=== PATIENT | female | born 1940 | race Caucasian/White ===

== ENCOUNTER → 2019-08-06 08:33 | Outpatient (BNVA) | payer MEDICARE, OTHER, SELFPAY | PROVIDERS: Family Provider Nurse Practitioner Family; PCP Nurse Practitioner Family; Visit Provider Family Medicine | DX: N39.0 Urinary tract infection, site not specified (principal) | CPT/HCPCS: 81003 ==

== ENCOUNTER 2019-08-07 17:17 | Emergency (ER) | payer MEDICARE, OTHER, SELFPAY ==
[2019-08-07 17:37] VITALS: BP 175/106; PULSE 96; RESP 16; TEMP 36.7; O2SAT 98; BMI 25.3
[2019-08-07 18:09] LABS: Basophils % 0.6 %; Eosinophils # 0.1 10^3/uL (0.0-0.8); Hematocrit 37.5 % (37.0-47.0); Hemoglobin 11.9 g/dL (11.5-15.3); Lymphocytes # 2.5 10^3/uL (0.8-4.8); Lymphocytes % 35.3 %; Mean Corpuscular HGB Conc 31.7 g/dL (30.0-36.0); Mean Corpuscular Hemoglobin 29.5 pg (28.0-34.0); Mean Corpuscular Volume 92.8 fL (81-99); Mean Platelet Volume 9.5 fL (7.4-10.4); Monocytes # 0.7 10^3/uL (0.2-0.9); Monocytes % 9.5 %; Neutrophils # 3.7 10^3/uL (1.8-7.7); Neutrophils % 52.5 %; Nucleated Red Blood Cells % 0 %; Platelet Count 374 10^3/cmm (130-400); Red Blood Count 4.04 10^6/uL (4.1-5.3); Red Cell Distribution Width 13.1 % (12.1-15.1)
[2019-08-07 18:28] LABS: Anion Gap 18.2 (5-19); Blood Urea Nitrogen 13 mg/dL (8-23); Carbon Dioxide 22 mmol/L (22-29); Chloride 97 mmol/L (98-107); Potassium 4.2 mmol/L (3.5-5.1); Sodium 133 mmol/L (136-145)
[2019-08-07 18:29] LABS: Alanine Aminotransferase 11 U/L (0-33); Albumin Level 4.8 g/dL (3.5-5.2); Alkaline Phosphatase 79 IU/L (35-105); Aspartate Amino Transferase 19 U/L (0-32); Calcium 10.3 mg/Dl (8.8-10.2); Globulin 3.1 g/dL (1.3-4.6); Glucose 115 mg/dL (74-106); Total Bilirubin 0.2 mg/dL (0.15-1.2); Total Protein 7.9 g/dL (6.6-8.7)
--- NOTE | 2019-08-07 20:47 | ED_ITS ---
Entered by Loren Wilson, acting as scribe for Tamir Jones MD, [facility] Aug 07, 2019 17:17 HPI - Abdominal Pain General: Chief Complaint: Abdominal Pain Stated Complaint: adb pains, can't sleep Time Seen by Provider: 08/07/19 20:47 Source: patient Mode of arrival: ambulatory Limitations: no limitations History of Present Illness: HPI narrative: 78 yo Female presents to ED with complaint of abdominal pain. Pt states she feels like she is bloated and swollen. Pt's family states that the patient has been here 3-4 times recently for similar symptoms. Pt's family states that the patient had a hysterectomy, mesh, and a sling and has had multiple infections since the surgery. Pt's family states that the patient had high blood pressure the last time she was here and her blood pressure was high again today. MD elicited complaint: abdominal pain Onset (ago): day(s) Pain Consistency: intermittent Location: RLQ Pain scale (0-10): 8 Quality: sharp and other (bloating) Exacerbating factors: nothing Relieving factors: nothing Context: recent surgery/procedure Associated Symptoms: Reports bloating; Denies chills, diarrhea, fever(s), nausea and vomiting Review of Systems General: Reports: 10 or more systems reviewed and unremarkable except in HPI and below Const: Denies: fever or chills GI: Reports: abdominal pain and bloating; Denies: nausea, vomiting or diarrhea PFSH ED PFSH: Statuses (acute, chronic, etc) shown below reflect problem list status as previously entered and may not be historically accurate Medical History (Updated 08/07/19 @ 23:31 by Tamir Jones MD, [facility]) Atrophy, vulva (Acute) Bladder disease (Acute) CKD (chronic kidney disease) (Acute) DDD (degenerative disc disease), lumbar (Acute) Diabetes mellitus with stage 3 chronic kidney disease (Acute) Diverticula of intestine (Acute) Hyperkalemia (Acute) Hyperlipidemia (Acute) Malignant neoplasm of posterior wall of bladder (Acute) Microscopic hematuria (Acute) Numbness and tingling of both lower extremities (Acute) Osteoarthritis of left knee (Acute) Osteoarthritis of lumbar spine with myelopathy (Acute) Pain in both lower extremities (Acute) Pelvic organ prolapse quantification stage 3 cystocele (Acute) Thyroid nodule (Acute) Urinary hesitancy (Acute) UTI (urinary tract infection) (Acute) Vitamin D deficiency (Acute) Surgical History (Updated 08/07/19 @ 21:30 by Loren Wilson) History of hysterectomy (Acute) Family History (Updated 08/06/19 @ 09:50 by Palak Hernandez LPN) Mother Cancer MOTHER OF CERVICAL CANCER Father Aspiration pneumonia Social History (Updated 08/06/19 @ 09:50 by Palak Hernandez LPN) Smoking and tobacco status: former smoker Quit status (tobacco): has quit using tobacco Alcohol intake: never Marital status: Physical Exam Const: COMMON NORMALS: no apparent distress, average body habitus, oriented x3, no limitations, healthy appearing, alert and well nourished HENMT: COMMON NORMALS: normocephalic, head/scalp atraumatic, hearing grossly normal bilaterally, external ears normal, EAC's normal, TM's normal bilaterally, external nose normal, nasal mucous membranes and turbinates normal, moist oral mucous membranes, oropharynx normal, dentition normal and gingiva normal HEAD & SCALP: normocephalic and atraumatic NOSE: external nose normal and nasal mucous membranes and turbinates normal EXTERNAL EAR: Yes external ears normal EXTERNAL AUDITORY CANAL: EAC's normal TYMPANIC MEMBRANE: TM's normal bilaterally Eye: COMMON NORMALS: PERRL, EOMs intact bilaterally, conjunctivae normal, no scleral icterus, no papilledema, normal visual heaton by confrontation and fundi normal bilaterally CONJUNCTIVA: Yes conjunctivae normal PUPIL: Yes PERRL DIRECT OPHTHALMOSCOPY: Yes no papilledema and Yes fundi normal bilaterally Neck/C-Spine: COMMON NORMALS: full ROM, supple, no meningeal signs, no JVD and no carotid bruits Chest: COMMONS NORMALS: inspection of chest normal and palpation of chest normal Resp: COMMON NORMALS: normal respiratory effort, no retractions, no use of accessory muscles, clear to auscultation bilaterally and percussion normal AUSCULTATION: clear to auscultation bilaterally PERCUSSION: percussion normal Cardio: COMMON NORMALS: no JVD, regular rate, regular rhythm, S1 normal heart sound, S2 normal heart sound, no gallops, no clicks, no murmurs, no rub and peripheral pulses 2+ throughout RATE: regular rate RHYTHM: regular rhythm HEART SOUNDS: S1 normal and S2 normal PERIPHERAL PULSES: pulses 2+ throughout GI: COMMON NORMALS: normal to inspection, nondistended, normoactive bowel sounds, soft to palpation, non-tender, no hepatosplenomegaly, no masses and no bruits PALPATION: Yes soft and Yes no hepatosplenomegaly : COMMON NORMALS: Yes no CVA tenderness BLADDER/KIDNEY EXAM: Yes no CVA tenderness Back/Pelvis: COMMON NORMALS: no CVA tenderness Extremity: COMMON NORMALS: normal to inspection, full ROM, normal capillary refill, no joint enlargement, no clubbing, cyanosis or edema, no calf tenderness and no pedal edema Neuro: COMMON NORMALS: oriented x3 SENSORIUM/ORIENTATION: Yes alert MENINGEAL SIGNS: Yes no meningeal signs Skin: COMMON NORMALS: no rashes or lesions noted, no wounds, skin turgor normal, no jaundice, no petechiae and no mottling GENERAL SKIN EXAM: no rashes or lesions noted and turgor normal Course Reevaluation(s): Reevaluation #1: Discussed her lab and imaging findings with her. Labs consistent with a UTI. CT of her abdomen and pelvis unremarkable. We will discharge her home on antibiotics. I advised that since she has had several episodes of UTIs she will need to see a urologist and the patient informed me that she has an appointment with the urologist in about 2 weeks. She is advised to keep the appointment and complete antibiotic and I am sending her home with today. She voiced understanding and is in agreement with the plan. Time: 23:29 Vital Signs: Vital signs: Vital Signs Temperature 98.0 F 08/07/19 17:37 Pulse Rate 96 08/07/19 17:37 Respiratory Rate 16 08/07/19 17:37 Blood Pressure 175/106 08/07/19 17:37 Pulse Oximetry 98 08/07/19 17:37 MDM - Abdominal Pain MDM Narrative: Medical decision making narrative: Patient with recurrent UTIs. She is given a prescription for Augmentin. She already has an appointment with the urologist for evaluation of her recurrent UTIs. Other labs and imaging unremarkable. Lab Data: Labs: Lab Results 08/07/19 08/07/19 08/07/19 Range/Units 17:59 18:00 18:00 WBC 7.0 (4.0-10.0) 10^3/ uL RBC 4.04 L (4.1-5.3) 10^6/u L Hgb 11.9 (11.5-15.3) g/dL Hct 37.5 (37.0-47.0) % MCV 92.8 (81-99) fL MCH 29.5 (28.0-34.0) pg MCHC 31.7 (30.0-36.0) g/dL RDW 13.1 (12.1-15.1) % Plt Count 374 (130-400) 10^3/c mm MPV 9.5 (7.4-10.4) fL Neut % (Auto) 52.5 % Lymph % (Auto) 35.3 % Evans % (Auto) 9.5 % Eos % (Auto) 2.0 % Baso % (Auto) 0.6 % Neut # (Auto) 3.7 (1.8-7.7) 10^3/u L Lymph # (Auto) 2.5 (0.8-4.8) 10^3/u L Evans # (Auto) 0.7 (0.2-0.9) 10^3/u L Eos # (Auto) 0.1 (0.0-0.8) 10^3/u L Baso # (Auto) 0.0 (0.0-0.1) 10^3/u L Nucleated RBC % (a uto) 0 % Nucleated RBCs # 0.0 /100WBC Sodium 133 L (136-145) mmol/L Potassium 4.2 (3.5-5.1) mmol/L Chloride 97 L (98-107) mmol/L Carbon Dioxide 22 (22-29) mmol/L Anion Gap 18.2 (5-19) BUN 13 (8-23) mg/dL Creatinine 1.1 H (0.5-0.9) mg/dL Glucose 115 H (74-106) mg/dL Calcium 10.3 H (8.8-10.2) mg/Dl Total Bilirubin 0.2 (0.15-1.2) mg/dL AST 19 (0-32) U/L ALT 11 (0-33) U/L Alkaline Phosphata se 79 (35-105) IU/L C-Reactive Protein (0.0-4.9) mg/L Total Protein 7.9 (6.6-8.7) g/dL Albumin 4.8 (3.5-5.2) g/dL Globulin 3.1 (1.3-4.6) g/dL Lipase (13-60) U/L Urine Color Yellow (Yellow) Urine Appearance Clear (CLEAR) Urine pH 5 (5-7) Ur Specific Gravit y 1.015 (1.005-1.030) Urine Protein Neg (Negative) Urine Glucose (UA) Norm (Normal) Urine Ketones Negative (Negative) Urine Occult Blood Neg (Negative) Urine Nitrate Negative (Negative) Urine Bilirubin Neg (NEGATIVE) Urine Urobilinogen Norm (Negative) mg/dL Ur Leukocyte Esme ase 1+ H (Negative) Urine RBC None (0-2) /hpf Urine WBC 15-25 H (0-5) /hpf Ur Squamous Epith Cells 0-4 H (0-5) Urine Bacteria Trace (NONE) 08/07/19 Range/Units 18:00 WBC (4.0-10.0) 10^3/ uL RBC (4.1-5.3) 10^6/u L Hgb (11.5-15.3) g/dL Hct (37.0-47.0) % MCV (81-99) fL MCH (28.0-34.0) pg MCHC (30.0-36.0) g/dL RDW (12.1-15.1) % Plt Count (130-400) 10^3/c mm MPV (7.4-10.4) fL Neut % (Auto) % Lymph % (Auto) % Evans % (Auto) % Eos % (Auto) % Baso % (Auto) % Neut # (Auto) (1.8-7.7) 10^3/u L Lymph # (Auto) (0.8-4.8) 10^3/u L Evans # (Auto) (0.2-0.9) 10^3/u L Eos # (Auto) (0.0-0.8) 10^3/u L Baso # (Auto) (0.0-0.1) 10^3/u L Nucleated RBC % (a uto) % Nucleated RBCs # /100WBC Sodium (136-145) mmol/L Potassium (3.5-5.1) mmol/L Chloride (98-107) mmol/L Carbon Dioxide (22-29) mmol/L Anion Gap (5-19) BUN (8-23) mg/dL Creatinine (0.5-0.9) mg/dL Glucose (74-106) mg/dL Calcium (8.8-10.2) mg/Dl Total Bilirubin (0.15-1.2) mg/dL AST (0-32) U/L ALT (0-33) U/L Alkaline Phosphata se (35-105) IU/L C-Reactive Protein 0.7 (0.0-4.9) mg/L Total Protein (6.6-8.7) g/dL Albumin (3.5-5.2) g/dL Globulin (1.3-4.6) g/dL Lipase 81 H (13-60) U/L Urine Color (Yellow) Urine Appearance (CLEAR) Urine pH (5-7) Ur Specific Gravit y (1.005-1.030) Urine Protein (Negative) Urine Glucose (UA) (Normal) Urine Ketones (Negative) Urine Occult Blood (Negative) Urine Nitrate (Negative) Urine Bilirubin (NEGATIVE) Urine Urobilinogen (Negative) mg/dL Ur Leukocyte Esme ase (Negative) Urine RBC (0-2) /hpf Urine WBC (0-5) /hpf Ur Squamous Epith Cells (0-5) Urine Bacteria (NONE) Imaging Data ^: CT Abd/Pel: Radiologist's impression: [place] [address] CT Scan Report Signed Patient: Mckenna Alanis R#: [id number] : 2Acct:[id number] Age/Sex: 78 / FADM Date: 08/07/19 Loc: ER Attending Dr: Ordering Physician: Tamir Jones MD, [facility] Date of Service: 08/07/19 Procedure(s): CT kidney stone 49363 Accession Number(s): [id number] cc: Tamir Jones MD, [facility]~ PROCEDURE INFORMATION: Exam: CT Abdomen And Pelvis Without Contrast Exam date and time: 08/07/2019 9:10 PM Age: 78 years old Clinical indication: Abdominal pain; Flank; Right lower quadrant (rlq); Prior surgery; Surgery date: 1-6 months; Surgery type: Hysterectomy; Patient HX: HX bladder CA with ablation; Additional info: Rlq pain radiating to flank TECHNIQUE: Imaging protocol: Computed tomography of the abdomen and pelvis without contrast. Total DLP: 601.27 mGy-cm Radiation optimization: All CT scans at this facility use at least one of these dose optimization techniques: automated exposure control; mA and/or kV adjustment per patient size (includes targeted exams where dose is matched to clinical indication); or iterative reconstruction. COMPARISON: CT abdomen pelvis w con* [id number] 06/24/2019 11:59 AM FINDINGS: Lungs: There is some bronchiectasis. Atelectasis versus scarring is noted in the right middle lobe. Otherwise, the lung bases are clear. Liver: Unremarkable.No mass. Gallbladder and bile ducts: Normal. No calcified stones. No ductal dilation. Pancreas: Normal. No ductal dilation. Spleen: Normal. No splenomegaly. Adrenals: Normal. No mass. Kidneys and ureters: Normal. No hydronephrosis. No nephrolithiasis. No obstructing calculi. Stomach and bowel: Mild diverticulosis is present in the distal colon. There is abundant colonic stool. No ileus or obstruction and no bowel thickening or inflammatory changes. Appendix: A normal appendix is identified. Intraperitoneal space: Unremarkable. No free air. No significant fluid collection. Vasculature: The aorta demonstrates moderate atherosclerotic calcification. Lymph nodes: Unremarkable.No enlarged lymph nodes. Bladder: There is nonspecific bladder wall thickening. This may be related to incomplete distention. Reproductive: Unremarkable as visualized. Bones/joints: Severe degenerative changes are noted in the hip joints. Moderate degenerative changes in the spine. Multiple vacuum discs are noted throughout the visualized spine. Soft tissues: There is a fat-containing umbilical hernia. CT/CT kidney stone 66607 IMPRESSION: No acute abnormality or inflammatory changes. No obstructing calculi. Unremarkable appendix. Radiation Dose CTDIVOL = (mGy): DLP = 601.27 (mGy-cm) Dictated By: Hazel Prado 08/07/192158 Signed By: Hazel Prado 08/07/192199 Discharge Plan Discharge Patient Disposition: Home, Self-Care Clinical Impression: Acute UTI Condition: Stable Prescriptions: New amoxicillin-pot clavulanate 875-125 mg tablet 1 tab PO BID Qty: 14 RF: 0 Continued atorvastatin [Lipitor] 10 mg tablet 10 mg PO DAILY RF: 0 Janumet XR 50-1,000 mg tablet, ER multiphase 24 hr 2 tab PO DAILY RF: 0 ibuprofen 800 mg tablet 800 mg PO Q8H PRNRF: 0 hydrocodone-acetaminophen 5-325 mg tablet See Rx Instructions PO Q6H PRNRF: 0 prenat.vits,haroldo,xsf-btvl-kzubs Tablet 1 tab PO DAILY RF: 0 Ultimate Radha Probiotic 30 billion cell capsule,delayed release(DR/EC) 1 cap PO DAILY RF: 0 Pending RF: 0 Discharge Orders: Discharge Order (Routine); Ordered 08/07/19 Ordered By: Tamir Jones Referrals: Jessika Rao APN [Primary Care Provider] - 4-7 days Discharge Diet: Usual diet Discharge Activity: Resume usual activity Activity Restrictions/Additional Instructions: Return for any new or worsening symptoms. Follow-up with Dr. Cardenas as scheduled. Take the medications as prescribed. Coding Level of Care Code ED Ribbon Winder for Chg Fwd Exam Problem Focused The documentation recorded by the Katie miles Carmen, accurately reflects the service I personally performed and the decisions made by Robert bobby Adegoke I, MD, [facility] Aug 07, 2019 17:17
--- NOTE | 2019-08-07 21:05 | CTR_ITS ---
PROCEDURE INFORMATION: Exam: CT Abdomen And Pelvis Without Contrast Exam date and time: 08/07/2019 9:10 PM Age: 78 years old Clinical indication: Abdominal pain; Flank; Right lower quadrant (rlq); Prior surgery; Surgery date: 1-6 months; Surgery type: Hysterectomy; Patient HX: HX bladder CA with ablation; Additional info: Rlq pain radiating to flank TECHNIQUE: Imaging protocol: Computed tomography of the abdomen and pelvis without contrast. Total DLP: 601.27 mGy-cm Radiation optimization: All CT scans at this facility use at least one of these dose optimization techniques: automated exposure control; mA and/or kV adjustment per patient size (includes targeted exams where dose is matched to clinical indication); or iterative reconstruction. COMPARISON: CT abdomen pelvis w con* [id number] 06/24/2019 11:59 AM FINDINGS: Lungs: There is some bronchiectasis. Atelectasis versus scarring is noted in the right middle lobe. Otherwise, the lung bases are clear. Liver: Unremarkable.No mass. Gallbladder and bile ducts: Normal. No calcified stones. No ductal dilation. Pancreas: Normal. No ductal dilation. Spleen: Normal. No splenomegaly. Adrenals: Normal. No mass. Kidneys and ureters: Normal. No hydronephrosis. No nephrolithiasis. No obstructing calculi. Stomach and bowel: Mild diverticulosis is present in the distal colon. There is abundant colonic stool. No ileus or obstruction and no bowel thickening or inflammatory changes. Appendix: A normal appendix is identified. Intraperitoneal space: Unremarkable. No free air. No significant fluid collection. Vasculature: The aorta demonstrates moderate atherosclerotic calcification. Lymph nodes: Unremarkable.No enlarged lymph nodes. Bladder: There is nonspecific bladder wall thickening. This may be related to incomplete distention. Reproductive: Unremarkable as visualized. Bones/joints: Severe degenerative changes are noted in the hip joints. Moderate degenerative changes in the spine. Multiple vacuum discs are noted throughout the visualized spine. Soft tissues: There is a fat-containing umbilical hernia. CT/CT kidney stone [id number] IMPRESSION: No acute abnormality or inflammatory changes. No obstructing calculi. Unremarkable appendix. Radiation Dose CTDIVOL = (mGy): DLP = 601.27 (mGy-cm)
[2019-08-07 21:24] LABS: C Reactive Protein 0.7 mg/L (0.0-4.9); Lipase 81 U/L (13-60)
[2019-08-07 22:59] LABS: Add Urine Microscopic? YES; Bilirubin Urine Neg (NEGATIVE); Blood Urine Neg (Negative); Glucose Urine UA Norm (Normal); Ketones Urine Negative (Negative); Leukocyte Esterase Urine 1+ (Negative); Nitrate Urine Negative (Negative); Protein Urine Neg (Negative); Specific Gravity, Urine 1.015 (1.005-1.030); Urine Appearance Clear (CLEAR); Urine Color Yellow (Yellow); Urobilinogen Urine Norm (Negative); pH Urine 5 (5-7)
[2019-08-07 23:00] LABS: Squamous Epithelial Cell Urine 0-4 (0-5); WBC Urine 15-25 /hpf (0-5)
[2019-08-07 23:01] LABS: Add Urine Culture? Yes; Bacteria Urine TRACE
[2019-08-08] MEDS: amoxicillin-clav 875-125 mg Tablet 1 TAB PO
[2019-08-08 00:35] VITALS: BP 169/81; PULSE 76; RESP 14; TEMP 36.3; O2SAT 96
--- NOTE | 2019-08-10 16:00 | DCPLANNER ---
dining room manager had message to schedule a follow up appointment for patient with Dr. Cardenas. dining room manager spoke with Teresa, gave clinic patients information. dining room manager was told that patients information would be printed and given to Chata for review. Clinic will call patient with appointment information, case consultant will call clinic for appointment information.
--- NOTE | 2019-08-11 13:40 | DCPLANNER ---
Patient has a follow up appointment scheduled for Saturday, August 17, 2019 at 1:[address] Cardenas. Patient is aware of appointment.
--- NOTE | 2019-08-26 15:26 | DCPLANNER ---
Appointment with Dr. Cardenas is scheduled for 09.08.19 at 2:45.
--- NOTE | 2019-09-25 15:27 | DCPLANNER ---
Patient did attend appointment scheduled for 09.08.[address] Cardenas.
== END 2019-08-08 00:05 | disposition home or self-care (01) ==
PROVIDERS: Emergency Provider Family Medicine; Family Provider Nurse Practitioner Family; PCP Nurse Practitioner Family
DX: N39.0 Urinary tract infection, site not specified (principal); E11.22 Type 2 diabetes mellitus with diabetic chronic kidney disease; N18.3 Chronic kidney disease, stage 3 (moderate); E78.5 Hyperlipidemia, unspecified; Z85.51 Personal history of malignant neoplasm of bladder; Z87.440 Personal history of urinary (tract) infections; Z87.891 Personal history of nicotine dependence
CPT/HCPCS: 74176; 80053; 81003; 83690; 85025; 86140; 87086; 99282

== ENCOUNTER 2019-08-12 12:00 | Emergency (ER) | payer MEDICARE, OTHER, SELFPAY ==
[2019-08-12 12:20] VITALS: BP 163/86; PULSE 90; RESP 16; TEMP 36.6; O2SAT 98; BMI 24.1
--- NOTE | 2019-08-12 12:34 | W.ED.FEMALGU ---
HPI - Female Genitourinary General: Chief complaint: Abdominal Pain Stated complaint: Not feeling good Time Seen by Provider: 08/12/19 12:33 Source: patient and family Mode of arrival: ambulatory Limitations: no limitations History of Present Illness: HPI Narrative: Patient is a 78-year-old female who presents to ED today along with family for complaints of lower abdominal pressure and urinary frequency; patient states she has been diagnosed with several UTIs following a hysterectomy/bladder mesh and sling by Dr. Isaac; patient was recently seen at our facility and placed on Augmentin for a probable UTI; she was referred to Dr. Cardenas for frequent UTI infections-she believes her appointment with him is next week MD elicited complaint: other (Urinary frequency, lower abdominal pressure) Quality of pain: other (Pressure) Consistency: intermittent Urinary symptoms: Frequency Exacerbating factors: none Relieving factors: none Associated symptoms: Reports abdominal pain; Deny syncope Sexual activity: No Patient : No Review of Systems Const: Denies: fever or chills Eyes: Denies: change in vision or blurry vision Card: Denies: chest pain, palpitations, irregular heart rhythm, lightheadedness, syncope or shortness of breath on exertion Resp: Denies: shortness of breath, productive cough or pain on inspiration GI: Reports: abdominal pain : Reports: urinary frequency and nighttime urination; Denies: flank pain, difficulty urinating, painful urination, urinary urgency, urinary hesitancy, decreased urine ouput, urinary incontinence or blood in urine Musc: Denies: neck pain, back pain or joint pain Skin/Breast: Denies: rash PFSH ED PFSH: Statuses (acute, chronic, etc) shown below reflect problem list status as previously entered and may not be historically accurate Medical History (Updated 08/12/19 @ 13:56 by LIZBETH Duncan) Atrophy, vulva (Acute) Bladder disease (Acute) CKD (chronic kidney disease) (Acute) DDD (degenerative disc disease), lumbar (Acute) Diabetes mellitus with stage 3 chronic kidney disease (Acute) Diverticula of intestine (Acute) Hyperkalemia (Acute) Hyperlipidemia (Acute) Malignant neoplasm of posterior wall of bladder (Acute) Microscopic hematuria (Acute) Numbness and tingling of both lower extremities (Acute) Osteoarthritis of left knee (Acute) Osteoarthritis of lumbar spine with myelopathy (Acute) Pain in both lower extremities (Acute) Pelvic organ prolapse quantification stage 3 cystocele (Acute) Thyroid nodule (Acute) Urinary hesitancy (Acute) UTI (urinary tract infection) (Acute) Vitamin D deficiency (Acute) Surgical History (Updated 08/07/19 @ 21:30 by Loren Wilson) History of hysterectomy (Acute) Family History (Updated 08/06/19 @ 09:50 by Palak Hernandez LPN) Mother Cancer MOTHER OF CERVICAL CANCER Father Aspiration pneumonia Social History (Updated 08/06/19 @ 09:50 by Palak Hernandez LPN) Smoking and tobacco status: never smoked Quit status (tobacco): has quit using tobacco Alcohol intake: never Marital status: Physical Exam Const: COMMON NORMALS: no apparent distress, oriented x3, alert and well nourished HENMT: COMMON NORMALS: normocephalic and head/scalp atraumatic HEAD & SCALP: normocephalic and atraumatic Neck/C-Spine: COMMON NORMALS: full ROM, no lymphadenopathy, supple and no meningeal signs Chest: COMMONS NORMALS: inspection of chest normal Resp: COMMON NORMALS: normal respiratory effort and clear to auscultation bilaterally AUSCULTATION: clear to auscultation bilaterally Cardio: COMMON NORMALS: regular rate and regular rhythm RATE: regular rate RHYTHM: regular rhythm GI: COMMON NORMALS: soft to palpation, no hepatosplenomegaly and no masses AUSCULTATION: Yes normoactive bowel sounds PALPATION: Yes soft, Yes tender (mild; across lower ) and Yes no hepatosplenomegaly : COMMON NORMALS: Yes no CVA tenderness BLADDER/KIDNEY EXAM: Yes no CVA tenderness Back/Pelvis: COMMON NORMALS: no CVA tenderness and thoracic and lumbar spine normal to inspection Extremity: COMMON NORMALS: normal to inspection Neuro: COMMON NORMALS: oriented x3 SENSORIUM/ORIENTATION: Yes alert MENINGEAL SIGNS: Yes no meningeal signs Skin: COMMON NORMALS: no rashes or lesions noted GENERAL SKIN EXAM: no rashes or lesions noted Course Vital Signs: Vital signs: Vital Signs Temperature 97.9 F 08/12/19 12:20 Pulse Rate 90 08/12/19 12:20 Respiratory Rate 16 08/12/19 12:20 Blood Pressure 163/86 08/12/19 12:20 Pulse Oximetry 98 08/12/19 12:20 MDM - Female MDM Narrative: Medical decision making narrative: Urine cultures from patient's 5 last urines from February to July all showing no growth or probable contaminants/mixed superficial janes; her urine today looks normal; I do not feel patient is experiencing recurrent UTIs and would discourage more antibiotics; intermittent lower abdominal pressure and urinary frequency may be related to her recent bladder mesh/sling; recommend she follow-up with Dr. Isaac for these symptoms Lab Data: Labs: Lab Results 08/12/19 08/12/19 08/12/19 Range/Units 12:43 12:43 13:00 WBC 9.7 (4.0-10.0) 10^3/ uL RBC 4.13 (4.1-5.3) 10^6/u L Hgb 12.5 (11.5-15.3) g/dL Hct 38.1 (37.0-47.0) % MCV 92.3 (81-99) fL MCH 30.3 (28.0-34.0) pg MCHC 32.8 (30.0-36.0) g/dL RDW 13.2 (12.1-15.1) % Plt Count 432 H (130-400) 10^3/c mm MPV 9.6 (7.4-10.4) fL Neut % (Auto) 73.4 % Lymph % (Auto) 18.6 % [place] % (Auto) 6.4 % Eos % (Auto) 0.6 % Baso % (Auto) 0.5 % Neut # (Auto) 7.1 (1.8-7.7) 10^3/u L Lymph # (Auto) 1.8 (0.8-4.8) 10^3/u L [place] # (Auto) 0.6 (0.2-0.9) 10^3/u L Eos # (Auto) 0.1 (0.0-0.8) 10^3/u L Baso # (Auto) 0.1 (0.0-0.1) 10^3/u L Nucleated RBC % (a uto) 0 % Nucleated RBCs # 0.0 /100WBC Sodium 134 L (136-145) mmol/L Potassium 4.2 (3.5-5.1) mmol/L Chloride 95 L (98-107) mmol/L Carbon Dioxide 23 (22-29) mmol/L Anion Gap 20.2 H (5-19) BUN 8 (8-23) mg/dL Creatinine 1.0 H (0.5-0.9) mg/dL Glucose 126 H (74-106) mg/dL Calcium 10.7 H (8.8-10.2) mg/Dl Total Bilirubin 0.2 (0.15-1.2) mg/dL AST 16 (0-32) U/L ALT 13 (0-33) U/L Alkaline Phosphata se 94 (35-105) IU/L Total Protein 8.5 (6.6-8.7) g/dL Albumin 5.0 (3.5-5.2) g/dL Globulin 3.5 (1.3-4.6) g/dL Lipase 130 H (13-60) U/L Urine Color Yellow (Yellow) Urine Appearance Clear (CLEAR) Urine pH 5.0 (5-7) Ur Specific Gravit y 1.010 (1.005-1.030) Urine Protein Neg (Negative) Urine Glucose (UA) Norm (Normal) Urine Ketones Negative (Negative) Urine Occult Blood Neg (Negative) Urine Nitrate Negative (Negative) Urine Bilirubin Neg (NEGATIVE) Urine Urobilinogen Norm (Negative) mg/dL Ur Leukocyte Esme ase Negative (Negative) Discharge Plan Discharge Patient Disposition: Home, Self-Care Clinical Impression: Urinary frequency Condition: Stable Prescriptions: No Action atorvastatin [Lipitor] 10 mg tablet 10 mg PO DAILY RF: 0 Janumet XR 50-1,000 mg tablet, ER multiphase 24 hr 2 tab PO DAILY RF: 0 ibuprofen 800 mg tablet 800 mg PO Q8H PRN (Reason: Pain) RF: 0 hydrocodone-acetaminophen 5-325 mg tablet See Rx Instructions PO Q6H PRN (Reason: Pain, Severe) RF: 0 prenat.vits,haroldo,lpq-gudr-rbvhc Tablet 1 tab PO DAILY RF: 0 Ultimate Janes Probiotic 30 billion cell capsule,delayed release(DR/EC) 1 cap PO DAILY RF: 0 Pending RF: 0 amoxicillin-pot clavulanate 875-125 mg tablet 1 tab PO BID Qty: 14 RF: 0 Discharge Orders: Discharge Order (Routine); Ordered 08/12/19 Ordered By: Blessing Solomon Referrals: Redd Isaac MD [Physician] - Jessika Rao APN [Primary Care Provider] - Discharge Diet: Usual diet Discharge Activity: Increase activity as tolerated Activity Restrictions/Additional Instructions: As discussed please follow-up with Dr. Isaac for further management. Coding Level of Care Code ED Hospice Massage Therapist for Lou Sánchez
[2019-08-12 12:49] LABS: Basophils # 0.1 10^3/uL (0.0-0.1); Basophils % 0.5 %; Eosinophils # 0.1 10^3/uL (0.0-0.8); Eosinophils % 0.6 %; Hematocrit 38.1 % (37.0-47.0); Hemoglobin 12.5 g/dL (11.5-15.3); Lymphocytes # 1.8 10^3/uL (0.8-4.8); Lymphocytes % 18.6 %; Mean Corpuscular HGB Conc 32.8 g/dL (30.0-36.0); Mean Corpuscular Hemoglobin 30.3 pg (28.0-34.0); Mean Corpuscular Volume 92.3 fL (81-99); Mean Platelet Volume 9.6 fL (7.4-10.4); Monocytes # 0.6 10^3/uL (0.2-0.9); Monocytes % 6.4 %; Neutrophils # 7.1 10^3/uL (1.8-7.7); Neutrophils % 73.4 %; Nucleated Red Blood Cells % 0 %; Platelet Count 432 10^3/cmm (130-400); Red Blood Count 4.13 10^6/uL (4.1-5.3); Red Cell Distribution Width 13.2 % (12.1-15.1); White Blood Count 9.7 10^3/uL (4.0-10.0)
[2019-08-12 13:11] LABS: Alanine Aminotransferase 13 U/L (0-33); Alkaline Phosphatase 94 IU/L (35-105); Anion Gap 20.2 (5-19); Aspartate Amino Transferase 16 U/L (0-32); Blood Urea Nitrogen 8 mg/dL (8-23); Calcium 10.7 mg/Dl (8.8-10.2); Carbon Dioxide 23 mmol/L (22-29); Chloride 95 mmol/L (98-107); Globulin 3.5 g/dL (1.3-4.6); Glucose 126 mg/dL (74-106); Lipase 130 U/L (13-60); Potassium 4.2 mmol/L (3.5-5.1); Sodium 134 mmol/L (136-145); Total Bilirubin 0.2 mg/dL (0.15-1.2); Total Protein 8.5 g/dL (6.6-8.7)
[2019-08-12 13:20] LABS: Add Urine Microscopic? NO
[2019-08-12 13:34] LABS: Bilirubin Urine Neg (NEGATIVE); Blood Urine Neg (Negative); Glucose Urine UA Norm (Normal); Ketones Urine Negative (Negative); Leukocyte Esterase Urine Negative (Negative); Nitrate Urine Negative (Negative); Protein Urine Neg (Negative); Urine Appearance Clear (CLEAR); Urine Color Yellow (Yellow); Urobilinogen Urine Norm (Negative)
[2019-08-12 14:04] VITALS: BP 133/89; PULSE 95; RESP 17; O2SAT 96
== END 2019-08-12 14:03 | disposition home or self-care (01) ==
LOC: ER 09-03 11:06
PROVIDERS: Physician Assistant; Emergency Provider Family Medicine; Family Provider Nurse Practitioner Family; PCP Nurse Practitioner Family
DX: R35.0 Frequency of micturition (principal); E11.22 Type 2 diabetes mellitus with diabetic chronic kidney disease; N18.3 Chronic kidney disease, stage 3 (moderate); E78.5 Hyperlipidemia, unspecified; Z85.51 Personal history of malignant neoplasm of bladder
CPT/HCPCS: 36415; 80053; 81003; 83690; 85025; 99282; A9270

== ENCOUNTER → 2019-08-17 14:33 | Outpatient (BNVA) | payer MEDICARE, OTHER, SELFPAY | PROVIDERS: Family Provider Nurse Practitioner Family; PCP Nurse Practitioner Family; Visit Provider Obstetrics & Gynecology | DX: R10.2 Pelvic and perineal pain (principal); N32.81 Overactive bladder | CPT/HCPCS: 81003 ==

== ENCOUNTER → 2019-08-18 09:42 | Outpatient (BNVA) | payer MEDICARE, OTHER, SELFPAY | PROVIDERS: Family Provider Nurse Practitioner Family; PCP Nurse Practitioner Family; Visit Provider Nurse Practitioner Family | DX: E11.9 Type 2 diabetes mellitus without complications (principal) | CPT/HCPCS: 80053; 80061; 83036; 85025 ==

== ENCOUNTER → 2019-09-08 14:41 | Outpatient (BNVA) | payer MEDICARE, OTHER, SELFPAY | PROVIDERS: PCP Urology; Visit Provider Urology | DX: C67.9 Malignant neoplasm of bladder, unspecified (principal); C67.4 Malignant neoplasm of posterior wall of bladder; N32.81 Overactive bladder; E78.5 Hyperlipidemia, unspecified | CPT/HCPCS: 81001 ==

== ENCOUNTER → 2019-09-14 13:42 | Outpatient (BNVA) | payer MEDICARE, OTHER, SELFPAY | PROVIDERS: PCP Urology; Visit Provider Nurse Practitioner Family | DX: C67.4 Malignant neoplasm of posterior wall of bladder (principal); N32.81 Overactive bladder | CPT/HCPCS: 81001 ==

== ENCOUNTER → 2019-10-16 16:14 | Outpatient (BNVA) | payer MEDICARE, OTHER, SELFPAY | PROVIDERS: PCP Urology; Visit Provider Nurse Practitioner Family | DX: N32.81 Overactive bladder (principal) | CPT/HCPCS: 81000 ==

== ENCOUNTER → 2019-11-09 10:16 | Outpatient (BNVA) | payer MEDICARE, OTHER, SELFPAY | PROVIDERS: PCP Urology; Visit Provider Obstetrics & Gynecology | DX: R10.31 Right lower quadrant pain (principal) | CPT/HCPCS: 76830 ==

== ENCOUNTER → 2019-11-20 15:42 | Outpatient (BNVA) | payer MEDICARE, OTHER, SELFPAY | PROVIDERS: PCP Urology; Visit Provider Nurse Practitioner Family | DX: R53.83 Other fatigue (principal); I10 Essential (primary) hypertension | CPT/HCPCS: 80053; 81000; 82306; 82607; 84443; 85025; 86308 ==

== ENCOUNTER 2019-11-28 19:47 | Inpatient (IN) | payer MEDICARE, OTHER, SELFPAY ==
[2019-11-28 19:52] VITALS: BP 198/110; PULSE 99; RESP 16; TEMP 36.4; O2SAT 98; BMI 23.8
--- NOTE | 2019-11-28 19:58 | ECG_ITS ---
Measurements Intervals [place] Rate: 71 P: 39 [place]: 179 QRS: -3 QRSD: 95 T: 38 QT: 352 QTc: 382 SINUS RHYTHM WITH SINUS ARRHYTHMIA INCOMPLETE RIGHT BUNDLE BRANCH BLOCK [90+ ms QRS DURATION, TERMINAL R IN V1/V2, 40+ ms S IN I/aVL/V4/V5/V6] Compared to ECG 05/18/2019 10:11:56 No significant changes Electronically Signed On 11-29-2019 20:21:31 CDT by Pineda Prather M.D. [id number]
--- NOTE | 2019-11-28 20:08 | ED_ITS ---
Documented by User: CARMEN Resendiz 11/28/19 23:07 HPI - Nausea/Vomiting/Diarrhea General: Chief complaint: Nausea/Vomiting/Diarrhea Stated complaint: N/V Time Seen by Provider: 11/28/19 19:58 Source: patient Mode of arrival: ambulatory Limitations: no limitations History of Present Illness: HPI Narrative: Patient comes in today with episodes of nausea vomiting, 5 episodes of emesis today. Patient was started on hydrochlorothiazide yesterday and has only taken 2 doses but since starting the medication patient started having some nausea. Patient did report one episode of diarrhea just before coming to the emergency room. Patient appears mildly unwell. Patient appears in no pain. Patient states that she has no chest pain or shortness of breath. Patient does have a history of hypertension, bladder neoplasm, overactive bladder, and hyperlipidemia. Patient routinely takes lisinopril, atorvastatin, oxybutynin, and Janumet. Patient was started on hydrochlorothiazide for her blood pressure control. Associated nausea: Yes Associated symtoms: Reports nausea Review of Systems General: Reports: 10 or more systems reviewed and unremarkable except in HPI and below GI: Reports: nausea and vomiting PFS ED PFSH: Social History Smoking and tobacco status: former smoker Quit status (tobacco): has quit using tobacco Year quit tobacco: 1997, smoked 1 PPD Alcohol intake: never Adopted: No Caregiver/support person: No Lives independently: No Household members: spouse Marital status: Current occupational status: retired History of recent travel: No Additional social history: Physical Exam Const: COMMON NORMALS: no apparent distress and oriented x3 GENERAL APPEARANCE: cooperative HENMT: COMMON NORMALS: normocephalic, TM's normal bilaterally and external nose normal HEAD & SCALP: normal to inspection and normocephalic NOSE: external nose normal TYMPANIC MEMBRANE: TM's normal bilaterally MOUTH: oral and palatal mucosa normal THROAT: posterior oropharynx normal Eye: GENERAL EYE: normal appearance of both eyes Neck/C-Spine: COMMON NORMALS: full ROM Lymph: LYMPHATIC: no lymphadenopathy noted Chest: COMMONS NORMALS: inspection of chest normal Resp: COMMON NORMALS: normal respiratory effort EFFORT & INSPECTION: Yes able to speak in complete sentences Cardio: COMMON NORMALS: regular rate and regular rhythm RATE: regular rate RHYTHM: regular rhythm GI: PALPATION: Yes tender (Mild epigastric) : COMMON NORMALS: Yes no CVA tenderness BLADDER/KIDNEY EXAM: Yes no CVA tenderness Back/Pelvis: COMMON NORMALS: no CVA tenderness and thoracic and lumbar spine normal to inspection Extremity: COMMON NORMALS: normal to inspection Neuro: COMMON NORMALS: oriented x3 and moves all extremities Psych: COMMON NORMALS: mental status grossly normal and cooperative Skin: COMMON NORMALS: no rashes or lesions noted GENERAL SKIN EXAM: no rashes or lesions noted Course ED course: 2049, reviewed with Dr. Little, patient's sodium was 120. Discussed the need for probable observation admission to monitor sodium and fluid replacement with holding of hydrochlorothiazide, and possible sodium replacement. He agreed with plan and agreed to accept patient for further treatment and evaluation. Vital Signs: Vital signs: Vital Signs Temperature 98.0 F 11/29/19 01:41 Pulse Rate 79 11/29/19 01:41 Respiratory Rate 18 11/29/19 01:41 Blood Pressure 174/98 11/29/19 01:41 Pulse Oximetry 95 11/29/19 01:41 MDM - Nausea/Vomiting/Diarrhea Lab Data: Labs: Lab Results 11/28/19 11/28/19 11/28/19 Range/Units 20:22 20:22 20:22 WBC 8.8 (4.0-10.0) 10^3/ uL RBC 4.16 (4.1-5.3) 10^6/u L Hgb 12.8 (11.5-15.3) g/dL Hct 37.9 (37.0-47.0) % MCV 91.1 (81-99) fL MCH 30.8 (28.0-34.0) pg MCHC 33.8 (30.0-36.0) g/dL RDW 13.2 (12.1-15.1) % Plt Count 407 H (130-400) 10^3/c mm MPV 9.2 (7.4-10.4) fL Neut % (Auto) 71.7 % Lymph % (Auto) 20.9 % [place] % (Auto) 6.1 % Eos % (Auto) 0.3 % Baso % (Auto) 0.2 % Neut # (Auto) 6.3 (1.8-7.7) 10^3/u L Lymph # (Auto) 1.8 (0.8-4.8) 10^3/u L [place] # (Auto) 0.5 (0.2-0.9) 10^3/u L Eos # (Auto) 0.0 (0.0-0.8) 10^3/u L Baso # (Auto) 0.0 (0.0-0.1) 10^3/u L Nucleated RBC % (a uto) 0 % Nucleated RBCs # 0.0 /100WBC Sodium 120 L (136-145) mmol/L Potassium 4.3 (3.5-5.1) mmol/L Chloride 79 L (98-107) mmol/L Carbon Dioxide 22 (22-29) mmol/L Anion Gap 23.3 H (5-19) BUN 12 (8-23) mg/dL Creatinine 0.9 (0.5-0.9) mg/dL Glucose 212 H (65-115) mg/dL Calculated Osmolal ity 252 L (285-295) mOsm/k g Calcium 10.0 (8.5-10.5) mg/dL Total Bilirubin 0.4 (0.15-1.2) mg/dL AST 20 (0-32) U/L ALT 14 (0-33) U/L Alkaline Phosphata se 97 (35-105) IU/L Troponin T Baselin e 15 H (0-10) ng/mL Troponin T 120 Min [place] (0-10) ng/mL Delta Troponin T (0-10) ABS# Total Protein 8.1 (6.6-8.7) g/dL Albumin 4.7 (3.5-5.2) g/dL Globulin 3.4 (1.3-4.6) g/dL Lipase 24 (13-60) U/L Urine Color (Yellow) Urine Appearance (CLEAR) Urine pH (5-7) Ur Specific Gravit y (1.005-1.030) Urine Protein (Negative) Urine Glucose (UA) (Normal) Urine Ketones (Negative) Urine Blood (Negative) Urine Nitrate (Negative) Urine Bilirubin (NEGATIVE) Urine Urobilinogen (Negative) mg/dL Ur Leukocyte Esme ase (Negative) Urine RBC (0-2) /hpf Urine WBC (0-5) /hpf Ur Squamous Epith Cells (0-5) Ur Transition Epit h Cell /hpf Urine Bacteria (NONE) Hyaline Casts Urine Mucus 11/28/19 11/28/19 Range/Units 20:52 22:27 WBC (4.0-10.0) 10^3/ uL RBC (4.1-5.3) 10^6/u L Hgb (11.5-15.3) g/dL Hct (37.0-47.0) % MCV (81-99) fL MCH (28.0-34.0) pg MCHC (30.0-36.0) g/dL RDW (12.1-15.1) % Plt Count (130-400) 10^3/c mm MPV (7.4-10.4) fL Neut % (Auto) % Lymph % (Auto) % [place] % (Auto) % Eos % (Auto) % Baso % (Auto) % Neut # (Auto) (1.8-7.7) 10^3/u L Lymph # (Auto) (0.8-4.8) 10^3/u L [place] # (Auto) (0.2-0.9) 10^3/u L Eos # (Auto) (0.0-0.8) 10^3/u L Baso # (Auto) (0.0-0.1) 10^3/u L Nucleated RBC % (a uto) % Nucleated RBCs # /100WBC Sodium (136-145) mmol/L Potassium (3.5-5.1) mmol/L Chloride (98-107) mmol/L Carbon Dioxide (22-29) mmol/L Anion Gap (5-19) BUN (8-23) mg/dL Creatinine (0.5-0.9) mg/dL Glucose (65-115) mg/dL Calculated Osmolal ity (285-295) mOsm/k g Calcium (8.5-10.5) mg/dL Total Bilirubin (0.15-1.2) mg/dL AST (0-32) U/L ALT (0-33) U/L Alkaline Phosphata se (35-105) IU/L Troponin T Baselin e (0-10) ng/mL Troponin T 120 Min [place] 43.13 H (0-10) ng/mL Delta Troponin T 28.13 H* (0-10) ABS# Total Protein (6.6-8.7) g/dL Albumin (3.5-5.2) g/dL Globulin (1.3-4.6) g/dL Lipase (13-60) U/L Urine Color Yellow (Yellow) Urine Appearance Clear (CLEAR) Urine pH 6 (5-7) Ur Specific Gravit y 1.010 (1.005-1.030) Urine Protein 1+ H (Negative) Urine Glucose (UA) 2+ (Normal) Urine Ketones 2+ H (Negative) Urine Blood Trace H (Negative) Urine Nitrate Negative (Negative) Urine Bilirubin Neg (NEGATIVE) Urine Urobilinogen Norm (Negative) mg/dL Ur Leukocyte Esme ase Trace H (Negative) Urine RBC 0-4 H (0-2) /hpf Urine WBC 5-10 H (0-5) /hpf Ur Squamous Epith Cells 0-4 H (0-5) Ur Transition Epit h Cell 0-4 /hpf Urine Bacteria Trace (NONE) Hyaline Casts 0-4 H Urine Mucus Trace Discharge Plan Discharge Patient Disposition: Placed in Observation Admit Provider: Melissa Raphael Clinical Impression: Acute hyponatremia Intractable vomiting Qualifiers: Vomiting type: unspecified Nausea presence: with nausea Qualified Code(s): R11.2 - Nausea with vomiting, unspecified Condition: Stable Discharge Date/Time: 11/29/19 01:36 Coding Level of Care Code ED Senior Vice President for Chg Fwd Exam Comprehensive Documented by User: Danie Little DO 11/29/19 03:37 HPI - Nausea/Vomiting/Diarrhea General: Chief complaint: Nausea/Vomiting/Diarrhea Stated complaint: N/V Time Seen by Provider: 11/28/19 19:58 PFSH ED PFSH: Social History Smoking and tobacco status: former smoker Quit status (tobacco): has quit using tobacco Year quit tobacco: 1997, smoked 1 PPD Alcohol intake: never Adopted: No Caregiver/support person: No Lives independently: No Household members: spouse Marital status: Current occupational status: retired History of recent travel: No Additional social history: Course ED course: 79-year-old lady originally seen by CARMEN Hendrix. I agree with his history, assessment, and treatment. This lady has been vomiting, several times. She recently started hydrochlorothiazide. Her sodium level is 120. She is received a small IV bolus for dehydration. She is getting maintenance IV fluids now. Discussed with hospitalist. Agrees to take in observation for monitoring of sodium and control of nausea and vomiting. Vital Signs: Vital signs: Vital Signs Temperature 98.0 F 11/29/19 01:41 Pulse Rate 79 11/29/19 01:41 Respiratory Rate 18 11/29/19 01:41 Blood Pressure 174/98 11/29/19 01:41 Pulse Oximetry 95 11/29/19 01:41 MDM - Nausea/Vomiting/Diarrhea Lab Data: Labs: Lab Results 11/28/19 11/28/19 11/28/19 Range/Units 20:22 20:22 20:22 WBC 8.8 (4.0-10.0) 10^3/ uL RBC 4.16 (4.1-5.3) 10^6/u L Hgb 12.8 (11.5-15.3) g/dL Hct 37.9 (37.0-47.0) % MCV 91.1 (81-99) fL MCH 30.8 (28.0-34.0) pg MCHC 33.8 (30.0-36.0) g/dL RDW 13.2 (12.1-15.1) % Plt Count 407 H (130-400) 10^3/c mm MPV 9.2 (7.4-10.4) fL Neut % (Auto) 71.7 % Lymph % (Auto) 20.9 % [place] % (Auto) 6.1 % Eos % (Auto) 0.3 % Baso % (Auto) 0.2 % Neut # (Auto) 6.3 (1.8-7.7) 10^3/u L Lymph # (Auto) 1.8 (0.8-4.8) 10^3/u L [place] # (Auto) 0.5 (0.2-0.9) 10^3/u L Eos # (Auto) 0.0 (0.0-0.8) 10^3/u L Baso # (Auto) 0.0 (0.0-0.1) 10^3/u L Nucleated RBC % (a uto) 0 % Nucleated RBCs # 0.0 /100WBC Sodium 120 L (136-145) mmol/L Potassium 4.3 (3.5-5.1) mmol/L Chloride 79 L (98-107) mmol/L Carbon Dioxide 22 (22-29) mmol/L Anion Gap 23.3 H (5-19) BUN 12 (8-23) mg/dL Creatinine 0.9 (0.5-0.9) mg/dL Glucose 212 H (65-115) mg/dL Calculated Osmolal ity 252 L (285-295) mOsm/k g Calcium 10.0 (8.5-10.5) mg/dL Total Bilirubin 0.4 (0.15-1.2) mg/dL AST 20 (0-32) U/L ALT 14 (0-33) U/L Alkaline Phosphata se 97 (35-105) IU/L Troponin T Baselin e 15 H (0-10) ng/mL Troponin T 120 Min [place] (0-10) ng/mL Delta Troponin T (0-10) ABS# Total Protein 8.1 (6.6-8.7) g/dL Albumin 4.7 (3.5-5.2) g/dL Globulin 3.4 (1.3-4.6) g/dL Lipase 24 (13-60) U/L Urine Color (Yellow) Urine Appearance (CLEAR) Urine pH (5-7) Ur Specific Gravit y (1.005-1.030) Urine Protein (Negative) Urine Glucose (UA) (Normal) Urine Ketones (Negative) Urine Blood (Negative) Urine Nitrate (Negative) Urine Bilirubin (NEGATIVE) Urine Urobilinogen (Negative) mg/dL Ur Leukocyte Esme ase (Negative) Urine RBC (0-2) /hpf Urine WBC (0-5) /hpf Ur Squamous Epith Cells (0-5) Ur Transition Epit h Cell /hpf Urine Bacteria (NONE) Hyaline Casts Urine Mucus 11/28/19 11/28/19 Range/Units 20:52 22:27 WBC (4.0-10.0) 10^3/ uL RBC (4.1-5.3) 10^6/u L Hgb (11.5-15.3) g/dL Hct (37.0-47.0) % MCV (81-99) fL MCH (28.0-34.0) pg MCHC (30.0-36.0) g/dL RDW (12.1-15.1) % Plt Count (130-400) 10^3/c mm MPV (7.4-10.4) fL Neut % (Auto) % Lymph % (Auto) % [place] % (Auto) % Eos % (Auto) % Baso % (Auto) % Neut # (Auto) (1.8-7.7) 10^3/u L Lymph # (Auto) (0.8-4.8) 10^3/u L [place] # (Auto) (0.2-0.9) 10^3/u L Eos # (Auto) (0.0-0.8) 10^3/u L Baso # (Auto) (0.0-0.1) 10^3/u L Nucleated RBC % (a uto) % Nucleated RBCs # /100WBC Sodium (136-145) mmol/L Potassium (3.5-5.1) mmol/L Chloride (98-107) mmol/L Carbon Dioxide (22-29) mmol/L Anion Gap (5-19) BUN (8-23) mg/dL Creatinine (0.5-0.9) mg/dL Glucose (65-115) mg/dL Calculated Osmolal ity (285-295) mOsm/k g Calcium (8.5-10.5) mg/dL Total Bilirubin (0.15-1.2) mg/dL AST (0-32) U/L ALT (0-33) U/L Alkaline Phosphata se (35-105) IU/L Troponin T Baselin e (0-10) ng/mL Troponin T 120 Min [place] 43.13 H (0-10) ng/mL Delta Troponin T 28.13 H* (0-10) ABS# Total Protein (6.6-8.7) g/dL Albumin (3.5-5.2) g/dL Globulin (1.3-4.6) g/dL Lipase (13-60) U/L Urine Color Yellow (Yellow) Urine Appearance Clear (CLEAR) Urine pH 6 (5-7) Ur Specific Gravit y 1.010 (1.005-1.030) Urine Protein 1+ H (Negative) Urine Glucose (UA) 2+ (Normal) Urine Ketones 2+ H (Negative) Urine Blood Trace H (Negative) Urine Nitrate Negative (Negative) Urine Bilirubin Neg (NEGATIVE) Urine Urobilinogen Norm (Negative) mg/dL Ur Leukocyte Esme ase Trace H (Negative) Urine RBC 0-4 H (0-2) /hpf Urine WBC 5-10 H (0-5) /hpf Ur Squamous Epith Cells 0-4 H (0-5) Ur Transition Epit h Cell 0-4 /hpf Urine Bacteria Trace (NONE) Hyaline Casts 0-4 H Urine Mucus Trace Discharge Plan Discharge Patient Disposition: Placed in Observation Admit Provider: Melissa Raphael Clinical Impression: Acute hyponatremia Intractable vomiting Qualifiers: Vomiting type: unspecified Nausea presence: with nausea Qualified Code(s): R11.2 - Nausea with vomiting, unspecified Condition: Stable Discharge Date/Time: 11/29/19 01:36 Coding Level of Care Code ED Senior Vice President for [place]iz[place] Fwd Exam Comprehensive
[2019-11-28 20:25] LABS: Basophils % 0.2 %; Eosinophils % 0.3 %; Hematocrit 37.9 % (37.0-47.0); Hemoglobin 12.8 g/dL (11.5-15.3); Lymphocytes # 1.8 10^3/uL (0.8-4.8); Lymphocytes % 20.9 %; Mean Corpuscular HGB Conc 33.8 g/dL (30.0-36.0); Mean Corpuscular Hemoglobin 30.8 pg (28.0-34.0); Mean Corpuscular Volume 91.1 fL (81-99); Mean Platelet Volume 9.2 fL (7.4-10.4); Monocytes # 0.5 10^3/uL (0.2-0.9); Monocytes % 6.1 %; Neutrophils # 6.3 10^3/uL (1.8-7.7); Neutrophils % 71.7 %; Nucleated Red Blood Cells % 0 %; Platelet Count 407 10^3/cmm (130-400); Red Blood Count 4.16 10^6/uL (4.1-5.3); Red Cell Distribution Width 13.2 % (12.1-15.1); White Blood Count 8.8 10^3/uL (4.0-10.0)
[2019-11-28 20:26] VITALS: BP 186/84; PULSE 96; RESP 14; O2SAT 98
--- NOTE | 2019-11-28 20:27 | PC.NURSE ---
Patient states her symptoms started this morning. Patient states she has been having nausea and vomiting and is feeling dizzy.
[2019-11-28] MEDS: ondansetron 2 mg/ML SDV 2 mL 4 MG IVP (20:34)
[2019-11-28 20:40] LABS: Alanine Aminotransferase 14 U/L (0-33); Albumin Level 4.7 g/dL (3.5-5.2); Alkaline Phosphatase 97 IU/L (35-105); Anion Gap 23.3 (5-19); Aspartate Amino Transferase 20 U/L (0-32); Blood Urea Nitrogen 12 mg/dL (8-23); Carbon Dioxide 22 mmol/L (22-29); Chloride 79 mmol/L (98-107); Creatinine Clr Calc Pharmacy 43.6294; Globulin 3.4 g/dL (1.3-4.6); Glucose 212 mg/dL (65-115); Lipase 24 U/L (13-60); Osmolality Calculated 252 mOsm/kg (285-295); Potassium 4.3 mmol/L (3.5-5.1); Sodium 120 mmol/L (136-145); Total Bilirubin 0.4 mg/dL (0.15-1.2); Total Protein 8.1 g/dL (6.6-8.7)
[2019-11-28 20:41] LABS: Troponin(5th) Baseline 15 ng/mL (0-10)
[2019-11-28 20:53] VITALS: BP 171/84; PULSE 71; RESP 14; O2SAT 100
--- NOTE | 2019-11-28 21:07 | CTR_ITS ---
PROCEDURE INFORMATION: Exam: CT Abdomen And Pelvis With Contrast Exam date and time: 11/28/2019 9:27 PM Age: 79 years old Clinical indication: Nausea and vomiting; Prior surgery; Surgery date: 6+ months; Surgery type: Hyst; Patient HX: C/O n/v TECHNIQUE: Imaging protocol: Computed tomography of the abdomen and pelvis with intravenous contrast. Total DLP: 494.21 mGy-cm Radiation optimization: All CT scans at this facility use at least one of these dose optimization techniques: automated exposure control; mA and/or kV adjustment per patient size (includes targeted exams where dose is matched to clinical indication); or iterative reconstruction. Contrast material: OMNI 300; Contrast volume: 95 ml; Contrast route: 20G; COMPARISON: CT abdomen pelvis w con* [id number] 2019-06-24 11:59 FINDINGS: Lungs: Dependent subsegmental pulmonary atelectasis. Mediastinum: Small gastroesophageal sliding type hiatal hernia. Liver: Normal. No mass. Gallbladder and bile ducts: Normal. No calcified stones. No ductal dilation. Pancreas: Normal. No ductal dilation. Spleen: Normal. No splenomegaly. Adrenals: Mild left adrenal gland thickening. 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 Small, less than 5 mm, renal hypodensity. Highly likely to be benign and does not require follow-up imaging or biopsy per ACR. Stomach and bowel: Mild gastric wall thickening, correlate for gastritis. Appendix: No evidence of appendicitis. Intraperitoneal space: Unremarkable. No free air. No significant fluid collection. Vasculature: Mild to moderate aortic and iliac artery atherosclerotic calcification. Lymph nodes: Unremarkable. No enlarged lymph nodes. Bladder: Unremarkable as visualized. Reproductive: Hysterectomy. Bones/joints: Moderate lumbar spondylosis. Moderate bilateral hip degenerative joint disease. Moderate to severe L4-L5 spinal stenosis. Soft tissues: Small left inguinal fat protruding hernia. CT/CT abdomen pelvis w con* [id number] IMPRESSION: Mild gastric wall thickening, correlate for gastritis. Question gastric antral ulcer. Radiation Dose CTDIVOL = (mGy): DLP = 494.21 (mGy-cm)
[2019-11-28 21:14] LABS: Add Urine Microscopic? YES; Bilirubin Urine Neg (NEGATIVE); Blood Urine Trace (Negative); Glucose Urine UA 2+ (Normal); Ketones Urine 2+ (Negative); Leukocyte Esterase Urine Trace (Negative); Nitrate Urine Negative (Negative); Protein Urine 1+ (Negative); Urine Appearance Clear (CLEAR); Urine Color Yellow (Yellow); Urobilinogen Urine Norm (Negative); pH Urine 6 (5-7)
[2019-11-28 21:15] LABS: Bacteria Urine TRACE; RBC Urine 0-4 /hpf (0-2); Squamous Epithelial Cell Urine 0-4 (0-5); Transitional Epi Cells Urine 0-4 /hpf
[2019-11-28 21:16] LABS: Add Urine Culture? No; Hyaline Casts Urine 0-4; Mucus Urine TRACE
[2019-11-28] MEDS: iohexol 300 mg/mL 100 mL Btl IV (21:37)
[2019-11-28] MEDS: sodium chloride 0.9% 500 ML IV (21:49)
--- NOTE | 2019-11-28 21:58 | ECG_ITS ---
Measurements Intervals [place] Rate: 71 P: 56 [place]: 185 QRS: -3 QRSD: 111 T: 22 QT: 366 QTc: 399 SINUS RHYTHM INCOMPLETE RIGHT BUNDLE BRANCH BLOCK [90+ ms QRS DURATION, TERMINAL R IN V1/V2, 40+ ms S IN I/aVL/V4/V5/V6] Compared to ECG 05/18/2019 10:11:56 No significant changes Electronically Signed On 11-29-2019 20:25:54 CDT by Pineda Prather M.D. [id number]
[2019-11-28 22:10] VITALS: BP 159/82; BP 164/106; BP 169/104; PULSE 75; PULSE 77; PULSE 95; PULSE 98; O2SAT 97
[2019-11-28] MEDS: pantoprazole 40 mg SDV IVP (22:35)
[2019-11-28 22:36] VITALS: BP 152/89; PULSE 77; RESP 14; O2SAT 98
[2019-11-28 22:56] LABS: Troponin 5 2HR 43.13 ng/mL (0-10)
[2019-11-28 22:58] LABS: Troponin 5 2HR Delta 28.13 ABS# (0-10)
[2019-11-29] VITALS (12 sets, daily range): BP systolic 126–174; BP diastolic 61–98; PULSE 73–92; RESP 14–18; TEMP 36.7–37.1; O2SAT 94–98
[2019-11-29] MEDS: sodium chloride 0.9% 1,000 ML 100 ML IV (00:30)
[2019-11-29] MEDS: sodium chloride 0.9% 1,000 ML 75 ML IV (01:45)
--- NOTE | 2019-11-29 01:58 | ECG_ITS ---
Measurements Intervals [place] Rate: 74 P: 25 OR: 158 QRS: 19 QRSD: 100 T: 42 QT: 361 QTc: 402 SINUS RHYTHM INCOMPLETE RIGHT BUNDLE BRANCH BLOCK [90+ ms QRS DURATION, TERMINAL R IN V1/V2, 40+ ms S IN I/aVL/V4/V5/V6] Compared to ECG 05/18/2019 10:11:56 No significant changes Electronically Signed On 11-29-2019 20:25:58 CDT by Pineda Prather M.D. [email or web address]
[2019-11-29 03:08] LABS: Troponin 5 6HR 73.14 ng/mL (0-10)
[2019-11-29 03:16] LABS: Troponin 5 6HR Delta 58.14 ng/L (0-12)
--- NOTE | 2019-11-29 03:25 | PM.HP ---
Providers/Chief Complaint Admitting Physician: Melissa Raphael MD Primary Care Provider: Nancy Bain (pcp) Michael Cardenas (urology) Redd Isaac (calender worker helper) Chief Complaint: N/V History of Present Illness Mckenna Alanis is a 79 year old female who presented to the emergency room with chief complaint of nausea and vomiting. She states that she woke up feeling yucky today. Around noon she started feeling nauseated and subsequently had multiple episodes of vomiting. Vomitus was food and liquid she had consumed and then became bilious in nature. No blood was noted. She had 5 or so episodes and ended up coming into the emergency room. She has not had symptoms like this before. She denies abdominal pain. Bowels have been regular prior to this. She had one loose stool after several episodes of vomiting. She attributes her symptoms to having started HCTZ 2 days ago. It was prescribed by her primary care provider a week or so ago and just arrived. She had taken her second dose on Saturday. During the episodes of vomiting she was diaphoretic but denied any other associated symptoms. She denied chest pain or shortness of breath. She did not have any coughing. Denies fever. On arrival to the ED her blood pressure was 170s over 90s. Work-up ended up revealing a sodium of 120. She also had a baseline troponin that was at 15 though without any EKG changes. Second troponin was 43 for a delta of 28. Patient denied any other episodes of feeling yucky . Denies any episodes of chest pain, dyspnea on exertion, orthopnea, lower extremity edema, PND, palpitations or dizziness. Although she does have a history of hypertension and hyperlipidemia, she denies any history of coronary artery disease. No family history of such. She has not smoked in many years. She received some IV fluids in the emergency room. She also received antiemetics and is feeling better from that standpoint. She is being admitted for further evaluation and treatment. Review of Systems Const: Denies: fever, chills or change in weight Eyes: Denies: change in vision ENMT: Denies: throat pain, tinnitus, disequilibrium or nasal congestion Card: Denies: chest pain, palpitations, edema, lightheadedness, shortness of breath on exertion or shortness of breath when lying down Resp: Denies: shortness of breath, productive cough, non-productive cough or pain on inspiration GI: Denies: abdominal pain, nausea, vomiting, difficulty swallowing, diarrhea, constipation or blood in stool : Reports: urinary frequency, urinary incontinence and other (vaginal or suprapubic discomfort not worse than when last saw Dr Isaac); Denies: painful urination or blood in urine Musc: Reports: joint pain; Denies: redness or joint warmth Skin/Breast: Denies: rash or sores Neuro: Denies: headache, numbness in extremities or difficulty walking Psych: Denies: anxiety or depression Alfonso/Lymph: Denies: easy bruising or easy bleeding Medications/Allergies Home Medications Medication Instructions Recorded Confirmed Last Taken Type Lactobacillus-Bifidobacterium 30 1 cap PO DAILY cap 08/06/19 11/29/19 11/28/19 08:00 History billion cell capsule,delayed release prenat.vits,haroldo,nfa-slvl-oqpfx 1 tab PO BEDTIME tab 08/06/19 11/29/19 11/27/19 20:00 History mineral oil 5 ml PO DAILY PRN ml 10/30/19 11/29/19 11/25/19 08:00 History lisinopril 10 mg tablet 10 mg PO QDAY 90 Days #90 tab 11/17/19 11/29/19 11/27/19 08:00 Rx hydrochlorothiazide 12.5 mg tablet 12.5 mg PO DAILY #90 tab 11/20/19 11/29/19 11/28/19 08:00 Rx oxybutynin chloride 5 mg 5 mg PO DAILY #30 tab 11/24/19 11/29/19 11/28/19 08:00 Rx tablet,extended release 24 hr Lipitor 10 mg PO BEDTIME 11/29/19 11/29/19 11/27/19 20:00 History sitagliptin-metformin [Janumet XR] 1 tab PO BIDWM 11/29/19 11/29/19 11/28/19 08:00 History Allergies Allergy/AdvReac Type Severity Reaction Status Date / Time aspirin Allergy Mild ADR-Heartbu Verified 11/24/19 10:23 rn PFSH Acute PFSH: Medical History (Updated 11/29/19 @ 05:11 by Melissa Raphael MD) DDD (degenerative disc disease), lumbar Diabetes mellitus type 2, noninsulin dependent Janumet Diverticula of intestine Hyperlipidemia atorvastatin 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 Last cystoscopy on 09/08/2019 without recurrance. 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 Family History Mother Breast cancer Father Aspiration pneumonia Diabetes Other Cancer Social History Smoking and tobacco status: former smoker Quit status (tobacco): has quit using tobacco Year quit tobacco: 1997, smoked 1 PPD Alcohol intake: never Adopted: No Caregiver/support person: No Lives independently: No Household members: spouse Marital status: Current occupational status: retired History of recent travel: No Additional social history: Vitals/I&O/Wt Last Vital Signs Temp 98.0 F 11/29/19 01:41 Pulse 79 11/29/19 01:41 Resp 18 11/29/19 01:41 BP 174/98 11/29/19 01:41 Pulse Ox 95 11/29/19 01:41 11/28/19 11/28/19 11/29/19 14:59 22:59 06:59 Intake Total 500 / 500 Balance 500 / 500 Weight last 48 hrs Weight 58.967 kg Physical Exam Const: COMMON NORMALS: oriented x3 and alert HENMT: COMMON NORMALS: normocephalic and head/scalp atraumatic Eye: COMMON NORMALS: PERRL and EOMs intact bilaterally Neck/C-Spine: COMMON NORMALS: supple THYROID: not diffusely enlarged Resp: COMMON NORMALS: normal respiratory effort, no use of accessory muscles and clear to auscultation bilaterally Cardio: COMMON NORMALS: regular rate, regular rhythm, no gallops, no murmurs and no rub GI: COMMON NORMALS: normal to inspection, nondistended, normoactive bowel sounds, soft to palpation and non-tender Extremity: COMMON NORMALS: normal capillary refill, no clubbing, cyanosis or edema and no calf tenderness Neuro: COMMON NORMALS: moves all extremities and no sensory deficits noted Psych: COMMON NORMALS: thought process normal and cooperative Skin: NARRATIVE SKIN EXAM: a few minor sores/scratches, no bleeding or bruising noted beside iatragenic Data : 11/28/19 20:22 11/28/19 20:22 Other Labs: 11/28/19 22:27 Troponin T 120 Minute 43.13 H 11/28/19 20:22 Troponin T Baseline 15 H Laboratory Tests 11/28/19 20:22 Total Bilirubin 0.4 AST 20 ALT 14 Alkaline Phosphatase 97 Lipase 24 A&P Assessment and plan (1) Intractable vomiting: Patient attributes the vomiting to initiation of hydrochlorothiazide as she had taken only her second dose of the medication on the day of presentation. I think that is not unreasonable thought despite not being her usual or common side effect of the medication. Food sensitivity, viral infection, bacterial infection or intra-abdominal source are all within the differential diagnosis. My current biggest concern however is the mild elevation in troponin noted, which brings up the possibility of a cardiac source of her GI symptoms. Status: Acute Qualifiers: Nausea presence: with nausea Vomiting type: unspecified Qualified Code(s): R11.2 - Nausea with vomiting, unspecified (2) Acute hyponatremia: [place] to be from GI losses and start of HCTZ at this point in time. Sodium was 135 a week ago. Status: Acute (3) Elevated troponin: EKG with incomplete right bundle branch block, sinus rhythm, no acute changes noted. Patient has risk factors for coronary artery disease including hypertension hyperlipidemia. She has not smoked in years. Denies family history of coronary artery disease. She does not really herself describe any symptoms of late although review of records indicates PCP documented fatigue earlier this month. She denies chest pain, orthopnea, PND, lower extremity edema, palpitations, dizziness, heartburn or difficulty swallowing symptoms. She did mention to me that she always has diaphoresis every time she vomits. She denied that vomiting is chronic or intermittent recurrent problem for her. Status: Acute (4) Abnormal urinalysis: Suggestive of a contaminated specimen Status: Acute (5) Hypertension: Chronically on lisinopril and had had HCTZ recently added having been started 2 days prior to admission. Status: Chronic Qualifiers: Hypertension type: essential hypertension Qualified Code(s): I10 - Essential (primary) hypertension (6) Hyperlipidemia: Chronically on Lipitor Status: Chronic Qualifiers: Hyperlipidemia type: mixed hyperlipidemia Qualified Code(s): E78.2 - Mixed hyperlipidemia (7) Diabetes mellitus type 2, noninsulin dependent: Chronically on Janumet Status: Chronic (8) Malignant neoplasm of posterior wall of bladder: Denies recent hematuria but had some microscopic indications of such on urinalysis today. Did have recent cystoscopy in September that showed no evidence of recurrence. Status: Chronic Additional A&P Information Observation admission for now Follow serial cardiac enzymes Telemetry monitoring Continue IV fluids Antiemetics as needed Repeat laboratory studies in the morning to evaluate sodium level Repeat urinalysis, straight cath I have not consider antibiotics at this point in time due to normal white count, normal differential, lack of fever Continue home SARAI inhibitor and statin therapy Plavix secondary to listed aspirin allergy Hold further HCTZ for the time being Hold Janumet Insulin as needed Monitor closely for any acute changes Supportive care otherwise Plans will depend on recurrence of symptoms and trend in cardiac enzymes Currently low risk for VTE secondary to observation status Upon follow-up with PCP, patient will need to have consideration for repeat thyroid nodule evaluation if it has not been done elsewhere since last check in 2017. Also noted in [facility] a [facility] of the abdomen and pelvis done towards the end of June last year that showed a new area of decreased attenuation in the left kidney upper pole measuring 2.5 x 1.2 cm described as concerning for developing renal cell neoplasm. A CT of the abdomen following renal mass protocol was recommended for 6 months time which we are coming up on in the next month or so. Briefly reviewed. Full code Attestations Medical Necessity Statement*: Currently anticipated stay less than 2 midnights in a patient presenting with multiple episodes of vomiting today and found to have a sodium of 120. This has been felt secondary to initiation of HCTZ a couple of days ago. She does however have mild elevation in troponin level which will need to be followed. Plans are as indicated Coding Level of Care Code Acute Associate Project Manager for g Fwd Diagnoses Intractable vomiting R11.2 Nausea presence: with nausea Vomiting type: unspecified Acute hyponatremia E87.1 Elevated troponin R79.89 Abnormal urinalysis R82.90 Hypertension I10 Hypertension type: essential hypertension Hyperlipidemia E78.2 Hyperlipidemia type: mixed hyperlipidemia Diabetes mellitus type 2, noninsulin dependent E11.9 Malignant neoplasm of posterior wall of bladder C67.4
--- NOTE | 2019-11-29 03:34 | USCV_ITS ---
Mckenna Alanis Age: 79 Gender: F : 1940 Exam Date: 11/29/2019 06:42 Ordering Phys: Melissa Raphael MD Technologist: Elvia Metz [place] [facility] [place]: Elevated troponin BP: 168 / 89 HR: 72 Rhythm: Sinus Technical Quality: Fair MEASUREMENTS (Male / Female) Normal Values 2D ECHO LV Diastolic Diameter PLAX 3.3 cm 4.2 - 5.9 / 3.9 - 5.3 cm LV Systolic Diameter PLAX 2.0 cm LV Chamber Size 2.7 cm IVS Diastolic Thickness 1.3 cm 0.6 - 1.0 / 0.6 - 0.9 cm IVS Systolic Thickness 1.4 cm LVPW Diastolic Thickness 1.1 cm 0.6 - 1.0 / 0.6 - 0.9 cm LVPW Systolic Thickness 1.5 cm RV Chamber Size 1.6 cm LVOT Diameter 1.8 cm LV Ejection Fraction 2D Teich 68.7 % LV Ejection Fraction MOD 2C 72.0 % LV Ejection Fraction 2C AL 76.1 % LA Diameter 3.5 cm LA Width 2.5 cm LA Height 4.3 cm RA Width 2.1 cm RA Height 4.0 cm Aorta at Sinotubular Diameter 2.1 cm M-MODE LV Diastolic Diameter MM 4.8 cm 4.2 - 5.9 / 3.9 - 5.3 cm LV Systolic Diameter MM 2.7 cm LV Ejection Fraction MM Teich 74.7 % IVS Diastolic Thickness MM 1.1 cm 0.6 - 1.0 / 0.6 - 0.9 cm IVS Systolic Thickness MM 1.8 cm LVPW Diastolic Thickness MM 1.3 cm 0.6 - 1.0 / 0.6 - 0.9 cm LVPW Systolic Thickness MM 1.6 cm RV Diastolic Diameter MM 0.5 cm Aortic Annulus Diameter 2.6 cm LA Ao Ratio MM 1.3 MV E Point Septal Separation 0.5 cm DOPPLER AV Peak Velocity 146.0 cm/s LVOT Peak Velocity 111.0 cm/s AV Area Cont Eq vti 2.2 cm squared AV Area Cont Eq pk 2.0 cm squared MV Area PHT 3.9 cm squared Mitral E to A Ratio 0.6 MV E' Velocity 8.0 cm/s Mitral E to MV E' Ratio 10.0 Mitral E to LV E' Lateral Ratio 9.9 Mitral E to LV E' Septal Ratio 10.1 TR Peak Velocity 223.0 cm/s TR Peak Gradient 19.9 mmHg TV Peak E Velocity 41.0 cm/s Right Atrial Pressure 3.0 mmHg Pulmonary Artery Systolic Pressu 22.9 mmHg PV Peak Velocity 81.0 cm/s RV Acceleration Time 0.1 s RV Ejection Time 0.3 s RV AcT/ET 0.2 FINDINGS Left Ventricle Normal left ventricular size and systolic function, EF 68 %. No regional wall motion abnormalities. Grade I/IV diastolic dysfunction (abnormal relaxation filling pattern), normal to mildly elevated filling pressures. Right Ventricle The right ventricle is normal in size and function. Right Atrium The right atrium is normal in size. Left Atrium The left atrium is normal in size. Mitral Valve Mild to moderate eccentric mitral valve regurgitation. Aortic Valve Trace to mild aortic valve regurgitation. Tricuspid Valve Trace tricuspid valve regurgitation. Pulmonic Valve Structurally normal pulmonic valve without significant stenosis. There is no pulmonic regurgitation. Pericardium Normal pericardium without effusion. Aorta Plaque seen in the ascending aorta. CONCLUSIONS Normal left ventricular size and systolic function, EF 68 %. No regional wall motion abnormalities. Grade I/IV diastolic dysfunction (abnormal relaxation filling pattern), normal to mildly elevated filling pressures. Minimally thickened aortic and mitral valves. Mild to moderate eccentric mitral valve regurgitation. Trace to mild aortic valve regurgitation. Trace tricuspid valve regurgitation. There is no pericardial effusion. There are no intracardiac masses. There are no prior echocardiogram studies to compare. Dr Pineda Prather MD FAC (Electronically Signed) Final Date: 29 November 2019 09:30 S
[2019-11-29 05:37] LABS: Magnesium 1.5 mg/dL (1.7-2.3); Phosphorus 3.6 mg/dL (2.5-4.5)
[2019-11-29 05:57] LABS: Troponin T (5th) Once 68 ng/mL (0-10)
[2019-11-29 06:25] LABS: NT Pro B Type Natriuretic Pept 1004 pg/mL (0-450)
[2019-11-29 06:26] LABS: Glucose Point of Care 128 mg/dL (70-110)
[2019-11-29 07:12] LABS: Anion Gap 23.5 (5-19); Blood Urea Nitrogen 10 mg/dL (8-23); Calcium 10.3 mg/dL (8.5-10.5); Carbon Dioxide 21 mmol/L (22-29); Chloride 88 mmol/L (98-107); Creatinine Clr Calc Pharmacy 43.6294; Glucose 145 mg/dL (65-115); Osmolality Calculated 265 mOsm/kg (285-295); Potassium 4.5 mmol/L (3.5-5.1); Sodium 128 mmol/L (136-145)
[2019-11-29 08:07] LABS: Bilirubin Urine Neg (NEGATIVE); Blood Urine 2+ (Negative); Glucose Urine UA Norm (Normal); Ketones Urine Negative (Negative); Leukocyte Esterase Urine Negative (Negative); Nitrate Urine Negative (Negative); Protein Urine Neg (Negative); Specific Gravity, Urine 1.005 (1.005-1.030); Urine Appearance Clear (CLEAR); Urine Color Yellow (Yellow); Urobilinogen Urine Norm (Negative); pH Urine 7 (5-7)
[2019-11-29 08:09] LABS: Add Urine Culture? No; Bacteria Urine TRACE; RBC Urine 0-4 /hpf (0-2); WBC Urine 0-4 /hpf (0-5)
[2019-11-29] MEDS: magnesium sulfate premix 2 GM/50 ML PIGGYBACK IV (08:43)
[2019-11-29] MEDS: acetaminophen 325 mg Tablet 650 MG PO (08:43)
[2019-11-29] MEDS: oxybutynin chloride XL 5 MG TABLET PO (08:44)
[2019-11-29] MEDS: clopidogrel 75 mg Tablet PO (08:44)
[2019-11-29] MEDS: lisinopril 10 mg Tablet PO (08:44)
--- NOTE | 2019-11-29 13:23 | PM.PN ---
Subjective Subjective: Interval history: Overnight labs and H&P reviewed. Patient has no further episodes of vomiting. States she feels much better. Sodium is improving to 128 this morning. Patient has no acute complaints at this present time. Medications: Reviewed: Yes Vitals/I&O/Wt Last Vital Signs Temp 98.8 F 11/29/19 11:52 Pulse 83 11/29/19 11:52 Resp 16 11/29/19 11:52 BP 154/74 11/29/19 11:52 Pulse Ox 96 11/29/19 11:52 11/28/19 11/29/19 11/29/19 22:59 06:59 14:59 Intake Total 500 / 500 240 / 240 Output Total 975 / 975 600 / 600 Balance -475 / -475 -360 / -360 Weight last 48 hrs Weight 58.967 kg Physical Exam Narrative: EXAM NARRATIVE: GEN: Awake, alert and oriented, no acute distress CVS: S1S2 N RS: CTA B/L Abd: Soft, nt/nd , bs+ MECHANIC SOUND TECHNICIAN: no focal neuro deficits Data : 11/28/19 20:22 11/29/19 05:12 A&P Assessment and plan (1) Intractable vomiting: Patient attributes the vomiting to initiation of hydrochlorothiazide as she had taken only her second dose of the medication on the day of presentation. Food sensitivity, viral infection, bacterial infection or intra-abdominal source are all within the differential diagnosis. My current biggest concern however is the mild elevation in troponin noted, which brings up the possibility of a cardiac source of her GI symptoms. However given that her symptoms have now subsided and she is asymptomatic, without any acute ST-T wave changes and troponins have been trended down, it is less likely that she has experienced ACS. Status: Acute Qualifiers: Nausea presence: with nausea Vomiting type: unspecified Qualified Code(s): R11.2 - Nausea with vomiting, unspecified (2) Acute hyponatremia: [place] to be from GI losses and start of HCTZ at this point in time. Sodium was 135 a week ago. This is currently improving. Up to 128 today. We will continue IV hydration. Status: Acute (3) Elevated troponin: EKG with incomplete right bundle branch block, sinus rhythm, no acute changes noted. Patient is currently asymptomatic. Her echocardiogram has returned with normal ejection fraction, no regional wall motion abnormalities and no evidence of diastolic dysfunction. Doubt ACS. Status: Acute (4) Abnormal urinalysis: Suggestive of a contaminated specimen Status: Acute (5) Hypertension: Chronically on lisinopril and had had HCTZ recently added having been started 2 days prior to admission. Status: Chronic Qualifiers: Hypertension type: essential hypertension Qualified Code(s): I10 - Essential (primary) hypertension (6) Hyperlipidemia: Chronically on Lipitor Status: Chronic Qualifiers: Hyperlipidemia type: mixed hyperlipidemia Qualified Code(s): E78.2 - Mixed hyperlipidemia (7) Diabetes mellitus type 2, noninsulin dependent: Chronically on Janumet Status: Chronic (8) Malignant neoplasm of posterior wall of bladder: Denies recent hematuria but had some microscopic indications of such on urinalysis today. Did have recent cystoscopy in September that showed no evidence of recurrence. Status: Chronic Additional A&P Information Observation admission for now Continue IV fluids, sodium improving, symptoms improved Antiemetics as needed Repeat laboratory studies in the morning to evaluate sodium level Continue home SARAI inhibitor and statin therapy Plavix secondary to listed aspirin allergy Hold further HCTZ for the time being Hold Janumet Insulin as needed CT abdomen with possible antral ulcer vs gastritis- recommend outpatient endoscopy at discharge Full code Attestations Medical Necessity Statement*: planned discharge once sodium closer to baseline Coding Level of Care Code Acute Stunner And Shackler for Chg Fwd Diagnoses Intractable vomiting R11.2 Nausea presence: with nausea Vomiting type: unspecified Acute hyponatremia E87.1 Elevated troponin R79.89 Abnormal urinalysis R82.90 Hypertension I10 Hypertension type: essential hypertension Hyperlipidemia E78.2 Hyperlipidemia type: mixed hyperlipidemia Diabetes mellitus type 2, noninsulin dependent E11.9 Malignant neoplasm of posterior wall of bladder C67.4
[2019-11-29 17:01] LABS: Glucose Point of Care 144 mg/dL (70-110)
[2019-11-29 20:58] LABS: Glucose Point of Care 107 mg/dL (70-110)
[2019-11-29] MEDS: atorvastatin 40 mg Tablet 20 MG PO (21:48)
[2019-11-30] VITALS: BP 145/75; PULSE 73; RESP 17; TEMP 37; O2SAT 95
[2019-11-30] MEDS: diphenhydrAMINE 25 mg Capsule PO (00:06)
[2019-11-30 04:00] VITALS: BP 132/66; PULSE 86; RESP 17; TEMP 36.8; O2SAT 94
[2019-11-30 06:30] LABS: Anion Gap 16.9 (5-19); Blood Urea Nitrogen 8 mg/dL (8-23); Calcium 9.9 mg/dL (8.5-10.5); Carbon Dioxide 25 mmol/L (22-29); Chloride 96 mmol/L (98-107); Creatinine Clr Calc Pharmacy 49.0831; Glucose 126 mg/dL (65-115); Osmolality Calculated 275 mOsm/kg (285-295); Potassium 3.9 mmol/L (3.5-5.1); Sodium 134 mmol/L (136-145)
[2019-11-30 06:41] LABS: Glucose Point of Care 120 mg/dL (70-110)
[2019-11-30 07:41] VITALS: BP 158/80; PULSE 77; RESP 18; TEMP 36.7; O2SAT 96
[2019-11-30] MEDS: pantoprazole DR 40 mg Tablet PO (08:31)
[2019-11-30] MEDS: lisinopril 10 mg Tablet PO (08:31)
[2019-11-30] MEDS: clopidogrel 75 mg Tablet PO (08:31)
[2019-11-30] MEDS: oxybutynin chloride XL 5 MG TABLET PO (08:35)
[2019-11-30 11:23] LABS: Glucose Point of Care 135 mg/dL (70-110)
[2019-11-30 12:00] VITALS: BP 138/81; PULSE 73; RESP 20; TEMP 36.7; O2SAT 97
--- NOTE | 2019-11-30 13:35 | P.DS_ITS ---
Discharge Providers Date of Admission: 11/29/19 06:51 Date of Discharge: November 30, 2019 Attending Provider at Admission: Melissa Raphael MD Attending Provider at Discharge: Alana Felton MD Primary Care Provider: Michael Cardenas MD Diagnoses at Discharge Discharge Diagnosis (1) Intractable vomiting: Status: Acute Qualifiers: Nausea presence: with nausea Vomiting type: unspecified Qualified Code(s): R11.2 - Nausea with vomiting, unspecified (2) Acute hyponatremia: Status: Acute (3) Elevated troponin: Status: Acute (4) Abnormal urinalysis: Status: Acute (5) Hypertension: Status: Chronic Problem details: lisinopril Qualifiers: Hypertension type: essential hypertension Qualified Code(s): I10 - Essential (primary) hypertension (6) Hyperlipidemia: Status: Chronic Problem details: atorvastatin Qualifiers: Hyperlipidemia type: mixed hyperlipidemia Qualified Code(s): E78.2 - Mixed hyperlipidemia (7) Diabetes mellitus type 2, noninsulin dependent: Status: Chronic Problem details: Janumet (8) 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 Last cystoscopy on 09/08/2019 without recurrance. Reason for Visit Reason for Visit: Reason For Visit: N/V Hospital Course Discharge Summary: Patient is a 79-year-old lady who presented to the ER on November 28 with chief complaint of nausea and vomiting. She attributed the symptoms initially to recently starting hydrochlorothiazide 2 days prior. She was noted to have also some episodes of diarrhea. Labs were notable for acute hyponatremia with sodium to 128, though without any gross mental status changes. However she described as generalized sensation of feeling unwell. Her troponin was baseline noted to be at 15 status serially trended up to 43 with a delta of 28 and then a delta of 58. This subsequently trended down. There were no acute ST-T changes on her EKG. She also underwent an echocardiogram which showed an LVEF of 68% without any regional wall motion abnormalities. She also underwent a CT of the abdomen which showed possibility of a gastric antral ulcer. She improved significantly with conservative management with PPI and fluids. It was low suspicion for ACS given the lack of characteristic symptoms and no EKG changes together with a normal echocardiogram. However would recommend that she follow-up with cardiology as an outpatient. For now she will be discharged on plavix (ASA allergy) and a statin for primary prevention. She can subsequently follow-up with cardiology. Hydrochlorothiazide has been held. Will order as needed amlodipine if her blood pressure increases. She has also been advised to follow-up with general surgery for possibility of endoscopy given presence of antral ulceration and GI symptoms. Physical Exam Narrative: EXAM NARRATIVE: GEN: Awake, alert and oriented, no acute distress CVS: S1S2 N RS: CTA B/L Abd: Soft, nt/nd , bs+ OFFICE TECHNOLOGY INSTRUCTOR: no focal neuro deficits Discharge Data Data Completed and Pending: Completed Studies During Hospitalization Category Date Time Status CT abdomen pelvis w con* [id number] Urge nt Cat Scan 11/28/19 21:07 Completed CV echo complete* [id number] Routine Ultrasound 11/29/19 03:34 Completed Labs from last 24 hours 11/30/19 11/30/19 11/30/19 11:20 06:36 05:55 Sodium 134 L Potassium 3.9 Chloride 96 L Carbon Dioxide 25 Anion Gap 16.9 BUN 8 Creatinine 0.8 Glucose 126 H POC Glucose 135 120 Calculated Osmolal ity 275 L Calcium 9.9 11/29/19 11/29/19 20:54 16:55 Sodium Potassium Chloride Carbon Dioxide Anion Gap BUN Creatinine Glucose POC Glucose 107 144 Calculated Osmolal ity Calcium Vitals: Last Vital Signs Temp 98.0 F 11/30/19 12:00 Pulse 73 11/30/19 12:00 Resp 20 H 11/30/19 12:00 BP 138/81 11/30/19 12:00 Pulse Ox 97 11/30/19 12:00 Discharge Plan Discharge Patient Disposition: Home, Self-Care Condition: Stable Prescriptions: New calcium carbonate 200 mg calcium (500 mg) Tablet,Chewable 1,000 mg PO Q4H PRN (Reason: DYSPEPSI) Qty: 0 RF: 0 clopidogrel 75 mg Tablet 75 mg PO DAILY 30 Days Qty: 30 RF: 0 pantoprazole 40 mg Tablet,Delayed Release (Dr/Ec) 40 mg PO BID 30 Days Qty: 60 RF: 0 amlodipine 5 mg tablet 5 mg PO DAILY Qty: 30 RF: 0 Continued mineral oil Oil 5 ml PO DAILY PRN (Reason: Constipation) RF: 0 oxybutynin chloride 5 mg tablet extended release 24hr 5 mg PO DAILY Qty: 30 RF: 3 prenat.vits,haroldo,yuy-qdxy-zgzwd Tablet 1 tab PO BEDTIME RF: 0 Ultimate Radha Probiotic 30 billion cell capsule,delayed release(DR/EC) 1 cap PO DAILY RF: 0 lisinopril 10 mg tablet 10 mg PO QDAY 90 Days Qty: 90 RF: 1 Lipitor 10 mg tablet 10 mg PO BEDTIME RF: 0 Janumet XR 50-1,000 mg tablet, ER multiphase 24 hr 1 tab PO BIDWM RF: 0 Discontinued hydrochlorothiazide 12.5 mg tablet 12.5 mg PO DAILY Qty: 90 RF: 0 Discharge Orders: Discharge Order (Routine); Ordered 11/30/19 Ordered By: Alana Felton Referrals: Jacob Hernandez MD [Physician] - 2 weeks (UGI endoscopy, antral ulcer on CT ) Niesha Vale MD [Physician] - Discharge Diet: Usual diet Discharge Activity: Resume usual activity Discharge Attestations Time Spent in Discharge Care*: less than 30 min Quality Metrics Clinical Quality Measures During this hospital stay, did patient experience: None Coding Level of Care Code Acute Manager Infrastructure for Chg Fwd Diagnoses Intractable vomiting R11.2 Nausea presence: with nausea Vomiting type: unspecified Acute hyponatremia E87.1 Elevated troponin R79.89 Abnormal urinalysis R82.90 Hypertension I10 Hypertension type: essential hypertension Hyperlipidemia E78.2 Hyperlipidemia type: mixed hyperlipidemia Diabetes mellitus type 2, noninsulin dependent E11.9 Malignant neoplasm of posterior wall of bladder C67.4
[2019-11-30 15:09] VITALS: BP 138/81; PULSE 73; RESP 20; TEMP 36.7; O2SAT 97
== END 2019-11-30 16:03 | disposition home or self-care (01) | DRG 641 ==
LOC: ER 20:57 → MEDSURG 11-29 01:07
PROVIDERS: Nurse Practitioner Family; Admitting Provider Hospitalist; Emergency Provider Emergency Medicine; PCP Urology; Visit Provider Student in an Organized Health Care Education/Training Program
DX: E87.1 Hypo-osmolality and hyponatremia (principal); T50.2X5A Adverse effect of carbonic-anhydrase inhibitors, benzothiadiazides and other diuretics, initial encounter; E11.9 Type 2 diabetes mellitus without complications; I10 Essential (primary) hypertension; C67.4 Malignant neoplasm of posterior wall of bladder; Z87.891 Personal history of nicotine dependence; M51.36 Other intervertebral disc degeneration, lumbar region; M19.90 Unspecified osteoarthritis, unspecified site; E78.2 Mixed hyperlipidemia; Y92.009 Unspecified place in unspecified non-institutional (private) residence as the place of occurrence of the external cause
CPT/HCPCS: 12345; 36415; 36416; 74177; 80048; 80053; 81001; 82962; 83690; 83735; 83880; 84100; 84484; 85025; 93005; 93306; 96372; 96375; 99284; C9113; G0378; J1815; J2405; J3475; J7030; J7040; Q9967

== ENCOUNTER → 2019-12-09 10:18 | Outpatient (BNVA) | payer MEDICARE, OTHER, SELFPAY | PROVIDERS: PCP Nurse Practitioner Family; Visit Provider Internal Medicine Cardiovascular Disease | DX: I10 Essential (primary) hypertension (principal); E87.1 Hypo-osmolality and hyponatremia | CPT/HCPCS: 80048; 83735; 83880 ==

== ENCOUNTER → 2019-12-15 12:18 | Outpatient (BNVA) | payer MEDICARE, OTHER, SELFPAY | PROVIDERS: PCP Nurse Practitioner Family; Visit Provider Nurse Practitioner Family | DX: M54.5 Low back pain (principal) | CPT/HCPCS: 81003 ==

== ENCOUNTER → 2019-12-18 10:57 | Outpatient (BNVA) | payer MEDICARE, OTHER, SELFPAY | PROVIDERS: PCP Nurse Practitioner Family; Visit Provider Nurse Practitioner Family | DX: N30.01 Acute cystitis with hematuria (principal); M54.31 Sciatica, right side; M54.32 Sciatica, left side | CPT/HCPCS: 80053; 81003; 87077; 87086; 87186 ==

== ENCOUNTER → 2019-12-30 15:39 | Outpatient (BNVA) | payer MEDICARE, OTHER, SELFPAY | PROVIDERS: PCP Nurse Practitioner Family; Visit Provider Nurse Practitioner Family | DX: R11.0 Nausea (principal); N30.01 Acute cystitis with hematuria; N32.81 Overactive bladder | CPT/HCPCS: 80053; 81000; 85025 ==

== ENCOUNTER → 2020-01-05 09:55 | Outpatient (BNVA) | payer MEDICARE, OTHER, SELFPAY | PROVIDERS: PCP Nurse Practitioner Family; Visit Provider Nurse Practitioner Family | DX: E87.1 Hypo-osmolality and hyponatremia (principal) | CPT/HCPCS: 80048 ==

== ENCOUNTER → 2020-01-13 15:59 | Outpatient (BNVA) | payer MEDICARE, OTHER, SELFPAY | PROVIDERS: PCP Nurse Practitioner Family; Visit Provider Family Medicine | DX: R60.9 Edema, unspecified (principal); R30.0 Dysuria | CPT/HCPCS: 81000 ==

== ENCOUNTER 2020-01-15 10:33 | Emergency (ER) | payer MEDICARE, OTHER, SELFPAY ==
[2020-01-15 10:44] VITALS: BP 142/50; PULSE 83; RESP 18; TEMP 36.4; O2SAT 95; BMI 23.8
--- NOTE | 2020-01-15 11:26 | CT_ITS ---
WS: [id number] CT LUMBAR SPINE, noncontrast. HISTORY: lumbar radiculopathy TECHNIQUE: Contiguous 2.5 mm axial imaging are performed. Sagittal and coronal reformats are submitte d and reviewed. All CT scans at [facility] use at least one of these dose optimization te chniques: automated exposure control; mA and/or kV adjustment per patient size (includes targeted exa ms where dose is matched to clinical indication); or iterative reconstruction. IV contrast: None DLP: 1311.01 mGy.cm COMPARISON: 10/18/2017 Increased lumbar lordosis. Mild concavity superior endplate of L4 is stable. L3 retrolisthesis by 4 m m is similar to the prior study. Degenerative disc disease and vacuum disc phenomenon at L2-3. Advanc ed degenerative changes from L2-3 to L4-5. L1-2: Normal. L2-3: Mild annular disc bulging. No significant stenosis. L3-4: Diffuse osteophytic ridging with retropulsion of L3. Diffuse annular disc bulging. Mild central and subarticular recess stenosis and LEFT foraminal stenosis. L4-5: Diffuse annular disc bulging and osteophytic ridging. Marked ligamentum flavum hypertrophy. Mod erate to severe central and bilateral subarticular recess stenosis with mild bilateral foraminal sten osis. L5-S1: Mild disc bulging with no stenosis. Extensive atherosclerosis within the aorta. No aneurysm. No acute fractures. CT/CT lumbar spine wo con* [id number] IMPRESSION: 1. No acute lumbar spine fracture. 2. Moderate to severe central and subarticular recess stenosis L4-5, similar t o the prior study. 3. Mild central, subarticular recess and LEFT foraminal stenosis at L3-4, michaela lar to the prior study. 4. L3 retrolisthesis by 4 mm is unchanged.
--- NOTE | 2020-01-15 11:26 | CT_ITS ---
WS: [id number] CT ABDOMEN AND PELVIS NONCONTRAST HISTORY: right flank pain TECHNIQUE: Imaging performed through the abdomen and pelvis. Coronal and sagittal reformats are submi tted. All CT scans at [facility] use at least one of these dose optimization techniques: automated exposure control; mA and/or kV adjustment per patient size (includes targeted exams where d ose is matched to clinical indication); or iterative reconstruction. DLP: 513.04 mGy.cm COMPARISON: 11/28/2019 and 08/07/2019 Lower thorax: Emphysema. RIGHT middle lobe bronchiectasis. Heart size is normal. Liver: Normal, no mass or intrahepatic dilatation. Gallbladder: Unremarkable. Pancreas: Normal. Spleen: Normal. Adrenal glands: Mild thickening of the LEFT adrenal gland. Normal RIGHT adrenal gland. Right kidney: No renal stones or obstruction. No perinephric stranding. RIGHT ureter is normal calibe r. Left kidney: Normal size with no stones, mass or atrophy. Atherosclerosis with no aneurysm. No free fluid, intraperitoneal air or significant lymphadenopathy. GI tract: Normal appendix. Mild diffuse constipation. Abdominal wall: Small fat-containing umbilical hernia. Pelvis: No free fluid in the pelvis. Urinary bladder is well distended. There are several calcificati ons in the pelvis. These appear external to the ureters. Osseous structures: Osteopenia with increased lumbar lordosis. CT/CT kidney stone [id number] IMPRESSION: 1. Normal appendix. 2. No renal obstruction. 3. There are several calcifications in the pelvis which I believe are external to the ureter and similar in appearance to 08/07/2019. 4. Diffuse constipation.
--- NOTE | 2020-01-15 11:31 | W.ED.ABDPA2 ---
HPI - Abdominal Pain General: Chief Complaint: Abdominal Pain Stated Complaint: LOWER ABD PAIN Time Seen by Provider: 01/15/20 11:02 Source: patient and family Mode of arrival: ambulatory Limitations: no limitations History of Present Illness: HPI narrative: 79-year-old female patient who presented with right lower quadrant pain. This pain has been intermittent and been going on for several months, started after she had a vaginal hysterectomy. She has been worked up several times for this including ultrasounds and CT scans but with no definite diagnosis made. She is here again because of pain. MD elicited complaint: abdominal pain Onset (ago): month(s) Pain Consistency: intermittent Location: RLQ Severity: moderate Quality: sharp Radiation: R flank Exacerbating factors: nothing Relieving factors: nothing Associated Symptoms: Denies chills, dysuria, fever(s), nausea and vomiting Review of Systems General: Reports: 10 or more systems reviewed and unremarkable except in HPI and below Const: Denies: fever(s), chills or body aches Card: Denies: palpitations, irregular heart rhythm, edema or swelling of feet/ankles Resp: Denies: dyspnea, productive cough or non-productive cough GI: Denies: abdominal pain, nausea or vomiting : Denies: flank pain, difficulty voiding, dysuria, urinary frequency, urinary urgency or urinary hesitancy Musc: Denies: neck pain, back pain or extremity swelling Skin/Breast: Denies: rash, pruritus or erythema Neuro: Denies: headache(s), numbness in extremities or weakness in extremities Endo: Denies: polyuria, polydipsia or tired all the time PFSH ED PFSH: Medical History DDD (degenerative disc disease), lumbar Diabetes mellitus type 2, noninsulin dependent Janumet Diverticula of intestine Hyperlipidemia atorvastatin 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 Last cystoscopy on 09/08/2019 without recurrance. Osteoarthritis Pelvic organ prolapse quantification stage 3 cystocele Thyroid nodule [place] [facility] [place], bilateral adenomatous nodules or colloid cysts Vitamin D deficiency Surgical History H/O arthroscopy of knee (~2014) Left, Dr Connors History of hysterectomy (~05/2019) with BSO, Ant/Post colporrhaphy and urethral sling, Dr Isaac History of transurethral destruction of bladder lesion TCCA of bladder without invasion Family History Mother Breast cancer Father Aspiration pneumonia Diabetes Other Cancer Social History Smoking and tobacco status: never smoked Quit status (tobacco): has quit using tobacco Year quit tobacco: 1997, smoked 1 PPD Alcohol intake: never Adopted: No Caregiver/support person: No Lives independently: No Household members: spouse Marital status: Current occupational status: retired History of recent travel: No Physical Exam Const: COMMON NORMALS: no acute distress, average body habitus, patient oriented x3, no limitations, healthy appearing, alert and well nourished HENMT: COMMON NORMALS: normocephalic, atraumatic and moist oral mucous membranes HEAD & SCALP: normocephalic and atraumatic Neck/C-Spine: COMMON NORMALS: no meningeal signs and no JVD Resp: COMMON NORMALS: normal respiratory effort, No retractions, No use of accessory muscles, clear to auscultation bilaterally and percussion normal AUSCULTATION: clear to auscultation bilaterally PERCUSSION: percussion normal Cardio: COMMON NORMALS: no JVD, regular rate, regular rhythm, S1 normal heart sound present, S2 normal heart sound present, No gallops present (Cardio), No clicks present (Cardio), No murmurs present (Cardio), No rub (Cardio) and Peripheral pulses 2+ throughout RATE: regular rate RHYTHM: regular rhythm HEART SOUNDS: S1 normal heart sound present and S2 normal heart sound present PERIPHERAL PULSES: Peripheral pulses 2+ throughout GI: COMMON NORMALS: Normal to inspection, nondistended, normoactive bowel sounds present, Soft to palpation, non-tender, No hepatosplenomegaly present, no masses and no bruits PALPATION: Yes Soft to palpation and Yes No hepatosplenomegaly present : COMMON NORMALS: Yes no CVA tenderness BLADDER/KIDNEY EXAM: Yes no CVA tenderness Back/Pelvis: COMMON NORMALS: no CVA tenderness Extremity: COMMON NORMALS: normal to inspection, full ROM, capillary refill normal, no calf tenderness and no pedal edema Neuro: COMMON NORMALS: patient oriented x3 SENSORIUM/ORIENTATION: Yes alert MENINGEAL SIGNS: Yes no meningeal signs Skin: COMMON NORMALS: no rashes or lesions noted, no wounds, turgor normal, no jaundice, no petechiae and no mottling GENERAL SKIN EXAM: no rashes or lesions noted and turgor normal Course Reevaluation(s): Reevaluation #1: Discussed her lab and imaging findings with her. Nothing new or acute was discovered on her imaging. Discussed possible causes of the pain including the calcifications are noticed on the CAT scan. If she is concerned she is advised to obtain an MRI for further evaluation of her symptoms. She will see her primary care provider for that. Discussed her mild hyponatremia and possible etiologies. She thinks she may be drinking too much water and will reduce her water intake slightly. Time: 13:35 Vital Signs: Vital signs: Vital Signs Temperature 97.7 F 01/15/20 13:01 Pulse Rate 78 01/15/20 13:01 Respiratory Rate 16 01/15/20 13:01 Blood Pressure 164/66 01/15/20 13:01 Pulse Oximetry 97 01/15/20 13:01 MDM - Abdominal Pain Lab Data: Labs: Lab Results 01/15/20 01/15/20 01/15/20 Range/Units 11:37 11:37 12:52 WBC 7.3 (4.0-10.0) 10^3/ uL RBC 3.68 L (4.1-5.3) 10^6/u L Hgb 11.3 L (11.5-15.3) g/dL Hct 34.7 L (37.0-47.0) % MCV 94.3 (81-99) fL MCH 30.7 (28.0-34.0) pg MCHC 32.6 (30.0-36.0) g/dL RDW 13.4 (12.1-15.1) % Plt Count 307 (130-400) 10^3/c mm MPV 9.4 (7.4-10.4) fL Neut % (Auto) 55.5 % Lymph % (Auto) 30.5 % Thurston % (Auto) 7.4 % Eos % (Auto) 5.7 % Baso % (Auto) 0.8 % Neut # (Auto) 4.1 (1.8-7.7) 10^3/u L Lymph # (Auto) 2.2 (0.8-4.8) 10^3/u L Thurston # (Auto) 0.5 (0.2-0.9) 10^3/u L Eos # (Auto) 0.4 (0.0-0.8) 10^3/u L Baso # (Auto) 0.1 (0.0-0.1) 10^3/u L Nucleated RBC % (a uto) 0 % Nucleated RBCs # 0.0 /100WBC Sodium 132 L (136-145) mmol/L Potassium 4.9 (3.5-5.1) mmol/L Chloride 93 L (98-107) mmol/L Carbon Dioxide 22 (22-29) mmol/L Anion Gap 21.9 H (5-19) BUN 13 (8-23) mg/dL Creatinine 1.1 H (0.5-0.9) mg/dL Glucose 96 (65-115) mg/dL Calculated Osmolal ity 270 L (285-295) mOsm/k g Calcium 9.7 (8.5-10.5) mg/dL Total Bilirubin 0.3 (0.15-1.2) mg/dL AST 14 (0-32) U/L ALT 11 (0-33) U/L Alkaline Phosphata se 61 (35-105) IU/L C-Reactive Protein 0.9 (0.0-4.9) mg/L Total Protein 7.3 (6.6-8.7) g/dL Albumin 4.3 (3.5-5.2) g/dL Globulin 3.0 (1.3-4.6) g/dL Lipase 42 (13-60) U/L Urine Color Yellow (Yellow) Urine Appearance Clear (CLEAR) Urine pH 6.5 (5-7) Ur Specific Gravit y 1.005 (1.005-1.030) Urine Protein Neg (Negative) Urine Glucose (UA) Norm (Normal) Urine Ketones Negative (Negative) Urine Blood Neg (Negative) Urine Nitrate Negative (Negative) Urine Bilirubin Neg (NEGATIVE) Urine Urobilinogen Neg (Negative) mg/dL Ur Leukocyte Esme ase Negative (Negative) Discharge Plan Discharge Patient Disposition: Home, Self-Care Clinical Impression: Abdominal pain, chronic, right lower quadrant, Chronic hyponatremia Condition: Stable Prescriptions: Continued meloxicam 7.5 mg tablet 7.5 mg PO DAILY Qty: 30 RF: 0 oxybutynin chloride 10 mg tablet extended release 24hr 10 mg PO DAILY Qty: 30 RF: 3 ondansetron HCl [Zofran] 4 mg tablet 4 mg PO Q8H PRN (Reason: nausea and vomiting) Qty: 14 RF: 0 prenat.vits,haroldo,hkx-nhvs-fsdun Tablet 1 tab PO BEDTIME RF: 0 Ultimate Radha Probiotic 30 billion cell capsule,delayed release(DR/EC) 1 cap PO DAILY RF: 0 amlodipine 5 mg tablet 5 mg PO DAILY Qty: 90 RF: 3 clopidogrel 75 mg tablet 75 mg PO DAILY Qty: 90 RF: 3 pantoprazole 40 mg tablet,delayed release (DR/EC) 40 mg PO BID Qty: 60 RF: 2 atorvastatin [Lipitor] 10 mg tablet 10 mg PO BEDTIME RF: 0 Janumet XR 50-1,000 mg tablet, ER multiphase 24 hr 1 tab PO BIDWM RF: 0 trazodone 50 mg Tablet 50 mg PO BEDTIME RF: 0 Tylenol Extra Strength 500 mg Tablet 500 mg PO PRN RF: 0 gabapentin 100 mg Capsule 100 mg PO BEDTIME RF: 0 hydrochlorothiazide 12.5 mg tablet 12.5 mg PO DAILY RF: 0 lisinopril 10 mg tablet 10 mg PO DAILY RF: 0 Discharge Orders: Discharge Order (Routine); Ordered 01/15/20 Ordered By: Tamir Jones Referrals: Yokasta Bain FNP [Primary Care Provider] - 4-7 days Patient Instructions: Abdominal Pain (ED), Hyponatremia (ED) Activity Restrictions/Additional Instructions: Return for any new or worsening symptoms. Follow-up with your primary care provider. If your symptoms continue to get worse you may need an MRI to take a further look at your abdomen. 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
[2020-01-15 11:41] LABS: Basophils # 0.1 10^3/uL (0.0-0.1); Basophils % 0.8 %; Eosinophils # 0.4 10^3/uL (0.0-0.8); Eosinophils % 5.7 %; Hematocrit 34.7 % (37.0-47.0); Hemoglobin 11.3 g/dL (11.5-15.3); Lymphocytes # 2.2 10^3/uL (0.8-4.8); Lymphocytes % 30.5 %; Mean Corpuscular HGB Conc 32.6 g/dL (30.0-36.0); Mean Corpuscular Hemoglobin 30.7 pg (28.0-34.0); Mean Corpuscular Volume 94.3 fL (81-99); Mean Platelet Volume 9.4 fL (7.4-10.4); Monocytes # 0.5 10^3/uL (0.2-0.9); Monocytes % 7.4 %; Neutrophils # 4.1 10^3/uL (1.8-7.7); Neutrophils % 55.5 %; Nucleated Red Blood Cells % 0 %; Platelet Count 307 10^3/cmm (130-400); Red Blood Count 3.68 10^6/uL (4.1-5.3); Red Cell Distribution Width 13.4 % (12.1-15.1); White Blood Count 7.3 10^3/uL (4.0-10.0)
[2020-01-15 12:10] LABS: Alanine Aminotransferase 11 U/L (0-33); Albumin Level 4.3 g/dL (3.5-5.2); Alkaline Phosphatase 61 IU/L (35-105); Anion Gap 21.9 (5-19); Aspartate Amino Transferase 14 U/L (0-32); Blood Urea Nitrogen 13 mg/dL (8-23); C Reactive Protein 0.9 mg/L (0.0-4.9); Calcium 9.7 mg/dL (8.5-10.5); Carbon Dioxide 22 mmol/L (22-29); Chloride 93 mmol/L (98-107); Glucose 96 mg/dL (65-115); Lipase 42 U/L (13-60); Osmolality Calculated 270 mOsm/kg (285-295); Potassium 4.9 mmol/L (3.5-5.1); Sodium 132 mmol/L (136-145); Total Bilirubin 0.3 mg/dL (0.15-1.2); Total Protein 7.3 g/dL (6.6-8.7)
[2020-01-15 13:01] VITALS: BP 164/66; PULSE 78; RESP 16; TEMP 36.5; O2SAT 97
[2020-01-15 13:02] LABS: Add Urine Microscopic? NO
[2020-01-15 13:10] LABS: Bilirubin Urine Neg (NEGATIVE); Blood Urine Neg (Negative); Glucose Urine UA Norm (Normal); Ketones Urine Negative (Negative); Nitrate Urine Negative (Negative); Protein Urine Neg (Negative); Specific Gravity, Urine 1.005 (1.005-1.030); Urine Appearance Clear (CLEAR); Urine Color Yellow (Yellow); pH Urine 6.5 (5-7)
[2020-01-15 13:11] LABS: Leukocyte Esterase Urine Negative (Negative); Urobilinogen Urine Neg (Negative)
[2020-01-15 13:48] VITALS: BP 164/77; PULSE 80; RESP 18; O2SAT 98
== END 2020-01-15 13:52 | disposition home or self-care (01) ==
PROVIDERS: Emergency Provider Family Medicine; PCP Nurse Practitioner Family
DX: G89.29 Other chronic pain (principal); R10.31 Right lower quadrant pain; E87.1 Hypo-osmolality and hyponatremia; Z79.02 Long term (current) use of antithrombotics/antiplatelets; E11.9 Type 2 diabetes mellitus without complications; E78.5 Hyperlipidemia, unspecified; Z85.51 Personal history of malignant neoplasm of bladder; Z87.891 Personal history of nicotine dependence
CPT/HCPCS: 12345; 36415; 72131; 74176; 80053; 81003; 83690; 85025; 86140; 99282; 99283

== ENCOUNTER 2020-01-16 10:01 | Emergency (ER) | payer MEDICARE, OTHER, SELFPAY ==
[2020-01-16 10:03] VITALS: BP 173/91; PULSE 89; RESP 18; TEMP 36.7; O2SAT 96; BMI 23.6
--- NOTE | 2020-01-16 10:36 | W.ED.ABDPA2 ---
HPI - Abdominal Pain General: Chief Complaint: Abdominal Pain Stated Complaint: abd/back pain Time Seen by Provider: 01/16/20 10:03 History of Present Illness: HPI narrative: 79 yo female presents to the emergency room with complaint of abdominal pain and pain in the right hip this is been a chronic issue she was seen yesterday had CT and lab work done most part was unremarkable. She had multiple work-ups for this she is complaining of some nausea today she is only been taking Tylenol for the pain. Denies any history of trauma. She was recommended yesterday to follow-up with her primary care doctor evaluate for an MRI she has CT of her lumbar spine a CT of her abdomen there is some degenerative changes in the CT of the lumbar spine but no significant pathologic findings in the abdominal film her labs were otherwise unremarkable. Nothing significant is changed since yesterday she is just alert and comfortable. MD elicited complaint: abdominal pain (chronic) Associated Symptoms: Denies bloating, chills, coffee ground emesis, constipation, diarrhea, dysuria, fever(s), hematochezia, hematemesis, melena, nausea and vomiting Review of Systems Const: Denies: fever(s), chills, body aches, change in appetite, fatigue or malaise ENMT: Denies: throat pain, ear or mastoid pain, nasal discharge or nasal congestion Card: Denies: chest pain, edema, dyspnea on exertion or orthopnea Resp: Denies: dyspnea, productive cough or non-productive cough GI: Denies: abdominal pain, nausea, vomiting, hematemesis, coffee ground emesis, diarrhea, constipation, bloating, hematochezia or melena : Denies: flank pain, difficulty voiding, dysuria, urinary frequency or urinary urgency Skin/Breast: Denies: rash or pruritus PFSH ED PFSH: Medical History DDD (degenerative disc disease), lumbar Diabetes mellitus type 2, noninsulin dependent Janumet Diverticula of intestine Hyperlipidemia atorvastatin 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 Last cystoscopy on 09/08/2019 without recurrance. 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 invasion Family History Mother Breast cancer Father Aspiration pneumonia Diabetes Other Cancer Social History Smoking and tobacco status: former smoker Quit status (tobacco): has quit using tobacco Year quit tobacco: 1997, smoked 1 PPD Alcohol intake: never Adopted: No Caregiver/support person: No Lives independently: No Household members: spouse Marital status: Current occupational status: retired History of recent travel: No Physical Exam Const: COMMON NORMALS: no acute distress GENERAL APPEARANCE: cooperative and comfortable ORIENTATION/CONSCIOUSNESS: Yes awake, Yes oriented to person, Yes oriented to place and Yes oriented to time HENMT: COMMON NORMALS: normocephalic, atraumatic, hearing grossly normal bilaterally, external ears normal, EAC's normal, TM's normal bilaterally, Normal nasal mucous membranes and turbinates present, moist oral mucous membranes and oropharynx normal HEAD & SCALP: normocephalic and atraumatic NOSE: Normal nasal mucous membranes and turbinates present EXTERNAL EAR: Yes external ears normal EXTERNAL AUDITORY CANAL: EAC's normal TYMPANIC MEMBRANE: TM's normal bilaterally Eye: COMMON NORMALS: Equal, round and reactive pupils present, EOMs intact bilaterally, conjunctivae normal and no scleral icterus CONJUNCTIVA: Yes conjunctivae normal PUPIL: Yes Equal, round and reactive pupils present Neck/C-Spine: COMMON NORMALS: full ROM, no lymphadenopathy, supple and no JVD Lymph: LYMPHATIC: no lymphadenopathy noted and no lymphedema noted Resp: COMMON NORMALS: normal respiratory effort, No retractions, No use of accessory muscles and clear to auscultation bilaterally AUSCULTATION: clear to auscultation bilaterally Cardio: COMMON NORMALS: no JVD, regular rate, regular rhythm and No murmurs present (Cardio) RATE: regular rate RHYTHM: regular rhythm GI: COMMON NORMALS: Soft to palpation and No hepatosplenomegaly present AUSCULTATION: Yes normoactive bowel sounds PALPATION: Yes Soft to palpation, No Tenderness to palpation present (GI), No Guarding due to palpation present (GI) and Yes No hepatosplenomegaly present Extremity: COMMON NORMALS: normal to inspection, capillary refill normal, no clubbing, cyanosis or edema, no calf tenderness and no pedal edema Neuro: SENSORIUM/ORIENTATION: Yes oriented to person, Yes oriented to place and Yes oriented to time Skin: COMMON NORMALS: no rashes or lesions noted GENERAL SKIN EXAM: no rashes or lesions noted Course Vital Signs: Vital signs: Vital Signs Temperature 98.0 F 01/16/20 10:03 Pulse Rate 89 01/16/20 10:03 Respiratory Rate 15 01/16/20 10:39 Blood Pressure 173/91 01/16/20 10:03 Pulse Oximetry 96 01/16/20 10:03 MDM - Abdominal Pain MDM Narrative: Medical decision making narrative: At this point I think she will need more advanced imaging and evaluation and we can do the emergency room will refer her back to her primary care doctor for consideration MRI or surgical referral gave her pain medications for the week and use PRN Lab Data: Labs: Lab Results 01/16/20 01/16/20 01/16/20 Range/Units 10:34 10:40 10:58 WBC 8.1 (4.0-10.0) 10^3/ uL RBC 3.66 L (4.1-5.3) 10^6/u L Hgb 11.3 L (11.5-15.3) g/dL Hct 35.1 L (37.0-47.0) % MCV 95.9 (81-99) fL MCH 30.9 (28.0-34.0) pg MCHC 32.2 (30.0-36.0) g/dL RDW 13.3 (12.1-15.1) % Plt Count 320 (130-400) 10^3/c mm MPV 9.4 (7.4-10.4) fL Neut % (Auto) 62.4 % Lymph % (Auto) 17.8 % [place] % (Auto) 6.3 % Eos % (Auto) 12.5 % Baso % (Auto) 0.9 % Neut # (Auto) 5.0 (1.8-7.7) 10^3/u L Lymph # (Auto) 1.4 (0.8-4.8) 10^3/u L [place] # (Auto) 0.5 (0.2-0.9) 10^3/u L Eos # (Auto) 1.0 H (0.0-0.8) 10^3/u L Baso # (Auto) 0.1 (0.0-0.1) 10^3/u L Nucleated RBC % (a uto) 0 % Nucleated RBCs # 0.0 /100WBC Sodium 134 L (136-145) mmol/L Potassium 4.8 (3.5-5.1) mmol/L Chloride 97 L (98-107) mmol/L Carbon Dioxide 22 (22-29) mmol/L Anion Gap 19.8 H (5-19) BUN 18 (8-23) mg/dL Creatinine 1.2 H (0.5-0.9) mg/dL Glucose 116 H (65-115) mg/dL Calculated Osmolal ity 275 L (285-295) mOsm/k g Calcium 10.3 (8.5-10.5) mg/dL Total Bilirubin 0.3 (0.15-1.2) mg/dL AST 14 (0-32) U/L ALT 11 (0-33) U/L Alkaline Phosphata se 60 (35-105) IU/L Total Protein 6.7 (6.6-8.7) g/dL Albumin 4.5 (3.5-5.2) g/dL Globulin 2.2 (1.3-4.6) g/dL Urine Color Straw (Yellow) Urine Appearance Clear (CLEAR) Urine pH 5 (5-7) Ur Specific Gravit y 1.015 (1.005-1.030) Urine Protein Neg (Negative) Urine Glucose (UA) Norm (Normal) Urine Ketones Negative (Negative) Urine Blood Neg (Negative) Urine Nitrate Negative (Negative) Urine Bilirubin Neg (NEGATIVE) Urine Urobilinogen Norm (Negative) mg/dL Ur Leukocyte Esme ase Negative (Negative) Discharge Plan Discharge Patient Disposition: Home, Self-Care Clinical Impression: Abdominal pain, chronic, right lower quadrant, Diabetes mellitus type 2, noninsulin dependent, Malignant neoplasm of posterior wall of bladder Condition: Stable Prescriptions: New hydrocodone-acetaminophen 5-325 mg tablet 1 tab PO Q6H PRN (Reason: pain) Qty: 20 RF: 0 No Action meloxicam 7.5 mg tablet 7.5 mg PO DAILY Qty: 30 RF: 0 oxybutynin chloride 10 mg tablet extended release 24hr 10 mg PO DAILY Qty: 30 RF: 3 ondansetron HCl [Zofran] 4 mg tablet 4 mg PO Q8H PRN (Reason: nausea and vomiting) Qty: 14 RF: 0 prenat.vits,haroldo,[id number]-sslb-vrjii Tablet 1 tab PO BEDTIME RF: 0 Ultimate Radha Probiotic 30 billion cell capsule,delayed release(DR/EC) 1 cap PO DAILY RF: 0 amlodipine 5 mg tablet 5 mg PO DAILY Qty: 90 RF: 3 clopidogrel 75 mg tablet 75 mg PO DAILY Qty: 90 RF: 3 pantoprazole 40 mg tablet,delayed release (DR/EC) 40 mg PO BID Qty: 60 RF: 2 atorvastatin [Lipitor] 10 mg tablet 10 mg PO BEDTIME RF: 0 Janumet XR 50-1,000 mg tablet, ER multiphase 24 hr 1 tab PO BIDWM RF: 0 trazodone 50 mg Tablet 50 mg PO BEDTIME RF: 0 Tylenol Extra Strength 500 mg Tablet 500 mg PO PRN RF: 0 gabapentin 100 mg Capsule 100 mg PO BEDTIME RF: 0 hydrochlorothiazide 12.5 mg tablet 12.5 mg PO DAILY RF: 0 lisinopril 10 mg tablet 10 mg PO DAILY RF: 0 Discharge Orders: Discharge Order (Routine); Ordered 01/16/20 Ordered By: Jeremie Gonzalez Referrals: Yokasta Bain FNP [Primary Care Provider] - Discharge Diet: Usual diet Discharge Activity: Resume usual activity Patient Instructions: Abdominal Pain (ED) Activity Restrictions/Additional Instructions: Follow-up with your primary care doctor you may need further evaluation including referral to surgery and/or MRI of the lumbar spine Coding Level of Care Code ED Manager Plant for Chg Fwd Exam Comprehensive
[2020-01-16 10:39] VITALS: RESP 15
[2020-01-16] MEDS: morphine 4 mg/mL SDV 1 mL 2 MG IVP (10:39)
[2020-01-16] MEDS: ondansetron 2 mg/ML SDV 2 mL 4 MG IVP (10:39)
[2020-01-16 10:51] LABS: Add Urine Microscopic? NO
[2020-01-16 10:56] LABS: Alanine Aminotransferase 11 U/L (0-33); Albumin Level 4.5 g/dL (3.5-5.2); Alkaline Phosphatase 60 IU/L (35-105); Anion Gap 19.8 (5-19); Aspartate Amino Transferase 14 U/L (0-32); Blood Urea Nitrogen 18 mg/dL (8-23); Calcium 10.3 mg/dL (8.5-10.5); Carbon Dioxide 22 mmol/L (22-29); Chloride 97 mmol/L (98-107); Globulin 2.2 g/dL (1.3-4.6); Glucose 116 mg/dL (65-115); Osmolality Calculated 275 mOsm/kg (285-295); Potassium 4.8 mmol/L (3.5-5.1); Sodium 134 mmol/L (136-145); Total Bilirubin 0.3 mg/dL (0.15-1.2); Total Protein 6.7 g/dL (6.6-8.7)
[2020-01-16 10:58] LABS: Bilirubin Urine Neg (NEGATIVE); Blood Urine Neg (Negative); Glucose Urine UA Norm (Normal); Ketones Urine Negative (Negative); Leukocyte Esterase Urine Negative (Negative); Nitrate Urine Negative (Negative); Protein Urine Neg (Negative); Specific Gravity, Urine 1.015 (1.005-1.030); Urine Appearance Clear (CLEAR); Urine Color Straw (Yellow); Urobilinogen Urine Norm (Negative); pH Urine 5 (5-7)
[2020-01-16 11:04] LABS: Basophils # 0.1 10^3/uL (0.0-0.1); Basophils % 0.9 %; Eosinophils % 12.5 %; Hematocrit 35.1 % (37.0-47.0); Hemoglobin 11.3 g/dL (11.5-15.3); Lymphocytes # 1.4 10^3/uL (0.8-4.8); Lymphocytes % 17.8 %; Mean Corpuscular HGB Conc 32.2 g/dL (30.0-36.0); Mean Corpuscular Hemoglobin 30.9 pg (28.0-34.0); Mean Corpuscular Volume 95.9 fL (81-99); Mean Platelet Volume 9.4 fL (7.4-10.4); Monocytes # 0.5 10^3/uL (0.2-0.9); Monocytes % 6.3 %; Neutrophils % 62.4 %; Nucleated Red Blood Cells % 0 %; Platelet Count 320 10^3/cmm (130-400); Red Blood Count 3.66 10^6/uL (4.1-5.3); Red Cell Distribution Width 13.3 % (12.1-15.1); White Blood Count 8.1 10^3/uL (4.0-10.0)
[2020-01-16 11:07] VITALS: BP 149/95; PULSE 88; RESP 16; O2SAT 98
== END 2020-01-16 11:07 | disposition home or self-care (01) ==
PROVIDERS: Emergency Provider Family Medicine; PCP Nurse Practitioner Family
DX: G89.29 Other chronic pain (principal); R10.31 Right lower quadrant pain; E11.9 Type 2 diabetes mellitus without complications; C67.4 Malignant neoplasm of posterior wall of bladder; Z79.02 Long term (current) use of antithrombotics/antiplatelets; E78.5 Hyperlipidemia, unspecified; Z87.891 Personal history of nicotine dependence
CPT/HCPCS: 12345; 36415; 80053; 81003; 85025; 96374; 96375; 99283; J2270; J2405

== ENCOUNTER → 2020-01-28 13:44 | Outpatient (BNVA) | payer MEDICARE, OTHER, SELFPAY | PROVIDERS: PCP Nurse Practitioner Family; Visit Provider Nurse Practitioner Family | DX: R30.0 Dysuria (principal); G89.29 Other chronic pain; R10.9 Unspecified abdominal pain; N94.89 Other specified conditions associated with female genital organs and menstrual cycle; R63.4 Abnormal weight loss; I10 Essential (primary) hypertension | CPT/HCPCS: 80053; 81000; 85025; 87086 ==

== ENCOUNTER → 2020-02-11 10:12 | Outpatient (BNVA) | payer MEDICARE, OTHER, SELFPAY | PROVIDERS: PCP Nurse Practitioner Family; Visit Provider Nurse Practitioner Family | DX: E87.5 Hyperkalemia (principal) | CPT/HCPCS: 80048 ==

== ENCOUNTER 2020-02-16 11:03 | Emergency (ER) | payer MEDICARE, OTHER, SELFPAY ==
[2020-02-16 11:32] VITALS: BP 102/72; PULSE 92; RESP 18; TEMP 36.5; O2SAT 96; BMI 23.6
[2020-02-16 11:38] VITALS: RESP 18
--- NOTE | 2020-02-16 12:13 | XRR_ITS ---
PROCEDURE INFORMATION: Exam: XR Right Femur Exam date and time: 02/16/2020 12:41 PM Age: 79 years old Clinical indication: Pain; Lower leg; Right; Patient HX: HX of bladder CA; Additional info: Pain, weight loss, numbness TECHNIQUE: Imaging protocol: XR Right femur. Views: 2 views. COMPARISON: CR Tibia and Fibula RIGHT [id number] 05/30/2017 11:07 AM FINDINGS: Bones/joints: No fracture. No dislocation. There is superior joint space narrowing, subchondral eburnation and cyst formation, and osteophyte formation at the right hip joint compatible with osteoarthritis. No tenisha bone destruction or periosteal reaction. Soft tissues: No acute soft tissue abnormality. XR/XR femur RT min 2V* [id number] IMPRESSION: Right hip osteoarthritis.
[2020-02-16] MEDS: HYDROcodone-acetaminophen 5-325 mg Tablet 1 TAB PO (12:45)
--- NOTE | 2020-02-16 12:48 | ED_ITS ---
HPI - Recheck/Abnormal Lab/Rx General: Chief Complaint: Recheck/Abnormal Lab/Rx Stated Complaint: pain med refill request Time Seen by Provider: 02/16/20 11:59 History of Present Illness: HPI narrative: This patient is a 79-year-old female presenting today with right hip pain. She has had these symptoms since about May. She had a hysterectomy done at that time related to prolapse. No history of cancer. She does have a history of some bladder cancer that was treated with cystoscopic laser. She has been seeing her primary care doctor and has been to the ED for this pain. On her last visit she was worked up for abdominal pain initially with an abdominal CT that was unremarkable. She also had a CT of her lumbar spine showing a lot of chronic disease but nothing obvious as a cause for her pain. Today her pain seems to be more in the right groin, hip, lower back and she complains of some numbness in her anterior thigh. The pain is constant, worse sometimes at night and worse sometimes when she is ambulating. She walks with a little bit of a limp in the ED. She has had no fever, no vomiting, no constipation or diarrhea. No difficulty with urination. No weakness of the leg. She has noted about a 10 pound weight loss over the past few months. She says sometimes her appetite is poor when her pain is bad. Tylenol does not seem to help and she has been prescribed hydrocodone on a few occasions. She would like to have another prescription for that if possible. She was recommended to have an outpatient MRI. She also has follow-up with Dr. Cardenas in March which is her typical 6-month follow-up from her bladder cancer. She has seen Dr. Isaac in follow-up of her hysterectomy and related to this pain with no findings. complaint: medication refill request Review of Systems General: Reports: 10 or more systems reviewed and unremarkable except in HPI and below Const: Denies: fever(s), chills, fatigue or malaise Eyes: Denies: change in vision ENMT: Denies: odynophagia Card: Denies: chest pain or swelling of feet/ankles Resp: Denies: dyspnea, productive cough or non-productive cough GI: Denies: abdominal pain, nausea or vomiting : Denies: flank pain or difficulty voiding Musc: Reports: joint pain; Denies: neck pain or back pain Skin/Breast: Denies: rash Neuro: Denies: headache(s), numbness in extremities or weakness in extremities Alfonso/Lymph: Denies: easy bruising or easy bleeding PFSH ED PFSH: Medical History DDD (degenerative disc disease), lumbar Diabetes mellitus type 2, noninsulin dependent Janumet Diverticula of intestine Hyperlipidemia atorvastatin 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 Last cystoscopy on 09/08/2019 without recurrance. Osteoarthritis Pelvic organ prolapse quantification stage 3 cystocele Thyroid nodule Last thyroid imaging at [facility] [place] 2017, bilateral adenomatous nodules or colloid cysts Vitamin D deficiency Surgical History H/O arthroscopy of knee (~2014) Left, Dr Connors History of hysterectomy (~05/2019) with BSO, Ant/Post colporrhaphy and urethral sling, Dr Isaac History of transurethral destruction of bladder lesion TCCA of bladder without invasion Family History Mother Breast cancer Father Aspiration pneumonia Diabetes Other Cancer Denies family history of Anesthesia complication Bleeding disorder Social History Smoking and tobacco status: former smoker Quit status (tobacco): has quit using tobacco Year quit tobacco: 1997, smoked 1 PPD Alcohol intake: never Adopted: No Caregiver/support person: No Lives independently: No Household members: spouse Marital status: Current occupational status: retired History of recent travel: No Physical Exam Const: COMMON NORMALS: no acute distress, patient oriented x3, no limitations and alert GENERAL APPEARANCE: cooperative and comfortable HENMT: HEAD & SCALP: normal to inspection FACE & SINUS: normal facial exam Eye: GENERAL EYE: appearance normal, both eyes and all related structures Neck/C-Spine: COMMON NORMALS: supple, no meningeal signs and no JVD Chest: COMMONS NORMALS: normal inspection of the chest Resp: COMMON NORMALS: normal respiratory effort, No use of accessory muscles and clear to auscultation bilaterally AUSCULTATION: clear to auscultation bilaterally Cardio: COMMON NORMALS: no JVD, regular rate, regular rhythm and No murmurs present (Cardio) RATE: regular rate RHYTHM: regular rhythm GI: COMMON NORMALS: Normal to inspection, nondistended, normoactive bowel sounds present, Soft to palpation and non-tender INSPECTION: Yes normal to inspection AUSCULTATION: Yes normoactive bowel sounds PALPATION: Yes Soft to palpation Back/Pelvis: COMMON NORMALS: thoracic and lumbar spine normal to inspection Extremity: COMMON NORMALS: normal to inspection RIGHT LOWER EXTREMITY: Yes hip joint (Rotation of the hip externally causes knee pain. Otherwise normal exam of the hip and knee.) Neuro: COMMON NORMALS: patient oriented x3, moves all extremities, no focal motor deficits and no sensory deficits noted SENSORIUM/ORIENTATION: Yes alert MENINGEAL SIGNS: Yes no meningeal signs Psych: COMMON NORMALS: mental status grossly normal, cooperative and normal affect Skin: COMMON NORMALS: no rashes or lesions noted and turgor normal GENERAL SKIN EXAM: no rashes or lesions noted and turgor normal Course ED course: Patient is presented several times for this pain. She is had a work-up with an abdominal CT, lumbar CT. On plain x-rays today she is noted to have osteoarthritis in the hip and her description of the pain to me suggest that this may be the cause of it. She may also have some lumbar issues as the pain does radiate around to her back. She has follow-up with primary care for possible MRI of her L-spine. I am also getting give her follow-up with Dr. Brumfield for evaluation of hip osteoarthritis. I will refill her hydrocodone. We discussed that that is now long-term solution and it is not something that she should take on a very regular basis. She understands that. Vital Signs: Vital signs: Vital Signs Temperature 97.7 F 02/16/20 11:32 Pulse Rate 92 02/16/20 11:32 Respiratory Rate 18 02/16/20 11:38 Blood Pressure 102/72 02/16/20 11:32 Pulse Oximetry 96 02/16/20 11:32 Discharge Plan Discharge Patient Disposition: Home, Self-Care Clinical Impression: Osteoarthritis of right hip Qualifiers: Osteoarthritis type: unspecified Qualified Code(s): M16.11 - Unilateral primary osteoarthritis, right hip Condition: Stable Prescriptions: New hydrocodone-acetaminophen 5-325 mg tablet 1 tab PO Q6H PRN (Reason: pain) Qty: 30 RF: 0 No Action oxybutynin chloride 10 mg tablet extended release 24hr 10 mg PO DAILY Qty: 30 RF: 3 lisinopril 20 mg tablet 20 mg PO DAILY Qty: 30 RF: 1 prenat.vits,haroldo,qps-clvj-gnzif Tablet 1 tab PO BEDTIME RF: 0 Ultimate Radha Probiotic 30 billion cell capsule,delayed release(DR/EC) 1 cap PO DAILY RF: 0 hydrocodone-acetaminophen 5-325 mg tablet 1 tab PO Q6H PRN (Reason: pain) 5 Days Qty: 20 RF: 0 pantoprazole 40 mg tablet,delayed release (DR/EC) 40 mg PO BID Qty: 60 RF: 2 atorvastatin [Lipitor] 10 mg tablet 10 mg PO BEDTIME RF: 0 Janumet XR 50-1,000 mg tablet, ER multiphase 24 hr 1 tab PO BIDWM RF: 0 Tylenol Extra Strength 500 mg Tablet 500 mg PO PRN RF: 0 Discharge Orders: Discharge Order (Routine); Ordered 02/16/20 Ordered By: Marii Villa Referrals: Yane Brumfield MD [Physician] - 2 weeks Yokasta Bain FNP [Primary Care Provider] - Discharge Diet: Usual diet Discharge Activity: Resume usual activity Patient Instructions: Osteoarthritis (ED) Activity Restrictions/Additional Instructions: Light activity is fine. Avoid prolonged standing or walking. Use the pain medication only as needed. Follow-up with Dr. Brumfield, orthopedics for further evaluation of your hip pain. Continue follow-up with your primary care and other specialists as planned. Discharge Date/Time: 02/16/20 14:00 Coding Level of Care Code ED [employer] Coordinator for Chg Fwd Exam Comprehensive
--- NOTE | 2020-02-17 15:39 | DCPLANNER ---
manager outpatient had message to schedule a follow up appointment for patient with ortho. manager outpatient called the ortho clinic, spoke with Pat, gave clinic patients information. manager outpatient was told that patients information would be printed and reviewed. Clinic will call patient with appointment information.
--- NOTE | 2020-02-18 14:48 | DCPLANNER ---
Patient has a follow up appointment scheduled for Saturday, February at 10:[address] Brumfield. Clinic will call patient with appointment information.
--- NOTE | 2020-03-18 12:55 | DCPLANNER ---
Patient had a follow up appointment scheduled for 03.02.20 - patient did attend appointment.
== END 2020-02-16 14:00 | disposition home or self-care (01) ==
PROVIDERS: Emergency Provider Emergency Medicine; PCP Nurse Practitioner Family
DX: M16.11 Unilateral primary osteoarthritis, right hip (principal); E11.9 Type 2 diabetes mellitus without complications; E78.5 Hyperlipidemia, unspecified; Z85.51 Personal history of malignant neoplasm of bladder; Z87.891 Personal history of nicotine dependence
CPT/HCPCS: 12345; 73552; 99281; 99283

== ENCOUNTER 2020-02-21 10:36 | Emergency (ER) | payer MEDICARE, OTHER, SELFPAY ==
[2020-02-21 10:49] VITALS: BP 168/80; PULSE 98; TEMP 37; O2SAT 97; BMI 23.4
--- NOTE | 2020-02-21 10:57 | XRR_ITS ---
PROCEDURE INFORMATION: Exam: XR Abdomen, 2 Views Exam date and time: 02/21/2020 11:55 AM Age: 79 years old Clinical indication: Abdominal pain; Generalized; Prior surgery; Surgery date: 6+ months; Surgery type: Hysterectomy; Additional info: Abd pain TECHNIQUE: Imaging protocol: XR of the abdomen. Views: 2 Views. COMPARISON: CT kidney stone [id number] 01/15/2020 11:34 AM FINDINGS: Gastrointestinal tract: Normal. No bowel dilation. Intraperitoneal space: Stable right hemidiaphragm elevation. Bones/joints: Unremarkable for age. XR/XR acute abdomen series [id number] IMPRESSION: No acute findings.
--- NOTE | 2020-02-21 10:58 | ED_ITS ---
HPI - Abdominal Pain General: Chief Complaint: Abdominal Pain Stated Complaint: ABD PAIN Time Seen by Provider: 02/21/20 10:40 History of Present Illness: HPI narrative: Patient has a long history of lower abdominal pain. She was recently seen and worked up in the emergency department for this. She is scheduled to see Dr. Lema in 3 days to arrange for colonoscopy. Patient states that her lower abdominal pain continues even with the hydrocodone that she has been prescribed. She has no nausea vomiting. MD elicited complaint: abdominal pain Pertinent past history: none Onset (ago): unknown Pain Consistency: constant Location: RLQ, LLQ and Suprapubic Severity: moderate Quality: cramping and aching Radiation: none Migration to: no migration Exacerbating factors: movement Relieving factors: nothing Associated Symptoms: Reports no associated symptoms Review of Systems General: Reports: 10 or more systems reviewed and unremarkable except in HPI and below PFSH ED PFSH: Medical History DDD (degenerative disc disease), lumbar Diabetes mellitus type 2, noninsulin dependent Janumet Diverticula of intestine Hyperlipidemia atorvastatin 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 Last cystoscopy on 09/08/2019 without recurrance. 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 Family History Mother Breast cancer Father Aspiration pneumonia Diabetes Other Cancer Denies family history of Anesthesia complication Bleeding disorder Social History Smoking and tobacco status: former smoker Quit status (tobacco): has quit using tobacco Year quit tobacco: 1997, smoked 1 PPD Alcohol intake: never Adopted: No Caregiver/support person: No Lives independently: No Household members: spouse Marital status: Current occupational status: retired History of recent travel: No Physical Exam Const: COMMON NORMALS: no acute distress, patient oriented x3, no limitations and alert HENMT: COMMON NORMALS: normocephalic, atraumatic, external ears normal and Normal external nose present HEAD & SCALP: normocephalic and atraumatic FACE & SINUS: normal facial exam NOSE: Normal external nose present EXTERNAL EAR: Yes external ears normal MOUTH: Normal oral and palatal mucosa present Neck/C-Spine: COMMON NORMALS: full ROM, no lymphadenopathy, supple, no meningeal signs and no JVD GENERAL: Yes normal visual inspection Resp: COMMON NORMALS: normal respiratory effort, No retractions, No use of accessory muscles and clear to auscultation bilaterally AUSCULTATION: clear to auscultation bilaterally Cardio: COMMON NORMALS: no JVD, regular rate and regular rhythm RATE: regular rate RHYTHM: regular rhythm GI: COMMON NORMALS: Normal to inspection, nondistended, normoactive bowel sounds present, Soft to palpation, non-tender, No hepatosplenomegaly present and no masses INSPECTION: Yes normal to inspection AUSCULTATION: Yes normoactive bowel sounds PALPATION: Yes Soft to palpation and Yes No hepatosplenomegaly present PERCUSSION: normal to percussion : COMMON NORMALS: Yes no CVA tenderness and Yes normal external appearance BLADDER/KIDNEY EXAM: Yes no CVA tenderness Back/Pelvis: COMMON NORMALS: no CVA tenderness, thoracic and lumbar spine normal to inspection, no thoracic nor lumbar tenderness, thoraco-lumbar ROM normal and straight leg raise negative bilaterally Extremity: COMMON NORMALS: normal to inspection, full ROM, capillary refill normal, no joint enlargement, no clubbing, cyanosis or edema, no calf tenderness and no pedal edema Neuro: COMMON NORMALS: patient oriented x3, moves all extremities, no focal motor deficits and no sensory deficits noted SENSORIUM/ORIENTATION: Yes alert MENINGEAL SIGNS: Yes no meningeal signs Psych: COMMON NORMALS: mental status grossly normal, Normal thought process present, cooperative, normal affect and speech normal SPEECH: Yes normal speech THOUGHT PROCESS: Normal thought process present Skin: COMMON NORMALS: no rashes or lesions noted, no wounds, turgor normal, no jaundice, no petechiae and no mottling GENERAL SKIN EXAM: no rashes or lesions noted and turgor normal Course Vital Signs: Vital signs: Vital Signs Temperature 98.6 F 02/21/20 10:49 Pulse Rate 96 02/21/20 11:01 Blood Pressure 136/76 02/21/20 11:56 Pulse Oximetry 97 02/21/20 11:56 Discharge Plan Discharge Patient Disposition: Home, Self-Care Clinical Impression: Chronic abdominal pain Constipation Qualifiers: Constipation type: unspecified constipation type Qualified Code(s): K59.00 - Constipation, unspecified Condition: Stable Prescriptions: No Action oxybutynin chloride 10 mg tablet extended release 24hr 10 mg PO DAILY Qty: 30 RF: 3 lisinopril 20 mg tablet 20 mg PO DAILY Qty: 30 RF: 1 prenat.vits,haroldo,tdr-gvqp-mwqmi Tablet 1 tab PO BEDTIME RF: 0 Ultimate Radha Probiotic 30 billion cell capsule,delayed release(DR/EC) 1 cap PO DAILY RF: 0 hydrocodone-acetaminophen 5-325 mg tablet 1 tab PO Q6H PRN (Reason: pain) 5 Days Qty: 20 RF: 0 pantoprazole 40 mg tablet,delayed release (DR/EC) 40 mg PO BID Qty: 60 RF: 2 atorvastatin [Lipitor] 10 mg tablet 10 mg PO BEDTIME RF: 0 Janumet XR 50-1,000 mg tablet, ER multiphase 24 hr 1 tab PO BIDWM RF: 0 acetaminophen [Tylenol Extra Strength] 500 mg Tablet 500 mg PO PRN RF: 0 clopidogrel 75 mg tablet See Rx Instructions .ROUTE .COMPLEX RF: 0 amlodipine 5 mg tablet See Rx Instructions .ROUTE .COMPLEX RF: 0 Discharge Orders: Discharge Order (Routine); Ordered 02/21/20 Ordered By: Edgard Hernandez Referrals: Yokasta Bain FNP [Primary Care Provider] - Patient Instructions: Cholecystitis (ED), Abdominal Pain (ED) Activity Restrictions/Additional Instructions: option one: glycerin suppository and fleets enema; may repeat once option two: five packets of Miralax in one quart of Gatorade and drink to result Coding Level of Care Code ED Precision Grinder External for Chg Fwd Exam Comprehensive
[2020-02-21 11:01] VITALS: BP 141/79; PULSE 96; O2SAT 97
[2020-02-21 11:56] VITALS: BP 136/76; O2SAT 97
[2020-02-21 12:32] VITALS: BP 136/76; O2SAT 97
== END 2020-02-21 12:33 | disposition home or self-care (01) ==
PROVIDERS: Emergency Provider Family Medicine; PCP Nurse Practitioner Family
DX: G89.29 Other chronic pain (principal); K59.00 Constipation, unspecified; R10.9 Unspecified abdominal pain; Z79.02 Long term (current) use of antithrombotics/antiplatelets; Z87.891 Personal history of nicotine dependence; E11.9 Type 2 diabetes mellitus without complications; E78.5 Hyperlipidemia, unspecified; Z85.51 Personal history of malignant neoplasm of bladder
CPT/HCPCS: 12345; 74022; 99282

== ENCOUNTER 2020-02-29 08:43 | Day surgery (SDC) | payer MEDICARE, OTHER, SELFPAY ==
[2020-02-25 10:32] VITALS: BMI 23.2
[2020-02-29] MEDS: sodium chloride 0.9% 1,000 ML 30 ML IV (09:40)
[2020-02-29 09:43] LABS: Glucose Point of Care 135 mg/dL (70-110)
--- NOTE | 2020-02-29 09:54 | ANES.PREANE2 ---
Pre-Anesthetic Assessment Pre-Anesthetic Assessment: Height/Weight: Height 1.52 m Weight 53.977 kg Preop Diagnosis: p Proposed Procedure: Operation Date: 02/29/20 09:45 Proposed Procedures p EGD/COLON 55793 [id number] R10.9(Not Applicable) - Tristin Lema MD s Colonoscopy(Not Applicable) - Tristin Lema MD Last intake: Intake Last Liquid Date 02/28/20 Last Liquid Time 18:00 Last Solid Date 02/27/20 Last Solid Time 18:00 Social: Social History: Tobacco (quit 1997) and No alcohol Exam: Pre-Anes Outpt Exam: alert, oriented x 3, clear to auscultation bilaterally and regular rate & rhythm Airway: Submandibular: WNL Cervical ROM: WNL MP: 2 Dentition: Other (mult missing) History/ROS: No significant history except as noted Pulmonary: Pulmonary: None reported CV/HEM: CV/HEM: HTN : : None reported Hepatic: Hepatic: None reported GI: GI: GERD Metabolic: Metabolic: DM and Hyperlipidemia Musc/skel: Musc/skel: OA/DJD Neuropsych: Neuropsych: None reported Anesthetic Plan: ASA status: 3 Anesthesia: Anesthesia Evaluation and MAC Risk of > 500 ml blood loss (7ml/kg in children): No Meds/Allergies Current Medications: Current Medications Generic Name Dose Route Start Last Admin Trade Name Freq PRN Reason Stop Dose Admin Sodium Chloride 1,000 mls @ 30 ml s/hr 02/29/20 09:15 02/29/20 09:40 Sodium Chloride 0.9% IV 03/01/20 09:14 30 mls/hr .Q24H [place] Administration PFSH Anesthesia PFSH: Medical History DDD (degenerative disc disease), lumbar Diabetes mellitus type 2, noninsulin dependent Janumet Diverticula of intestine Hyperlipidemia atorvastatin 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 Last cystoscopy on 09/08/2019 without recurrance. 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 Family History Mother Breast cancer Father Aspiration pneumonia Diabetes Other Cancer Denies family history of Anesthesia complication Bleeding disorder Social History Smoking and tobacco status: former smoker Quit status (tobacco): has quit using tobacco Year quit tobacco: 1997, smoked 1 PPD Alcohol intake: never Adopted: No Caregiver/support person: No Lives independently: No Household members: spouse Marital status: Current occupational status: retired History of recent travel: No Data Anesthesia Other Labs: Laboratory Results - last 48 hr 02/29/20 09:37 POC Glucose 135 Cardiac Studies: No Data to Display
[2020-02-29 10:38] VITALS: BP 179/93; PULSE 76; RESP 16; TEMP 36.7; O2SAT 97
[2020-02-29 11:05] VITALS: BP 151/85; PULSE 81; RESP 18; O2SAT 96
--- NOTE | 2020-03-17 12:32 | P.HP_ITS ---
Same Day Surgery H&P Indication for Procedure/HPI DATE OF PROCEDURE: March 17, 2020 CHIEF COMPLAINT/INDICATIONFOR SURGICAL PROCEDURE: Nominal pain PREOP DIAGNOSIS: p PLANNED PROCEDRUE: Operation Date: 02/29/20 09:45 Proposed Procedures p EGD/COLON 10157 45738 R10.9(Not Applicable) - Tristin Lema MD s Colonoscopy(Not Applicable) - Tristin Lema MD Medications/Allergies* Home Medications Medication Instructions Recorded Confirmed Type Lactobacillus-Bifidobacterium 30 1 cap PO DAILY cap 08/06/19 03/13/20 History billion cell capsule,delayed release prenat.vits,haroldo,rgv-dedc-kwzey 1 tab PO BEDTIME tab 08/06/19 03/13/20 History Janumet XR 1 tab PO BIDWM 11/29/19 03/13/20 History atorvastatin [Lipitor] 10 mg PO BEDTIME 11/29/19 03/13/20 History acetaminophen [Tylenol Extra 1,000 mg PO PRN 01/15/20 03/13/20 History Strength] amlodipine 5 mg PO DAILY 03/13/20 03/13/20 History clopidogrel See Rx Instructions .ROUTE .COMPLEX 03/13/20 03/13/20 History trazodone 50 mg PO BEDTIME PRN 03/13/20 03/13/20 History Allergies/Adverse Reactions Allergy/AdvReac Type Severity Reaction Status Date / Time aspirin Allergy Mild ADR-Heartbu Verified 03/13/20 14:34 rn Pertinent History/Comorbid Conditions* Medical History (Updated 03/13/20 @ 15:02 by LIZBETH Lemons) DDD (degenerative disc disease), lumbar Diabetes mellitus type 2, noninsulin dependent Janumet Diverticula of intestine Hyperlipidemia atorvastatin 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 Family History (Updated 02/09/20 @ 13:29 by SUDEEP Larkin) Father Mother Diabetes Father Breast cancer Mother Aspiration pneumonia Father Cancer Denies family history of Anesthesia complication Bleeding disorder Social History Smoking and tobacco status: former smoker Quit status (tobacco): has quit using tobacco Year quit tobacco: 1997, smoked 1 PPD Alcohol intake: never Adopted: No Caregiver/support person: No Lives independently: No Household members: spouse Marital status: Current occupational status: retired History of recent travel: No Pertinent Exam Findings alert, oriented x 3, clear to auscultation bilaterally, regular rate & rhythm, operative site marked and procedure specific exam findings Recommendations Surgery/Procedure today Coding Level of Care Code Acute Information Technology Technician for Lou Sánchez
== END 2020-02-29 11:40 | disposition home or self-care (01) ==
PROVIDERS: PCP Nurse Practitioner Family; Visit Provider Internal Medicine
PROC: 0DJ08ZZ Inspection of Upper Intestinal Tract, Via Natural or Artificial Opening Endoscopic (ICD-10-PCS; CPT 43235; principal; 2020-02-29 09:45)
PROC: 0DJD8ZZ Inspection of Lower Intestinal Tract, Via Natural or Artificial Opening Endoscopic (ICD-10-PCS; CPT 45378; 2020-02-29 09:45)
DX: R10.13 Epigastric pain (principal); R63.4 Abnormal weight loss; Z68.23 Body mass index [BMI] 23.0-23.9, adult; E11.9 Type 2 diabetes mellitus without complications; E78.5 Hyperlipidemia, unspecified; M19.90 Unspecified osteoarthritis, unspecified site; Z87.891 Personal history of nicotine dependence; G89.29 Other chronic pain; Z79.891 Long term (current) use of opiate analgesic; K57.30 Diverticulosis of large intestine without perforation or abscess without bleeding; K44.9 Diaphragmatic hernia without obstruction or gangrene; I10 Essential (primary) hypertension
CPT/HCPCS: 12345; 36416; 43235; 45378; 82962; J2704; J7030

== ENCOUNTER → 2020-03-02 10:37 | Outpatient (BNVA) | payer MEDICARE, OTHER, SELFPAY | PROVIDERS: PCP Nurse Practitioner Family; Referring Provider Emergency Medicine; Visit Provider Specialist | DX: M25.551 Pain in right hip (principal); M16.0 Bilateral primary osteoarthritis of hip | CPT/HCPCS: 73502 ==

== ENCOUNTER 2020-03-09 06:00 | Outpatient (RCR) | payer MEDICARE, OTHER, SELFPAY | END 2020-04-04 23:59 | disposition home or self-care (01) | LOC: TPT 06:00 | PROVIDERS: PCP Nurse Practitioner Family; Referring Provider Specialist; Visit Provider Specialist | DX: M16.11 Unilateral primary osteoarthritis, right hip (principal) | CPT/HCPCS: 97110; 97161 ==

== ENCOUNTER 2020-03-13 13:12 | Emergency (ER) | payer MEDICARE, OTHER, SELFPAY ==
[2020-03-13 13:21] VITALS: BP 185/92; PULSE 79; RESP 12; TEMP 36.2; O2SAT 98; BMI 23.4
--- NOTE | 2020-03-13 13:48 | ED_ITS ---
HPI - Female Genitourinary General: Chief complaint: Urogenital-Female Stated complaint: possible uti Time Seen by Provider: 03/13/20 13:45 History of Present Illness: MD elicited complaint: dysuria and UTI Pertinent past history: other (Past medical history of bladder cancer. She was seen by Dr. Cardenas on March 09 and cystoscopy was performed and no evidence of cancer seen.) Onset (ago): day(s) (3 days ago) Location of symptoms: urethra and pelvis Severity: mild Severity scale (1-10): 1 (Less than 1) Quality of pain: burning (Burning discomfort when urinating.) Consistency: constant Vaginal discharge: none Vaginal bleeding: none Urinary symptoms: Dysuria, Frequency and Urgency Exacerbating factors: none Relieving factors: none Associated symptoms: Deny abdominal pain, headache(s) or nausea Review of Systems Const: Denies: fever(s), chills or fatigue Eyes: Denies: change in vision or eye discomfort ENMT: Denies: throat pain, odynophagia, nasal discharge or nasal congestion Card: Denies: chest pain, palpitations, edema, swelling of feet/ankles, dyspnea on exertion or orthopnea Resp: Denies: dyspnea, productive cough or non-productive cough GI: Denies: abdominal pain, nausea, vomiting, diarrhea, constipation or hematochezia : Reports: dysuria, urinary frequency, urinary urgency and pelvic pain (Little tenderness over her bladder.); Denies: flank pain or hematuria Musc: Denies: neck pain, back pain or extremity swelling Skin/Breast: Denies: rash or new lesions Neuro: Denies: headache(s), numbness in extremities or weakness in extremities PFSH ED PFSH: Medical History DDD (degenerative disc disease), lumbar Diabetes mellitus type 2, noninsulin dependent Janumet Diverticula of intestine Hyperlipidemia atorvastatin 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 Family History Mother Breast cancer Father Aspiration pneumonia Diabetes Other Cancer Denies family history of Anesthesia complication Bleeding disorder Social History Smoking and tobacco status: former smoker Quit status (tobacco): has quit using tobacco Year quit tobacco: 1997, smoked 1 PPD Alcohol intake: never Adopted: No Caregiver/support person: No Lives independently: No Household members: spouse Marital status: Current occupational status: retired History of recent travel: No Physical Exam Narrative: EXAM NARRATIVE: Patient is a pleasant 79-year-old female that is sitting comfortably on the chair when I enter the room. She is showing no signs of acute distress or pain. Const: COMMON NORMALS: no acute distress, patient oriented x3, healthy appearing and alert GENERAL APPEARANCE: cooperative and comfortable HENMT: COMMON NORMALS: normocephalic HEAD & SCALP: normocephalic MOUTH: Normal oral and palatal mucosa present THROAT: posterior oropharynx normal and uvula midline Neck/C-Spine: COMMON NORMALS: supple GENERAL: Yes normal visual inspection Resp: COMMON NORMALS: normal respiratory effort, No retractions, No use of a ccessory muscles and clear to auscultation bilaterally AUSCULTATION: clear to auscultation bilaterally Cardio: COMMON NORMALS: regular rate, regular rhythm, S1 normal heart sound present, S2 normal heart sound present, No gallops present (Cardio), No clicks present (Cardio), No murmurs present (Cardio) and Peripheral pulses 2+ throughout RATE: regular rate RHYTHM: regular rhythm HEART SOUNDS: S1 normal heart sound present and S2 normal heart sound present PERIPHERAL PULSES: Peripheral pulses 2+ throughout GI: COMMON NORMALS: Normal to inspection, nondistended, normoactive bowel sounds present, Soft to palpation, non-tender and no masses PALPATION: Yes Soft to palpation and Yes Bladder palpation abnormal : COMMON NORMALS: Yes no CVA tenderness BLADDER/KIDNEY EXAM: Yes no CVA tenderness and Yes Bladder palpation abnormal Bladder abnormal details: tender (Mild) Back/Pelvis: COMMON NORMALS: no CVA tenderness Extremity: COMMON NORMALS: normal to inspection Neuro: COMMON NORMALS: patient oriented x3 and moves all extremities SENSORIUM/ORIENTATION: Yes alert Skin: COMMON NORMALS: no rashes or lesions noted GENERAL SKIN EXAM: no rashes or lesions noted and dry skin Course Vital Signs: Vital signs: Vital Signs Temperature 97.2 F L 03/13/20 13:21 Pulse Rate 72 03/13/20 15:12 Respiratory Rate 18 03/13/20 15:12 Blood Pressure 122/68 03/13/20 15:12 Pulse Oximetry 98 03/13/20 15:12 MDM - Female MDM Narrative: Medical decision making narrative: Patient is a 79-year-old female comes to the ED with UTI symptoms. She has a past medical history of bladder cancer and was recently seen by Dr. Cardenas and a cystoscopy he was performed and no active cancer seen. Exam shows a healthy patient showing no signs of distress, discomfort or pain. She has some mild tenderness when palpating the bladder. Other than that patient appears very healthy. Patient is having some mild bladder tenderness and dysuria/burning when urinating and increased urgency to urinate. UA was performed and showed no UTI. With patient's clinical symptoms and past medical history I put her on an antibiotic to treat her UTI symptoms. Follow-up with PCP in 7 to 10 days for reevaluation. return to ED precautions given patient understood and agreed with plan. Lab Data: Attestation: I reviewed the patient's lab results. Labs: Lab Results 03/13/20 Range/Units 14:15 Urine Color Straw (Yellow) Urine Appearance Clear (CLEAR) Urine pH 5 (5-7) Ur Specific Gravit y 1.015 (1.005-1.030) Urine Protein Neg (Negative) Urine Glucose (UA) Norm (Normal) Urine Ketones Negative (Negative) Urine Blood Neg (Negative) Urine Nitrate Negative (Negative) Urine Bilirubin Neg (NEGATIVE) Urine Urobilinogen Norm (Negative) mg/dL Ur Leukocyte Esme ase Negative (Negative) Discharge Plan Discharge Patient Disposition: Home Clinical Impression: UTI symptoms Condition: Stable Prescriptions: New cefdinir 300 mg capsule 300 mg PO BID 10 Days Qty: 20 RF: 0 No Action oxybutynin chloride 10 mg tablet extended release 24hr 10 mg PO DAILY Qty: 30 RF: 3 lisinopril 20 mg tablet 20 mg PO DAILY Qty: 30 RF: 1 prenat.vits,haroldo,pxv-ajic-ocdam Tablet 1 tab PO BEDTIME RF: 0 Ultimate Radha Probiotic 30 billion cell capsule,delayed release(DR/EC) 1 cap PO DAILY RF: 0 hydrocodone-acetaminophen 5-325 mg tablet 1 tab PO Q6H PRN (Reason: pain) 5 Days Qty: 20 RF: 0 meloxicam 7.5 mg tablet 7.5 mg PO DAILY Qty: 30 RF: 0 pantoprazole 40 mg tablet,delayed release (DR/EC) 40 mg PO BID Qty: 60 RF: 2 atorvastatin [Lipitor] 10 mg tablet 10 mg PO BEDTIME RF: 0 Janumet XR 50-1,000 mg tablet, ER multiphase 24 hr 1 tab PO BIDWM RF: 0 acetaminophen [Tylenol Extra Strength] 500 mg Tablet 1,000 mg PO PRN RF: 0 trazodone 50 mg tablet 50 mg PO BEDTIME PRN (Reason: Sleep) RF: 0 clopidogrel 75 mg tablet See Rx Instructions .ROUTE .COMPLEX RF: 0 amlodipine 5 mg tablet 5 mg PO DAILY RF: 0 Discharge Orders: Discharge Order (Routine); Ordered 03/13/20 Ordered By: Toi Powers Referrals: Yokasta Bain FNP [Primary Care Provider] - Discharge Diet: Regular Discharge Activity: Increase activity as tolerated Patient Instructions: Urinary Tract Infection in Women (ED) Activity Restrictions/Additional Instructions: Follow-up with medical provider as directed in 7-10 days. Take medications as prescribed. Return to the ER or your medical provider if condition worsens. Please read and understand discharge instructions. If any questions, please ask. Discharge Date/Time: 03/13/20 15:16 Coding Level of Care Code ED Electric Transfer Operator for Lou Fwd Exam Comprehensive
[2020-03-13 14:39] LABS: Add Urine Microscopic? NO
[2020-03-13 14:53] LABS: Bilirubin Urine Neg (NEGATIVE); Blood Urine Neg (Negative); Glucose Urine UA Norm (Normal); Ketones Urine Negative (Negative); Leukocyte Esterase Urine Negative (Negative); Nitrate Urine Negative (Negative); Protein Urine Neg (Negative); Specific Gravity, Urine 1.015 (1.005-1.030); Urine Appearance Clear (CLEAR); Urine Color Straw (Yellow); Urobilinogen Urine Norm (Negative); pH Urine 5 (5-7)
[2020-03-13 15:12] VITALS: BP 122/68; PULSE 72; RESP 18; O2SAT 98
== END 2020-03-13 15:16 | disposition home or self-care (01) ==
PROVIDERS: Emergency Medicine; Emergency Provider Physician Assistant; PCP Nurse Practitioner Family
DX: R30.9 Painful micturition, unspecified (principal); Z85.51 Personal history of malignant neoplasm of bladder; Z79.02 Long term (current) use of antithrombotics/antiplatelets; E11.9 Type 2 diabetes mellitus without complications; E78.5 Hyperlipidemia, unspecified; Z87.891 Personal history of nicotine dependence
CPT/HCPCS: 12345; 81003; 99282

== ENCOUNTER → 2020-03-21 10:00 | Outpatient (BNVA) | payer MEDICARE, OTHER, SELFPAY | PROVIDERS: PCP Nurse Practitioner Family; Visit Provider Nurse Practitioner Family | DX: E11.9 Type 2 diabetes mellitus without complications (principal); E04.1 Nontoxic single thyroid nodule; E78.2 Mixed hyperlipidemia; C67.4 Malignant neoplasm of posterior wall of bladder | CPT/HCPCS: 80053; 80061; 82306; 83036; 84443; 85025 ==

== ENCOUNTER → 2020-03-24 11:05 | Outpatient (BNVA) | payer MEDICARE, OTHER, SELFPAY | PROVIDERS: PCP Nurse Practitioner Family; Visit Provider Nurse Practitioner Family | DX: E11.9 Type 2 diabetes mellitus without complications (principal); B37.3 Candidiasis of vulva and vagina; I10 Essential (primary) hypertension; R63.4 Abnormal weight loss; E87.5 Hyperkalemia; R53.83 Other fatigue; N32.81 Overactive bladder; E78.2 Mixed hyperlipidemia; E55.9 Vitamin D deficiency, unspecified; Z68.23 Body mass index [BMI] 23.0-23.9, adult; F17.211 Nicotine dependence, cigarettes, in remission; Z71.89 Other specified counseling; N30.01 Acute cystitis with hematuria | CPT/HCPCS: 81000 ==

== ENCOUNTER 2020-03-27 14:29 | Emergency (ER) | payer MEDICARE, OTHER, SELFPAY ==
[2020-03-27 14:42] VITALS: BP 169/83; PULSE 97; RESP 18; TEMP 36.6; O2SAT 100; BMI 23.4
--- NOTE | 2020-03-27 14:54 | W.ED.ABDPA2 ---
HPI - Abdominal Pain General: Chief Complaint: Abdominal Pain Stated Complaint: groin pain Time Seen by Provider: 03/27/20 14:49 History of Present Illness: HPI narrative: 79-year-old female patient presents to the emergency department with complaints of right lower abdominal discomfort, symptoms x3 to 4 days. She reports hysterectomy in May 2019 due to pelvic weakness. She denies fever or chills. She reports 20 pound weight loss over the past several months, states right lower quadrant pain x48 hours. Pain was worse with movement such as walking or straining. She reports history of constipation. She states appetite has been poor past 24 hours. She denies fever chills nausea vomiting. Associated Symptoms: Reports change in bowel habits and constipation; Denies chills, dysuria, fever(s), nausea and vomiting Review of Systems General: Reports: 10 or more systems reviewed and unremarkable except in HPI and below Const: Denies: fever(s), chills or diaphoresis Eyes: Denies: blurry vision or eye redness ENMT: Denies: throat pain, dental pain or disequilibrium Card: Denies: chest pain, palpitations or irregular heart rhythm Resp: Denies: dyspnea, productive cough, non-productive cough or wheezing GI: Reports: abdominal pain (RLQ), early satiety, constipation and change in bowel habits; Denies: nausea or vomiting : Denies: difficulty voiding or dysuria Musc: Denies: back pain Skin/Breast: Denies: rash or pruritus Neuro: Denies: headache(s), weakness in extremities or behavioral changes Alfonso/Lymph: Denies: easy bruising PFS ED PFSH: Medical History DDD (degenerative disc disease), lumbar Diabetes mellitus type 2, noninsulin dependent Janumet Diverticula of intestine Hyperlipidemia atorvastatin 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 Normal colonoscopy 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 Family History Mother Breast cancer Father Aspiration pneumonia Diabetes Other Cancer Denies family history of Anesthesia complication Bleeding disorder Social History Smoking and tobacco status: former smoker Quit status (tobacco): has quit using tobacco Year quit tobacco: 1997, smoked 1 PPD Alcohol intake: never Adopted: No Caregiver/support person: No Lives independently: No Household members: spouse Marital status: Current occupational status: retired History of recent travel: No Physical Exam Const: COMMON NORMALS: no acute distress, patient oriented x3, healthy appearing and alert GENERAL APPEARANCE: cooperative, comfortable and well hydrated HENMT: COMMON NORMALS: normocephalic, Normal external nose present and moist oral mucous membranes HEAD & SCALP: normocephalic NOSE: Normal external nose present Eye: COMMON NORMALS: Equal, round and reactive pupils present and EOMs intact bilaterally GENERAL EYE: appearance normal, both eyes and all related structures PUPIL: Yes Equal, round and reactive pupils present Neck/C-Spine: COMMON NORMALS: full ROM and no lymphadenopathy GENERAL: Yes normal visual inspection and Yes trachea midline CERVICAL SPINE: Yes cervical ROM normal Lymph: LYMPHATIC: no lymphadenopathy noted Chest: COMMONS NORMALS: normal inspection of the chest Resp: COMMON NORMALS: normal respiratory effort and clear to auscultation bilaterally AUSCULTATION: clear to auscultation bilaterally Cardio: COMMON NORMALS: regular rhythm, S1 normal heart sound present and S2 normal heart sound present RHYTHM: regular rhythm HEART SOUNDS: S1 normal heart sound present and S2 normal heart sound present GI: COMMON NORMALS: Soft to palpation; negative for No hepatosplenomegaly present INSPECTION: Yes normal to inspection AUSCULTATION: Yes Hypoactive bowel sounds present PALPATION: Yes Soft to palpation, Yes Tenderness to palpation present (GI) Details: RLQ, No No hepatosplenomegaly present and Yes Rebound tenderness present Details: McBurney's point PERCUSSION: normal to percussion RECTAL EXAM: deferred : BLADDER/KIDNEY EXAM: Yes CVA tenderness (slight) on the right Back/Pelvis: COMMON NORMALS: thoracic and lumbar spine normal to inspection GENERAL BACK: Yes CVA tenderness (slight) Extremity: COMMON NORMALS: normal to inspection and capillary refill normal Neuro: COMMON NORMALS: patient oriented x3 and no focal motor deficits SENSORIUM/ORIENTATION: Yes alert Psych: COMMON NORMALS: mental status grossly normal, Normal thought process present and cooperative ACTIVITY/MOTOR BEHAVIOR: Yes appropriate eye contact THOUGHT PROCESS: Normal thought process present Skin: COMMON NORMALS: no rashes or lesions noted and turgor normal GENERAL SKIN EXAM: no rashes or lesions noted and turgor normal Course ED course: Transfer of care to [facility]; awaiting CT abdomen and pelvis, Lactate elevated 3.0 Vital Signs: Vital signs: Vital Signs Temperature 97.8 F 03/27/20 14:42 Pulse Rate 97 03/27/20 14:42 Respiratory Rate 18 03/27/20 14:42 Blood Pressure 169/83 03/27/20 14:42 Pulse Oximetry 100 03/27/20 14:42 MDM - Abdominal Pain Lab Data: Labs: Lab Results 03/27/20 03/27/20 03/27/20 Range/Units 15:30 15:30 15:30 WBC 8.4 (4.0-10.0) 10^3/ uL RBC 3.83 L (4.1-5.3) 10^6/u L Hgb 11.6 (11.5-15.3) g/dL Hct 36.2 L (37.0-47.0) % MCV 94.5 (81-99) fL MCH 30.3 (28.0-34.0) pg MCHC 32.0 (30.0-36.0) g/dL RDW 12.7 (12.1-15.1) % Plt Count 381 (130-400) 10^3/c mm MPV 9.2 (7.4-10.4) fL Neut % (Auto) 55.7 % Lymph % (Auto) 31.6 % [place] % (Auto) 9.2 % Eos % (Auto) 2.5 % Baso % (Auto) 0.6 % Neut # (Auto) 4.67 (1.8-7.7) 10^3/u L Lymph # (Auto) 2.7 (0.8-4.8) 10^3/u L [place] # (Auto) 0.8 (0.2-0.9) 10^3/u L Eos # (Auto) 0.2 (0.0-0.8) 10^3/u L Baso # (Auto) 0.1 (0.0-0.1) 10^3/u L Nucleated RBC % (a uto) 0 % Nucleated RBCs # 0.0 /100WBC Sodium 128 L (136-145) mmol/L Potassium 4.5 (3.5-5.1) mmol/L Chloride 94 L (98-107) mmol/L Carbon Dioxide 22 (22-29) mmol/L Anion Gap 16.5 (5-19) BUN 15 (8-23) mg/dL Creatinine 1.2 H (0.5-0.9) mg/dL GFR Calculation Not Reportable Glucose 95 (65-115) mg/dL Calculated Osmolal ity 262 L (285-295) mOsm/k g Lactate 3.0 H (0.5-2.2) mmol/L Calcium 10.0 (8.5-10.5) mg/dL Total Bilirubin 0.2 (0.15-1.2) mg/dL AST 18 (0-32) U/L ALT 13 (0-33) U/L Alkaline Phosphata se 67 (35-105) IU/L Total Protein 7.4 (6.6-8.7) g/dL Albumin 4.7 (3.5-5.2) g/dL Globulin 2.7 (1.3-4.6) g/dL Lipase 84 H (13-60) U/L Discharge Plan Discharge Prescriptions: No Action atorvastatin [Lipitor] 10 mg tablet 10 mg PO BEDTIME Qty: 90 RF: 1 lisinopril 20 mg tablet 20 mg PO DAILY Qty: 90 RF: 1 oxybutynin chloride 10 mg tablet extended release 24hr 10 mg PO DAILY Qty: 90 RF: 1 Janumet XR 50-1,000 mg tablet, ER multiphase 24 hr 1 tab PO BIDWM Qty: 180 RF: 1 fluconazole [Diflucan] 150 mg tablet 150 mg PO Q3D Qty: 2 RF: 0 Ultimate Radha Probiotic 30 billion cell capsule,delayed release(DR/EC) 1 cap PO DAILY RF: 0 acetaminophen [Tylenol Extra Strength] 500 mg Tablet 1,000 mg PO PRN RF: 0 clopidogrel 75 mg tablet See Rx Instructions .ROUTE .COMPLEX RF: 0 Coding Level of Care Code ED Hazardous Materials Tanker Driver for Chg Fwd Exam Comprehensive
[2020-03-27 15:43] LABS: Basophils # 0.1 10^3/uL (0.0-0.1); Basophils % 0.6 %; Eosinophils # 0.2 10^3/uL (0.0-0.8); Eosinophils % 2.5 %; Hematocrit 36.2 % (37.0-47.0); Hemoglobin 11.6 g/dL (11.5-15.3); Lymphocytes # 2.7 10^3/uL (0.8-4.8); Lymphocytes % 31.6 %; Mean Corpuscular Hemoglobin 30.3 pg (28.0-34.0); Mean Corpuscular Volume 94.5 fL (81-99); Mean Platelet Volume 9.2 fL (7.4-10.4); Monocytes # 0.8 10^3/uL (0.2-0.9); Monocytes % 9.2 %; Neutrophils # 4.67 10^3/uL (1.8-7.7); Neutrophils % 55.7 %; Nucleated Red Blood Cells % 0 %; Platelet Count 381 10^3/cmm (130-400); Red Blood Count 3.83 10^6/uL (4.1-5.3); Red Cell Distribution Width 12.7 % (12.1-15.1); White Blood Count 8.4 10^3/uL (4.0-10.0)
--- NOTE | 2020-03-27 15:54 | CTR_ITS ---
PROCEDURE INFORMATION: Exam: CT Abdomen And Pelvis With Contrast Exam date and time: 03/27/2020 4:14 PM Age: 79 years old Clinical indication: Abdominal pain; Localized; Right lower quadrant (rlq); Prior surgery; Surgery date: 6+ months; Surgery type: Hyst; Patient HX: C/O rlq pain TECHNIQUE: Imaging protocol: Computed tomography of the abdomen and pelvis with intravenous contrast. Radiation optimization: All CT scans at this facility use at least one of these dose optimization techniques: automated exposure control; mA and/or kV adjustment per patient size (includes targeted exams where dose is matched to clinical indication); or iterative reconstruction. Contrast material: VISI 320; Contrast volume: 95 ml; Contrast route: INTRAVENOUS (IV); COMPARISON: CT abdomen pelvis w con* [id number] 11/28/2019 9:35 PM RADIATION DOSE METRICS: Total DLP (mGy-cm): 236.47 FINDINGS: Lungs: Subsegmental atelectasis is observed in the lung bases. Heart: The heart is normal in size. Liver: Normal. No mass. Gallbladder and bile ducts: Normal. No calcified stones. No ductal dilation. Pancreas: Normal. No ductal dilation. Spleen: Normal. No splenomegaly. Adrenals: Normal. No mass. Kidneys and ureters: Tiny 6 mm exophytic hypodense lesion is again seen in the right kidney, which is too small to characterize. This lesion is stable since the prior study and is likely a small cyst. The kidneys appear normal. No hydronephrosis. Stomach and bowel: Diverticulosis coli is seen, without evidence of diverticulitis. No intestinal obstruction. Appendix: The appendix is normal. Intraperitoneal space: Unremarkable. No free air. No significant fluid collection. Vasculature: The abdominal aorta is mildly calcified. No aneurysm. Tiny calcifications are observed in the distal left common iliac vein which may be related to chronic nonobstructive thrombus. The iliac veins and IVC are patent. Lymph nodes: Unremarkable. No enlarged lymph nodes. Bladder: Unremarkable as visualized. Reproductive: The uterus is absent. Bones/joints: Degenerative changes are again seen in the visualized spine and both hips. No acute fracture. Soft tissues: Unremarkable. CT/CT abdomen pelvis w con* [id number] IMPRESSION: 1. No acute abnormality is seen in the abdomen or pelvis. 2. Diverticulosis coli. 3. Atherosclerosis. Radiation Dose CTDIVOL = (mGy): DLP = 236.47 (mGy-cm)
[2020-03-27 16:06] LABS: Alanine Aminotransferase 13 U/L (0-33); Albumin Level 4.7 g/dL (3.5-5.2); Alkaline Phosphatase 67 IU/L (35-105); Anion Gap 16.5 (5-19); Aspartate Amino Transferase 18 U/L (0-32); Blood Urea Nitrogen 15 mg/dL (8-23); Carbon Dioxide 22 mmol/L (22-29); Chloride 94 mmol/L (98-107); Globulin 2.7 g/dL (1.3-4.6); Glucose 95 mg/dL (65-115); Lipase 84 U/L (13-60); Osmolality Calculated 262 mOsm/kg (285-295); Potassium 4.5 mmol/L (3.5-5.1); Sodium 128 mmol/L (136-145); Total Bilirubin 0.2 mg/dL (0.15-1.2); Total Protein 7.4 g/dL (6.6-8.7)
--- NOTE | 2020-03-27 17:13 | XRR_ITS ---
PROCEDURE INFORMATION: Exam: XR Chest, 1 View Exam date and time: 03/27/2020 5:34 PM Age: 79 years old Clinical indication: Pain; Other: Abdominal; Additional info: Abdominal pain TECHNIQUE: Imaging protocol: XR of the chest Views: Frontal portable upright view of the chest. COMPARISON: [place] Chest 1 [place] [id number] 12/25/2017 7:44 PM FINDINGS: Lungs: The lungs are clear bilaterally. The pulmonary vasculature is normal. Pleural space: No pleural effusion. No pneumothorax. Heart/Mediastinum: The heart is normal in size and contour. Mediastinum: Stable. Vasculature: Mild tortuosity of the upper descending thoracic aorta. Mild aortic arch atherosclerotic calcification without ectasia. Bones/joints: Stable. XR/XR chest 1V portable [id number] IMPRESSION: No acute cardiopulmonary abnormality identified.
--- NOTE | 2020-03-27 17:13 | ECG_ITS ---
[facility] Test Date: 2020-03-27 Pat Name: Mckenna Alanis Department: Room: Gender: Female Physician In Private Practice: : 1940 Requested By: Nadia Perez Order Number: [id number] Artemio MD: Alexis Oden M.D. Measurements Intervals [place] Rate: 78 P: 22 WA: 154 QRS: 9 QRSD: 92 T: 33 QT: 338 QTc: 386 Interpretive Statements SINUS RHYTHM LOW QRS VOLTAGE IN PRECORDIAL LEADS [QRS DEFLECTION < 1.0 mV IN CHEST LEADS] INCOMPLETE RIGHT BUNDLE BRANCH BLOCK [90+ ms QRS DURATION, TERMINAL R IN V1/V2, 40+ ms S IN I/aVL/V4/V5/V6] Compared to ECG 11/29/2019 02:44:39 Low QRS voltage now present Electronically Signed On 03-28-2020 12:04:06 CDT by Alexis Oden M.D. [email or web address]
[2020-03-27] MEDS: iodixanol 320 mg/mL 100mL Btl IV (17:17)
[2020-03-27] MEDS: sodium chloride 0.9% 500 ML 999 ML IV (17:27)
[2020-03-27 18:21] LABS: Add Urine Microscopic? NO
[2020-03-27 18:24] LABS: Bilirubin Urine Neg (NEGATIVE); Blood Urine Neg (Negative); Glucose Urine UA Norm (Normal); Ketones Urine Negative (Negative); Leukocyte Esterase Urine Negative (Negative); Nitrate Urine Negative (Negative); Protein Urine Neg (Negative); Specific Gravity, Urine 1.005 (1.005-1.030); Urine Appearance Clear (CLEAR); Urine Color Colorless (Yellow); Urobilinogen Urine Norm (Negative); pH Urine 5 (5-7)
[2020-03-27 19:34] VITALS: BP 151/72; PULSE 72; RESP 20; O2SAT 95
[2020-03-27 19:43] VITALS: BP 151/72; PULSE 72; RESP 16; O2SAT 95
== END 2020-03-27 19:44 | disposition home or self-care (01) ==
PROVIDERS: Nurse Practitioner Family; Emergency Provider Nurse Practitioner Family; PCP Nurse Practitioner Family
DX: R10.9 Unspecified abdominal pain (principal); Z79.02 Long term (current) use of antithrombotics/antiplatelets; E11.9 Type 2 diabetes mellitus without complications; E78.5 Hyperlipidemia, unspecified; Z85.51 Personal history of malignant neoplasm of bladder; Z87.891 Personal history of nicotine dependence
CPT/HCPCS: 12345; 36415; 71045; 74177; 80053; 81003; 83605; 83690; 85025; 93005; 99282; 99284; J7040; Q9967

== ENCOUNTER 2020-04-01 11:26 | Emergency (ER) | payer MEDICARE, OTHER, SELFPAY ==
[2020-04-01 11:28] VITALS: PULSE 119; RESP 18; TEMP 36.2; O2SAT 94; BMI 23.4
--- NOTE | 2020-04-01 11:53 | CT_ITS ---
WS: [id number] CT scan of the abdomen and pelvis with IV contrast. Additional two-dimensional coronal and sagittal r econstruction was performed. 04/01/2020 Clinical Data: abd pain Comparison: CT abdomen and pelvis, 03/27/2020. DLP: 260.[address] scans at [facility] use at least one of these dose optimization techniques: automat ed exposure control; mA and/or kV adjustment per patient size (includes targeted exams where dose is matched to clinical indication); or iterative reconstruction. Findings: The lower lungs show no nodules, masses or effusions. The liver, gallbladder, spleen, adrenal glands and pancreas are normal. The kidneys show equal bilateral contrast excretion with a small right renal cortical cyst. No hydron ephrosis, renal masses or renal calculi can be seen.. The abdominal aorta is normal in size with moderate calcification in the wall.. No appendicitis or diverticulitis is seen. The stomach, small bowel and colon show no evidence of dil atation or obstruction. There is a large amount of fecal material within the colon. No abscess, adeno rupinder, ascites, mass, obstruction or free air is seen. The bladder is full. No inguinal hernia is seen. The uterus is absent. Degenerative change of all the lumbar vertebral bodies with multiple levels of degenerative disc dise ase can be seen. CT/CT abdomen pelvis w con* [id number] Impression: 1. Negative for acute intra-abdominal or pelvic abnormalities. 2. Hysterectomy.
[2020-04-01 12:20] VITALS: BP 163/89; PULSE 86; O2SAT 96
[2020-04-01 12:54] LABS: Add Urine Microscopic? NO
[2020-04-01 13:06] LABS: Bilirubin Urine Neg (NEGATIVE); Blood Urine Neg (Negative); Glucose Urine UA Norm (Normal); Ketones Urine Negative (Negative); Leukocyte Esterase Urine Negative (Negative); Nitrate Urine Negative (Negative); Protein Urine Neg (Negative); Urine Appearance Clear (CLEAR); Urine Color Yellow (Yellow); Urobilinogen Urine Norm (Negative); pH Urine 6 (5-7)
[2020-04-01 13:15] LABS: Lactic Sepsis W/Reflex 1.5 mmol/L (0.5-2.2)
[2020-04-01 13:16] LABS: Alanine Aminotransferase 15 U/L (0-33); Albumin Level 4.6 g/dL (3.5-5.2); Alkaline Phosphatase 66 IU/L (35-105); Anion Gap 15.8 (5-19); Aspartate Amino Transferase 14 U/L (0-32); Blood Urea Nitrogen 16 mg/dL (8-23); Calcium 9.2 mg/dL (8.5-10.5); Carbon Dioxide 22 mmol/L (22-29); Chloride 95 mmol/L (98-107); Globulin 2.9 g/dL (1.3-4.6); Glucose 140 mg/dL (65-115); Lipase 48 U/L (13-60); Osmolality Calculated 265 mOsm/kg (285-295); Potassium 4.8 mmol/L (3.5-5.1); Sodium 128 mmol/L (136-145); Total Bilirubin 0.2 mg/dL (0.15-1.2); Total Protein 7.5 g/dL (6.6-8.7)
--- NOTE | 2020-04-01 13:30 | ED_ITS ---
HPI - Abdominal Pain General: Chief Complaint: Abdominal Pain Stated Complaint: ABD PAIN/BACK PAIN Time Seen by Provider: 04/01/20 11:35 History of Present Illness: HPI narrative: 79-year-old female who presents to the emergency room complaining of abdominal pain for last 2 to 3 days she denies fever she refers most of her pain to the lower abdomen and pelvis area as well as low back she not had any vomiting she denies dysuria urgency or frequency. She has not noticed anything that relieves or exacerbates it she denies any respiratory symptoms denies any hematochezia melena hematemesis or coffee-ground emesis. No diarrhea. MD elicited complaint: abdominal pain Pertinent past history: none Onset (ago): day(s) (2) Pain Consistency: intermittent Location: Suprapubic Severity: moderate Quality: cramping Radiation: back Migration to: no migration Exacerbating factors: nothing Relieving factors: nothing Associated Symptoms: Denies bloating, change in bowel habits, change in stool character, coffee ground emesis, constipation, GI cramping, diarrhea, dyspepsia, dysuria, excessive flatus, fever(s), heartburn, hematochezia, hematuria, hematemesis, fecal incontinence, loose stools, melena, nausea, poor appetite and vomiting Review of Systems Const: Denies: fever(s) ENMT: Denies: throat pain, ear or mastoid pain, nasal discharge or nasal congestion Card: Denies: chest pain, edema, dyspnea on exertion or orthopnea Resp: Denies: dyspnea, productive cough or non-productive cough GI: Denies: nausea, vomiting, hematemesis, coffee ground emesis, heartburn, diarrhea, constipation, bloating, GI cramping, excessive flatus, fecal incontinence, change in bowel habits, change in stool character, hematochezia or melena : Denies: dysuria or hematuria Skin/Breast: Denies: rash or pruritus PFSH ED PFSH: Medical History DDD (degenerative disc disease), lumbar Diabetes mellitus type 2, noninsulin dependent Janumet Diverticula of intestine Hyperlipidemia atorvastatin 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 Normal colonoscopy Osteoarthritis Pelvic organ prolapse quantification stage 3 cystocele Thyroid nodule Last thyroid imaging at [facility] [place] 2017, bilateral adenomatous nodules or colloid cysts Vitamin D deficiency Surgical History H/O arthroscopy of knee (~2014) Left, Dr Connors History of hysterectomy (~05/2019) with BSO, Ant/Post colporrhaphy and urethral sling, Dr Isaac History of transurethral destruction of bladder lesion TCCA of bladder without invasion Family History Mother Breast cancer Father Aspiration pneumonia Diabetes Other Cancer Denies family history of Anesthesia complication Bleeding disorder Social History Smoking and tobacco status: former smoker Quit status (tobacco): has quit using tobacco Year quit tobacco: 1997, smoked 1 PPD Alcohol intake: never Adopted: No Caregiver/support person: No Lives independently: No Household members: spouse Marital status: Current occupational status: retired History of recent travel: No Physical Exam Const: COMMON NORMALS: no acute distress GENERAL APPEARANCE: cooperative and comfortable ORIENTATION/CONSCIOUSNESS: Yes awake, Yes oriented to person, Yes oriented to place and Yes oriented to time HENMT: COMMON NORMALS: normocephalic, atraumatic and hearing grossly normal bilaterally HEAD & SCALP: normocephalic and atraumatic Eye: COMMON NORMALS: Equal, round and reactive pupils present, EOMs intact bilaterally, conjunctivae normal and no scleral icterus CONJUNCTIVA: Yes conjunctivae normal PUPIL: Yes Equal, round and reactive pupils present Neck/C-Spine: COMMON NORMALS: no JVD Resp: COMMON NORMALS: normal respiratory effort, No retractions, No use of accessory muscles and clear to auscultation bilaterally AUSCULTATION: clear to auscultation bilaterally Cardio: COMMON NORMALS: no JVD, regular rate, regular rhythm and No murmurs present (Cardio) RATE: regular rate RHYTHM: regular rhythm GI: COMMON NORMALS: Soft to palpation and No hepatosplenomegaly present AUSCULTATION: Yes normoactive bowel sounds PALPATION: Yes Soft to palpation, No Tenderness to palpation present (GI), No Guarding due to palpation present (GI) and Yes No hepatosplenomegaly present Extremity: COMMON NORMALS: normal to inspection, capillary refill normal, no clubbing, cyanosis or edema, no calf tenderness and no pedal edema Neuro: SENSORIUM/ORIENTATION: Yes oriented to person, Yes oriented to place and Yes oriented to time Skin: COMMON NORMALS: no rashes or lesions noted GENERAL SKIN EXAM: no rashes or lesions noted Course Vital Signs: Vital signs: Vital Signs Temperature 97.2 F L 04/01/20 11:28 Pulse Rate 75 04/01/20 15:14 Respiratory Rate 18 04/01/20 15:14 Blood Pressure 169/84 04/01/20 15:14 Pulse Oximetry 98 04/01/20 15:14 MDM - Abdominal Pain MDM Narrative: Medical decision making narrative: Patient has had multiple work-ups last several months all of which have been she is also had endoscopies at this point I do not notice really much were going to be able to do for her in the emergency room I recommend that she follow-up with Dr. Lema or Dr. Hernandez who she seen in the past. Work-up today does not show anything acute. Discussed with her and her daughter. Lab Data: Labs: Lab Results 04/01/20 04/01/20 04/01/20 Range/Units 12:26 12:40 12:40 WBC Cancelled Corrected WBC Cancelled RBC Cancelled Hgb Cancelled Hct Cancelled MCV Cancelled MCH Cancelled MCHC Cancelled RDW Cancelled Plt Count Cancelled MPV Cancelled Gran % Cancelled Neut % (Auto) Cancelled Lymph % (Auto) Cancelled [place] % (Auto) Cancelled Eos % (Auto) Cancelled Baso % (Auto) Cancelled Neut # (Auto) Cancelled Lymph # (Auto) Cancelled [place] # (Auto) Cancelled Eos # (Auto) Cancelled Baso # (Auto) Cancelled Absolute Gran (aut o) Cancelled Nucleated RBC % (a uto) Cancelled Nucleated RBCs # Cancelled Sodium 128 L (136-145) mmol/L Potassium 4.8 (3.5-5.1) mmol/L Chloride 95 L (98-107) mmol/L Carbon Dioxide 22 (22-29) mmol/L Anion Gap 15.8 (5-19) BUN 16 (8-23) mg/dL Creatinine 0.9 (0.5-0.9) mg/dL GFR Calculation Not Reportable Glucose 140 H (65-115) mg/dL Calculated Osmolal ity 265 L (285-295) mOsm/k g Lactic Acid (0.5-2.2) mmol/L Calcium 9.2 (8.5-10.5) mg/dL Total Bilirubin 0.2 (0.15-1.2) mg/dL AST 14 (0-32) U/L ALT 15 (0-33) U/L Alkaline Phosphata se 66 (35-105) IU/L Total Protein 7.5 (6.6-8.7) g/dL Albumin 4.6 (3.5-5.2) g/dL Globulin 2.9 (1.3-4.6) g/dL Lipase 48 (13-60) U/L Urine Color Yellow (Yellow) Urine Appearance Clear (CLEAR) Urine pH 6 (5-7) Ur Specific Gravit y 1.010 (1.005-1.030) Urine Protein Neg (Negative) Urine Glucose (UA) Norm (Normal) Urine Ketones Negative (Negative) Urine Blood Neg (Negative) Urine Nitrate Negative (Negative) Urine Bilirubin Neg (NEGATIVE) Urine Urobilinogen Norm (Negative) mg/dL Ur Leukocyte Esme ase Negative (Negative) 04/01/20 04/01/20 Range/Units 12:40 13:58 WBC 6.9 Corrected WBC RBC 3.53 L Hgb 11.1 L Hct 33.4 L MCV 94.6 MCH 31.4 MCHC 33.2 RDW 12.8 Plt Count 372 MPV 9.2 Gran % Neut % (Auto) 62.9 Lymph % (Auto) 27.4 [place] % (Auto) 7.5 Eos % (Auto) 1.2 Baso % (Auto) 0.6 Neut # (Auto) 4.33 Lymph # (Auto) 1.9 [place] # (Auto) 0.5 Eos # (Auto) 0.1 Baso # (Auto) 0.0 Absolute Gran (aut o) Nucleated RBC % (a uto) 0 Nucleated RBCs # 0.0 Sodium (136-145) mmol/L Potassium (3.5-5.1) mmol/L Chloride (98-107) mmol/L Carbon Dioxide (22-29) mmol/L Anion Gap (5-19) BUN (8-23) mg/dL Creatinine (0.5-0.9) mg/dL GFR Calculation Glucose (65-115) mg/dL Calculated Osmolal ity (285-295) mOsm/k g Lactic Acid 1.5 (0.5-2.2) mmol/L Calcium (8.5-10.5) mg/dL Total Bilirubin (0.15-1.2) mg/dL AST (0-32) U/L ALT (0-33) U/L Alkaline Phosphata se (35-105) IU/L Total Protein (6.6-8.7) g/dL Albumin (3.5-5.2) g/dL Globulin (1.3-4.6) g/dL Lipase (13-60) U/L Urine Color (Yellow) Urine Appearance (CLEAR) Urine pH (5-7) Ur Specific Gravit y (1.005-1.030) Urine Protein (Negative) Urine Glucose (UA) (Normal) Urine Ketones (Negative) Urine Blood (Negative) Urine Nitrate (Negative) Urine Bilirubin (NEGATIVE) Urine Urobilinogen (Negative) mg/dL Ur Leukocyte Esme ase (Negative) Discharge Plan Discharge Patient Disposition: Home Clinical Impression: Pelvic pain in female, Malignant neoplasm of posterior wall of bladder Condition: Stable Prescriptions: No Action atorvastatin [Lipitor] 10 mg tablet 10 mg PO BEDTIME Qty: 90 RF: 1 lisinopril 20 mg tablet 20 mg PO DAILY Qty: 90 RF: 1 oxybutynin chloride 10 mg tablet extended release 24hr 10 mg PO DAILY Qty: 90 RF: 1 Janumet XR 50-1,000 mg tablet, ER multiphase 24 hr 1 tab PO BIDWM Qty: 180 RF: 1 celecoxib [Celebrex] 100 mg capsule 100 mg PO DAILY Qty: 30 RF: 2 acetaminophen [Tylenol Extra Strength] 500 mg Tablet 1,000 mg PO Q6H PRN (Reason: Pain) RF: 0 meloxicam 7.5 mg Tablet 7.5 mg PO DAILY RF: 0 Discharge Orders: Discharge Order (Routine); Ordered 04/01/20 Ordered By: Jeremie Gonzalez Referrals: Yokasta Bain FNP [Primary Care Provider] - Discharge Diet: Usual diet Discharge Activity: Resume usual activity Activity Restrictions/Additional Instructions: Follow-up with Dr. Lema for further evaluation. Discharge Date/Time: 04/01/20 15:14 Coding Level of Care Code ED Product Assurance Engineer for Chg Fwd Exam Comprehensive
[2020-04-01 14:03] LABS: Basophils % 0.6 %; Eosinophils # 0.1 10^3/uL (0.0-0.8); Eosinophils % 1.2 %; Hematocrit 33.4 % (37.0-47.0); Hemoglobin 11.1 g/dL (11.5-15.3); Lymphocytes # 1.9 10^3/uL (0.8-4.8); Lymphocytes % 27.4 %; Mean Corpuscular HGB Conc 33.2 g/dL (30.0-36.0); Mean Corpuscular Hemoglobin 31.4 pg (28.0-34.0); Mean Corpuscular Volume 94.6 fL (81-99); Mean Platelet Volume 9.2 fL (7.4-10.4); Monocytes # 0.5 10^3/uL (0.2-0.9); Monocytes % 7.5 %; Neutrophils # 4.33 10^3/uL (1.8-7.7); Neutrophils % 62.9 %; Nucleated Red Blood Cells % 0 %; Platelet Count 372 10^3/cmm (130-400); Red Blood Count 3.53 10^6/uL (4.1-5.3); Red Cell Distribution Width 12.8 % (12.1-15.1); White Blood Count 6.9 10^3/uL (4.0-10.0)
[2020-04-01] MEDS: iodixanol 320 mg/mL 100mL Btl IV (14:05)
[2020-04-01 14:20] VITALS: BP 155/84; PULSE 74; RESP 18; O2SAT 98
[2020-04-01 15:14] VITALS: BP 169/84; PULSE 75; RESP 18; O2SAT 98
== END 2020-04-01 15:14 | disposition home or self-care (01) ==
PROVIDERS: Emergency Provider Family Medicine; PCP Nurse Practitioner Family
DX: R10.2 Pelvic and perineal pain (principal); D49.4 Neoplasm of unspecified behavior of bladder; E11.9 Type 2 diabetes mellitus without complications; E78.5 Hyperlipidemia, unspecified; Z87.891 Personal history of nicotine dependence
CPT/HCPCS: 12345; 36415; 74177; 80053; 81003; 83605; 83690; 85025; 99283; Q9967

== ENCOUNTER → 2020-04-14 10:36 | Outpatient (BNVA) | payer MEDICARE, OTHER, SELFPAY | PROVIDERS: PCP Nurse Practitioner Family; Visit Provider Nurse Practitioner Family | DX: R30.0 Dysuria (principal); N30.01 Acute cystitis with hematuria; L03.311 Cellulitis of abdominal wall | CPT/HCPCS: 80053; 81003; 87077; 87086; 87186 ==

== ENCOUNTER 2020-04-17 10:27 | Emergency (ER) | payer MEDICARE, OTHER, SELFPAY ==
[2020-04-17 10:32] VITALS: BP 159/77; PULSE 106; RESP 18; TEMP 36.5; O2SAT 97; BMI 23.0
--- NOTE | 2020-04-17 10:45 | ED_ITS ---
HPI - Nausea/Vomiting/Diarrhea General: Chief complaint: Nausea/Vomiting/Diarrhea Stated complaint: N/V Time Seen by Provider: 04/17/20 10:36 History of Present Illness: HPI Narrative: Patient complains about been nauseated since starting on the Bactrim MD elicited complaint: nausea Onset (ago): hour(s) Associated nausea: Yes Associated symtoms: Reports nausea; Denies anxiety, change in vision, chest pain or headache(s) Review of Systems Const: Denies: fever(s), chills or body aches Eyes: Denies: change in vision or blurry vision ENMT: Denies: throat pain or nasal congestion Card: Denies: chest pain or dyspnea on exertion Resp: Denies: dyspnea, productive cough or non-productive cough GI: Reports: nausea; Denies: abdominal pain or vomiting Musc: Denies: extremity pain Skin/Breast: Denies: rash Neuro: Denies: headache(s) Psych: Denies: anxiety or depression Alfonso/Lymph: Denies: easy bruising PFSH ED PFSH: Medical History (Updated 04/17/20 @ 10:45 by CARMEN Osullivan) DDD (degenerative disc disease), lumbar Diabetes mellitus type 2, noninsulin dependent Janumet Diverticula of intestine Hyperlipidemia atorvastatin 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 Normal colonoscopy Osteoarthritis Pelvic organ prolapse quantification stage 3 cystocele Thyroid nodule [place] [facility] [place] bilateral adenomatous nodules or colloid cysts Vitamin D deficiency Surgical History H/O arthroscopy of knee (~2014) Left, Dr Connors History of hysterectomy (~05/2019) with BSO, Ant/Post colporrhaphy and urethral sling, Dr Isaac History of transurethral destruction of bladder lesion TCCA of bladder without invasion Family History Mother Breast cancer Father Aspiration pneumonia Diabetes Other Cancer Denies family history of Anesthesia complication Bleeding disorder Social History Smoking and tobacco status: former smoker Quit status (tobacco): has quit using tobacco Year quit tobacco: 1997, smoked 1 PPD Alcohol intake: never Adopted: No Caregiver/support person: No Lives independently: No Household members: spouse Marital status: Current occupational status: retired History of recent travel: No Physical Exam Const: COMMON NORMALS: no acute distress, average body habitus and patient oriented x3 HENMT: COMMON NORMALS: normocephalic HEAD & SCALP: normal to inspection and normocephalic FACE & SINUS: normal facial exam Eye: COMMON NORMALS: conjunctivae normal GENERAL EYE: appearance normal, both eyes and all related structures CONJUNCTIVA: Yes conjunctivae normal Neck/C-Spine: COMMON NORMALS: no JVD Chest: COMMONS NORMALS: normal inspection of the chest Resp: COMMON NORMALS: normal respiratory effort and clear to auscultation bilaterally AUSCULTATION: clear to auscultation bilaterally Cardio: COMMON NORMALS: no JVD, regular rate and regular rhythm RATE: regular rate RHYTHM: regular rhythm GI: COMMON NORMALS: Normal to inspection, nondistended, normoactive bowel sounds present Extremity: COMMON NORMALS: normal to inspection and full ROM Neuro: COMMON NORMALS: patient oriented x3 Course Vital Signs: Vital signs: Vital Signs Temperature 97.7 F 04/17/20 10:32 Pulse Rate 82 04/17/20 10:58 Respiratory Rate 17 04/17/20 10:58 Blood Pressure 148/72 04/17/20 10:58 Pulse Oximetry 97 04/17/20 10:58 Discharge Plan Discharge Patient Disposition: Home Clinical Impression: Urinary tract infection Qualifiers: Urinary tract infection type: acute cystitis Hematuria presence: without hematuria Qualified Code(s): N30.00 - Acute cystitis without hematuria Adverse effect of drug or medicament Qualifiers: Encounter type: initial encounter Qualified Code(s): T50.905A - Adverse effect of unspecified drugs, medicaments and biological substances, initial encounter Condition: Stable Prescriptions: New Macrobid 100 mg capsule 100 mg PO BID 5 Days Qty: 10 RF: 0 promethazine 12.5 mg tablet 12.5 mg PO TID PRN (Reason: nausea and vomiting) Qty: 10 RF: 0 Discontinued sulfamethoxazole-trimethoprim [Bactrim DS] 800-160 mg tablet 1 tab PO BID 10 Days Qty: 20 RF: 0 No Action atorvastatin [Lipitor] 10 mg tablet 10 mg PO BEDTIME Qty: 90 RF: 1 lisinopril 20 mg tablet 20 mg PO DAILY Qty: 90 RF: 1 oxybutynin chloride 10 mg tablet extended release 24hr 10 mg PO DAILY Qty: 90 RF: 1 metformin 500 mg tablet extended release 24 hr 500 mg PO BID 90 Days Qty: 180 RF: 0 diclofenac sodium 75 mg tablet,delayed release (DR/EC) 75 mg PO BID PRN (Reason: pain) Qty: 60 RF: 2 acetaminophen [Tylenol Extra Strength] 500 mg Tablet 1,000 mg PO Q6H PRN (Reason: Pain) RF: 0 Discharge Orders: Discharge Order (Routine); Ordered 04/17/20 Ordered By: Laurent Díaz Referrals: Yokasta Bain FNP [Primary Care Provider] - Discharge Diet: Usual diet Discharge Activity: Increase activity as tolerated Patient Instructions: Urinary Tract Infection in Women (ED) Activity Restrictions/Additional Instructions: Follow-up with medical provider as directed. Take medications as prescribed. Return to the ER or your medical provider if condition worsens. Please read and understand discharge instructions. If any questions ask please. Make sure you stop the Bactrim Discharge Date/Time: 04/17/20 10:58 Coding Level of Care Code ED Toggle Press Folder And Feeder for Lou Fwd Exam Comprehensive
[2020-04-17] MEDS: nitrofurantoin SR (BID) 100 mg Capsule PO (10:53)
[2020-04-17] MEDS: promethazine 25 mg Tablet 12.5 MG PO (10:53)
[2020-04-17 10:58] VITALS: BP 148/72; PULSE 82; RESP 17; O2SAT 97
== END 2020-04-17 10:58 | disposition home or self-care (01) ==
PROVIDERS: Emergency Provider Nurse Practitioner Family; PCP Nurse Practitioner Family
DX: N30.00 Acute cystitis without hematuria (principal); T50.905A Adverse effect of unspecified drugs, medicaments and biological substances, initial encounter; Z87.891 Personal history of nicotine dependence; E11.9 Type 2 diabetes mellitus without complications; E78.5 Hyperlipidemia, unspecified
CPT/HCPCS: 12345; 99281; 99283; Q0169

== ENCOUNTER 2020-04-25 10:14 | Outpatient (CLI) | payer MEDICARE, OTHER, SELFPAY ==
--- NOTE | 2020-04-25 11:00 | MR_ITS ---
WS: [id number] MRI LUMBAR SPINE NONCONTRAST TECHNIQUE: Sagittal T1, T2 and STIR imaging. Axial T1 and T2 imaging. CLINICAL INFORMATION: M54.42 Lumbago with sciatica, left side COMPARISON: None. FINDINGS: Mild lumbar curve. No acute compression. Incidental hemangioma L1 vertebral body. Slight retrolisthes is L3 on L4 and L4 on L5. Small central protrusion at T12-L1. Spinal canal is patent. L1-L2: Mild annular bulging. Spinal canal and foramen are patent. L2-L3: Mild disc bulging with slight narrowing of the left greater than right subarticular recess. Mi ld facet arthropathy. Spinal canal and foramen are patent. L3-L4: Mild disc bulging and osteophytic ridging. Moderate central canal stenosis. Impingement on the subarticular recess bilaterally and traversing L4 nerve roots. Moderate facet arthropathy. Mild to m oderate right greater than left bony foraminal narrowing. L4-L5: Mild disc bulging with moderate central canal stenosis. Facet arthropathy ligament flavum hype rtrophy. Mild to moderate right greater than left foraminal narrowing. L5-S1: No significant disc bulging. Mild facet arthropathy. Spinal canal foramen are patent. Tarlov cysts in the sacrum MR/MR lumbar spine wo con* [id number] IMPRESSION: 1. Mild lumbar curve. No acute compression. 2. Moderate central canal stenosis L3-L4 and L4-L5 due to disc bulging with fa cet arthropathy and ligamentum flavum hypertrophy. 3. Mild to moderate foraminal narrowing worse at right L3-4 and right L4-5. 4. Slight retrolisthesis L3 on L4 and L4 on L5.
== END 2020-04-25 10:15 | disposition home or self-care (01) ==
LOC: RADSHAW 10:19
PROVIDERS: PCP Nurse Practitioner Family; Visit Provider Nurse Practitioner Family
DX: M54.42 Lumbago with sciatica, left side (principal); R10.2 Pelvic and perineal pain; M48.061 Spinal stenosis, lumbar region without neurogenic claudication; M51.26 Other intervertebral disc displacement, lumbar region; M47.816 Spondylosis without myelopathy or radiculopathy, lumbar region
CPT/HCPCS: 72148

== ENCOUNTER → 2020-04-27 10:34 | Outpatient (BNVA) | payer MEDICARE, OTHER, SELFPAY | PROVIDERS: PCP Nurse Practitioner Family; Visit Provider Nurse Practitioner Family | DX: E87.1 Hypo-osmolality and hyponatremia (principal); R30.0 Dysuria | CPT/HCPCS: 80048; 80053; 81003; 87077; 87086; 87186 ==

== ENCOUNTER 2020-04-28 08:35 | Outpatient (CLI) | payer MEDICARE, OTHER, SELFPAY ==
--- NOTE | 2020-04-28 08:52 | CT_ITS ---
WS: [id number] CT CHEST WITH INTRAVENOUS CONTRAST HISTORY: weight loss TECHNIQUE: Contiguous 5 mm axial imaging performed on the thorax. Coronal and sagittal reformats are submitted. All CT scans at [facility] use at least one of these dose optimization techniq ues: automated exposure control; mA and/or kV adjustment per patient size (includes targeted exams wh ere dose is matched to clinical indication); or iterative reconstruction. CONTRAST: Omnipaque 300; 95 mL IV. DLP: 537.43 mGycm COMPARISON: None available. Lungs and central airway: Mild pulmonary hyperexpansion. Partially calcified nodule measuring 9 x 6 m m in the azygoesophageal recess. RIGHT middle lobe bronchiectasis. Linear subsegmental atelectasis RI GHT middle and RIGHT lower lobes. Pleura: Normal. No pleural effusion. Heart and pericardium: Normal size heart with no pericardial effusion. Mediastinum and quinton: Mediastinal and hilar lymph nodes are small. No adenopathy appreciated. Vessels: Mild atherosclerosis aorta with no aneurysm. Normal pulmonary artery size. Minimal coronary artery calcification. Chest wall and lower neck: No soft tissue masses. Upper abdomen: Negative. Osseous structures: Mild thoracolumbar scoliosis. Degenerative disc space narrowing and osteophytes t hroughout the thoracic spine. No osteoblastic or osteolytic disease. CT/CT chest w con* [id number] IMPRESSION: 1. Partially calcified 9 x 6 mm pulmonary nodule in the azygos esophageal rece ss. Favor this is probably benign. No prior studies to document stability. Cons ider follow-up chest CT in 6 months. 2. Mild bronchiectasis in the RIGHT middle lobe. 3. No adenopathy. 4. Mild atherosclerosis aorta.
[2020-04-28] MEDS: iohexol 300 mg/mL 100 mL Btl IV (09:25)
== END 2020-04-28 08:36 | disposition home or self-care (01) ==
LOC: RADWPI 08:41
PROVIDERS: Family Provider Nurse Practitioner Family; PCP Nurse Practitioner Family; Visit Provider Nurse Practitioner Family
DX: R63.4 Abnormal weight loss (principal); R91.1 Solitary pulmonary nodule; J47.9 Bronchiectasis, uncomplicated; I70.0 Atherosclerosis of aorta
CPT/HCPCS: 71260; Q9967

== ENCOUNTER → 2020-05-25 10:04 | Outpatient (BNVA) | payer MEDICARE, OTHER, SELFPAY | PROVIDERS: Family Provider Nurse Practitioner Family; PCP Nurse Practitioner Family; Referring Provider Nurse Practitioner Family; Visit Provider Anesthesiology Pain Medicine | DX: G89.29 Other chronic pain (principal); M47.816 Spondylosis without myelopathy or radiculopathy, lumbar region; M48.062 Spinal stenosis, lumbar region with neurogenic claudication; M51.36 Other intervertebral disc degeneration, lumbar region; M54.9 Dorsalgia, unspecified; Z79.891 Long term (current) use of opiate analgesic | CPT/HCPCS: 99205 ==

== ENCOUNTER → 2020-05-30 13:33 | Outpatient (BNVA) | payer MEDICARE, OTHER, SELFPAY | PROVIDERS: Family Provider Nurse Practitioner Family; PCP Nurse Practitioner Family; Visit Provider Anesthesiology Pain Medicine | DX: M47.816 Spondylosis without myelopathy or radiculopathy, lumbar region (principal); M48.062 Spinal stenosis, lumbar region with neurogenic claudication; Z79.891 Long term (current) use of opiate analgesic | CPT/HCPCS: 64483; 64484; J1100; J3490 ==

== ENCOUNTER → 2020-06-13 13:35 | Outpatient (BNVA) | payer MEDICARE, OTHER, SELFPAY | PROVIDERS: Family Provider Nurse Practitioner Family; PCP Nurse Practitioner Family; Visit Provider Anesthesiology Pain Medicine | DX: C67.4 Malignant neoplasm of posterior wall of bladder (principal); M54.16 Radiculopathy, lumbar region; M54.9 Dorsalgia, unspecified; R53.83 Other fatigue; E11.9 Type 2 diabetes mellitus without complications; Z79.891 Long term (current) use of opiate analgesic; E78.2 Mixed hyperlipidemia; E55.9 Vitamin D deficiency, unspecified; N30.00 Acute cystitis without hematuria | CPT/HCPCS: 64483; 64484; 80053; 80061; 81000; 82306; 83036; 84443; 85025; J1100; J3490 ==

== ENCOUNTER → 2020-06-15 09:29 | Outpatient (BNVA) | payer MEDICARE, OTHER, SELFPAY | PROVIDERS: Family Provider Nurse Practitioner Family; PCP Nurse Practitioner Family; Visit Provider Family Medicine | DX: N30.01 Acute cystitis with hematuria (principal) | CPT/HCPCS: 81000 ==

== ENCOUNTER → 2020-06-27 09:07 | Outpatient (BNVA) | payer MEDICARE, OTHER, SELFPAY | PROVIDERS: Family Provider Nurse Practitioner Family; PCP Nurse Practitioner Family; Visit Provider Family Medicine | DX: N30.01 Acute cystitis with hematuria (principal) | CPT/HCPCS: 81003; 87077; 87086; 87184 ==

== ENCOUNTER → 2020-07-04 11:24 | Outpatient (BNVA) | payer MEDICARE, OTHER, SELFPAY | PROVIDERS: Family Provider Nurse Practitioner Family; PCP Nurse Practitioner Family; Visit Provider Family Medicine | DX: N30.01 Acute cystitis with hematuria (principal); C67.4 Malignant neoplasm of posterior wall of bladder; R10.2 Pelvic and perineal pain | CPT/HCPCS: 81003 ==

== ENCOUNTER → 2020-07-26 09:28 | Outpatient (BNVA) | payer MEDICARE, OTHER, SELFPAY | PROVIDERS: Family Provider Nurse Practitioner Family; PCP Nurse Practitioner Family; Visit Provider Family Medicine | DX: N30.20 Other chronic cystitis without hematuria (principal) | CPT/HCPCS: 81000 ==

== ENCOUNTER → 2020-08-10 10:44 | Outpatient (BNVA) | payer MEDICARE, OTHER, SELFPAY | PROVIDERS: Family Provider Nurse Practitioner Family; PCP Nurse Practitioner Family; Visit Provider Nurse Practitioner Family | DX: N30.20 Other chronic cystitis without hematuria (principal); N30.01 Acute cystitis with hematuria | CPT/HCPCS: 81003; 87077; 87086; 87184 ==

== ENCOUNTER → 2020-08-17 10:45 | Outpatient (BNVA) | payer MEDICARE, OTHER, SELFPAY | PROVIDERS: Family Provider Nurse Practitioner Family; PCP Nurse Practitioner Family; Visit Provider Nurse Practitioner Family | DX: N30.20 Other chronic cystitis without hematuria | CPT/HCPCS: 81000 ==

== ENCOUNTER → 2020-08-23 09:15 | Outpatient (BNVA) | payer MEDICARE, OTHER, SELFPAY | PROVIDERS: Family Provider Nurse Practitioner Family; PCP Nurse Practitioner Family; Visit Provider Nurse Practitioner Family | DX: N30.01 Acute cystitis with hematuria (principal); R10.9 Unspecified abdominal pain; G89.29 Other chronic pain; M54.42 Lumbago with sciatica, left side; M54.41 Lumbago with sciatica, right side | CPT/HCPCS: 81000 ==

== ENCOUNTER → 2020-08-30 08:34 | Outpatient (BNVA) | payer MEDICARE, OTHER, SELFPAY | PROVIDERS: Family Provider Nurse Practitioner Family; PCP Nurse Practitioner Family; Referring Provider Family Medicine; Visit Provider Urology | DX: N30.20 Other chronic cystitis without hematuria (principal); C67.4 Malignant neoplasm of posterior wall of bladder | CPT/HCPCS: 81003; 87086 ==

== ENCOUNTER → 2020-09-02 08:29 | Outpatient (BNVA) | payer MEDICARE, OTHER, SELFPAY | PROVIDERS: Family Provider Nurse Practitioner Family; PCP Nurse Practitioner Family; Visit Provider Anesthesiology Pain Medicine | DX: M48.062 Spinal stenosis, lumbar region with neurogenic claudication (principal); M51.36 Other intervertebral disc degeneration, lumbar region; M47.816 Spondylosis without myelopathy or radiculopathy, lumbar region; M54.9 Dorsalgia, unspecified; Z79.891 Long term (current) use of opiate analgesic | CPT/HCPCS: 99214 ==

== ENCOUNTER → 2020-09-06 10:24 | Outpatient (BNVA) | payer MEDICARE, OTHER, SELFPAY | PROVIDERS: Family Provider Nurse Practitioner Family; PCP Nurse Practitioner Family; Visit Provider Nurse Practitioner Family | DX: I10 Essential (primary) hypertension (principal); E11.9 Type 2 diabetes mellitus without complications; E55.9 Vitamin D deficiency, unspecified | CPT/HCPCS: 80053; 80061; 82306; 83036; 84443; 85025 ==

== ENCOUNTER → 2020-09-13 13:01 | Outpatient (BNVA) | payer MEDICARE, OTHER, SELFPAY | PROVIDERS: Family Provider Nurse Practitioner Family; PCP Nurse Practitioner Family; Visit Provider Urology | DX: C67.4 Malignant neoplasm of posterior wall of bladder (principal); N30.20 Other chronic cystitis without hematuria | CPT/HCPCS: 81003 ==

== ENCOUNTER 2020-09-17 12:30 | Emergency (ER) | payer MEDICARE, OTHER, SELFPAY ==
[2020-09-17 12:36] VITALS: BP 205/104; PULSE 110; RESP 18; TEMP 37.1; O2SAT 97; BMI 22.4
[2020-09-17 12:41] VITALS: BP 144/122; PULSE 95; O2SAT 99
--- NOTE | 2020-09-17 12:49 | XRR_ITS ---
PROCEDURE INFORMATION: Exam: XR Abdomen, 1 View Exam date and time: 09/17/2020 12:50 PM Age: 80 years old Clinical indication: Abdominal pain and tenderness. Right lower quadrant pain. Constipation and abdominal discomfort. TECHNIQUE: Imaging protocol: XR of the abdomen. Views: Frontal supine view of the abdomen. 1 View. COMPARISON: CR XR acute abdomen series [id number] 02/21/2020 11:39 AM FINDINGS: There is moderate stool in the colon; query constipation. No evidence of small-bowel obstruction. No gross free intraperitoneal air. No gross portal venous gas. XR/XR KUB portable [id number] IMPRESSION: Moderate gas and stool in the colon; query constipation.
--- NOTE | 2020-09-17 12:50 | W.ED.ABDPA2 ---
HPI - Abdominal Pain General: Chief Complaint: Abdominal Pain Stated Complaint: constipated, left leg feels heavy Time Seen by Provider: 09/17/20 12:45 History of Present Illness: HPI narrative: Patient says she has been constipated taking MiraLAX and prune juice. Says she has some abdominal discomfort feels bloated and heavy and said this makes both her legs feel heavy. She is diabetic and blood sugars been doing good. Denies any fever chills shortness of breath or urine problems. MD elicited complaint: other (Abdominal discomfort) Pertinent past history: constipation and past UTI Onset (ago): day(s) Quality: fullness Exacerbating factors: nothing Relieving factors: bowel movement Associated Symptoms: Reports other (Abdominal discomfort not pain); Denies chills, fever(s), nausea and vomiting Review of Systems Const: Denies: fever(s), chills or body aches Eyes: Denies: change in vision or blurry vision ENMT: Denies: throat pain or nasal congestion Card: Denies: chest pain or dyspnea on exertion Resp: Denies: dyspnea, productive cough or non-productive cough GI: Reports: other (Abdominal discomfort not pain); Denies: abdominal pain, nausea or vomiting Musc: Reports: other (Said legs feel heavy at times.); Denies: extremity pain Skin/Breast: Denies: rash Neuro: Denies: headache(s) Psych: Denies: anxiety or depression Alfonso/Lymph: Denies: easy bruising PFSH ED PFSH: Medical History DDD (degenerative disc disease), lumbar Diabetes mellitus type 2, noninsulin dependent Janumet Diverticula of intestine Hyperlipidemia atorvastatin 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 Normal colonoscopy Osteoarthritis Pelvic organ prolapse quantification stage 3 cystocele Recurrent UTI Thyroid nodule Last thyroid imaging at [facility] [place], bilateral adenomatous nodules or colloid cysts Vitamin D deficiency Surgical History H/O arthroscopy of knee (~2014) Left, Dr Connors History of hysterectomy (~05/2019) with BSO, Ant/Post colporrhaphy and urethral sling, Dr Isaac History of transurethral destruction of bladder lesion TCCA of bladder without invasion Family History Mother Breast cancer Father Aspiration pneumonia Diabetes Other Cancer Denies family history of Anesthesia complication Bleeding disorder Social History Smoking and tobacco status: former smoker Quit status (tobacco): has quit using tobacco Year quit tobacco: 1997, smoked 1 PPD Second hand smoke exposure: No Alcohol intake: never Adopted: No Caregiver/support person: No Lives independently: No Household members: spouse Marital status: Current occupational status: retired History of recent travel: No Physical Exam Const: COMMON NORMALS: no acute distress, average body habitus and patient oriented x3 HENMT: COMMON NORMALS: normocephalic HEAD & SCALP: normal to inspection and normocephalic FACE & SINUS: normal facial exam Eye: COMMON NORMALS: conjunctivae normal GENERAL EYE: appearance normal, both eyes and all related structures CONJUNCTIVA: Yes conjunctivae normal Neck/C-Spine: COMMON NORMALS: no JVD Chest: COMMONS NORMALS: normal inspection of the chest Resp: COMMON NORMALS: normal respiratory effort and clear to auscultation bilaterally AUSCULTATION: clear to auscultation bilaterally Cardio: COMMON NORMALS: no JVD and regular rate (Triage was 110 but she is in the 80s to 90s during exam) RATE: regular rate (Triage was 110 but she is in the 80s to 90s during exam) GI: COMMON NORMALS: Soft to palpation INSPECTION: Yes abdominal distension AUSCULTATION: Yes Hypoactive bowel sounds present PALPATION: Yes Soft to palpation Extremity: COMMON NORMALS: normal to inspection and full ROM OTHER: Tremors with good pulses no swelling good cap refill warm to touch good movement Neuro: COMMON NORMALS: patient oriented x3 Course Vital Signs: Vital signs: Vital Signs Temperature 98.7 F 09/17/20 12:36 Pulse Rate 87 09/17/20 14:05 Respiratory Rate 18 09/17/20 12:36 Blood Pressure 143/80 09/17/20 14:05 Pulse Oximetry 98 09/17/20 14:05 MDM - Abdominal Pain MDM Narrative: Medical decision making narrative: Radiology report shows constipation was consistent with patient's symptoms. Her legs actually are feeling fine. I discussed with patient need to have fiber in diet she said she never been told to have fiber taken fiber. She will try that plus new medication. Patient is follow-up your primary care provider if worsening of symptoms. Differential Diagnosis: Differential diagnosis abdominal pain: Likely abdominal pain, constipation, diverticulitis and gastroenteritis Discharge Plan Discharge Patient Disposition: Home Clinical Impression: Constipation, chronic Condition: Stable Prescriptions: New lactulose 10 gram/15 mL solution 10 g PO DAILY MDD 10 grams PRN (Reason: constipation) Qty: 237 RF: 0 No Action diclofenac sodium 75 mg tablet,delayed release (DR/EC) 75 mg PO BID PRN (Reason: pain) Qty: 60 RF: 2 methylprednisolone acetate [Depo-Medrol] 80 mg/mL suspension 80 mg Infiltration ONCE Qty: 1 RF: 0 sodium chloride 0.9 % Solution 5 ml epidural ONCE Qty: 1 RF: 0 bupivacaine (PF) 0.25 % (2.5 mg/mL) solution 2 ml epidural ONCE Qty: 1 RF: 0 lidocaine (PF) 10 mg/mL (1 %) solution 10 mg SUBCUT ONCE Qty: 1 RF: 0 amoxicillin-pot clavulanate [Augmentin] 875-125 mg tablet 1 tab PO BID Qty: 60 RF: 1 gabapentin 100 mg capsule 100 mg PO BID Qty: 60 RF: 0 cyclobenzaprine 10 mg tablet See Rx Instructions PO BID PRN (Reason: pain) Qty: 30 RF: 0 tramadol 50 mg tablet 50 mg PO BID PRN (Reason: pain) Qty: 60 RF: 0 atorvastatin [Lipitor] 10 mg tablet 10 mg PO BEDTIME Qty: 90 RF: 1 lisinopril 20 mg tablet 20 mg PO DAILY Qty: 90 RF: 1 metformin 500 mg tablet extended release 24 hr 500 mg PO BID 90 Days Qty: 180 RF: 1 oxybutynin chloride 10 mg tablet extended release 24hr 10 mg PO DAILY Qty: 90 RF: 1 acetaminophen [Tylenol Extra Strength] 500 mg Tablet 1,000 mg PO Q6H PRN (Reason: Pain) RF: 0 Discharge Orders: Discharge ED (Routine); Ordered 09/17/20 Ordered By: Laurent Díaz Referrals: Yokasta Bain, PORTABLE CANTEEN OPERATOR [Primary Care Provider] - Discharge Diet: As Directed Discharge Activity: Resume usual activity Patient Instructions: Constipation (ED), High Fiber Diet (ED) Activity Restrictions/Additional Instructions: Increase water intake and please add fiber tablets or Gummies to your diet daily. Can take lactulose for next 5 to 7 days daily as prescribed stop MiraLAX in the meantime and restart MiraLAX after finished with lactulose. Follow-up your family medical provider. Coding Level of Care Code ED Ssrs Report Developer for Lou Fwd Exam Comprehensive
[2020-09-17 13:37] VITALS: BP 145/86; PULSE 84; O2SAT 98
[2020-09-17 14:04] VITALS: BP 143/80; PULSE 86; O2SAT 98
[2020-09-17 14:05] VITALS: BP 143/80; PULSE 87; O2SAT 98
== END 2020-09-17 14:07 | disposition home or self-care (01) ==
PROVIDERS: Emergency Provider Nurse Practitioner Family; PCP Nurse Practitioner Family
DX: K59.09 Other constipation (principal); E11.9 Type 2 diabetes mellitus without complications; E78.5 Hyperlipidemia, unspecified; Z85.51 Personal history of malignant neoplasm of bladder; Z87.891 Personal history of nicotine dependence; Z79.84 Long term (current) use of oral hypoglycemic drugs
CPT/HCPCS: 74018; 99282

== ENCOUNTER → 2020-09-29 13:30 | Outpatient (BNVA) | payer MEDICARE, OTHER, SELFPAY | PROVIDERS: PCP Nurse Practitioner Family; Visit Provider Nurse Practitioner Family | DX: N30.01 Acute cystitis with hematuria (principal) | CPT/HCPCS: 81003; 87077; 87086; 87184 ==

== ENCOUNTER → 2020-10-12 12:15 | Outpatient (BNVA) | payer MEDICARE, OTHER, SELFPAY | PROVIDERS: PCP Nurse Practitioner Family; Visit Provider Nurse Practitioner Family | DX: R79.89 Other specified abnormal findings of blood chemistry (principal); N39.0 Urinary tract infection, site not specified | CPT/HCPCS: 80053; 81000 ==

== ENCOUNTER → 2020-10-20 10:49 | Outpatient (BNVA) | payer MEDICARE, OTHER, SELFPAY | PROVIDERS: PCP Nurse Practitioner Family; Visit Provider Nurse Practitioner Family | DX: E87.1 Hypo-osmolality and hyponatremia (principal); N30.01 Acute cystitis with hematuria | CPT/HCPCS: 80048; 81003; 87077; 87086; 87184 ==

== ENCOUNTER → 2020-10-31 09:03 | Outpatient (BNVA) | payer MEDICARE, OTHER, SELFPAY | PROVIDERS: PCP Nurse Practitioner Family; Visit Provider Nurse Practitioner Family | DX: E87.1 Hypo-osmolality and hyponatremia (principal) | CPT/HCPCS: 80048 ==

== ENCOUNTER → 2020-11-01 14:31 | Outpatient (BNVA) | payer MEDICARE, OTHER, SELFPAY | PROVIDERS: PCP Nurse Practitioner Family; Visit Provider Orthopaedic Surgery | DX: M54.5 Low back pain (principal); M15.9 Polyosteoarthritis, unspecified | CPT/HCPCS: 72110 ==

== ENCOUNTER → 2020-11-18 15:44 | Outpatient (BNVA) | payer MEDICARE, OTHER, SELFPAY | PROVIDERS: PCP Nurse Practitioner Family; Visit Provider Nurse Practitioner Family | DX: N39.0 Urinary tract infection, site not specified (principal) | CPT/HCPCS: 81000; 87086 ==

== ENCOUNTER → 2020-11-23 08:57 | Outpatient (BNVA) | payer MEDICARE, OTHER, SELFPAY | PROVIDERS: PCP Nurse Practitioner Family; Visit Provider Orthopaedic Surgery | DX: E87.5 Hyperkalemia (principal); Z20.822 Contact with and (suspected) exposure to COVID-19; E87.1 Hypo-osmolality and hyponatremia; Z01.818 Encounter for other preprocedural examination | CPT/HCPCS: 80048; 87635 ==

== ENCOUNTER 2020-11-28 07:52 | Day surgery (SDC) | payer MEDICARE, OTHER, SELFPAY ==
[2020-11-25 16:02] VITALS: BMI 21.5
[2020-11-28] VITALS (10 sets, daily range): BP systolic 150–176; BP diastolic 72–105; PULSE 58–104; RESP 12–24; TEMP 36.1–36.4; O2SAT 93–99
--- NOTE | 2020-11-28 | XR_ITS ---
WS: [id number] Exam: XR lumbar spine 2-3V* [id number] Date/Time of Exam: 11/28/2020 12:00 AM Reason For Exam: l3-4 L4-5 DECOMPRESSION Limited intraoperative AP and lateral C-arm images of the lumbar spine are submitted for evaluation. The images depict a surgical port positioned over the posterior paraspinal soft tissues at both the L 3-4 and L4-5 disc levels. No other significant finding on this limited series
--- NOTE | 2020-11-28 | SCC_ITS ---
Procedure Done: L3/4 bilateral laminectomy and partial facetectomies L4/5 laminectomy and partial facetectomies 39.8 seconds of fluoroscopic guidance, for a cumulative dose of 4.80 mGy, was provided to Dr. Dunn by the radiology department. C-arm images of the lumbar spine were saved for the patient's permanent record. [facility]
[2020-11-28 08:57] LABS: Glucose Point of Care 123 mg/dL (70-110)
--- NOTE | 2020-11-28 09:00 | ANES.PREANE2 ---
Pre-Anesthetic Assessment Pre-Anesthetic Assessment: Height/Weight: Height 1.57 m Weight 53.524 kg Temp Pulse Resp BP Pulse Ox 97.5 F L 77 18 169/105 98 11/28/20 08:37 11/28/20 08:37 11/28/20 08:37 11/28/20 08:37 11/28/20 08:37 Preop Diagnosis: lumbar stenosis Proposed Procedure: Operation Date: 11/28/20 09:30 Proposed Procedures p L3-4 L4-5 MIS decompression bilaterally m48.062 [id number](Bilateral) - Aroldo Dunn, Last intake: Intake Last Liquid Date 11/27/20 Last Liquid Time 20:00 Last Solid Date 11/27/20 Last Solid Time 20:00 Social: Social History: No alcohol and No tobacco Exam: Pre-Anes Outpt Exam: alert, oriented x 3, clear to auscultation bilaterally and regular rate & rhythm Airway: MP: 2 Dentition: Partials Pulmonary: Pulmonary: None reported CV/HEM: CV/HEM: HTN Metabolic: Metabolic: DM Anesthetic Plan: ASA status: 3 Anesthesia: Anesthesia Evaluation and General PFSH Anesthesia PFSH: Medical History DDD (degenerative disc disease), lumbar Diabetes mellitus type 2, noninsulin dependent Janumet Diverticula of intestine Hyperlipidemia atorvastatin 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 Normal colonoscopy Osteoarthritis Pelvic organ prolapse quantification stage 3 cystocele Recurrent UTI Thyroid nodule Last thyroid imaging [place] [facility] [place], bilateral adenomatous nodules or colloid cysts Vitamin D deficiency Surgical History H/O arthroscopy of knee (~2014) Left, Dr Connors History of hysterectomy (~05/2019) with BSO, Ant/Post colporrhaphy and urethral sling, Dr Isaac History of transurethral destruction of bladder lesion TCCA of bladder without invasion Family History Mother Breast cancer Father Aspiration pneumonia Diabetes Other Cancer Denies family history of Anesthesia complication Bleeding disorder Social History Smoking and tobacco status: former smoker Quit status (tobacco): has quit using tobacco Year quit tobacco: 1997, smoked 1 PPD Second hand smoke exposure: No Alcohol intake: never Adopted: No Caregiver/support person: No Lives independently: No Household members: spouse Marital status: Current occupational status: retired History of recent travel: No Data Anesthesia Other Labs: Laboratory Results - last 48 hr 11/28/20 08:51 POC Glucose 123 H Cardiac Studies: No Data to Display
[2020-11-28] MEDS: sodium chloride 0.9% 1,000 ML 30 ML IV (09:01)
--- NOTE | 2020-11-28 09:51 | W.PM.OPSUD ---
Surgery/Procedure H&P Update DATE OF PROCEDURE: November 28, 2020 DATE H&P PERFORMED: 11/21/20 H&P UPDATE INFORMATION: I have reviewed H&P completed within last 30 days, I have examined patient prior to procedure and No changes to prior documentation PREOP DIAGNOSIS: lumbar stenosis PLANNED PROCEDURE: Operation Date: 11/28/20 09:30 Proposed Procedures p L3-4 L4-5 MIS decompression bilaterally m48.062 [id number](Bilateral) - Aroldo Dunn DO
--- NOTE | 2020-11-28 11:58 | PM.OP ---
Operative Report Date of procedure: November 28, 2020 Pre-op Diagnosis: lumbar stenosis Post-op diagnosis: same Procedure Done: L3/4 bilateral laminectomy and partial facetectomies L4/5 laminectomy and partial facetectomies Surgeon: Aroldo Dunn Anesthesia: General Estimated blood loss (mL): 5 Condition: stable Procedure: L3/4 bilateral laminectomy and partial facetectomies L4/5 laminectomy and partial facetectomies Patient is brought to the operative suite. After undergoing anesthesia they are placed in the supine position. All areas of impingement are well padded. Patient is then prepped and draped in the normal sterile fashion. A skin incision is made over the L4/5 level. This is confirmed under c-arm guidance. A series of dilators are passed and the tubular retractor is docked on the L4 lamina. A bovie is used to clear the soft tissue off the lamina and the L 4/5 facet joint. A high speed juan is then used to perform the laminectomy and take down the medial aspect of the L 4/5 facet joint. A kerrison rongeure was then used to take down the remaining lamina and smooth the edged of the laminectomy up to the point where the ligamentum flavum attaches. Attention was then brought to the medial aspect of the facet joint. The remaining medial aspect of the superior and inferior aspect of the facet joint were taken down with the kerrison from the pedicle of L4 to L 5. The facet joint had significant hypertrophy. Attention was then brought to the Ligamentum Flavum. The ligament was taken down from the lamina of L4 to L5 and out medially to the remaining facet joint. The ligament was thickend. The dura was then exposed. The dura was in good repair. The L4 nerve was then traced with a curette out the L4/5 foramen and found to be adequately decompressed. The L5 nerve was traced with a curette around the L5 pedicle. The lateral recess was opened with a kerrison helping to further decompress the L5 nerve. The tubular retractor was then tilted to the contralateral side. The bovie was used to take down the soft tissue on the spinous process. The high speed juan was used to take down the spinous process and then the contralateral lamina of L4. The kerrison rongeur was used to take down the remaining lamina to the point where the ligamentum flavum attached and the ligamentum flavum was taken down from L4 to L5. The kerrison rongeur was then used to reach across and take down the medial aspect of the contralateral L4/5 facet joint.The currete was used to trace the contralateral L4 nerve out the L4/5 foramen to make sure it was decompressed adequatesly and the L5 was traced around the L5 pedicle. The lateral recess was opened further with the kerrison to ensure the L5 is adequately decompressed. Next attention was brought to the L3/4 level. A series of dilators are passed and the tubular retractor is docked on the L3 lamina. A bovie is used to clear the soft tissue off the lamina and the L 3/4 facet joint. A high speed juan is then used to perform the laminectomy and take down the medial aspect of the L3/4 facet joint. A kerrison rongeure was then used to take down the remaining lamina and smooth the edged of the laminectomy up to the point where the ligamentum flavum attaches. Attention was then brought to the medial aspect of the facet joint. The remaining medial aspect of the superior and inferior aspect of the facet joint were taken down with the kerrison from the pedicle of L3 to L 4. The facet joint had significant hypertrophy. Attention was then brought to the Ligamentum Flavum. The ligament was taken down from the lamina of L3 to L4 and out medially to the remaining facet joint. The ligament was thickend. The dura was then exposed. The dura was in good repair. The L3 nerve was then traced with a curette out the L3/4 foramen and found to be adequately decompressed. The L4 nerve was traced with a curette around the L4 pedicle. The lateral recess was opened with a kerrison helping to further decompress the L4 nerve. The tubular retractor was then tilted to the contralateral side. The bovie was used to take down the soft tissue on the spinous process. The high speed juan was used to take down the spinous process and then the contralateral lamina of L3. The kerrison rongeur was used to take down the remaining lamina to the point where the ligamentum flavum attached and the ligamentum flavum was taken down from L3 to L4. The kerrison rongeur was then used to reach across and take down the medial aspect of the contralateral L3/4 facet joint.The currete was used to trace the contralateral L3 nerve out the L3/4 foramen to make sure it was decompressed adequatesly and the L5 was traced around the L5 pedicle. The lateral recess was opened further with the kerrison to ensure the L4 is adequately decompressed. Wound is then irrigated copiously with saline and surgiflo is used to stop any bleeding. The tubular retractor is removed and the wound is closed with vicryl and monocryl suture. Glue is then used to protect the wound. A sterile dressing is then placed. Patient was then placed in the supine position and transferred to the PACU in stable condition.
[2020-11-28 13:43] LABS: Glucose Point of Care 188 mg/dL (70-110)
== END 2020-11-28 14:14 | disposition home or self-care (01) ==
PROVIDERS: PCP Nurse Practitioner Family; Visit Provider Orthopaedic Surgery
PROC: (CPT 63005; principal; 2020-11-28 09:10)
DX: M48.061 Spinal stenosis, lumbar region without neurogenic claudication (principal); I10 Essential (primary) hypertension; E11.9 Type 2 diabetes mellitus without complications; E78.5 Hyperlipidemia, unspecified; M19.90 Unspecified osteoarthritis, unspecified site; Z87.891 Personal history of nicotine dependence
CPT/HCPCS: 63047; 63048; 36416; 72100; 76000; 82962; J0690; J1100; J2405; J2704; J2710; J3010; J3490; J7030

== ENCOUNTER → 2020-12-13 11:34 | Outpatient (BNVA) | payer MEDICARE, OTHER, SELFPAY | PROVIDERS: PCP Nurse Practitioner Family; Visit Provider Nurse Practitioner Family | DX: E78.2 Mixed hyperlipidemia (principal); I10 Essential (primary) hypertension; E11.9 Type 2 diabetes mellitus without complications | CPT/HCPCS: 80053; 80061; 83036; 85025 ==

== ENCOUNTER 2020-12-26 18:48 | Emergency (ER) | payer MEDICARE, OTHER, SELFPAY ==
[2020-12-26 19:12] VITALS: BP 160/86; PULSE 89; RESP 16; TEMP 36.8; O2SAT 95; BMI 23.0
--- NOTE | 2020-12-26 21:06 | CTR_ITS ---
PROCEDURE INFORMATION: Exam: CT Abdomen And Pelvis With Contrast Exam date and time: 12/26/2020 9:16 PM Age: 80 years old Clinical indication: Abdominal pain; Localized; Right lower quadrant (rlq); Prior surgery; Surgery type: Hyst, back; Patient HX: HX. Bladder cancer; Additional info: Rlq pain, nausea TECHNIQUE: Imaging protocol: Computed tomography of the abdomen and pelvis with contrast. Total images: 215 Radiation optimization: All CT scans at this facility use at least one of these dose optimization techniques: automated exposure control; mA and/or kV adjustment per patient size (includes targeted exams where dose is matched to clinical indication); or iterative reconstruction. Contrast material: OMNI 300; Contrast volume: 75 ml; Contrast route: INTRAVENOUS (IV); COMPARISON: CT abdomen pelvis w con* [id number] 04/01/2020 1:59 PM RADIATION DOSE METRICS: Total DLP (mGy-cm): 754.99 FINDINGS: Lungs: Limited assessment of the lung bases fails to reveal evidence for active cardiopulmonary process. Stable small less than 3 mm subpleural pulmonary nodule lateral segment right middle lobe since 04/01/2020. No follow-up recommended. Liver: No visible hepatic mass or cystic structure. Gallbladder and bile ducts: Unremarkable. No calcified stones. No ductal dilation. Pancreas: Pancreas unremarkable for age. No visible pancreatic ductal ectasia. Spleen: Spleen unremarkable. Adrenal glands: Adrenal glands unremarkable. Kidneys and ureters: No hydronephrosis or perinephric fluid. Stable small simple renal cortical cysts bilaterally. No follow-up recommended. No visible nephrolithiasis. No visible ureterolithiasis. Stomach and bowel: Potential mild gastric antritis. Diverticulosis coli without visible evidence for acute diverticulitis Nonobstructive bowel pattern. No visible evidence of significant adynamic or reactive ileus. Heavy fecal residue consistent with constipation. Appendix: The appendix is visualized and appears noninflamed. Intraperitoneal space: No visible evidence of mesenteric lymphadenitis or active mesenteritis/panniculitis. No visible pneumoperitoneum or intraperitoneal ascites. Vasculature: The abdominal aorta is nonaneurysmal. Moderately advanced arterial sclerotic disease. Portal vein patent. Lymph nodes: No current visible evidence of active mesenteric or retroperitoneal lymphadenopathy. Urinary bladder: Urinary bladder unremarkable. Reproductive: Status post hysterectomy. Bones/joints: Advanced primary osteoarthritis of the hips. Osteopenia/osteoporosis. Mild dextroscoliosis of the lumbar spine. Advanced degenerative disease and degenerative disc disease of the lumbosacral spine the degenerative disc disease most advanced with vacuum disc phenomenon L2/3, L3/4, and L4/L5. Soft tissues: Small left inguinal hernia containing fat only. CT/CT abdomen pelvis w con* [id number] IMPRESSION: 1. Findings suggest the presence of mild gastric antritis. 2. Diverticulosis coli without visible evidence for acute diverticulitis. 3. The appendix is visualized and appears noninflamed. 4. Constipation. Radiation Dose CTDIVOL = (mGy): DLP = 754.99 (mGy-cm)
[2020-12-26 21:34] LABS: Basophils # 0.1 10^3/uL (0.0-0.1); Basophils % 0.8 %; Eosinophils # 0.2 10^3/uL (0.0-0.8); Eosinophils % 2.2 %; Hematocrit 39.5 % (37.0-47.0); Hemoglobin 12.6 g/dL (11.5-15.3); Lymphocytes # 3.4 10^3/uL (0.8-4.8); Lymphocytes % 43.9 %; Mean Corpuscular HGB Conc 31.9 g/dL (30.0-36.0); Mean Corpuscular Hemoglobin 30.3 pg (28.0-34.0); Mean Platelet Volume 9.5 fL (7.4-10.4); Monocytes # 0.7 10^3/uL (0.2-0.9); Monocytes % 8.8 %; Neutrophils # 3.42 10^3/uL (1.8-7.7); Nucleated Red Blood Cells % 0 %; Platelet Count 348 10^3/cmm (130-400); Red Blood Count 4.16 10^6/uL (4.1-5.3); Red Cell Distribution Width 13.7 % (12.1-15.1); White Blood Count 7.8 10^3/uL (4.0-10.0)
[2020-12-26] MEDS: iohexol 300 mg/mL 100 mL Btl IV (21:50)
[2020-12-26 22:18] LABS: Alanine Aminotransferase 8 U/L (0-33); Albumin Level 4.1 g/dL (3.5-5.2); Alkaline Phosphatase 75 IU/L (35-105); Anion Gap 15.9 (5-19); Aspartate Amino Transferase 10 U/L (0-32); Blood Urea Nitrogen 9 mg/dL (8-23); Calcium 9.1 mg/dL (8.5-10.5); Carbon Dioxide 25 mmol/L (22-29); Chloride 100 mmol/L (98-107); Globulin 2.1 g/dL (1.3-4.6); Glucose 101 mg/dL (65-115); Lipase 22 U/L (13-60); Osmolality Calculated 283 mOsm/kg (285-295); Potassium 3.9 mmol/L (3.5-5.1); Sodium 137 mmol/L (136-145); Total Bilirubin 0.2 mg/dL (0.15-1.2); Total Protein 6.2 g/dL (6.6-8.7)
[2020-12-26 22:40] LABS: Add Urine Microscopic? NO; Charge for UA Resulting for Rev
[2020-12-26 22:42] LABS: Bilirubin Urine Neg (Negative); Blood Urine Neg (Negative); Glucose Urine UA Norm (Normal); Ketones Urine Negative (Negative); Leukocyte Esterase Urine Negative (Negative); Nitrate Urine Negative (Negative); Protein Urine Neg (Negative); Urine Appearance Clear (CLEAR); Urine Color Yellow (Yellow); Urobilinogen Urine Norm (Negative); pH Urine 6 (5-7)
[2020-12-26 22:51] VITALS: BP 173/91; PULSE 80; RESP 17; O2SAT 98
--- NOTE | 2020-12-27 00:48 | ED_ITS ---
HPI - Abdominal Pain General: Chief Complaint: Abdominal Pain Stated Complaint: lower abd pain Time Seen by Provider: 12/26/20 21:05 History of Present Illness: HPI narrative: Patient is a well-appearing 80-year-old female from home seen for right lower quadrant and suprapubic abdominal pain which she describes as cramping, intermittent, lasting 10 to 15 seconds at a time and then resolving almost completely. She states that she takes opioids and is concerned she may be constipated. She has had decreased bowel output over the last several days. It feels similar to prior times when she has been constipated. She denies nausea, vomiting, fever, dysuria, frequency and has not taken anything for the pain. She has no other acute complaints. 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 Normal colonoscopy Osteoarthritis Pelvic organ prolapse quantification stage 3 cystocele Recurrent UTI Thyroid nodule Last thyroid imaging at [facility] [place], bilateral adenomatous nodules or colloid cysts Vitamin D deficiency Surgical History H/O arthroscopy of knee (~2014) Left, Dr Connors History of hysterectomy (~05/2019) with BSO, Ant/Post colporrhaphy and urethral sling, Dr Isaac History of transurethral destruction of bladder lesion TCCA of bladder without invasion Family History Mother Breast cancer Father Aspiration pneumonia Diabetes Other Cancer Denies family history of Anesthesia complication Bleeding disorder Social History Smoking and tobacco status: former smoker Quit status (tobacco): has quit using tobacco Year quit tobacco: 1997, smoked 1 PPD Second hand smoke exposure: No Alcohol intake: never Adopted: No Caregiver/support person: No Lives independently: No Household members: spouse Marital status: Current occupational status: retired History of recent travel: No Physical Exam Const: COMMON NORMALS: no acute distress, patient oriented x3 and alert HENMT: COMMON NORMALS: normocephalic and atraumatic HEAD & SCALP: normocephalic and atraumatic Eye: COMMON NORMALS: Equal, round and reactive pupils present, EOMs intact bilaterally and no scleral icterus PUPIL: Yes Equal, round and reactive pupils present Resp: COMMON NORMALS: normal respiratory effort and No retractions Cardio: COMMON NORMALS: regular rate, regular rhythm and No murmurs present (Cardio) RATE: regular rate RHYTHM: regular rhythm GI: COMMON NORMALS: Normal to inspection, nondistended, normoactive bowel sounds present, Soft to palpation and non-tender PALPATION: Yes Soft to palpation OTHER: Patient is mildly tender in the right lower quadrant with no rebound or guarding. Neuro: COMMON NORMALS: patient oriented x3 SENSORIUM/ORIENTATION: Yes alert Skin: COMMON NORMALS: no rashes or lesions noted GENERAL SKIN EXAM: no rashes or lesions noted Course Vital Signs: Vital signs: Vital Signs Temperature 98.2 F 12/26/20 19:12 Pulse Rate 80 12/26/20 22:51 Respiratory Rate 17 12/26/20 22:51 Blood Pressure 173/91 12/26/20 22:51 Pulse Oximetry 98 12/26/20 22:51 MDM - Abdominal Pain MDM Narrative: Medical decision making narrative: Given the locality of her pain, CT was ordered to rule out appendicitis. CT does not show evidence of acute process, however does show constipation. We had a conversation about different laxative medications and agreed for her to take extra doses of MiraLAX to help with her constipation. She be discharged home in stable and improved condition. Lab Data: Labs: Lab Results 12/26/20 12/26/20 12/26/20 Range/Units 21:25 21:25 21:59 WBC 7.8 (4.0-10.0) 10^3/ uL RBC 4.16 (4.1-5.3) 10^6/u L Hgb 12.6 (11.5-15.3) g/dL Hct 39.5 (37.0-47.0) % MCV 95.0 (81-99) fL MCH 30.3 (28.0-34.0) pg MCHC 31.9 (30.0-36.0) g/dL RDW 13.7 (12.1-15.1) % Plt Count 348 (130-400) 10^3/c mm MPV 9.5 (7.4-10.4) fL Neut % (Auto) 44.0 % Lymph % (Auto) 43.9 % Beauregard % (Auto) 8.8 % Eos % (Auto) 2.2 % Baso % (Auto) 0.8 % Neut # (Auto) 3.42 (1.8-7.7) 10^3/u L Lymph # (Auto) 3.4 (0.8-4.8) 10^3/u L Beauregard # (Auto) 0.7 (0.2-0.9) 10^3/u L Eos # (Auto) 0.2 (0.0-0.8) 10^3/u L Baso # (Auto) 0.1 (0.0-0.1) 10^3/u L Nucleated RBC % (a uto) 0 % Nucleated RBCs # 0.0 /100WBC Sodium Cancelled 137 Potassium Cancelled 3.9 Chloride Cancelled 100 Carbon Dioxide Cancelled 25 Anion Gap Cancelled 15.9 BUN Cancelled 9 Creatinine Cancelled 0.7 GFR Calculation Cancelled Not Reportable Glucose Cancelled 101 Calculated Osmolal ity Cancelled 283 L Calcium Cancelled 9.1 Total Bilirubin Cancelled 0.2 AST Cancelled 10 ALT Cancelled 8 Alkaline Phosphata se Cancelled 75 Total Protein Cancelled 6.2 L Albumin Cancelled 4.1 Globulin Cancelled 2.1 Lipase Cancelled 22 Urine Color (Yellow) Urine Appearance (CLEAR) Urine pH (5-7) Ur Specific Gravit y (1.005-1.030) Urine Protein (Negative) Urine Glucose (UA) (Normal) Urine Ketones (Negative) Urine Blood (Negative) Urine Nitrate (Negative) Urine Bilirubin (Negative) Urine Urobilinogen (Negative) mg/dL Ur Leukocyte Esme ase (Negative) 12/26/20 Range/Units 22:32 WBC (4.0-10.0) 10^3/ uL RBC (4.1-5.3) 10^6/u L Hgb (11.5-15.3) g/dL Hct (37.0-47.0) % MCV (81-99) fL MCH (28.0-34.0) pg MCHC (30.0-36.0) g/dL RDW (12.1-15.1) % Plt Count (130-400) 10^3/c mm MPV (7.4-10.4) fL Neut % (Auto) % Lymph % (Auto) % Beauregard % (Auto) % Eos % (Auto) % Baso % (Auto) % Neut # (Auto) (1.8-7.7) 10^3/u L Lymph # (Auto) (0.8-4.8) 10^3/u L Beauregard # (Auto) (0.2-0.9) 10^3/u L Eos # (Auto) (0.0-0.8) 10^3/u L Baso # (Auto) (0.0-0.1) 10^3/u L Nucleated RBC % (a uto) % Nucleated RBCs # /100WBC Sodium Potassium Chloride Carbon Dioxide Anion Gap BUN Creatinine GFR Calculation Glucose Calculated Osmolal ity Calcium Total Bilirubin AST ALT Alkaline Phosphata se Total Protein Albumin Globulin Lipase Urine Color Yellow (Yellow) Urine Appearance Clear (CLEAR) Urine pH 6 (5-7) Ur Specific Gravit y 1.000 L (1.005-1.030) Urine Protein Neg (Negative) Urine Glucose (UA) Norm (Normal) Urine Ketones Negative (Negative) Urine Blood Neg (Negative) Urine Nitrate Negative (Negative) Urine Bilirubin Neg (Negative) Urine Urobilinogen Norm (Negative) mg/dL Ur Leukocyte Esme ase Negative (Negative) Discharge Plan Discharge Patient Disposition: Home Clinical Impression: Abdominal pain, acute, right lower quadrant Constipation Qualifiers: Constipation type: unspecified constipation type Qualified Code(s): K59.00 - Constipation, unspecified Condition: Stable Prescriptions: No Action atorvastatin [Lipitor] 10 mg tablet 10 mg PO BEDTIME Qty: 90 RF: 1 losartan 50 mg tablet 50 mg PO DAILY Qty: 90 RF: 1 metformin 500 mg tablet extended release 24 hr 500 mg PO BID 90 Days Qty: 180 RF: 1 oxybutynin chloride 10 mg tablet extended release 24hr 10 mg PO DAILY Qty: 90 RF: 1 hydrocodone-acetaminophen 5-325 mg tablet 1 - 2 tab PO .Q4-6H PRN (Reason: pain) 7 Days Qty: 40 RF: 0 acetaminophen [Tylenol Extra Strength] 500 mg Tablet 1,000 mg PO Q6H PRN (Reason: Pain) RF: 0 Discharge Orders: Discharge ED (Routine); Ordered 12/26/20 Ordered By: Royce Deleon Referrals: Yokasta Bain FNP [Primary Care Provider] - Discharge Diet: Usual diet Discharge Activity: Resume usual activity Patient Instructions: Abdominal Pain (ED) Activity Restrictions/Additional Instructions: Please use [id number] MiraLAX as we discussed to help with your constipation. Coding Level of Care Code ED Certified Welder for Lou Sánchez
== END 2020-12-27 00:02 | disposition home or self-care (01) ==
PROVIDERS: Emergency Provider Student in an Organized Health Care Education/Training Program; PCP Nurse Practitioner Family
DX: K59.00 Constipation, unspecified (principal); Z79.84 Long term (current) use of oral hypoglycemic drugs; E11.9 Type 2 diabetes mellitus without complications; E78.5 Hyperlipidemia, unspecified; Z85.51 Personal history of malignant neoplasm of bladder; Z87.891 Personal history of nicotine dependence
CPT/HCPCS: 36415; 74177; 80053; 81003; 83690; 85025; 99283; Q9967

== ENCOUNTER → 2021-01-11 09:30 | Outpatient (BNVA) | payer MEDICARE, OTHER, SELFPAY | PROVIDERS: PCP Nurse Practitioner Family; Visit Provider Nurse Practitioner Family | DX: K59.01 Slow transit constipation (principal); L03.031 Cellulitis of right toe; N39.0 Urinary tract infection, site not specified | CPT/HCPCS: 81000 ==

== ENCOUNTER → 2021-01-23 14:39 | Outpatient (BNVA) | payer MEDICARE, OTHER, SELFPAY | PROVIDERS: Family Provider Orthopaedic Surgery; PCP Nurse Practitioner Family; Visit Provider Nurse Practitioner Family | DX: N39.0 Urinary tract infection, site not specified (principal) | CPT/HCPCS: 81003; 87077; 87086; 87184 ==

== ENCOUNTER 2021-01-24 06:00 | Outpatient (RCR) | payer MEDICARE, OTHER, SELFPAY | END 2021-02-01 23:59 | disposition home or self-care (01) | LOC: TPT 06:00 | PROVIDERS: PCP Nurse Practitioner Family; Referring Provider Orthopaedic Surgery; Visit Provider Orthopaedic Surgery | DX: Z47.89 Encounter for other orthopedic aftercare (principal) | CPT/HCPCS: 97110; 97162 ==

== ENCOUNTER → 2021-01-26 14:02 | Outpatient (BNVA) | payer MEDICARE, OTHER, SELFPAY | PROVIDERS: Family Provider Orthopaedic Surgery; PCP Nurse Practitioner Family; Visit Provider Nurse Practitioner Family | DX: K59.01 Slow transit constipation (principal); R19.5 Other fecal abnormalities; Z79.899 Other long term (current) drug therapy | CPT/HCPCS: 80053; 84550; 85025 ==

== ENCOUNTER 2021-02-02 06:00 | Outpatient (RCR) | payer MEDICARE, OTHER, SELFPAY | END 2021-03-04 23:59 | disposition home or self-care (01) | LOC: TPT 06:00 | PROVIDERS: PCP Nurse Practitioner Family; Referring Provider Orthopaedic Surgery; Visit Provider Orthopaedic Surgery | DX: Z47.89 Encounter for other orthopedic aftercare (principal) | CPT/HCPCS: 97110 ==

== ENCOUNTER 2021-03-07 15:10 | Outpatient (CLI) | payer MEDICARE, OTHER, SELFPAY ==
--- NOTE | 2021-03-07 15:21 | MR_ITS ---
WS: [id number] MRI LUMBAR SPINE NONCONTRAST HISTORY: M48.062 - Spinal stenosis, lumbar region with neurogenic claudication. COMPARISON: 04/25/2020 TECHNIQUE: Sagittal and axial multisequence imaging is submitted. Mild lumbar curvature. No acute compression fracture. Retrolisthesis of L3 and L4 with 4 mm. Severe d egenerative disc disease at L3-4 with endplate edema. Moderate degenerative disc space narrowing at L 4-5. There is increased T2 signal and deformity of the soft tissues in the paraspinal location at L3-4 fro m recent surgery and laminectomy defects. Conus terminates normally at L1. L1-L2: Normal. L2-L3: Mild annular disc bulging and osteophytic ridging with ligamentum flavum disease and facet art hritis. Mild bilateral foraminal narrowing. L3-L4: Retrolisthesis of L3 with bilateral facet joint arthritis. Ligamentum flavum hypertrophy and f acet arthritis. LEFT hemilaminectomy defect is new. Disc protrusion extends into the LEFT foramen. Mi ld central stenosis. Severe LEFT and moderate RIGHT foraminal stenosis due to combination of facet di sease and osteophyte and disc disease. L4-L5: Moderate diffuse annular disc bulging asymmetric. Marked ligamentum flavum hypertrophy and fac et arthritis. Fluid in the facet joints bilaterally. LEFT hemilaminectomy defect. Moderate central wi th bilateral lateral recess and subarticular recess stenosis and RIGHT foraminal stenosis. Mild steno sis on the LEFT. L5-S1: Bilateral facet joint arthritis without stenosis. Cortical cyst RIGHT kidney is subcentimeter. MR/MR lumbar spine wo con* [id number] IMPRESSION: 1. Status post LEFT hemilaminectomy defects at L3 and L4. Postsurgical changes in the paravertebral soft tissues. 2. Continued moderate central stenosis at L4-5 with bilateral lateral recess a nd subarticular stenosis and RIGHT foraminal stenosis. 3. Severe LEFT and moderate RIGHT foraminal stenosis at L3-4 due to combinatio n of disc and osteophyte disease. Probably not significantly changed. 4. Retrolisthesis of L3 and L4.
== END 2021-03-07 15:11 | disposition home or self-care (01) ==
LOC: RADWPI 15:19
PROVIDERS: PCP Nurse Practitioner Family; Visit Provider Orthopaedic Surgery
DX: M48.062 Spinal stenosis, lumbar region with neurogenic claudication (principal); M96.1 Postlaminectomy syndrome, not elsewhere classified
CPT/HCPCS: 72148

== ENCOUNTER → 2021-03-13 09:24 | Outpatient (BNVA) | payer MEDICARE, OTHER, SELFPAY | PROVIDERS: PCP Nurse Practitioner Family; Visit Provider Nurse Practitioner Family | DX: E55.9 Vitamin D deficiency, unspecified (principal); E11.9 Type 2 diabetes mellitus without complications; I10 Essential (primary) hypertension; E78.2 Mixed hyperlipidemia; N39.0 Urinary tract infection, site not specified | CPT/HCPCS: 80053; 80061; 81000; 82306; 83036; 84443; 85025 ==

== ENCOUNTER → 2021-03-14 13:02 | Outpatient (BNVA) | payer MEDICARE, OTHER, SELFPAY | PROVIDERS: PCP Nurse Practitioner Family; Visit Provider Urology | DX: N30.20 Other chronic cystitis without hematuria (principal); C67.4 Malignant neoplasm of posterior wall of bladder | CPT/HCPCS: 81003 ==

== ENCOUNTER 2021-03-20 19:17 | Emergency (ER) | payer MEDICARE, OTHER, SELFPAY ==
[2021-03-20 19:22] VITALS: BP 192/114; PULSE 90; RESP 17; TEMP 36.8; O2SAT 97; BMI 23.4
--- NOTE | 2021-03-20 19:45 | ED_ITS ---
HPI - Abdominal Pain General: Chief Complaint: Abdominal Pain Stated Complaint: ABD Pain Time Seen by Provider: 03/20/21 19:44 History of Present Illness: HPI narrative: Ms. Alanis is a 80-year-old lady with significant past medical history of diabetes, hypertension, hyperlipidemia, and constipation who presents emerge department due to abdominal pain. Onset of symptoms was gradual approximately 3 days ago. She endorses bilateral lower extremity discomfort which is aching in quality. There is mild radiation to the right thigh. Her symptoms are not particularly worsened or made better by any position changes. She has had associated constipation but has had bowel movements using [id number] medications. No urinary symptoms. Only history of abdominal surgeries transvaginal hysterectomy. She has not had pain of this quality or intensity in the past. No other specific exacerbating or alleviating factors identified. No infectious symptoms identified. Review of Systems General: Reports: 10 or more systems reviewed and unremarkable except in HPI and below Narrative: CONSTITUTIONAL: denies fever, fatigue, weakness EYES - denies pain, denies loss of vision EARS - denies ear issues. NOSE - denies congestion or rhinorrhea. THROAT - denies sore throat or difficulty swallowing. CARDIOVASCULAR - denies chest pain and palpitations RESPIRATORY - denies shortness of breath and cough GASTROINTESTINAL -see HPI GENITOURINARY - denies dysuria or urinary frequency MUSCULOSKELETAL- denies deformity or pain SKIN - denies rashes or new changed skin lesions NEUROLOGIC - denies focal weakness or sensory changes HEMATOLOGIC/LYMPHATIC - denies easy bruising or lymphadenopathy. 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 Normal colonoscopy Osteoarthritis Pelvic organ prolapse quantification stage 3 cystocele Recurrent UTI Thyroid nodule Last thyroid imaging at [facility] 2017, bilateral adenomatous nodules or colloid cysts Vitamin D deficiency Surgical History H/O arthroscopy of knee (~2014) Left, Dr Connors History of hysterectomy (~05/2019) with BSO, Ant/Post colporrhaphy and urethral sling, Dr Isaac History of transurethral destruction of bladder lesion TCCA of bladder without invasion Family History Mother , AT AGE 60 Breast cancer Father , AT AGE 95 Aspiration pneumonia Diabetes Other Cancer Denies family history of Anesthesia complication Bleeding disorder Social History Quit status (tobacco): has quit using tobacco Year quit tobacco: 1997, smoked 1 PPD Second hand smoke exposure: No Alcohol intake: current Alcohol intake frequency: holidays/special occasions only Adopted: No Caregiver/support person: No Lives independently: No Household members: spouse Marital status: service: No Current occupational status: retired History of recent travel: No Current gender identity: Female Special shi needs: No Agree to transfusion: Yes Physical Exam Narrative: EXAM NARRATIVE: GENERAL/CONSTITUTIONAL - well-appearing. No acute distress. Mild to moderately uncomfortable. Eyes - PERRL, no conjunctival injection ENMT - Atraumatic external nose and ears. Moist mucous membranes NECK - supple. trachea midline CARDIOVASCULAR - regular rate and rhythm. Peripheral pulses 2+ and equal RESPIRATORY -clear to auscultation bilaterally. No retractions or accessory muscle use. ABDOMEN/GI -moderate tender to palpation in the lower quadrants./Nondistended. No tenderness to percussion or evidence of peritonitis MSK - Extremities without obvious deformity or tenderness to palpation SKIN - Warm, Dry NEURO - alert and appropriately oriented. strength and sensation intact. Moves all extremities equally. PSYCH - Appropriate mood and affect Course ED course: - Patient was seen and evaluated by me at bedside - Patient placed on cardiac monitors, IV access obtained - Initial evaluation notable for no acute distress, nontoxic appearance. Abdominal exam without evidence of peritonitis as noted above. -Symptom care ordered. - Labs notable for no significant abnormality to explain patient's symptoms - Imaging notable for no acute abnormality to explain the patient's symptoms. - Upon serial reexamination after treatment the patient was improved with symptom treatment - Based on patient history, evaluation, labs, and imaging as interpreted the most likely cause of the patient's condition is unspecified abdominal pain not requiring hospitalization - The results of ED evaluation were discussed with the patient including prescriptions and/or symptomatic cares including appropriate and responsible use, followup plan, and return precautions. The patient verbalized understanding and felt safe for discharge. - Patient discharged in satisfactory condition. Vital Signs: Vital signs: Vital Signs Temperature 98.2 F 03/20/21 19:22 Pulse Rate 72 03/20/21 22:22 Respiratory Rate 18 03/20/21 22:22 Blood Pressure 140/87 03/20/21 22:22 Pulse Oximetry 96 03/20/21 22:22 MDM - Abdominal Pain Medical Records: Attestation: I reviewed the patient's medical records. Lab Data: Attestation: I reviewed the patient's lab results. Labs: Lab Results 03/20/21 03/20/21 03/20/21 Range/Units 19:55 20:10 20:10 WBC 8.1 (4.0-10.0) 10^3/ uL RBC 4.19 (4.1-5.3) 10^6/u L Hgb 12.7 (11.5-15.3) g/dL Hct 38.3 (37.0-47.0) % MCV 91.4 (81-99) fl MCH 30.3 (28.0-34.0) pg MCHC 33.2 (30.0-36.0) g/dL RDW 12.3 (12.1-15.1) % Plt Count 415 H (130-400) 10^3/c mm MPV 9.4 (7.4-10.4) fL Neut % (Auto) 53.4 % Lymph % (Auto) 35.3 % [place] % (Auto) 8.0 % Eos % (Auto) 2.2 % Baso % (Auto) 0.9 % Neut # (Auto) 4.33 (1.8-7.7) 10^3/u L Lymph # (Auto) 2.9 (0.8-4.8) 10^3/u L [place] # (Auto) 0.7 (0.2-0.9) 10^3/u L Eos # (Auto) 0.2 (0.0-0.8) 10^3/u L Baso # (Auto) 0.1 (0.0-0.1) 10^3/u L Nucleated RBC % (a uto) 0 % Nucleated RBCs # 0.0 /100WBC Sodium 133 L (136-145) mmol/L Potassium 4.1 (3.5-5.1) mmol/L Chloride 96 L (98-107) mmol/L Carbon Dioxide 23 (22-29) mmol/L Anion Gap 18.1 (5-19) BUN 9 (8-23) mg/dL Creatinine 0.8 (0.5-0.9) mg/dL GFR Calculation Not Reportable Glucose 94 (65-115) mg/dL Calculated Osmolal ity 274 L (285-295) mOsm/k g Lactate (0.5-2.2) mmol/L Calcium 10.5 (8.5-10.5) mg/dL Total Bilirubin 0.3 (0.15-1.2) mg/dL AST 12 (0-32) U/L ALT 7 (0-33) U/L Alkaline Phosphata se 86 (35-105) IU/L Troponin T Baselin e (0-10) ng/L Total Protein 7.7 (6.6-8.7) g/dL Albumin 4.6 (3.5-5.2) g/dL Globulin 3.1 (1.3-4.6) g/dL Urine Color Yellow (Yellow) Urine Appearance Clear (CLEAR) Urine pH 7 (5-7) Ur Specific Gravit y 1.005 (1.005-1.030) Urine Protein Neg (Negative) Urine Glucose (UA) Norm (Normal) Urine Ketones Negative (Negative) Urine Blood Neg (Negative) Urine Nitrate Negative (Negative) Urine Bilirubin Neg (Negative) Urine Urobilinogen Norm (Negative) mg/dL Ur Leukocyte Esme ase Trace H (Negative) Urine RBC 0-4 H (0-2) /hpf Urine WBC 0-4 H (0-5) /hpf Ur Squamous Epith Cells 0-4 H (0-5) /hpf Amorphous Sediment Not Reportable Urine Bacteria Trace (NONE) /hpf 03/20/21 03/20/21 Range/Units 20:10 20:10 WBC (4.0-10.0) 10^3/ uL RBC (4.1-5.3) 10^6/u L Hgb (11.5-15.3) g/dL Hct (37.0-47.0) % MCV (81-99) fl MCH (28.0-34.0) pg MCHC (30.0-36.0) g/dL RDW (12.1-15.1) % Plt Count (130-400) 10^3/c mm MPV (7.4-10.4) fL Neut % (Auto) % Lymph % (Auto) % [place] % (Auto) % Eos % (Auto) % Baso % (Auto) % Neut # (Auto) (1.8-7.7) 10^3/u L Lymph # (Auto) (0.8-4.8) 10^3/u L [place] # (Auto) (0.2-0.9) 10^3/u L Eos # (Auto) (0.0-0.8) 10^3/u L Baso # (Auto) (0.0-0.1) 10^3/u L Nucleated RBC % (a uto) % Nucleated RBCs # /100WBC Sodium (136-145) mmol/L Potassium (3.5-5.1) mmol/L Chloride (98-107) mmol/L Carbon Dioxide (22-29) mmol/L Anion Gap (5-19) BUN (8-23) mg/dL Creatinine (0.5-0.9) mg/dL GFR Calculation Glucose (65-115) mg/dL Calculated Osmolal ity (285-295) mOsm/k g Lactate 1.7 (0.5-2.2) mmol/L Calcium (8.5-10.5) mg/dL Total Bilirubin (0.15-1.2) mg/dL AST (0-32) U/L ALT (0-33) U/L Alkaline Phosphata se (35-105) IU/L Troponin T Baselin e 8 (0-10) ng/L Total Protein (6.6-8.7) g/dL Albumin (3.5-5.2) g/dL Globulin (1.3-4.6) g/dL Urine Color (Yellow) Urine Appearance (CLEAR) Urine pH (5-7) Ur Specific Gravit y (1.005-1.030) Urine Protein (Negative) Urine Glucose (UA) (Normal) Urine Ketones (Negative) Urine Blood (Negative) Urine Nitrate (Negative) Urine Bilirubin (Negative) Urine Urobilinogen (Negative) mg/dL Ur Leukocyte Esme ase (Negative) Urine RBC (0-2) /hpf Urine WBC (0-5) /hpf Ur Squamous Epith Cells (0-5) /hpf Amorphous Sediment Urine Bacteria (NONE) /hpf EKG Data ^: EKG 1: Attestation: I personally reviewed and interpreted this EKG as follows: EKG interpretation date: 03/20/21 EKG interpretation time: 20:00 Prior EKG tracings: available for review Ischemic changes: non-specific ST-T wave changes Interpretation: Twelve-lead EKG shows regular sinus rhythm at a rate of 76. CA interval 161, QRS duration 89, QTc 362. Interpretation: Sinus rhythm. Nonspecific ST segment abnormalities. Discharge Plan Discharge Patient Disposition: Home Clinical Impression: Abdominal pain Condition: Stable Prescriptions: No Action prenat.vits,haroldo,[id number] Tablet 1 tab PO DAILY RF: 0 losartan 50 mg tablet 50 mg PO BID Qty: 180 RF: 1 atorvastatin [Lipitor] 10 mg tablet 10 mg PO BEDTIME Qty: 90 RF: 1 metformin 500 mg tablet extended release 24 hr 500 mg PO BID 90 Days Qty: 180 RF: 1 oxybutynin chloride 10 mg tablet extended release 24hr 10 mg PO DAILY Qty: 90 RF: 1 amoxicillin-pot clavulanate [Augmentin] 875-125 mg tablet 1 tab PO BID 10 Days Qty: 20 RF: 3 acetaminophen [Tylenol Extra Strength] 500 mg Tablet 1,000 mg PO Q6H PRN (Reason: Pain) RF: 0 hydrocodone-acetaminophen 5-325 mg tablet 1 - 2 tab PO Q4H PRN (Reason: pain) RF: 0 Discharge Orders: Discharge ED (Routine); Ordered 03/20/21 Ordered By: Raúl Mcdonald Discharge Diet: Advance as tolerated and Clear Liquid Discharge Activity: Increase activity as tolerated Patient Instructions: Abdominal Pain (ED), Opioid Safety Activity Restrictions/Additional Instructions: Thank you for visiting the emergency department. You were seen and evaluated for abdominal pain. Laboratory studies did not show any obvious abnormality with exception of possible mild dehydration. CT scan did not reveal an obvious cause of your symptoms. Please follow-up with your primary care provider. Please return to the emergency department for worsening of your symptoms, inability to tolerate oral intake, intractable pain, or anything else that you are concerned about and feel needs emergent department evaluation. Coding Level of Care Code ED Loading Machine Operator Helper for Lou Sánchez
--- NOTE | 2021-03-20 19:52 | CTR_ITS ---
PROCEDURE INFORMATION: Exam: CT Abdomen And Pelvis With Contrast Exam date and time: 03/20/2021 7:52 PM Age: 80 years old Clinical indication: Abdominal pain; Localized; Prior surgery; Surgery type: Hysterectomy; Patient HX: Lower abd pain. History of bladder CA. ; Additional info: Lower abdominal pain TECHNIQUE: Imaging protocol: Computed tomography of the abdomen and pelvis with contrast. Radiation optimization: All CT scans at this facility use at least one of these dose optimization techniques: automated exposure control; mA and/or kV adjustment per patient size (includes targeted exams where dose is matched to clinical indication); or iterative reconstruction. Contrast material: OMNI 300; Contrast volume: 95 ml; Contrast route: INTRAVENOUS (IV); COMPARISON: CT abdomen pelvis w con* [id number] 12/26/2020 9:47 PM RADIATION DOSE METRICS: Total DLP (mGy-cm): 698.07 FINDINGS: Liver: Normal. No mass. Gallbladder and bile ducts: Normal. No calcified stones. No ductal dilation. Pancreas: Normal. No ductal dilation. Spleen: Normal. No splenomegaly. Adrenal glands: Normal. No mass. Kidneys and ureters: Bilateral renal cortical atrophy. Negative for hydronephrosis. No calcified renal stones. Stomach and bowel: Unremarkable. No obstruction. No mucosal thickening. Appendix: Normal appendix. Intraperitoneal space: Unremarkable. No free air. No significant fluid collection. Vasculature: Scattered atherosclerosis. Negative for abdominal aortic aneurysm. Diffuse atherosclerosis. No vascular occlusion. Negative for aneurysm. Lymph nodes: Unremarkable. No enlarged lymph nodes. Urinary bladder: Unremarkable as visualized. Reproductive: Hysterectomy. Bones/joints: No acute fractures are identified. The lumbar spine demonstrates marked discogenic and apophyseal joint degenerative changes at multiple levels. End-stage osteoarthritis changes in both hips. Soft tissues: Unremarkable. CT/CT abdomen pelvis w con* [id number] IMPRESSION: 1. Negative for acute abdominopelvic pathology. 2. No metastatic disease in the abdomen or pelvis identified. 3. No significant changes from comparison imaging. Radiation Dose CTDIVOL = (mGy): DLP = 698.07 (mGy-cm)
--- NOTE | 2021-03-20 19:52 | ECG_ITS ---
[facility] Test Date: 2021-03-20 Pat Name: Mckenna Alanis Department: Room: Gender: Female Bone Puller: : 1940 Requested By: Raúl Mcdonald Order Number: [id number] Artemio MD: Pineda Prather M.D. Measurements Intervals [place] Rate: 76 P: 81 VT: 161 QRS: -6 QRSD: 89 T: 28 QT: 321 QTc: 362 Interpretive Statements SINUS RHYTHM POSSIBLE RIGHT VENTRICULAR CONDUCTION DELAY [RSR (QR) IN V1/V2] Compared to ECG 03/27/2020 18:36:33 Incomplete right bundle-branch block no longer present Electronically Signed On 03-21-2021 0:10:50 CDT by Pineda Prather M.D. [email or web address]
[2021-03-20 20:00] VITALS: BP 166/97; PULSE 74; RESP 18; O2SAT 97
[2021-03-20 20:16] LABS: Add Urine Culture? No; Add Urine Microscopic? YES; Bacteria Urine TRACE /hpf; Bilirubin Urine Neg (Negative); Blood Urine Neg (Negative); Glucose Urine UA Norm (Normal); Ketones Urine Negative (Negative); Leukocyte Esterase Urine Trace (Negative); Nitrate Urine Negative (Negative); Protein Urine Neg (Negative); RBC Urine 0-4 /hpf (0-2); Specific Gravity, Urine 1.005 (1.005-1.030); Squamous Epithelial Cell Urine 0-4 /hpf (0-5); Urine Appearance Clear (CLEAR); Urine Color Yellow (Yellow); Urobilinogen Urine Norm (Negative); WBC Urine 0-4 /hpf (0-5); pH Urine 7 (5-7)
[2021-03-20 20:18] LABS: Basophils # 0.1 10^3/uL (0.0-0.1); Basophils % 0.9 %; Eosinophils # 0.2 10^3/uL (0.0-0.8); Eosinophils % 2.2 %; Hematocrit 38.3 % (37.0-47.0); Hemoglobin 12.7 g/dL (11.5-15.3); Lymphocytes # 2.9 10^3/uL (0.8-4.8); Lymphocytes % 35.3 %; Mean Corpuscular HGB Conc 33.2 g/dL (30.0-36.0); Mean Corpuscular Hemoglobin 30.3 pg (28.0-34.0); Mean Corpuscular Volume 91.4 fl (81-99); Mean Platelet Volume 9.4 fL (7.4-10.4); Monocytes # 0.7 10^3/uL (0.2-0.9); Neutrophils # 4.33 10^3/uL (1.8-7.7); Neutrophils % 53.4 %; Nucleated Red Blood Cells % 0 %; Platelet Count 415 10^3/cmm (130-400); Red Blood Count 4.19 10^6/uL (4.1-5.3); Red Cell Distribution Width 12.3 % (12.1-15.1); White Blood Count 8.1 10^3/uL (4.0-10.0)
[2021-03-20 20:34] LABS: Troponin(5th) Baseline 8 ng/L (0-10)
[2021-03-20 20:35] LABS: Lactate (Lactic Acid level) 1.7 mmol/L (0.5-2.2)
[2021-03-20 20:38] LABS: Alanine Aminotransferase 7 U/L (0-33); Albumin Level 4.6 g/dL (3.5-5.2); Alkaline Phosphatase 86 IU/L (35-105); Anion Gap 18.1 (5-19); Aspartate Amino Transferase 12 U/L (0-32); Blood Urea Nitrogen 9 mg/dL (8-23); Calcium 10.5 mg/dL (8.5-10.5); Carbon Dioxide 23 mmol/L (22-29); Chloride 96 mmol/L (98-107); Globulin 3.1 g/dL (1.3-4.6); Glucose 94 mg/dL (65-115); Osmolality Calculated 274 mOsm/kg (285-295); Potassium 4.1 mmol/L (3.5-5.1); Sodium 133 mmol/L (136-145); Total Bilirubin 0.3 mg/dL (0.15-1.2); Total Protein 7.7 g/dL (6.6-8.7)
[2021-03-20] MEDS: iohexol 300 mg/mL 100 mL Btl IV (20:44)
[2021-03-20 21:18] VITALS: RESP 18
[2021-03-20] MEDS: morphine 4 mg/mL SDV 1 mL 2 MG IVP (21:18)
[2021-03-20] MEDS: lactated ringers 500 ML 999 ML IV (21:18)
[2021-03-20 21:32] VITALS: BP 147/87; PULSE 76; RESP 18; O2SAT 97
[2021-03-20 22:22] VITALS: BP 140/87; PULSE 72; RESP 18; O2SAT 96
== END 2021-03-20 22:23 | disposition home or self-care (01) ==
PROVIDERS: Emergency Provider Emergency Medicine
DX: R10.9 Unspecified abdominal pain (principal); Z79.84 Long term (current) use of oral hypoglycemic drugs; E11.9 Type 2 diabetes mellitus without complications; E78.5 Hyperlipidemia, unspecified; Z85.51 Personal history of malignant neoplasm of bladder; Z87.891 Personal history of nicotine dependence; Z87.440 Personal history of urinary (tract) infections
CPT/HCPCS: 74177; 80053; 81001; 83605; 84484; 85025; 93005; 96361; 96374; 99284; J2270; Q9967

== ENCOUNTER 2021-03-28 06:00 | Outpatient (RCR) | payer MEDICARE, OTHER, SELFPAY | END 2021-04-04 23:59 | disposition home or self-care (01) | LOC: TPT 06:00 | PROVIDERS: Referring Provider Orthopaedic Surgery; Visit Provider Orthopaedic Surgery | DX: M48.061 Spinal stenosis, lumbar region without neurogenic claudication (principal) | CPT/HCPCS: 97110; 97162 ==

== ENCOUNTER → 2021-03-30 14:52 | Outpatient (BNVA) | payer MEDICARE, OTHER, SELFPAY | PROVIDERS: Visit Provider Nurse Practitioner Family | DX: N30.00 Acute cystitis without hematuria (principal) | CPT/HCPCS: 81000; 81003; 87077; 87086; 87184 ==

== ENCOUNTER 2021-04-05 06:00 | Outpatient (RCR) | payer MEDICARE, OTHER, SELFPAY | END 2021-05-04 23:59 | disposition home or self-care (01) | LOC: TPT 06:00 | PROVIDERS: PCP Nurse Practitioner Family; Referring Provider Orthopaedic Surgery; Visit Provider Orthopaedic Surgery | DX: M48.061 Spinal stenosis, lumbar region without neurogenic claudication (principal) | CPT/HCPCS: 97110 ==

== ENCOUNTER → 2021-04-07 16:04 | Outpatient (BNVA) | payer MEDICARE, OTHER, SELFPAY | PROVIDERS: PCP Nurse Practitioner Family; Visit Provider Nurse Practitioner Family | DX: N30.00 Acute cystitis without hematuria (principal); M51.36 Other intervertebral disc degeneration, lumbar region | CPT/HCPCS: 81000 ==

== ENCOUNTER → 2021-04-21 09:31 | Outpatient (BNVA) | payer MEDICARE, OTHER, SELFPAY | PROVIDERS: PCP Nurse Practitioner Family; Visit Provider Family Medicine | DX: R39.9 Unspecified symptoms and signs involving the genitourinary system (principal) | CPT/HCPCS: 81003 ==

== ENCOUNTER → 2021-04-28 11:00 | Outpatient (BNVA) | payer MEDICARE, OTHER, SELFPAY | PROVIDERS: PCP Nurse Practitioner Family; Visit Provider Nurse Practitioner Family | DX: N30.00 Acute cystitis without hematuria (principal) | CPT/HCPCS: 81000; 87086 ==

== ENCOUNTER 2021-05-05 06:00 | Outpatient (RCR) | payer MEDICARE, OTHER, SELFPAY | END 2021-06-04 23:59 | disposition home or self-care (01) | LOC: TPT 06:00 | PROVIDERS: PCP Nurse Practitioner Family; Referring Provider Orthopaedic Surgery; Visit Provider Orthopaedic Surgery | DX: M48.061 Spinal stenosis, lumbar region without neurogenic claudication (principal) | CPT/HCPCS: 97110; 97164 ==

== ENCOUNTER → 2021-05-08 14:00 | Outpatient (BNVA) | payer MEDICARE, OTHER, SELFPAY | PROVIDERS: PCP Nurse Practitioner Family; Visit Provider Nurse Practitioner Family | DX: R10.9 Unspecified abdominal pain (principal); M25.50 Pain in unspecified joint; G89.29 Other chronic pain; L30.9 Dermatitis, unspecified; E11.9 Type 2 diabetes mellitus without complications; E78.5 Hyperlipidemia, unspecified; I10 Essential (primary) hypertension; E55.9 Vitamin D deficiency, unspecified | CPT/HCPCS: 80053; 82306; 82607; 84550; 85025; 85651; 86038; 86140; 86200; 86431 ==

== ENCOUNTER → 2021-05-19 11:29 | Outpatient (BNVA) | payer MEDICARE, OTHER, SELFPAY | PROVIDERS: PCP Nurse Practitioner Family; Visit Provider Nurse Practitioner Family | DX: N30.00 Acute cystitis without hematuria (principal); N30.20 Other chronic cystitis without hematuria; E11.9 Type 2 diabetes mellitus without complications; E78.2 Mixed hyperlipidemia; I10 Essential (primary) hypertension | CPT/HCPCS: 80053; 80061; 81003; 83036; 85025 ==

== ENCOUNTER → 2021-05-31 10:40 | Outpatient (BNVA) | payer MEDICARE, OTHER, SELFPAY | PROVIDERS: PCP Nurse Practitioner Family; Visit Provider Nurse Practitioner Family | DX: N30.00 Acute cystitis without hematuria (principal) | CPT/HCPCS: 81000 ==

== ENCOUNTER → 2021-06-01 09:22 | Outpatient (BNVA) | payer MEDICARE, OTHER, SELFPAY | PROVIDERS: PCP Nurse Practitioner Family; Visit Provider Anesthesiology Pain Medicine | DX: M48.062 Spinal stenosis, lumbar region with neurogenic claudication (principal); M51.36 Other intervertebral disc degeneration, lumbar region; M47.816 Spondylosis without myelopathy or radiculopathy, lumbar region; M79.604 Pain in right leg; M79.605 Pain in left leg; Z79.891 Long term (current) use of opiate analgesic; Z87.891 Personal history of nicotine dependence | CPT/HCPCS: 99214 ==

== ENCOUNTER 2021-06-05 06:00 | Outpatient (RCR) | payer MEDICARE, OTHER, SELFPAY | END 2021-07-04 23:59 | disposition home or self-care (01) | LOC: TPT 06:00 | PROVIDERS: PCP Nurse Practitioner Family; Visit Provider Orthopaedic Surgery | DX: M48.061 Spinal stenosis, lumbar region without neurogenic claudication (principal) | CPT/HCPCS: 97110 ==

== ENCOUNTER 2021-06-19 09:17 | Emergency (ER) | payer MEDICARE, OTHER, SELFPAY ==
[2021-06-19 09:37] VITALS: BP 183/94; PULSE 85; RESP 15; TEMP 36.8; O2SAT 96; BMI 24.4
--- NOTE | 2021-06-19 09:44 | ED_ITS ---
HPI - Abdominal Pain General: Chief Complaint: Extremity Problem,Nontraumatic Stated Complaint: Stomach pains R leg pains Time Seen by Provider: 06/19/21 09:19 History of Present Illness: HPI narrative: 80-year-old female complaining of right leg pain and weakness in her legs bilaterally. She also has abdominal pain is generally periumbilical radiating into her back. She denies any fever sweats chills denies any dysuria urgency or frequency. No hematochezia melena hematemesis or coffee-ground emesis. She does have some pain to her right calf she has no history of diabetes heart disease no history of aneurysms. No chest pain or shortness of breath MD elicited complaint: abdominal pain Onset (ago): week(s) Pain Consistency: intermittent Location: Periumbilical Severity: moderate Quality: cramping Radiation: back Exacerbating factors: nothing Relieving factors: nothing Associated Symptoms: Reports bloating, GI cramping, nausea and poor appetite; Denies anorexia, belching, change in bowel habits, change in stool character, chills, coffee ground emesis, constipation, diarrhea, dyspepsia, dysuria, excessive flatus, fever(s), heartburn, hematochezia, hematuria, hematemesis, fecal incontinence, loose stools, melena, syncope and vomiting Review of Systems Const: Denies: fever(s) or chills ENMT: Denies: throat pain, ear or mastoid pain, nasal discharge or nasal congestion Card: Denies: syncope Resp: Denies: dyspnea, productive cough or non-productive cough GI: Reports: nausea, bloating and GI cramping; Denies: vomiting, hematemesis, coffee ground emesis, heartburn, diarrhea, constipation, belching, excessive flatus, fecal incontinence, change in bowel habits, change in stool character, hematochezia or melena : Denies: dysuria or hematuria Skin/Breast: Denies: rash or pruritus PFSH ED PFSH: Medical History DDD (degenerative disc disease), lumbar Diabetes mellitus type 2, noninsulin dependent Diverticula of intestine Hyperlipidemia atorvastatin 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 Normal colonoscopy Osteoarthritis Pelvic organ prolapse quantification stage 3 cystocele Recurrent UTI Thyroid nodule Last thyroid imaging at [facility] [place] 2017, bilateral adenomatous nodules or colloid cysts Vitamin D deficiency Surgical History H/O arthroscopy of knee (~2014) Left, Dr Connors History of back surgery History of hysterectomy (~05/2019) with BSO, Ant/Post colporrhaphy and urethral sling, Dr Isaac History of transurethral destruction of bladder lesion TCCA of bladder without invasion Family History Mother , AT AGE 60 Breast cancer Father , AT AGE 95 Aspiration pneumonia Diabetes Other Cancer Denies family history of Anesthesia complication Bleeding disorder Social History Quit status (tobacco): has quit using tobacco Year quit tobacco: 1997, smoked 1 PPD Second hand smoke exposure: No Alcohol intake: current Alcohol intake frequency: holidays/special occasions only Adopted: No Caregiver/support person: No Lives independently: No Household members: spouse Marital status: service: No Current occupational status: retired History of recent travel: No Current gender identity: Female Special shi needs: No Agree to transfusion: Yes Physical Exam Const: COMMON NORMALS: no acute distress GENERAL APPEARANCE: cooperative and comfortable ORIENTATION/CONSCIOUSNESS: Yes awake, Yes oriented to person, Yes oriented to place and Yes oriented to time HENMT: COMMON NORMALS: normocephalic and atraumatic HEAD & SCALP: normocephalic and atraumatic Eye: COMMON NORMALS: Equal, round and reactive pupils present, EOMs intact bilaterally, conjunctivae normal and no scleral icterus CONJUNCTIVA: Yes conjunctivae normal PUPIL: Yes Equal, round and reactive pupils present Neck/C-Spine: COMMON NORMALS: full ROM, no lymphadenopathy, supple and no JVD Lymph: LYMPHATIC: no lymphadenopathy noted and no lymphedema noted Resp: COMMON NORMALS: normal respiratory effort, No retractions, No use of accessory muscles and clear to auscultation bilaterally AUSCULTATION: clear to auscultation bilaterally Cardio: COMMON NORMALS: no JVD, regular rate, regular rhythm and No murmurs present (Cardio) RATE: regular rate RHYTHM: regular rhythm GI: COMMON NORMALS: Soft to palpation and No hepatosplenomegaly present AUSCULTATION: Yes normoactive bowel sounds PALPATION: Yes Soft to palpation, No Tenderness to palpation present (GI), No Guarding due to palpation present (GI) and Yes No hepatosplenomegaly present Extremity: COMMON NORMALS: normal to inspection, capillary refill normal, no clubbing, cyanosis or edema, no calf tenderness and no pedal edema OTHER: Femoral pulses equal bilaterally Neuro: SENSORIUM/ORIENTATION: Yes oriented to person, Yes oriented to place and Yes oriented to time Skin: COMMON NORMALS: no rashes or lesions noted GENERAL SKIN EXAM: no rashes or lesions noted Course Vital Signs: Vital signs: Vital Signs Temperature 98.3 F 06/19/21 09:37 Pulse Rate 74 06/19/21 12:58 Respiratory Rate 18 06/19/21 12:58 Blood Pressure 134/67 06/19/21 12:58 Pulse Oximetry 97 06/19/21 12:58 MDM - Abdominal Pain MDM Narrative: Medical decision making narrative: Labs originally reviewed. We will go ahead and discharge the patient home reviewed the findings with her she is moderately constipated the leg pain I believe is chronic there is no evidence of DVT. Continue current medications including pain medications and medications the use for chronic pain follow-up with primary care doctor for her constipation use mag citrate or milk of magnesia [id number]. Lab Data: Labs: Lab Results 06/19/21 06/19/21 06/19/21 10:11 10:11 10:11 WBC 7.5 10^3/uL 10^3/ uL (4.0-10.0) RBC 3.99 10^6/uL L 10 ^6/uL (4.1-5.3) Hgb 12.1 g/dL g/dL (11.5-15.3) Hct 37.1 % % (37.0-47.0) MCV 93.0 fl fl (81-99) MCH 30.3 pg pg (28.0-34.0) MCHC 32.6 g/dL g/dL (30.0-36.0) RDW 12.8 % % (12.1-15.1) Plt Count 400 10^3/cmm 10^3 /cmm (130-400) MPV 10.0 fL fL (7.4-10.4) Neut % (Auto) 64.6 % % Lymph % (Auto) 23.1 % % [place] % (Auto) 9.2 % % Eos % (Auto) 1.9 % % Baso % (Auto) 0.5 % % Neut # (Auto) 4.85 10^3/uL 10^3 /uL (1.8-7.7) Lymph # (Auto) 1.7 10^3/uL 10^3/ uL (0.8-4.8) [place] # (Auto) 0.7 10^3/uL 10^3/ uL (0.2-0.9) Eos # (Auto) 0.1 10^3/uL 10^3/ uL (0.0-0.8) Baso # (Auto) 0.0 10^3/uL 10^3/ uL (0.0-0.1) Nucleated RBC % (a uto) 0 % % Nucleated RBCs # 0.0 /100WBC /100W BC Sodium 138 mmol/L mmol/L (136-145) Potassium 4.4 mmol/L mmol/L (3.5-5.1) Chloride 100 mmol/L mmol/L (98-107) Carbon Dioxide 23 mmol/L mmol/L (22-29) Anion Gap 19.4 H (5-19) BUN 9 mg/dL mg/dL (8-23) Creatinine 0.8 mg/dL mg/dL (0.5-0.9) GFR Calculation Not Reportable Glucose 96 mg/dL mg/dL (65-115) Calculated Osmolal ity 285 mOsm/kg mOsm/ kg (285-295) Lactic Acid 2.1 mmol/L mmol/L (0.5-2.2) Calcium 9.6 mg/dL mg/dL (8.5-10.5) Total Bilirubin 0.3 mg/dL mg/dL (0.15-1.2) AST 11 U/L U/L (0-32) ALT 8 U/L U/L (0-33) Alkaline Phosphata se 101 IU/L IU/L (35-105) Creatine Kinase 47 U/L U/L (26-192) Total Protein 7.3 g/dL g/dL (6.6-8.7) Albumin 4.3 g/dL g/dL (3.5-5.2) Globulin 3.0 g/dL g/dL (1.3-4.6) Urine Color Urine Appearance Urine pH Ur Specific Gravit y Urine Protein Urine Glucose (UA) Urine Ketones Urine Blood Urine Nitrate Urine Bilirubin Urine Urobilinogen Ur Leukocyte Esme ase 06/19/21 10:54 WBC RBC Hgb Hct MCV MCH MCHC RDW Plt Count MPV Neut % (Auto) Lymph % (Auto) [place] % (Auto) Eos % (Auto) Baso % (Auto) Neut # (Auto) Lymph # (Auto) [place] # (Auto) Eos # (Auto) Baso # (Auto) Nucleated RBC % (a uto) Nucleated RBCs # Sodium Potassium Chloride Carbon Dioxide Anion Gap BUN Creatinine GFR Calculation Glucose Calculated Osmolal ity Lactic Acid Calcium Total Bilirubin AST ALT Alkaline Phosphata se Creatine Kinase Total Protein Albumin Globulin Urine Color Yellow (Yellow) Urine Appearance Clear (CLEAR) Urine pH 6.5 (5-7) Ur Specific Gravit y 1.010 (1.005-1.030) Urine Protein Neg (Negative) Urine Glucose (UA) Norm (Normal) Urine Ketones Negative (Negative) Urine Blood Neg (Negative) Urine Nitrate Negative (Negative) Urine Bilirubin Neg (Negative) Urine Urobilinogen Norm mg/dL mg/dL (Negative) Ur Leukocyte Esme ase Negative (Negative) Discharge Plan Discharge Patient Disposition: Home Clinical Impression: Constipation, Radicular pain of right lower extremity Condition: Stable Prescriptions: No Action prenat.vits,haroldo,[id number] Tablet 1 tab PO BEDTIME RF: 0 losartan 50 mg tablet 50 mg PO BID Qty: 180 RF: 1 meloxicam 15 mg tablet 15 mg PO DAILY PRN (Reason: pain) Qty: 90 RF: 1 metformin 500 mg tablet extended release 24 hr 500 mg PO BID 90 Days Qty: 180 RF: 1 hydrocodone-acetaminophen 5-325 mg tablet 1 - 2 tab PO Q4H PRN (Reason: pain) 7 Days Qty: 40 RF: 0 gabapentin 300 mg capsule 300 mg PO TID 90 Days Qty: 270 RF: 0 acetaminophen [Tylenol Extra Strength] 500 mg Tablet 1,000 mg PO Q6H PRN (Reason: Pain) RF: 0 Vitamin B-12 1 tab PO DAILY RF: 0 Vitamin D3 1 tab PO DAILY RF: 0 Lipitor 10 mg tablet 10 mg PO BEDTIME RF: 0 oxybutynin chloride 10 mg tablet extended release 24hr 10 mg PO QAM RF: 0 Discharge Orders: Discharge ED (Routine); Ordered 06/19/21 Ordered By: Jeremie Gonzalez Referrals: Yokasta Bain FNP [Primary Care Provider] - Discharge Diet: As Directed Discharge Activity: Increase activity as tolerated Patient Instructions: Opioid Safety Activity Restrictions/Additional Instructions: Milk of magnesia or magnesium citrate as needed [id number] as needed to resolve symptoms. Follow-up with your primary care doctor regarding the right leg pain. Coding Level of Care Code ED Rater Associate for Chg Fwd Exam Comprehensive
--- NOTE | 2021-06-19 09:48 | USCV_ITS ---
Mckenna Alanis Age: 80 Gender: F : 1940 Exam Date: 06/19/2021 10:16 Ordering Phys: Jeremie Gonzalez DO Technologist: Rhonda Piedra [place] [facility] [place]: PAIN IN RT LEG HISTORY: Pain Rt. Leg PROCEDURES: Venous duplex imaging was performed in only the right lower extremity. The following venous structures were evaluated: common femoral vein, profunda vein, proximal portion of the greater saphenous vein, superficial femoral vein, and the popliteal vein. In addition, the posterior tibial and peroneal trunk were evaluated. Serial compression, augmentation maneuvers, and spectral Doppler flow evaluation were performed. FINDINGS: Normal 2-D Doppler and augmentation and compressibility throughout the lower extremity venous structures. Additional imaging through the proximal calf veins also reveals no thrombus. Limited evaluation of the greater saphenous vein is patent with no thrombus.. Pathak's cyst seen Rt medial Pop fossa CONCLUSIONS No evidence of right lower extremity DVT. Small trace of fluid in popliteal fossa Binu Hinkle MD (Electronically Signed) Final Date: 19 June 2021 16:32 S
--- NOTE | 2021-06-19 09:48 | CT_ITS ---
WS: [id number] CT ABDOMEN PELVIS TECHNIQUE: Contrast-enhanced CT of the abdomen and pelvis with coronal and sagittal reformatted image s. CLINICAL INFORMATION: abd pain COMPARISON: CT March 20, 2021 DLP: 806.[address] scans at [facility] use at least one of these dose optimization techniques: automated e xposure control; mA and/or kV adjustment per patient size (includes targeted exams where dose is matc hed to clinical indication); or iterative reconstruction. FINDINGS: Mild hepatomegaly. Diffuse fatty infiltration of the liver. Normal spleen. Normal GE junction. Lung b ases are well aerated. Prior hysterectomy. Normal pancreas. Normal portal vein and splenic vein. Adre nal glands are normal. Normal renal parenchymal enhancement. No hydronephrosis. Small bilateral renal cysts. Normal caliber abdominal aorta. Aortic calcification. Urine distended bladder. Transverse colon constipation. Normal appendix in the right lower quadrant. No free fluid in the abdomen or pelvis. Fat-containing umbilical hernia. Moderate spondylitic changes lumbar spine. Advanced arthritis both hips with subchondral cystic change. CT/CT abdomen pelvis w con* [id number] IMPRESSION: 1. No acute abdominal or pelvic findings. 2. Moderate constipation transverse colon. 3. No hydronephrosis in either kidney. 4. Mild hepatomegaly with diffuse fatty infiltration. 5. Urine distended bladder. 6. Prior hysterectomy.
[2021-06-19 10:13] VITALS: BP 139/98; PULSE 77; RESP 14; O2SAT 98
[2021-06-19 10:47] LABS: Lactic Sepsis W/Reflex 2.1 mmol/L (0.5-2.2)
[2021-06-19 10:48] LABS: Alanine Aminotransferase 8 U/L (0-33); Albumin Level 4.3 g/dL (3.5-5.2); Alkaline Phosphatase 101 IU/L (35-105); Anion Gap 19.4 (5-19); Aspartate Amino Transferase 11 U/L (0-32); Basophils % 0.5 %; Blood Urea Nitrogen 9 mg/dL (8-23); Calcium 9.6 mg/dL (8.5-10.5); Carbon Dioxide 23 mmol/L (22-29); Chloride 100 mmol/L (98-107); Creatine Phosphokinase 47 U/L (26-192); Eosinophils # 0.1 10^3/uL (0.0-0.8); Eosinophils % 1.9 %; Glucose 96 mg/dL (65-115); Hematocrit 37.1 % (37.0-47.0); Hemoglobin 12.1 g/dL (11.5-15.3); Lymphocytes # 1.7 10^3/uL (0.8-4.8); Lymphocytes % 23.1 %; Mean Corpuscular HGB Conc 32.6 g/dL (30.0-36.0); Mean Corpuscular Hemoglobin 30.3 pg (28.0-34.0); Monocytes # 0.7 10^3/uL (0.2-0.9); Monocytes % 9.2 %; Neutrophils # 4.85 10^3/uL (1.8-7.7); Neutrophils % 64.6 %; Nucleated Red Blood Cells % 0 %; Osmolality Calculated 285 mOsm/kg (285-295); Platelet Count 400 10^3/cmm (130-400); Potassium 4.4 mmol/L (3.5-5.1); Red Blood Count 3.99 10^6/uL (4.1-5.3); Red Cell Distribution Width 12.8 % (12.1-15.1); Sodium 138 mmol/L (136-145); Total Bilirubin 0.3 mg/dL (0.15-1.2); Total Protein 7.3 g/dL (6.6-8.7); White Blood Count 7.5 10^3/uL (4.0-10.0)
[2021-06-19] MEDS: iohexol 300 mg/mL 100 mL Btl IV (11:14)
[2021-06-19 11:21] LABS: Add Urine Microscopic? NO; Charge for UA Resulting for Rev
[2021-06-19 11:29] LABS: Bilirubin Urine Neg (Negative); Blood Urine Neg (Negative); Glucose Urine UA Norm (Normal); Ketones Urine Negative (Negative); Nitrate Urine Negative (Negative); Protein Urine Neg (Negative); Urine Appearance Clear (CLEAR); Urine Color Yellow (Yellow); pH Urine 6.5 (5-7)
[2021-06-19 11:30] LABS: Leukocyte Esterase Urine Negative (Negative); Urobilinogen Urine Norm (Negative)
[2021-06-19 11:45] VITALS: BP 134/67; PULSE 74; RESP 18; O2SAT 97
--- NOTE | 2021-06-19 11:50 | PC.NURSE ---
cardiac monitoring initiated upon arrival into room.
[2021-06-19 12:13] LABS: Reflex Lactate Order REFLEX LACTIC ORDERD
[2021-06-19 12:58] VITALS: BP 134/67; PULSE 74; RESP 18; O2SAT 97
== END 2021-06-19 12:58 | disposition home or self-care (01) ==
PROVIDERS: Emergency Provider Family Medicine; PCP Nurse Practitioner Family
DX: M79.604 Pain in right leg (principal); Z79.84 Long term (current) use of oral hypoglycemic drugs; E11.9 Type 2 diabetes mellitus without complications; E78.5 Hyperlipidemia, unspecified; Z85.51 Personal history of malignant neoplasm of bladder; Z87.891 Personal history of nicotine dependence
CPT/HCPCS: 74177; 80053; 81003; 82550; 83605; 85025; 93971; 99283; Q9967

== ENCOUNTER → 2021-06-21 12:55 | Outpatient (BNVA) | payer MEDICARE, OTHER, SELFPAY | PROVIDERS: PCP Nurse Practitioner Family; Visit Provider Anesthesiology Pain Medicine | DX: M47.816 Spondylosis without myelopathy or radiculopathy, lumbar region (principal); Z79.891 Long term (current) use of opiate analgesic | CPT/HCPCS: 64493; 64494; 64495; J3490 ==

== ENCOUNTER 2021-07-05 06:00 | Outpatient (RCR) | payer MEDICARE, OTHER, SELFPAY | END 2021-07-18 23:59 | disposition home or self-care (01) | LOC: TPT 06:00 | PROVIDERS: PCP Nurse Practitioner Family; Visit Provider Orthopaedic Surgery | DX: M48.061 Spinal stenosis, lumbar region without neurogenic claudication (principal) | CPT/HCPCS: 97110; 97164 ==

== ENCOUNTER → 2021-07-06 09:17 | Outpatient (BNVA) | payer MEDICARE, OTHER, SELFPAY | PROVIDERS: PCP Nurse Practitioner Family; Visit Provider Anesthesiology Pain Medicine | DX: M48.062 Spinal stenosis, lumbar region with neurogenic claudication (principal); M51.36 Other intervertebral disc degeneration, lumbar region; M47.816 Spondylosis without myelopathy or radiculopathy, lumbar region; M79.604 Pain in right leg; M79.605 Pain in left leg; Z87.891 Personal history of nicotine dependence; Z79.891 Long term (current) use of opiate analgesic | CPT/HCPCS: 99214 ==

== ENCOUNTER → 2021-08-09 12:31 | Outpatient (BNVA) | payer MEDICARE, OTHER, SELFPAY | PROVIDERS: PCP Nurse Practitioner Family; Visit Provider Nurse Practitioner Family | DX: N30.00 Acute cystitis without hematuria (principal) | CPT/HCPCS: 81003; 87077; 87086; 87184 ==

== ENCOUNTER 2021-08-21 09:35 | Outpatient (CLI) | payer MEDICARE, OTHER, SELFPAY ==
--- NOTE | 2021-08-21 09:41 | XR_ITS ---
WS: [id number] LUMBAR SPINE TECHNIQUE: 3 views of the lumbar spine CLINICAL INFORMATION: M54.50 - Low back pain, unspecified COMPARISON: None. FINDINGS: Osteopenia. Mild lumbar scoliosis convex right. Advanced spondylitic changes lumbar spine. No acute a ppearing compression fractures. Disc space narrowing worse at L2-3, L3-L4, and L4-5. Slight retrolist hesis L3 on L4 measuring 5 mm. Moderate facet arthropathy L4-L5 and L5-S1. Aortic calcification. XR/XR lumbar spine 2-3V* [id number] IMPRESSION: 1. Lumbar scoliosis with osteopenia advanced spondylitic changes. 2. Disc space narrowing worse at L2-3, L3-4, L4-5. 3. Slight retrolisthesis L3 on L4 measuring 5 mm
--- NOTE | 2021-08-21 09:41 | XR_ITS ---
WS: [id number] FEMUR LEFT TECHNIQUE: 2 views of the left femur CLINICAL INFORMATION: M25.552 - Pain in left hip COMPARISON: None. FINDINGS: Left femur is normal in appearance. Degenerative arthritis left knee with joint space narrowing worse the medial joint compartment. No acute femoral fractures. XR/XR femur LT min 2V* [id number] IMPRESSION: Normal left femur
--- NOTE | 2021-08-21 09:41 | XR_ITS ---
WS: [id number] HIP WITH PELVIS LEFT TECHNIQUE: 3 views of the left hip with pelvis CLINICAL INFORMATION: M25.552 - Pain in left hip COMPARISON: None. FINDINGS: Advanced osteoarthritis left hip with befl-rs-wdel articulation and subchondral cystic change. Sclero sis involving the adjacent acetabulum and femoral head. Minimal flattening of the femoral head. Osteo penia. No acute fractures. Pelvic phleboliths. XR/XR hip LT 2-3V wo/w pel* [id number] IMPRESSION: 1. Advanced degenerative arthritis left hip with iugd-pp-mgcl articulation and associated sclerosis and subchondral cystic change involving the acetabulum an d femoral head. 2. Osteopenia. 3. No acute fractures. Tonnis classification: grade 3: large cysts in femoral head/acetabulum or joint space obliteration/severe narrowing or severe femoral head deformity vs AVN
== END 2021-08-21 09:36 | disposition home or self-care (01) ==
PROVIDERS: PCP Nurse Practitioner Family; Visit Provider Nurse Practitioner Family
DX: M54.50 Low back pain, unspecified (principal); M41.86 Other forms of scoliosis, lumbar region; M16.12 Unilateral primary osteoarthritis, left hip; M85.88 Other specified disorders of bone density and structure, other site
CPT/HCPCS: 72100; 73502; 73552

== ENCOUNTER → 2021-09-11 08:21 | Outpatient (BNVA) | payer MEDICARE, OTHER, SELFPAY | PROVIDERS: PCP Nurse Practitioner Family; Visit Provider Nurse Practitioner Family | DX: E55.9 Vitamin D deficiency, unspecified (principal); E11.9 Type 2 diabetes mellitus without complications; I10 Essential (primary) hypertension; E78.2 Mixed hyperlipidemia; N39.0 Urinary tract infection, site not specified | CPT/HCPCS: 80053; 80061; 81003; 82306; 83036; 85025 ==

== ENCOUNTER → 2021-09-19 11:00 | Outpatient (BNVA) | payer MEDICARE, OTHER, SELFPAY | PROVIDERS: PCP Nurse Practitioner Family; Visit Provider Nurse Practitioner Family | DX: N39.0 Urinary tract infection, site not specified (principal); R79.89 Other specified abnormal findings of blood chemistry | CPT/HCPCS: 80076; 81003; 87077; 87086; 87184 ==

== ENCOUNTER → 2021-10-03 08:57 | Outpatient (BNVA) | payer MEDICARE, OTHER, SELFPAY | PROVIDERS: PCP Nurse Practitioner Family; Visit Provider Anesthesiology Pain Medicine | DX: M48.062 Spinal stenosis, lumbar region with neurogenic claudication (principal); M51.36 Other intervertebral disc degeneration, lumbar region; M47.816 Spondylosis without myelopathy or radiculopathy, lumbar region; Z87.891 Personal history of nicotine dependence; Z79.891 Long term (current) use of opiate analgesic | CPT/HCPCS: 99214 ==

== ENCOUNTER → 2021-10-09 09:33 | Outpatient (BNVA) | payer MEDICARE, OTHER, SELFPAY | PROVIDERS: PCP Nurse Practitioner Family; Visit Provider Nurse Practitioner Family | DX: N39.0 Urinary tract infection, site not specified (principal); R53.83 Other fatigue; R30.0 Dysuria | CPT/HCPCS: 87077; 87086; 87184 ==

== ENCOUNTER → 2021-10-10 14:33 | Outpatient (BNVA) | payer MEDICARE, OTHER, SELFPAY | PROVIDERS: PCP Nurse Practitioner Family; Visit Provider Anesthesiology Pain Medicine | DX: E11.9 Type 2 diabetes mellitus without complications (principal); Z79.891 Long term (current) use of opiate analgesic; M47.816 Spondylosis without myelopathy or radiculopathy, lumbar region; Z79.84 Long term (current) use of oral hypoglycemic drugs | CPT/HCPCS: 36416; 64635; 64636; 82962 ==

== ENCOUNTER → 2021-10-30 12:31 | Outpatient (BNVA) | payer MEDICARE, OTHER, SELFPAY | PROVIDERS: PCP Nurse Practitioner Family; Visit Provider Anesthesiology Pain Medicine | DX: Z01.812 Encounter for preprocedural laboratory examination (principal); E11.9 Type 2 diabetes mellitus without complications; Z79.891 Long term (current) use of opiate analgesic; M47.816 Spondylosis without myelopathy or radiculopathy, lumbar region | CPT/HCPCS: 36416; 64635; 64636; 82962; J1030 ==

== ENCOUNTER → 2021-11-13 08:19 | Outpatient (BNVA) | payer MEDICARE, OTHER, SELFPAY | PROVIDERS: PCP Nurse Practitioner Family; Visit Provider Anesthesiology Pain Medicine | DX: M48.062 Spinal stenosis, lumbar region with neurogenic claudication (principal); M51.36 Other intervertebral disc degeneration, lumbar region; M47.816 Spondylosis without myelopathy or radiculopathy, lumbar region; M79.604 Pain in right leg; M79.605 Pain in left leg; Z87.891 Personal history of nicotine dependence; Z79.891 Long term (current) use of opiate analgesic | CPT/HCPCS: 99214 ==

== ENCOUNTER → 2021-11-14 12:52 | Outpatient (BNVA) | payer MEDICARE, OTHER, SELFPAY | PROVIDERS: PCP Nurse Practitioner Family; Visit Provider Urology | DX: C67.4 Malignant neoplasm of posterior wall of bladder (principal); N39.0 Urinary tract infection, site not specified | CPT/HCPCS: 81003 ==

== ENCOUNTER → 2021-12-04 09:06 | Outpatient (BNVA) | payer MEDICARE, OTHER, SELFPAY | PROVIDERS: PCP Nurse Practitioner Family; Visit Provider Nurse Practitioner Family | DX: E11.9 Type 2 diabetes mellitus without complications (principal); E55.9 Vitamin D deficiency, unspecified | CPT/HCPCS: 80053; 80061; 81003; 82043; 82306; 82607; 84443; 85025 ==

== ENCOUNTER → 2021-12-05 15:39 | Outpatient (BNVA) | payer MEDICARE, OTHER, SELFPAY | PROVIDERS: PCP Nurse Practitioner Family; Visit Provider Nurse Practitioner Family | DX: M25.552 Pain in left hip (principal); E11.9 Type 2 diabetes mellitus without complications; N32.81 Overactive bladder; M54.42 Lumbago with sciatica, left side; E55.9 Vitamin D deficiency, unspecified; I10 Essential (primary) hypertension; E78.2 Mixed hyperlipidemia; K59.01 Slow transit constipation | CPT/HCPCS: 80048; 83036 ==

== ENCOUNTER → 2021-12-19 16:10 | Outpatient (BNVA) | payer MEDICARE, OTHER, SELFPAY | PROVIDERS: PCP Nurse Practitioner Family; Visit Provider Nurse Practitioner Family | DX: N30.20 Other chronic cystitis without hematuria (principal); R53.83 Other fatigue | CPT/HCPCS: 81003; 87086; 87106 ==

== ENCOUNTER 2022-01-16 08:01 | Outpatient (CLI) | payer MEDICARE, OTHER, SELFPAY ==
--- NOTE | 2022-01-16 08:00 | MR_ITS ---
WS: [id number] MRI LUMBAR SPINE NONCONTRAST TECHNIQUE: Sagittal T1, T2 and STIR imaging. Axial T1 and T2 imaging. CLINICAL INFORMATION: M48.062 - Spinal stenosis, lumbar region with neurogenic ... COMPARISON: MRI March 07, 2021 FINDINGS: Mild lumbar curve. Mild compression superior endplate L2 with edema. Loss of approximately 20% verteb ral body height. No significant retropulsion. No significant central canal stenosis at this level. Ch ronic slight retrolisthesis L3 on L4 and L4 on L5. Remote hemilaminectomy LEFT L3-L4. L1-L2: Mild disc bulging. Slight effacement of the ventral thecal sac. Spinal canal and foramen are p atent. L2-L3: Mild disc bulging and osteophytic ridging. Narrowing of the subarticular recess bilaterally. M ild RIGHT and no significant LEFT foraminal narrowing. Mild facet arthropathy. L3-L4: Slight retrolisthesis. Mild disc bulging with osteophytic ridging. Mild to moderate central ca nal stenosis. nosis. Impingement traversing L4 nerve roots bilaterally. Moderate LEFT and mild RIGHT foraminal narr owing. L4-L5: Mild disc bulging with mild to moderate central canal stenosis. Impingement on the traversing L5 nerve roots bilaterally. Moderate facet arthropathy with ligamentum flavum hypertrophy. Moderate R IGHT and no significant LEFT foraminal narrowing. L5-S1: No significant disc bulging. Spinal canal and foramen are patent. Adrenal glands are normal. Small RIGHT renal cyst. MR/MR lumbar spine wo con* [id number] IMPRESSION: 1. Acute mild compression superior endplate L2 with edema and loss of approxim ately 20% vertebral body height. No significant retropulsion. 2. Mild to moderate central canal stenosis L3-L4 and L4-L5 with narrowing of t he subarticular recess bilaterally appears unchanged from previous. 3. Moderate LEFT L3-L4 and RIGHT L4-L5 foraminal narrowing similar to previous . 4. Moderate facet arthropathy L3-L4 and L4-L5 unchanged from previous. 5. Stable slight retrolisthesis L3 on L4 and L4 on L5.
== END 2022-01-16 08:02 | disposition home or self-care (01) ==
LOC: RAD 08:03
PROVIDERS: PCP Nurse Practitioner Family; Visit Provider Anesthesiology Pain Medicine
DX: M48.062 Spinal stenosis, lumbar region with neurogenic claudication (principal); M47.816 Spondylosis without myelopathy or radiculopathy, lumbar region
CPT/HCPCS: 72148

== ENCOUNTER → 2022-01-24 10:25 | Outpatient (BNVA) | payer MEDICARE, OTHER, SELFPAY | PROVIDERS: PCP Nurse Practitioner Family; Visit Provider Anesthesiology Pain Medicine | DX: I73.9 Peripheral vascular disease, unspecified (principal); M48.062 Spinal stenosis, lumbar region with neurogenic claudication; M51.36 Other intervertebral disc degeneration, lumbar region; M47.816 Spondylosis without myelopathy or radiculopathy, lumbar region; M79.604 Pain in right leg; M79.605 Pain in left leg; Z79.891 Long term (current) use of opiate analgesic; Z87.891 Personal history of nicotine dependence | CPT/HCPCS: 99215 ==

== ENCOUNTER → 2022-01-30 15:27 | Outpatient (BNVA) | payer MEDICARE, OTHER, SELFPAY | PROVIDERS: PCP Nurse Practitioner Family; Visit Provider Nurse Practitioner Family | DX: N39.0 Urinary tract infection, site not specified (principal) | CPT/HCPCS: 81000; 87077; 87086; 87184 ==

== ENCOUNTER → 2022-02-09 13:08 | Outpatient (BNVA) | payer MEDICARE, OTHER, SELFPAY | PROVIDERS: PCP Nurse Practitioner Family; Visit Provider Nurse Practitioner Family | DX: N39.0 Urinary tract infection, site not specified (principal) | CPT/HCPCS: 87077; 87086; 87184 ==

== ENCOUNTER → 2022-02-14 08:49 | Outpatient (BNVA) | payer MEDICARE, OTHER, SELFPAY | PROVIDERS: PCP Nurse Practitioner Family; Visit Provider Nurse Practitioner Family | DX: C67.4 Malignant neoplasm of posterior wall of bladder (principal); N39.0 Urinary tract infection, site not specified | CPT/HCPCS: 81003; 87077; 87086; 87186; 99213 ==

== ENCOUNTER → 2022-02-15 09:48 | Outpatient (BNVA) | payer MEDICARE, OTHER, SELFPAY | PROVIDERS: PCP Nurse Practitioner Family; Visit Provider Thoracic Surgery (Cardiothoracic Vascular Surgery) | DX: I73.9 Peripheral vascular disease, unspecified (principal) | CPT/HCPCS: 99203 ==

== ENCOUNTER → 2022-02-26 00:01 | Outpatient (BNVA) | payer MEDICARE, OTHER, SELFPAY | PROVIDERS: PCP Nurse Practitioner Family; Visit Provider Nurse Practitioner Family | DX: N30.20 Other chronic cystitis without hematuria (principal); Z87.440 Personal history of urinary (tract) infections | CPT/HCPCS: 80053 ==

== ENCOUNTER → 2022-03-14 09:40 | Outpatient (BNVA) | payer MEDICARE, OTHER, SELFPAY | PROVIDERS: PCP Nurse Practitioner Family; Visit Provider Nurse Practitioner Family | DX: N39.0 Urinary tract infection, site not specified; C67.4 Malignant neoplasm of posterior wall of bladder | CPT/HCPCS: 81003; 87077; 87086; 87186; 99213 ==

== ENCOUNTER → 2022-04-20 10:24 | Outpatient (BNVA) | payer MEDICARE, OTHER, SELFPAY | PROVIDERS: PCP Nurse Practitioner Family; Visit Provider Urology | DX: C67.4 Malignant neoplasm of posterior wall of bladder (principal); N30.20 Other chronic cystitis without hematuria | CPT/HCPCS: 99213 ==

== ENCOUNTER → 2022-05-03 08:46 | Outpatient (BNVA) | payer MEDICARE, OTHER, SELFPAY | PROVIDERS: PCP Nurse Practitioner Family; Visit Provider Urology | DX: C67.4 Malignant neoplasm of posterior wall of bladder (principal); N30.20 Other chronic cystitis without hematuria; N39.0 Urinary tract infection, site not specified | CPT/HCPCS: 81003 ==

== ENCOUNTER → 2022-05-21 08:52 | Outpatient (BNVA) | payer MEDICARE, OTHER, SELFPAY | PROVIDERS: PCP Nurse Practitioner Family; Visit Provider Nurse Practitioner Family | DX: E78.5 Hyperlipidemia, unspecified (principal); I10 Essential (primary) hypertension; E11.9 Type 2 diabetes mellitus without complications; E55.9 Vitamin D deficiency, unspecified; E78.2 Mixed hyperlipidemia | CPT/HCPCS: 80053; 80061; 82043; 82306; 83036; 84443; 85025 ==

== ENCOUNTER → 2022-08-01 10:15 | Outpatient (BNVA) | payer MEDICARE, OTHER, SELFPAY | PROVIDERS: PCP Nurse Practitioner Family; Visit Provider Nurse Practitioner Family | DX: N39.0 Urinary tract infection, site not specified (principal) | CPT/HCPCS: 81000; 81003 ==

== ENCOUNTER → 2022-08-22 08:52 | Outpatient (BNVA) | payer MEDICARE, OTHER, SELFPAY | PROVIDERS: PCP Nurse Practitioner Family; Visit Provider Nurse Practitioner Family | DX: E11.9 Type 2 diabetes mellitus without complications (principal) | CPT/HCPCS: 80053; 80061; 83036; 85025 ==

== ENCOUNTER → 2022-11-15 12:26 | Outpatient (BNVA) | payer MEDICARE, OTHER, SELFPAY | PROVIDERS: PCP Nurse Practitioner Family; Visit Provider Urology | DX: C67.4 Malignant neoplasm of posterior wall of bladder (principal); N39.0 Urinary tract infection, site not specified | CPT/HCPCS: 52000; 99213 ==

== ENCOUNTER → 2022-11-26 10:00 | Outpatient (BNVA) | payer MEDICARE, OTHER, SELFPAY | PROVIDERS: PCP Nurse Practitioner Family; Visit Provider Nurse Practitioner Family | DX: E78.2 Mixed hyperlipidemia (principal); I10 Essential (primary) hypertension; E11.9 Type 2 diabetes mellitus without complications; E55.9 Vitamin D deficiency, unspecified | CPT/HCPCS: 80053; 80061; 82306; 83036; 85025 ==

== ENCOUNTER → 2022-11-28 16:59 | Outpatient (BNVA) | payer MEDICARE, OTHER, SELFPAY | PROVIDERS: PCP Nurse Practitioner Family; Visit Provider Nurse Practitioner Family | DX: E11.9 Type 2 diabetes mellitus without complications (principal) | CPT/HCPCS: 83036 ==

== ENCOUNTER → 2022-12-24 15:35 | Outpatient (BNVA) | payer MEDICARE, OTHER, SELFPAY | PROVIDERS: PCP Nurse Practitioner Family; Visit Provider Nurse Practitioner Family | DX: R39.9 Unspecified symptoms and signs involving the genitourinary system (principal) | CPT/HCPCS: 81000 ==

== ENCOUNTER → 2023-01-02 10:55 | Outpatient (BNVA) | payer MEDICARE, OTHER, SELFPAY | PROVIDERS: PCP Nurse Practitioner Family; Visit Provider Nurse Practitioner Family | DX: R39.9 Unspecified symptoms and signs involving the genitourinary system (principal) | CPT/HCPCS: 81003; 87077; 87086; 87184 ==

== ENCOUNTER → 2023-01-23 15:39 | Outpatient (BNVA) | payer MEDICARE, OTHER, SELFPAY | PROVIDERS: PCP Nurse Practitioner Family; Visit Provider Nurse Practitioner Family | DX: R10.84 Generalized abdominal pain (principal); E11.9 Type 2 diabetes mellitus without complications | CPT/HCPCS: 81000; 81003 ==

== ENCOUNTER 2023-01-27 12:58 | Emergency (ER) | payer MEDICARE, OTHER, SELFPAY ==
[2023-01-27 13:07] VITALS: BP 176/87; PULSE 96; RESP 15; O2SAT 97; BMI 26.2
--- NOTE | 2023-01-27 14:52 | W.ED.ABDPA2 ---
HPI - Abdominal Pain General: Chief Complaint: Abdominal Pain Stated Complaint: abd pain Time Seen by Provider: 01/27/23 14:52 History of Present Illness: Ms. Alanis is an 82-year-old lady with history of diabetes, recurrent UTI, history of bladder mass presenting to the emergency department for lower abdominal pain and fullness. Notes first noticing mild symptoms perhaps 2 or 3 months ago however over the past month has become more consistent. Lower abdominal in nature and feels swollen. Intensity is moderate to mild. No changes in bowel movements or urination. Tends to feel a little more nauseous in the morning however is not vomiting. No other specific changes in health, exacerbating, or alleviating factors identified. 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 Normal colonoscopy Osteoarthritis Pelvic organ prolapse quantification stage 3 cystocele Primary osteoarthritis of left hip Recurrent UTI Thyroid nodule [place] [facility] [place] [facility] [place], bilateral adenomatous nodules or colloid cysts Vitamin D deficiency Surgical History H/O arthroscopy of knee (~2014) Left, Dr Connors History of back surgery History of hysterectomy (~05/2019) with BSO, Ant/Post colporrhaphy and urethral sling, Dr Isaac History of transurethral destruction of bladder lesion TCCA of bladder without invasion Family History Mother , AT AGE 60 Breast cancer Father , AT AGE 95 Aspiration pneumonia Diabetes Other Cancer Denies family history of Anesthesia complication Bleeding disorder Social History Smoking and tobacco status: former smoker Quit status (tobacco): has quit using tobacco Year quit tobacco: 1997, smoked 1 PPD Second hand smoke exposure: No Alcohol intake: current Alcohol intake frequency: holidays/special occasions only Substance/Drug Use: never Adopted: No Caregiver/support person: No Lives independently: No Household members: spouse and family Marital status: service: No Current occupational status: retired Current gender identity: Female Special shi needs: No Agree to transfusion: Yes Physical Exam Const: COMMON NORMALS: alert GENERAL APPEARANCE: cooperative and well developed HENMT: COMMON NORMALS: normocephalic and atraumatic HEAD & SCALP: normocephalic and atraumatic Eye: COMMON NORMALS: conjunctivae normal CONJUNCTIVA: Yes conjunctivae normal SCLERA: sclerae normal Neck/C-Spine: COMMON NORMALS: supple GENERAL: Yes trachea midline Resp: COMMON NORMALS: clear to auscultation bilaterally EFFORT & INSPECTION: Yes able to speak in complete sentences AUSCULTATION: clear to auscultation bilaterally Cardio: COMMON NORMALS: regular rate and regular rhythm RATE: regular rate RHYTHM: regular rhythm GI: COMMON NORMALS: Soft to palpation PALPATION: Yes Soft to palpation, Yes Tenderness to palpation present (GI), No Guarding due to palpation present (GI) and No Rigid due to palpation Extremity: GENERAL: Yes normal exam except as noted and No edema Neuro: COMMON NORMALS: moves all extremities SENSORIUM/ORIENTATION: Yes alert and No Orientation impaired Psych: COMMON NORMALS: mental status grossly normal and Normal thought process present THOUGHT PROCESS: Normal thought process present Course Vital Signs: Vital signs: Vital Signs Pulse Rate 83 01/27/23 18:11 Respiratory Rate 16 01/27/23 18:11 Blood Pressure 159/111 01/27/23 17:32 Pulse Oximetry 91 01/27/23 18:11 Oxygen Delivery Me thod Room Air 01/27/23 13:07 MDM - Abdominal Pain Medical Decision Making 82-year-old lady presenting with progressively worsening abdominal fullness and discomfort. Exam as above. No evidence of acute surgical abdomen though there is abdominal tenderness. Labs with unremarkable hematologic and metabolic panel. Likely cause of symptoms identified on CT is bladder outlet obstruction with enlarged bladder. She does report urinating. Incidental findings discussed. I discussed possible management options with the patient. I offered catheter as the safest option for management however did express that renal function is preserved despite course of symptoms this also could be followed up in the outpatient setting. Patient declines catheter placement at this time. The results of ED evaluation were discussed with the patient including prescriptions and/or symptomatic cares (if applicable) including appropriate and responsible use, followup plan, and return precautions. The patient verbalized understanding and felt safe for discharge. Medical Records I reviewed the patient's medical records. Lab Data I reviewed the patient's lab results. 01/27/23 15:43 01/27/23 15:43 Labs/Radiology: Radiology Impressions Abdomen/Pelvis CT 01/27/23 15:53 IMPRESSION: 1. The bladder is distended. Please correlate clinically if there is suspicion for bladder outlet obstruction. 2. There are very severe degenerative changes across the hip joints as described above. 3. Grade 1 degenerative retrolisthesis of L2 on L3, L3 on L4, and L4 on L5. 4. Generalized osteopenia. Laboratory Results WBC 6.6 10^3/uL (4.0-10.0) 01/27/23 15:43 RBC 4.35 10^6/uL (4.1-5.3) 01/27/23 15:43 Hgb 13.3 g/dL (11.5-15.3) 01/27/23 15:43 Hct 40.5 % (37.0-47.0) 01/27/23 15:43 MCV 93.1 fl (81-99) 01/27/23 15:43 MCH 30.6 pg (28.0-34.0) 01/27/23 15:43 MCHC 32.8 g/dL (30.0-36.0) 01/27/23 15:43 RDW 12.7 % (12.1-15.1) 01/27/23 15:43 Plt Count 381 10^3/cmm (130-400) 01/27/23 15:43 MPV 9.5 fL (7.4-10.4) 01/27/23 15:43 Neut % (Auto) 53.7 % 01/27/23 15:43 Lymph % (Auto) 36.3 % 01/27/23 15:43 [place] % (Auto) 6.9 % 01/27/23 15:43 Eos % (Auto) 2.0 % 01/27/23 15:43 Baso % (Auto) 0.8 % 01/27/23 15:43 Neut # (Auto) 3.56 10^3/uL (1.8-7.7) 01/27/23 15:43 Lymph # (Auto) 2.4 10^3/uL (0.8-4.8) 01/27/23 15:43 [place] # (Auto) 0.5 10^3/uL (0.2-0.9) 01/27/23 15:43 Eos # (Auto) 0.1 10^3/uL (0.0-0.8) 01/27/23 15:43 Baso # (Auto) 0.1 10^3/uL (0.0-0.1) 01/27/23 15:43 Nucleated RBC % (auto) 0 % 01/27/23 15:43 Nucleated RBCs # 0.0 /100WBC 01/27/23 15:43 Sodium 138 mmol/L (136-145) 01/27/23 15:43 Potassium 4.2 mmol/L (3.5-5.1) 01/27/23 15:43 Chloride 101 mmol/L (98-107) 01/27/23 15:43 Carbon Dioxide 25 mmol/L (22-29) 01/27/23 15:43 Anion Gap 16.2 (5-19) 01/27/23 15:43 BUN 13 mg/dL (8-23) 01/27/23 15:43 Creatinine 0.9 mg/dL (0.5-0.9) 01/27/23 15:43 GFR Calculation Not Reportable 01/27/23 15:43 Glucose 142 mg/dL (65-115) H 01/27/23 15:43 Calculated Osmolality 289 mOsm/kg (285-295) 01/27/23 15:43 Calcium 10.4 mg/dL (8.5-10.5) 01/27/23 15:43 Total Bilirubin 0.3 mg/dL (0.15-1.2) 01/27/23 15:43 AST 14 U/L (0-32) 01/27/23 15:43 ALT 12 U/L (0-33) 01/27/23 15:43 Alkaline Phosphatase 89 U/L (35-105) 01/27/23 15:43 Total Protein 7.5 g/dL (6.6-8.7) 01/27/23 15:43 Albumin 4.4 g/dL (3.5-5.2) 01/27/23 15:43 Globulin 3.1 g/dL (1.3-4.6) 01/27/23 15:43 Lipase 25 U/L (13-60) 01/27/23 15:43 Urine Color Straw (Yellow) 01/27/23 14:55 Urine Appearance Clear (CLEAR) 01/27/23 14:55 Urine pH 6.5 (5-7) 01/27/23 14:55 Ur Specific [place] 1.005 (1.005-1.030) 01/27/23 14:55 Urine Protein Neg (Negative) 01/27/23 14:55 Urine Glucose (UA) Norm (Normal) 01/27/23 14:55 Urine Ketones Negative (Negative) 01/27/23 14:55 Urine Blood Neg (Negative) 01/27/23 14:55 Urine Nitrate Negative (Negative) 01/27/23 14:55 Urine Bilirubin Neg (Negative) 01/27/23 14:55 Urine Urobilinogen Norm mg/dL (Negative) 01/27/23 14:55 Ur Leukocyte Esterase 2+ (Negative) H 01/27/23 14:55 Urine RBC None /hpf (0-2) 01/27/23 14:55 Urine WBC 15-25 /hpf (0-5) H 01/27/23 14:55 Ur Squamous Epith Cells 0-4 /hpf (0-5) H 01/27/23 14:55 Amorphous Sediment Not Reportable 01/27/23 14:55 Urine Bacteria 2+ /hpf (NONE) H 01/27/23 14:55 Discharge Plan Discharge Patient Disposition: Home Clinical Impression: Abdominal pain, Symptom of bladder outlet obstruction Condition: Stable Prescriptions: No Action Thermotabs 287-180-15 mg tablet 1 tab PO DAILY cholecalciferol (vitamin D3) 50 mcg (2,000 unit) capsule 50 mcg PO DAILY methenamine hippurate 1 gram tablet 1 g PO BID Qty: 60 12RF Rx Instructions: Take 1000 mg of vitamin C with each dose of methenamine (medication on hold per pt 02/02/23) ascorbic acid (vitamin C) 1,000 mg tablet 1 g PO BID Rx Instructions: medication on hold per pt 02/02/23 oxybutynin chloride 10 mg tablet extended release 24hr 10 mg PO QAM Qty: 90 0RF ezetimibe [Zetia] 10 mg tablet 10 mg PO DAILY Qty: 90 0RF losartan 50 mg tablet 50 mg PO BID Qty: 180 0RF gabapentin 300 mg capsule 300 mg PO TID 90 Days Qty: 270 1RF polyethylene glycol 3350 [Miralax] 17 gram/dose powder 17 g PO DAILY PRN (Reason: constipation) Qty: 510 2RF amoxicillin-pot clavulanate 875-125 mg tablet 1 tab PO BID 14 Days Qty: 28 0RF Rx Instructions: for 14 days (rx filled 01/29/23) acetaminophen [Tylenol Extra Strength] 500 mg Tablet 1,000 mg PO Q6H PRN (Reason: Pain) Vitamin B-12 1,000 mcg Tablet 1,000 mcg PO DAILY metformin 500 mg tablet extended release 24 hr 500 mg PO BID Rx Instructions: medication on hold per pt 02/02/23 Multivitamins 28 mg iron- 800 mcg Tablet 1 tab PO DAILY cyclobenzaprine 10 mg tablet 5 - 10 mg PO TID PRN (Reason: Muscle Spasm) Discharge Orders: Discharge ED (Routine); Ordered 01/27/23 Ordered By: Raúl Mcdonald Referrals: Yokasta Bain FNP [Primary Care Provider] - Discharge Diet: Usual diet Discharge Activity: Resume usual activity Patient Instructions: Abdominal Pain (ED), Opioid Safety Activity Restrictions/Additional Instructions: Thank you for visiting the emergency department. You were seen and evaluated for abdominal fullness and pain. The exact cause your symptoms is unclear though may be related to bladder outlet obstruction. This requires outpatient follow-up with urology. I will message case management. Return to the emergency department for worsening symptoms, inability to urinate, or anything else that you are concerned about and feel needs emergency department evaluation. Coding Level of Care Code ED Binder Chainstitch for Lou Sánchez
[2023-01-27 15:10] VITALS: BP 163/95; PULSE 79; O2SAT 96
[2023-01-27 15:35] LABS: Add Urine Microscopic? YES; Bilirubin Urine Neg (Negative); Blood Urine Neg (Negative); Glucose Urine UA Norm (Normal); Ketones Urine Negative (Negative); Leukocyte Esterase Urine 2+ (Negative); Nitrate Urine Negative (Negative); Protein Urine Neg (Negative); Specific Gravity, Urine 1.005 (1.005-1.030); Urine Appearance Clear (CLEAR); Urine Color Straw (Yellow); Urobilinogen Urine Norm (Negative); WBC Urine 15-25 /hpf (0-5); pH Urine 6.5 (5-7)
[2023-01-27 15:36] LABS: Add Urine Culture? Yes; Bacteria Urine 2+ /hpf; Squamous Epithelial Cell Urine 0-4 /hpf (0-5)
--- NOTE | 2023-01-27 15:53 | CTR_ITS ---
PROCEDURE INFORMATION: Exam: CT Abdomen And Pelvis With Contrast Exam date and time: 01/27/2023 4:30 PM Age: 82 years old Clinical indication: Abdominal pain; Localized; Lower; Prior surgery; Surgery date: 6+ months; Surgery type: Hyster; Additional info: Lower abd pain, bloating TECHNIQUE: Imaging protocol: Computed tomography of the abdomen and pelvis with contrast. Radiation optimization: All CT scans at this facility use at least one of these dose optimization techniques: automated exposure control; mA and/or kV adjustment per patient size (includes targeted exams where dose is matched to clinical indication); or iterative reconstruction. Contrast material: OMNI 350; Contrast volume: 100 ml; Contrast route: INTRAVENOUS (IV); REPORTING DATA: Count of CT and Cardiac NM exams in prior 12 months: This patient has received 0 known CTs and 0 known cardiac nuclear medicine studies in the 12 months prior to the current study. COMPARISON: CT abdomen pelvis w con* [id number] 06/19/2021 11:11 AM RADIATION DOSE METRICS: Total DLP (mGy-cm): 387.1 FINDINGS: Liver: Normal. No mass. Gallbladder and bile ducts: Normal. No calcified stones. No ductal dilation. Pancreas: Normal. No ductal dilation. Spleen: Normal. No splenomegaly. Adrenal glands: Normal. No mass. Kidneys and ureters: There are cysts with benign features in the right kidney the larger of which measures 9 mm. Follow-up is not necessary. Bilateral renal scarring. Stomach and bowel: Unremarkable. No obstruction. No mucosal thickening. Appendix: A normal appendix is identified. Intraperitoneal space: Unremarkable. No free air. No significant fluid collection. Vasculature: Multi-vessel atherosclerotic disease. Lymph nodes: Unremarkable. No enlarged lymph nodes. Urinary bladder: The bladder is distended. Reproductive: The uterus is not visualized, consistent with hysterectomy. Bones/joints: There are degenerative changes in the visualized spine. Grade 1 degenerative retrolisthesis of L2 on L3, L3 on L4, and L4 on L5. Multilevel lumbar broad-based disc osteophyte complexes contribute to bilateral neural foraminal narrowing. Chronic appearing compression fracture of the L2 superior endplate. Generalized osteopenia. There are very severe degenerative changes across the hip joints including loss of the joint space, flattening of the bilateral acetabula and femoral heads, and prominent subchondral cystic changes/marginal osteophyte formations. Soft tissues: There is edema in the subcutaneous soft tissues posterior to the lumbar spine and pelvis. CT/CT abdomen pelvis w con* [id number] IMPRESSION: 1. The bladder is distended. Please correlate clinically if there is suspicion for bladder outlet obstruction. 2. There are very severe degenerative changes across the hip joints as described above. 3. Grade 1 degenerative retrolisthesis of L2 on L3, L3 on L4, and L4 on L5. 4. Generalized osteopenia.
[2023-01-27 16:03] LABS: Basophils # 0.1 10^3/uL (0.0-0.1); Basophils % 0.8 %; Eosinophils # 0.1 10^3/uL (0.0-0.8); Hematocrit 40.5 % (37.0-47.0); Hemoglobin 13.3 g/dL (11.5-15.3); Lymphocytes # 2.4 10^3/uL (0.8-4.8); Lymphocytes % 36.3 %; Mean Corpuscular HGB Conc 32.8 g/dL (30.0-36.0); Mean Corpuscular Hemoglobin 30.6 pg (28.0-34.0); Mean Corpuscular Volume 93.1 fl (81-99); Mean Platelet Volume 9.5 fL (7.4-10.4); Monocytes # 0.5 10^3/uL (0.2-0.9); Monocytes % 6.9 %; Neutrophils # 3.56 10^3/uL (1.8-7.7); Neutrophils % 53.7 %; Nucleated Red Blood Cells % 0 %; Platelet Count 381 10^3/cmm (130-400); Red Blood Count 4.35 10^6/uL (4.1-5.3); Red Cell Distribution Width 12.7 % (12.1-15.1); White Blood Count 6.6 10^3/uL (4.0-10.0)
[2023-01-27 16:08] VITALS: BP 147/79; PULSE 73; O2SAT 93
[2023-01-27 16:10] LABS: Alanine Aminotransferase 12 U/L (0-33); Albumin Level 4.4 g/dL (3.5-5.2); Alkaline Phosphatase 89 U/L (35-105); Anion Gap 16.2 (5-19); Aspartate Amino Transferase 14 U/L (0-32); Blood Urea Nitrogen 13 mg/dL (8-23); Calcium 10.4 mg/dL (8.5-10.5); Carbon Dioxide 25 mmol/L (22-29); Chloride 101 mmol/L (98-107); Globulin 3.1 g/dL (1.3-4.6); Glucose 142 mg/dL (65-115); Lipase 25 U/L (13-60); Osmolality Calculated 289 mOsm/kg (285-295); Potassium 4.2 mmol/L (3.5-5.1); Sodium 138 mmol/L (136-145); Total Bilirubin 0.3 mg/dL (0.15-1.2); Total Protein 7.5 g/dL (6.6-8.7)
[2023-01-27] MEDS: iohexol 350 mg/mL 500 mL Btl (per mL) IV (16:28)
[2023-01-27 17:03] VITALS: BP 165/105; PULSE 81; O2SAT 92
[2023-01-27 17:32] VITALS: BP 159/111; PULSE 83; O2SAT 93
[2023-01-27 18:11] VITALS: PULSE 83; RESP 16; O2SAT 91
== END 2023-01-27 18:11 | disposition home or self-care (01) ==
PROVIDERS: Emergency Provider Emergency Medicine; PCP Nurse Practitioner Family
DX: R10.30 Lower abdominal pain, unspecified (principal); N32.0 Bladder-neck obstruction; Z79.84 Long term (current) use of oral hypoglycemic drugs; Z87.891 Personal history of nicotine dependence; E11.9 Type 2 diabetes mellitus without complications; E78.5 Hyperlipidemia, unspecified; Z85.51 Personal history of malignant neoplasm of bladder
CPT/HCPCS: 36415; 74177; 80053; 81001; 83690; 85025; 87077; 87086; 87186; 99285; Q9967

== ENCOUNTER 2023-02-02 15:38 | Inpatient (IN) | payer MEDICARE, OTHER, SELFPAY ==
[2023-02-02] VITALS (32 sets, daily range): BP systolic 152–219; BP diastolic 58–80; PULSE 34–64; RESP 15–28; TEMP 36.4–36.7; O2SAT 89–96
--- NOTE | 2023-02-02 15:46 | ECG_ITS ---
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 Measurements Intervals D Lo Rate: 41 P: 65 NM: 177 QRS: 26 QRSD: 101 T: 67 QT: 465 QTc: 388 Interpretive Statements SINUS BRADYCARDIA INCOMPLETE RIGHT BUNDLE BRANCH BLOCK [90+ ms QRS DURATION, TERMINAL R IN V1/V2, 40+ ms S IN I/aVL/V4/V5/V6] SEPTAL MYOCARDIAL INFARCTION , OF INDETERMINATE AGE [40+ ms Q WAVE IN V1/V2] Compared to ECG 03/20/2021 19:56:46 Incomplete right bundle-branch block now present Myocardial infarct finding now present Sinus rhythm no longer present Electronically Signed On 02-02-2023 15:56:38 CDT by Pineda Prather M.D. [email or web address]
--- NOTE | 2023-02-02 15:47 | XRR_ITS ---
PROCEDURE INFORMATION: Exam: XR Chest Exam date and time: 02/02/2023 4:14 PM Age: 82 years old Clinical indication: Cough and dyspnea; Additional info: Dyspnea/cough TECHNIQUE: Imaging protocol: Radiologic exam of the chest. Views: 1 view. COMPARISON: CT chest w con* [id number] 04/28/2020 9:17 AM FINDINGS: Lungs: Stable mild elevation of the right hemidiaphragm. Bilateral lower lobe and right middle lobe atelectasis versus pneumonia. Pleural spaces: No pleural effusion. No pneumothorax. Heart/Mediastinum: Stable mild enlargement of the cardiac silhouette. Mediastinal contours are unremarkable. Vasculature: Stable vascular calcifications in the aorta. Bones/joints: Unremarkable for age. XR/XR chest 1V portable [id number] IMPRESSION: 1. Bilateral lower lobe and right middle lobe atelectasis versus pneumonia. Recommend clinical correlation. Recommend followup chest imaging to insure resolution of these findings. 2. Incidental/nonacute findings are listed in the report.
--- NOTE | 2023-02-02 15:53 | W.ED.ARRPALP ---
HPI - Arrhythmia/Palpitations General: Chief Complaint: Arrhythmia/Palpitations Stated Complaint: SOB Time Seen by Provider: 02/02/23 15:46 Source: patient Mode of arrival: ambulatory History of Present Illness: 82-year-old female presents emergency room bradycardic. States few days ago she was diagnosed with a bladder infection and started on some antibiotics she is noted she been lightheaded and dizzy whenever she stands up feels very weak. She is not on any calcium channel blockers or beta-blockers she denies any chest pain or tightness she was given atropine by EMS crew and her heart rate has improved she has a third-degree heart block on arrival here. No previous history of coronary disease she is not on any anticoagulants. MD complaint: palpitations Duration: constant Severity: moderate Associated symptoms: Deny anxiety, cough, diaphoresis, muscle cramps, nausea, paresthesias, pre-syncope, sense of impending doom, short of breath, syncope or vomiting Treatments prior to arrival: other (Atropine) Review of Systems Const: Reports: fatigue and malaise; Denies: fever(s), chills or diaphoresis ENMT: Denies: throat pain, ear or mastoid pain, nasal discharge or nasal congestion Card: Denies: chest pain, palpitations, irregular heart rhythm, syncope or pre-syncope Resp: Denies: dyspnea, productive cough or non-productive cough GI: Denies: abdominal pain, nausea or vomiting : Denies: flank pain, difficulty voiding, dysuria, urinary frequency or urinary urgency Musc: Denies: muscle cramps Skin/Breast: Denies: rash or pruritus Psych: Denies: anxiety PFSH ED PFSH: Medical History DDD (degenerative disc disease), lumbar Diabetes mellitus type 2, noninsulin dependent Diverticula of intestine Hyperlipidemia atorvastatin 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 Normal colonoscopy Osteoarthritis Pelvic organ prolapse quantification stage 3 cystocele Recurrent UTI Thyroid nodule Last thyroid imaging at [facility] [place], [place] 2017, bilateral adenomatous nodules or colloid cysts Vitamin D deficiency Surgical History H/O arthroscopy of knee (~2014) Left, Dr Connors History of back surgery History of hysterectomy (~05/2019) with BSO, Ant/Post colporrhaphy and urethral sling, Dr Isaac History of transurethral destruction of bladder lesion TCCA of bladder without invasion Family History Mother , AT AGE 60 Breast cancer Father , AT AGE 95 Aspiration pneumonia Diabetes Other Cancer Denies family history of Anesthesia complication Bleeding disorder Social History Smoking and tobacco status: former smoker Quit status (tobacco): has quit using tobacco Year quit tobacco: 1997, smoked 1 PPD Second hand smoke exposure: No Alcohol intake: current Alcohol intake frequency: holidays/special occasions only Substance/Drug Use: never Adopted: No Caregiver/support person: No Lives independently: No Household members: spouse and family Marital status: service: No Current occupational status: retired Current gender identity: Female Special shi needs: No Agree to transfusion: Yes Physical Exam Const: GENERAL APPEARANCE: cooperative and comfortable ORIENTATION/CONSCIOUSNESS: Yes awake, Yes oriented to person, Yes oriented to place and Yes oriented to time HENMT: COMMON NORMALS: normocephalic, atraumatic and hearing grossly normal bilaterally HEAD & SCALP: normocephalic and atraumatic Resp: COMMON NORMALS: normal respiratory effort, No retractions, No use of accessory muscles and clear to auscultation bilaterally AUSCULTATION: clear to auscultation bilaterally Cardio: COMMON NORMALS: No murmurs present (Cardio) RATE: tachycardic RHYTHM: abnormal rhythm (Third-degree block) GI: COMMON NORMALS: Soft to palpation and No hepatosplenomegaly present AUSCULTATION: Yes normoactive bowel sounds PALPATION: Yes Soft to palpation, No Tenderness to palpation present (GI), No Guarding due to palpation present (GI) and Yes No hepatosplenomegaly present Extremity: COMMON NORMALS: normal to inspection, capillary refill normal, no clubbing, cyanosis or edema, no calf tenderness and no pedal edema Neuro: SENSORIUM/ORIENTATION: Yes oriented to person, Yes oriented to place and Yes oriented to time Skin: COMMON NORMALS: no rashes or lesions noted GENERAL SKIN EXAM: no rashes or lesions noted Course Vital Signs: Vital signs: Vital Signs Temperature 97.5 F L 02/02/23 15:44 Pulse Rate 39 L 02/02/23 17:15 Respiratory Rate 17 02/02/23 17:15 Blood Pressure 178/76 02/02/23 17:15 Pulse Oximetry 90 02/02/23 16:45 Oxygen Delivery Me thod Nasal Cannula 02/02/23 16:45 Oxygen Flow Rate 3 02/02/23 16:45 MDM - Arrhythmia/Palpitations Medical Decision Making Third-degree heart block with a relative atrial tachycardia with a rate around 100-1 20, the ventricular rate is in the low 30s. Patient is tolerating well blood pressure is actually elevated. She is also acutely hyponatremic. Patient will be admitted to the ICU Dr. Prather consults with Dr. Felton will admit as attending. Have discussed with both Dr. Hong seen the patient in the department. Medical Records I reviewed the patient's medical records. Lab Data I reviewed the patient's lab results. 02/02/23 15:56 02/02/23 15:56 Radiology Impressions Chest X-Ray 02/02/23 15:47 IMPRESSION: 1. Bilateral lower lobe and right middle lobe atelectasis versus pneumonia. Recommend clinical correlation. Recommend followup chest imaging to insure resolution of these findings. 2. Incidental/nonacute findings are listed in the report. Laboratory Results WBC 8.7 10^3/uL (4.0-10.0) 02/02/23 15:56 RBC 3.75 10^6/uL (4.1-5.3) L 02/02/23 15:56 Hgb 11.6 g/dL (11.5-15.3) 02/02/23 15:56 Hct 33.4 % (37.0-47.0) L 02/02/23 15:56 MCV 89.1 fl (81-99) 02/02/23 15:56 MCH 30.9 pg (28.0-34.0) 02/02/23 15:56 MCHC 34.7 g/dL (30.0-36.0) 02/02/23 15:56 RDW 12.5 % (12.1-15.1) 02/02/23 15:56 Plt Count 333 10^3/cmm (130-400) 02/02/23 15:56 MPV 10.6 fL (7.4-10.4) H 02/02/23 15:56 Neut % (Auto) 76.1 % 02/02/23 15:56 Lymph % (Auto) 14.5 % 02/02/23 15:56 [place] % (Auto) 7.6 % 02/02/23 15:56 Eos % (Auto) 0.0 % 02/02/23 15:56 Baso % (Auto) 0.1 % 02/02/23 15:56 Neut # (Auto) 6.64 10^3/uL (1.8-7.7) 02/02/23 15:56 Lymph # (Auto) 1.3 10^3/uL (0.8-4.8) 02/02/23 15:56 [place] # (Auto) 0.7 10^3/uL (0.2-0.9) 02/02/23 15:56 Eos # (Auto) 0.0 10^3/uL (0.0-0.8) 02/02/23 15:56 Baso # (Auto) 0.0 10^3/uL (0.0-0.1) 02/02/23 15:56 Nucleated RBC % (auto) 0 % 02/02/23 15:56 Nucleated RBCs # 0.0 /100WBC 02/02/23 15:56 Sodium 117 mmol/L (136-145) L* 02/02/23 15:56 Potassium 4.8 mmol/L (3.5-5.1) 02/02/23 15:56 Chloride 82 mmol/L (98-107) L 02/02/23 15:56 Carbon Dioxide 16 mmol/L (22-29) L 02/02/23 15:56 Anion Gap 23.8 (5-19) H 02/02/23 15:56 BUN 24 mg/dL (8-23) H 02/02/23 15:56 Creatinine 1.0 mg/dL (0.5-0.9) H 02/02/23 15:56 GFR Calculation Not Reportable 02/02/23 15:56 Glucose 257 mg/dL (65-115) H 02/02/23 15:56 Calculated Osmolality 257 mOsm/kg (285-295) L 02/02/23 15:56 Calcium 8.9 mg/dL (8.5-10.5) 02/02/23 15:56 Magnesium 1.5 mg/dL (1.7-2.3) L 02/02/23 15:55 Total Bilirubin 0.5 mg/dL (0.15-1.2) 02/02/23 15:56 AST 28 U/L (0-32) 02/02/23 15:56 ALT 42 U/L (0-33) H 02/02/23 15:56 Alkaline Phosphatase 90 U/L (35-105) 02/02/23 15:56 Troponin T Baseline 60 ng/L (0-10) H 02/02/23 15:56 NT-Pro-B Natriuret Pep 8766 pg/mL (0-450) H 02/02/23 15:56 Total Protein 6.4 g/dL (6.6-8.7) L 02/02/23 15:56 Albumin 3.8 g/dL (3.5-5.2) 02/02/23 15:56 Globulin 2.6 g/dL (1.3-4.6) 02/02/23 15:56 TSH 1.40 uIU/mL (0.27-4.20) 02/02/23 15:56 Urine Color Yellow (Yellow) 02/02/23 16:32 Urine Appearance Clear (CLEAR) 02/02/23 16:32 Urine pH 5 (5-7) 02/02/23 16:32 Ur Specific [place] 1.020 (1.005-1.030) 02/02/23 16:32 Urine Protein Trace (Negative) 02/02/23 16:32 Urine Glucose (UA) 4+ (Normal) H 02/02/23 16:32 Urine Ketones 2+ (Negative) H 02/02/23 16:32 Urine Blood Neg (Negative) 02/02/23 16:32 Urine Nitrate Negative (Negative) 02/02/23 16:32 Urine Bilirubin Neg (Negative) 02/02/23 16:32 Urine Urobilinogen Norm mg/dL (Negative) 02/02/23 16:32 Ur Leukocyte Esterase Negative (Negative) 02/02/23 16:32 Urine RBC None /hpf (0-2) 02/02/23 16:32 Urine WBC 0-4 /hpf (0-5) H 02/02/23 16:32 Ur Squamous Epith Cells 0-4 /hpf (0-5) H 02/02/23 16:32 Amorphous Sediment Not Reportable 02/02/23 16:32 Urine Bacteria Trace /hpf (NONE) 02/02/23 16:32 Discharge Plan Discharge Patient Disposition: Admitted As Inpatient Admit Provider: Alana Felton Clinical Impression: Third degree heart block, Symptomatic bradycardia, Hypertension, Acute hyponatremia, Diabetes mellitus type 2, noninsulin dependent Condition: Stable Coding Level of Care Code ED [employer] for Lou Sánchez
--- NOTE | 2023-02-02 16:02 | ECG_ITS ---
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 Measurements Intervals [place] Rate: 35 P: 0 IL: 0 QRS: 51 QRSD: 86 T: 72 QT: 479 QTc: 366 Interpretive Statements Sinus tachycardia with A-V dissociation. Sinus rate 125/min Possible junctional escape rhythm MODERATE ST DEPRESSION [0.05+ mV ST DEPRESSION] CRITICAL TEST RESULT Compared to ECG 02/02/2023 15:46:11 ST (T wave) deviation now present Sinus bradycardia no longer present Incomplete right bundle-branch block no longer present Myocardial infarct finding no longer present Electronically Signed On 02-03-2023 14:50:50 CDT by Pineda Prather M.D. [id number]
--- NOTE | 2023-02-02 16:21 | USCV_ITS ---
Mckenna Alanis Age: 82 Gender: F : 1940 Exam Date: 02/02/2023 16:49 Ordering Phys: Jeremie Gonzalez DO Technologist: TERRI [place] [facility] [place]: bradycardia BP: / HR: 35 Rhythm: Sinus Technical Quality: Adequate MEASUREMENTS (Male / Female) Normal Values 2D ECHO LV Diastolic Diameter PLAX 4.4 cm 4.2 - 5.9 / 3.9 - 5.3 cm LV Systolic Diameter PLAX 3.0 cm IVS Diastolic Thickness 0.6 cm 0.6 - 1.0 / 0.6 - 0.9 cm IVS Systolic Thickness 1.1 cm LVPW Diastolic Thickness 0.6 cm 0.6 - 1.0 / 0.6 - 0.9 cm LVPW Systolic Thickness 1.0 cm LVOT Diameter 1.7 cm LV Ejection Fraction 2D Teich 59.7 % LV Ejection Fraction MOD 2C 69.1 % LV Ejection Fraction 2C AL 69.8 % LA Diameter 3.8 cm IVC Diameter 2.2 cm M-MODE Aortic Annulus Diameter 2.6 cm LA Ao Ratio MM 1.6 MV E Point Septal Separation 0.5 cm DOPPLER AV Peak Velocity 191.0 cm/s LVOT Peak Velocity 115.0 cm/s AV Area Cont Eq vti 1.6 cm squared AV Area Cont Eq pk 1.4 cm squared MV Area PHT 5.0 cm squared Mitral E to A Ratio 0.8 MV E' Velocity 51.0 cm/s Mitral E to MV E' Ratio 8.4 Mitral E to LV E' Lateral Ratio 7.9 Mitral E to LV E' Septal Ratio 8.9 TR Peak Velocity 351.3 cm/s TR Peak Gradient 49.4 mmHg TV Peak E Velocity 77.0 cm/s Right Atrial Pressure 9.0 mmHg Pulmonary Artery Systolic Pressu 58.4 mmHg PV Peak Velocity 114.0 cm/s FINDINGS Left Ventricle Normal left ventricular size and systolic function, EF 66 %. No regional wall motion abnormalities. Right Ventricle The right ventricle is normal in size and function. Right Atrium The right atrium is normal in size. Left Atrium Mildly increased left atrial size. Mitral Valve Mild mitral valve regurgitation. Minimally thickened mitral valve Aortic Valve No gross abnormalities noted. Tricuspid Valve Mild tricuspid valve regurgitation. Estimated pulmonary artery peak systolic pressure 58 mmHg Pulmonic Valve No gross abnormalities noted Pericardium Normal pericardium without effusion. Aorta Normal ascending aorta dimension. IVC The inferior vena cava appears normal. CONCLUSIONS Normal left ventricular size and systolic function, EF 66 %. No regional wall motion abnormalities. Mild mitral valve regurgitation. Minimally thickened mitral valve. Mildly increased left atrial size. Mild tricuspid valve regurgitation. Estimated pulmonary artery peak systolic pressure 58 mmHg. There is no pericardial effusion. There are no intracardiac masses. Compared to the study from 11/29/2019, there may not be a significant change Dr Pineda Prather MD FAC (Electronically Signed) Final Date: 03 February 2023 08:49 S
--- NOTE | 2023-02-02 16:24 | PC.PHAR ---
Addendum entered by Rosa Maria Conteh 02/02/23 16:32: [facility] v[facility]nu not open to verify last date filled Original Note: pt states she takes care of her own medications-pt states her metformin er 500mg bid filled 11/28/22 90d/s-vit c 1000mg bid and methenamine hippurate 1g bid filled 12/24/22 30d/s is on hold till she finishes her augmentin 875-125mg bid filled 01/29/23 14d/s-notes are made in the pharmacy comments
[2023-02-02 16:37] LABS: Basophils % 0.1 %; Hematocrit 33.4 % (37.0-47.0); Hemoglobin 11.6 g/dL (11.5-15.3); Lymphocytes # 1.3 10^3/uL (0.8-4.8); Lymphocytes % 14.5 %; Mean Corpuscular HGB Conc 34.7 g/dL (30.0-36.0); Mean Corpuscular Hemoglobin 30.9 pg (28.0-34.0); Mean Corpuscular Volume 89.1 fl (81-99); Mean Platelet Volume 10.6 fL (7.4-10.4); Monocytes # 0.7 10^3/uL (0.2-0.9); Monocytes % 7.6 %; Neutrophils # 6.64 10^3/uL (1.8-7.7); Neutrophils % 76.1 %; Nucleated Red Blood Cells % 0 %; Platelet Count 333 10^3/cmm (130-400); Red Blood Count 3.75 10^6/uL (4.1-5.3); Red Cell Distribution Width 12.5 % (12.1-15.1); White Blood Count 8.7 10^3/uL (4.0-10.0)
[2023-02-02 16:38] LABS: Troponin(5th) Baseline 60 ng/L (0-10)
[2023-02-02 16:44] LABS: Alanine Aminotransferase 42 U/L (0-33); Albumin Level 3.8 g/dL (3.5-5.2); Alkaline Phosphatase 90 U/L (35-105); Anion Gap 23.8 (5-19); Aspartate Amino Transferase 28 U/L (0-32); Blood Urea Nitrogen 24 mg/dL (8-23); Calcium 8.9 mg/dL (8.5-10.5); Carbon Dioxide 16 mmol/L (22-29); Chloride 82 mmol/L (98-107); Globulin 2.6 g/dL (1.3-4.6); Glucose 257 mg/dL (65-115); NT Pro B Type Natriuretic Pept 8766 pg/mL (0-450); Osmolality Calculated 257 mOsm/kg (285-295); Potassium 4.8 mmol/L (3.5-5.1); Total Bilirubin 0.5 mg/dL (0.15-1.2); Total Protein 6.4 g/dL (6.6-8.7)
[2023-02-02 16:48] LABS: Sodium 117 mmol/L (136-145)
--- NOTE | 2023-02-02 16:50 | PM.CONSULT ---
Providers/Reason For Consult Consulting Physician/Specialty*: FABIOLA Prather MD/cardiology Reason for Consult*: Patient with a symptomatic bradycardia Requesting Physician: Dr. Felton/Dr Gonzalez Attending Physician: Dr Felton Primary Care Provider: CARMEN Coon History of Present Illness History of Present Illness Mckenna Alanis is a 82 year old female with a history of hypertension, type 2 diabetes and dyslipidemia he is presenting with complaints of nausea and vomiting for the last 2 days and feeling of weakness/shortness of breath with exertion for the last week or so. She was found to be bradycardic with a heart rate in the 30s. EKG showed evidence of third-degree heart block. Cardiology consult is requested for further cardiac evaluation and recommendations. This patient has no previous history for any cardiac illness. She was seen by the primary care provider a week ago and was started on UTI. She has a history of bladder cancer and urinary retention. For the last 1 week, she been having shortness of breath with activities. As long as she is resting, she feels okay. As she starts getting up and move around, gets short of breath and tired. Might have had some amount of dizziness as well. No syncopal episodes. No chest pain or chest tightness. Denies any fever or chills. She has some lower abdominal discomfort. No other specific complaints. Patient has no previous history for coronary artery disease, myocardial infarction or congestive heart failure. 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 She also has chronic recurrent UTI most recently she was seen by the primary care provider on 29 January and was started on antibiotic for 14 days. She had Enterococcus faecalis in the urine from previous cultures. Review of Systems Narrative: CONSTITUTIONAL: No fever or chills. [] EYES: No blurring of vision or other visual disturbances lately. [] ENT: No hoarseness of voice, auditory disturbances or sore throat. [] CARDIOVASCULAR: As mentioned above. [] RESPIRATORY: No significant cough. [] GASTROINTESTINAL: No hematemesis or melena. [] GENITOURINARY: No dysuria or hematuria. [] INTEGUMENTARY: No skin rashes or history of skin cancer. [] NEURO: No transient ischemic attacks or amaurosis. [] PSYCHIATRIC: No history of psychosis or major depression. [] HEMATOLOGIC: No bleeding disorders or significant anemia. [] ENDOCRINE: No history of polyuria or polydipsia. [] MUSCULOSKELETAL: No recent joint pain or swelling. [] ALLERGY/IMMUNOLOGY: As mentioned above. [] Medications/Allergies Home Medications Medication Instructions Recorded Confirmed Last Taken Type acetaminophen 500 mg tablet 1,000 mg PO Q6H PRN Pain 01/15/20 02/02/23 03/20/21 History (Tylenol Extra Strength) sodium chloride-potassium chloride 1 tab PO DAILY 11/14/21 02/02/23 Unknown History 287 mg-180 mg-15 mg tablet (Thermotabs) cholecalciferol (vitamin D3) 50 50 mcg PO DAILY 02/15/22 02/02/23 Unknown History mcg (2,000 unit) capsule methenamine hippurate 1 gram tablet 1 g PO BID #60 tabs 04/20/22 02/02/23 Unknown Rx ascorbic acid (vitamin C) 1,000 mg 1 g PO BID 08/23/22 02/02/23 Unknown History tablet ezetimibe 10 mg tablet (Zetia) 10 mg PO DAILY #90 tabs 11/28/22 02/02/23 Unknown Rx gabapentin 300 mg capsule 300 mg PO TID 90 days #270 caps 11/28/22 02/02/23 Unknown Rx losartan 50 mg tablet 50 mg PO BID #180 tabs 11/28/22 02/02/23 Unknown Rx oxybutynin chloride 10 mg 10 mg PO QAM #90 tabs 11/28/22 02/02/23 Unknown Rx tablet,extended release 24 hr polyethylene glycol 3350 17 17 g PO DAILY PRN constipation 12/24/22 02/02/23 Unknown Rx gram/dose oral powder (Miralax) #510 grams amoxicillin 875 mg-potassium 1 tab PO BID 14 days #28 tabs 01/29/23 02/02/23 02/01/23 Rx clavulanate 125 mg tablet cyanocobalamin (vitamin B-12) 1,000 mcg PO DAILY 02/02/23 02/02/23 Unknown History 1,000 mcg tablet (Vitamin B-12) cyclobenzaprine 10 mg tablet 5 - 10 mg PO TID PRN Muscle Spasm 02/02/23 02/02/23 Unknown History metformin 500 mg tablet,extended 500 mg PO BID 02/02/23 02/02/23 Unknown History release 24 hr vit no.95-ferrous 1 tab PO DAILY 02/02/23 02/02/23 Unknown History fumarate 28 mg-folic acid 800 mcg tablet ( Multivitamins) Allergies Allergy/AdvReac Type Severity Reaction Status Date / Time aspirin Allergy Mild Unknown Verified 02/02/23 16:15 sulfamethoxazole Allergy Unconscious Verified 02/02/23 16:15 [From Bactrim] trimethoprim [From Bactrim] Allergy Unknown Verified 02/02/23 16:15 PFSH Acute PFSH: Medical History DDD (degenerative disc disease), lumbar Diabetes mellitus type 2, noninsulin dependent Diverticula of intestine Hyperlipidemia atorvastatin 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 Normal colonoscopy Osteoarthritis Pelvic organ prolapse quantification stage 3 cystocele Recurrent UTI Thyroid nodule [place] [facility] [place], bilateral adenomatous nodules or colloid cysts Vitamin D deficiency Surgical History H/O arthroscopy of knee (~2014) Left, Dr Connors History of back surgery History of hysterectomy (~05/2019) with BSO, Ant/Post colporrhaphy and urethral sling, Dr Isaac History of transurethral destruction of bladder lesion TCCA of bladder without invasion Family History Mother , AT AGE 60 Breast cancer Father , AT AGE 95 Aspiration pneumonia Diabetes Other Cancer Denies family history of Anesthesia complication Bleeding disorder Social History Smoking and tobacco status: former smoker Quit status (tobacco): has quit using tobacco Year quit tobacco: 1997, smoked 1 PPD Second hand smoke exposure: No Alcohol intake: current Alcohol intake frequency: holidays/special occasions only Substance/Drug Use: never Adopted: No Caregiver/support person: No Lives independently: No Household members: spouse and family Marital status: service: No Current occupational status: retired Current gender identity: Female Special shi needs: No Agree to transfusion: Yes Vitals/I&O/Wt Last Vital Signs Temp 97.5 F L 02/02/23 15:44 Pulse 37 L 02/02/23 16:30 Resp 25 H 02/02/23 16:30 BP 169/60 02/02/23 16:15 Pulse Ox 91 02/02/23 16:08 O2 Del Method Nasal Cannula 02/02/23 16:08 O2 Flow Rate 3 02/02/23 16:08 Weight last 48 hrs Weight 134 lb Physical Exam Narrative: GENERAL: The patient is alert and oriented times three. Not in any acute distress. Short stage. HEENT: No significant pallor, icterus or lymphadenopathy.Oral cavity: There are no mucous membrane lesions. NECK: Trachea appears to be central. No masses noted. No JVD or thyromegaly appreciated. RESPIRATORY: Chest is symmetrical. No intercostals muscle retraction or any accessory muscle activation. There is no chest wall tenderness. Breath sounds are heard bilaterally. No rales or rhonchi heard. No evidence of any consolidation. BREASTS: Deferred. HEART: The heart sounds are normal. No S3 or S4. Short systolic murmur in the left sternal border. No pericardial rub ABDOMEN: No vessel pulsations or distention. No tenderness. No organomegaly appreciated. Bowel sounds are normally heard. : Deferred. RECTAL: Deferred. LYMPHATIC: No lymphadenopathy noted in the neck. EXTREMITIES: No edema or cyanosis. No clubbing. MUSCULOSKELETAL: No acute joint deformities or swelling SKIN: There are no significant rashes or ecchymosis NEUROPSYCHIATRIC: The patient is alert and oriented x3. Appears to be in a good mood. No tremors or rigidity noted. Urinary Catheter Management: Galvan: Cath Placed During This Visit: yes Urinary Catheter Date of Insertion: 02/02/23 Urinary Catheter Time of Insertion: 16:48 Data 02/02/23 15:56 02/02/23 15:56 Other Labs: Laboratory Last Values WBC 8.7 10^3/uL (4.0-10.0) 02/02/23 15:56 RBC 3.75 10^6/uL (4.1-5.3) L 02/02/23 15:56 Hgb 11.6 g/dL (11.5-15.3) 02/02/23 15:56 Hct 33.4 % (37.0-47.0) L 02/02/23 15:56 MCV 89.1 fl (81-99) 02/02/23 15:56 MCH 30.9 pg (28.0-34.0) 02/02/23 15:56 MCHC 34.7 g/dL (30.0-36.0) 02/02/23 15:56 RDW 12.5 % (12.1-15.1) 02/02/23 15:56 Plt Count 333 10^3/cmm (130-400) 02/02/23 15:56 MPV 10.6 fL (7.4-10.4) H 02/02/23 15:56 Neut % (Auto) 76.1 % 02/02/23 15:56 Lymph % (Auto) 14.5 % 02/02/23 15:56 [place] % (Auto) 7.6 % 02/02/23 15:56 Eos % (Auto) 0.0 % 02/02/23 15:56 Baso % (Auto) 0.1 % 02/02/23 15:56 Neut # (Auto) 6.64 10^3/uL (1.8-7.7) 02/02/23 15:56 Lymph # (Auto) 1.3 10^3/uL (0.8-4.8) 02/02/23 15:56 [place] # (Auto) 0.7 10^3/uL (0.2-0.9) 02/02/23 15:56 Eos # (Auto) 0.0 10^3/uL (0.0-0.8) 02/02/23 15:56 Baso # (Auto) 0.0 10^3/uL (0.0-0.1) 02/02/23 15:56 Nucleated RBC % (auto) 0 % 02/02/23 15:56 Nucleated RBCs # 0.0 /100WBC 02/02/23 15:56 Sodium 117 mmol/L (136-145) L* 02/02/23 15:56 Potassium 4.8 mmol/L (3.5-5.1) 02/02/23 15:56 Chloride 82 mmol/L (98-107) L 02/02/23 15:56 Carbon Dioxide 16 mmol/L (22-29) L 02/02/23 15:56 Anion Gap 23.8 (5-19) H 02/02/23 15:56 BUN 24 mg/dL (8-23) H 02/02/23 15:56 Creatinine 1.0 mg/dL (0.5-0.9) H 02/02/23 15:56 GFR Calculation Not Reportable 02/02/23 15:56 Glucose 257 mg/dL (65-115) H 02/02/23 15:56 Calculated Osmolality 257 mOsm/kg (285-295) L 02/02/23 15:56 Calcium 8.9 mg/dL (8.5-10.5) 02/02/23 15:56 Total Bilirubin 0.5 mg/dL (0.15-1.2) 02/02/23 15:56 AST 28 U/L (0-32) 02/02/23 15:56 ALT 42 U/L (0-33) H 02/02/23 15:56 Alkaline Phosphatase 90 U/L (35-105) 02/02/23 15:56 Troponin T Baseline 60 ng/L (0-10) H 02/02/23 15:56 NT-Pro-B Natriuret Pep 8766 pg/mL (0-450) H 02/02/23 15:56 Total Protein 6.4 g/dL (6.6-8.7) L 02/02/23 15:56 Albumin 3.8 g/dL (3.5-5.2) 02/02/23 15:56 Globulin 2.6 g/dL (1.3-4.6) 02/02/23 15:56 TSH 1.40 uIU/mL (0.27-4.20) 02/02/23 15:56 EKG 1: My Interpretation: Sinus tachycardia with a rate of 125 bpm. Ventricular rate of 37 bpm. Possible junctional escape rhythm. Features of third-degree heart block A&P Assessment and plan (1) Symptomatic bradycardia: This is related to the third-degree heart block. Hemodynamically patient seems to be stable. Recent nausea and vomiting could be a precipitating event. Thyroid function is not available. Patient needs to be closely monitored . Since her blood pressure is stable-hypertensive and asymptomatic at rest, I may hold off on a temporary pacer insertion at this point. (2) Acute hyponatremia: Management as per the primary (3) Hypertension: May continue on the current medications Qualifiers: Hypertension type: essential hypertension Qualified Code(s): I10 - Essential (primary) hypertension (4) Hyperlipidemia: May continue on the current medication Qualifiers: Hyperlipidemia type: mixed hyperlipidemia Qualified Code(s): E78.2 - Mixed hyperlipidemia (5) Recurrent UTI: Patient has chronic recurrent UTI. She is on antibiotic. This may be continued. Blood culture today. (6) Diabetes mellitus type 2, noninsulin dependent: Aggressive treatment would be appropriate. Plan May go ahead and do an echocardiogram to evaluate LV function and valvular pathology. Based on the clinical progress, further recommendations will be made. Patient may require permanent pacer implantation, if she continues to remain in high degree AV block even after correcting electrolytes and treating the infection appropriately. She needs to be closely monitored in the ICU for the time being Consult Attestations Medical Necessity Statement: Patient requires continued hospital stay for close monitoring and further management Coding Level of Care Code 90260 Diagnoses Symptomatic bradycardia R00.1 Acute hyponatremia E87.1 Hypertension I10 Hypertension type: essential hypertension Hyperlipidemia E78.2 Hyperlipidemia type: mixed hyperlipidemia Recurrent UTI N39.0 Diabetes mellitus type 2, noninsulin dependent E11.9
[2023-02-02] MEDS: sodium chloride 0.9% 1,000 ML 999 ML IV (17:14)
[2023-02-02 17:18] LABS: Protein Urine Trace (Negative); Urine Appearance Clear (CLEAR); Urine Color Yellow (Yellow); pH Urine 5 (5-7)
[2023-02-02 17:19] LABS: Add Urine Culture? No; Add Urine Microscopic? YES; Bacteria Urine TRACE /hpf; Bilirubin Urine Neg (Negative); Blood Urine Neg (Negative); Glucose Urine UA 4+ (Normal); Ketones Urine 2+ (Negative); Leukocyte Esterase Urine Negative (Negative); Nitrate Urine Negative (Negative); Squamous Epithelial Cell Urine 0-4 /hpf (0-5); Urobilinogen Urine Norm (Negative); WBC Urine 0-4 /hpf (0-5)
[2023-02-02 17:25] LABS: Magnesium 1.5 mg/dL (1.7-2.3)
[2023-02-02] MEDS: enoxaparin 40 mg/0.4 mL Syringe SUBCUT (17:46)
[2023-02-02] MEDS: sodium chloride 0.9% 1,000 ML 100 ML IV (17:47)
[2023-02-02] MEDS: cefTRIAXone 1,000 MG in sodium chloride 0.9% (plus) 50 ML 100 MG IV (17:47)
[2023-02-02] MEDS: ondansetron 2 mg/ML SDV 2 mL 4 MG IVP (17:49)
--- NOTE | 2023-02-02 18:04 | ECG_ITS ---
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 Measurements Intervals [place] Rate: 38 P: 62 AL: 201 QRS: -10 QRSD: 105 T: 54 QT: 490 QTc: 391 Interpretive Statements Third-degree heart block with a possible junctional escape rate of 38 bpm sinus tachycardia with a rate of 125 bpm A-V dissociation MODERATE ST DEPRESSION [0.05+ mV ST DEPRESSION] CRITICAL TEST RESULT Compared to ECG 02/02/2023 16:02:50 Sinus rhythm no longer present ST (T wave) deviation still present Electronically Signed On 02-04-2023 18:47:44 CDT by Pineda Prather M.D. [email or web address]
[2023-02-02 18:20] LABS: Troponin 5 2HR 190.9 ng/L (0-10); Troponin 5 2HR Delta 130.9 ABS# (0-10)
[2023-02-02 18:25] LABS: Alanine Aminotransferase 42 U/L (0-33); Albumin Level 3.8 g/dL (3.5-5.2); Alkaline Phosphatase 82 U/L (35-105); Anion Gap 18.3 (5-19); Aspartate Amino Transferase 26 U/L (0-32); Blood Urea Nitrogen 22 mg/dL (8-23); Calcium 8.2 mg/dL (8.5-10.5); Carbon Dioxide 17 mmol/L (22-29); Chloride 82 mmol/L (98-107); Globulin 2.3 g/dL (1.3-4.6); Glucose 193 mg/dL (65-115); Osmolality Calculated 245 mOsm/kg (285-295); Potassium 4.3 mmol/L (3.5-5.1); Thyroid Stimulating Hormone 1.08 uIU/mL (0.27-4.20); Total Bilirubin 0.4 mg/dL (0.15-1.2); Total Protein 6.1 g/dL (6.6-8.7)
[2023-02-02 18:29] LABS: Sodium 113 mmol/L (136-145)
--- NOTE | 2023-02-02 18:42 | P.HP_ITS ---
Providers/Chief Complaint Admitting Physician: Alana Felton MD Primary Care Provider: CARMEN Coon Chief Complaint: SOB History of Present Illness Mckenna Alanis is a 82 year old female with past medical history of type 2 diabetes mellitus, hyperlipidemia, peripheral vascular disease, recurrent UTI, thyroid nodule who presented to the ER today because of worsening dizziness and shortness of breath on minimal exertion for last 2 to 4 days. Patient states she is having lower abdominal pain few days ago for which she had come to the ER and she was diagnosed of having UTI and was started on Augmentin. Patient is having occasional episodes of diarrhea along with decreased oral intake for last couple of days.Only recent changes in medication is that metformin has been withheld and she was started on Augmentin recently for possible UTI In the ER she was found to have a complete heart block hence hospitalist service was consulted for admission and further care. Cardiology has been consulted from the ER. Blood work in the ER showed white count of 8.7, hemoglobin of 11.6, sodium of 117, chloride of 82, anion gap 19, creatinine of 1, magnesium of 1.5, baseline troponin of 60 with a delta of 130 in 2 hours, proBNP of 8766, TSH of 1.4, UA negative for any UTI Review of Systems General: Reports: 10 or more systems reviewed and unremarkable except in HPI and below Const: Denies: fever(s), chills, body aches, change in appetite, change in weight, malaise, night sweats, diaphoresis, change in sleep pattern, daytime sleepiness or snoring Eyes: Denies: change in vision, blurry vision, photophobia, eye discomfort or eye discharge ENMT: Denies: throat pain, enlarged tonsils, hoarseness, mouth pain, oral sores, dry mouth, tinnitus, nasal congestion or post nasal drip Card: Denies: chest pain, palpitations, irregular heart rhythm, edema, swelling of feet/ankles, lightheadedness, syncope, pre-syncope, dyspnea on exertion, orthopnea, leg pain with exertion or acrocyanosis Resp: Denies: dyspnea, productive cough, non-productive cough, wheezing, stridor, pain on inspiration, change in phlegm color, hemoptysis or chest congestion GI: Denies: abdominal pain, nausea, vomiting, hematemesis, coffee ground emesis, dysphagia, heartburn, diarrhea, constipation, bloating, GI cramping, change in bowel habits, pain on defecation, hematochezia or melena : Denies: flank pain, dysuria, urinary frequency, urinary urgency, urinary hesitancy, nocturia or hematuria Musc: Denies: neck pain, back pain, extremity pain, joint pain, joint swelling, joint redness, joint stiffness or limited range of motion Neuro: Denies: headache(s), numbness in extremities, weakness in extremities, sensory changes, lack of coordination, difficulty walking, frequent falls, dizziness, vertigo, confusion, Slurred speech present, difficulty communicating thoughts or seizure-like activity Psych: Denies: anxiety, depression, mood swings, panic attacks, hopelessness or irritability Endo: Denies: polyuria, polydipsia, tired all the time, cold intolerance, excessive sweating, flushing or heat intolerance Alfonso/Lymph: Denies: easy bruising or easy bleeding All/Imm: Denies: tongue swelling, facial swelling or acute wheezing Medications/Allergies Home Medications Medication Instructions Recorded Confirmed Last Taken Type acetaminophen 500 mg tablet 1,000 mg PO Q6H PRN Pain 01/15/20 02/02/23 03/20/21 History (Tylenol Extra Strength) sodium chloride-potassium chloride 1 tab PO DAILY 11/14/21 02/02/23 Unknown History 287 mg-180 mg-15 mg tablet (Thermotabs) cholecalciferol (vitamin D3) 50 50 mcg PO DAILY 02/15/22 02/02/23 Unknown History mcg (2,000 unit) capsule methenamine hippurate 1 gram tablet 1 g PO BID #60 tabs 04/20/22 02/02/23 Unknown Rx ascorbic acid (vitamin C) 1,000 mg 1 g PO BID 08/23/22 02/02/23 Unknown History tablet ezetimibe 10 mg tablet (Zetia) 10 mg PO DAILY #90 tabs 11/28/22 02/02/23 Unknown Rx gabapentin 300 mg capsule 300 mg PO TID 90 days #270 caps 11/28/22 02/02/23 Unknown Rx losartan 50 mg tablet 50 mg PO BID #180 tabs 11/28/22 02/02/23 Unknown Rx oxybutynin chloride 10 mg 10 mg PO QAM #90 tabs 11/28/22 02/02/23 Unknown Rx tablet,extended release 24 hr polyethylene glycol 3350 17 17 g PO DAILY PRN constipation 12/24/22 02/02/23 Unknown Rx gram/dose oral powder (Miralax) #510 grams amoxicillin 875 mg-potassium 1 tab PO BID 14 days #28 tabs 01/29/23 02/02/23 02/01/23 Rx clavulanate 125 mg tablet cyanocobalamin (vitamin B-12) 1,000 mcg PO DAILY 02/02/23 02/02/23 Unknown History 1,000 mcg tablet (Vitamin B-12) cyclobenzaprine 10 mg tablet 5 - 10 mg PO TID PRN Muscle Spasm 02/02/23 02/02/23 Unknown History metformin 500 mg tablet,extended 500 mg PO BID 02/02/23 02/02/23 Unknown History release 24 hr vit no.95-ferrous 1 tab PO DAILY 02/02/23 02/02/23 Unknown History fumarate 28 mg-folic acid 800 mcg tablet ( Multivitamins) Allergies Allergy/AdvReac Type Severity Reaction Status Date / Time aspirin Allergy Mild Unknown Verified 02/02/23 16:15 sulfamethoxazole Allergy Unconscious Verified 02/02/23 16:15 [From Bactrim] trimethoprim [From Bactrim] Allergy Unknown Verified 02/02/23 16:15 PFSH Acute PFSH: Medical History (Updated 02/02/23 @ 18:49 by Grant Dugan MD) Ashia glabrata infection DDD (degenerative disc disease), lumbar Diabetes mellitus type 2, noninsulin dependent Diverticula of intestine Hyperlipidemia atorvastatin 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 Normal colonoscopy Osteoarthritis Pelvic organ prolapse quantification stage 3 cystocele Primary osteoarthritis of left hip Recurrent UTI Thyroid nodule Last thyroid imaging at [facility] [place], bilateral adenomatous nodules or colloid cysts Vitamin D deficiency Surgical History H/O arthroscopy of knee (~2014) Left, Dr Connors History of back surgery History of hysterectomy (~05/2019) with BSO, Ant/Post colporrhaphy and urethral sling, Dr Isaac History of transurethral destruction of bladder lesion TCCA of bladder without invasion Family History Mother , AT AGE 60 Breast cancer Father , AT AGE 95 Aspiration pneumonia Diabetes Other Cancer Denies family history of Anesthesia complication Bleeding disorder Social History Smoking and tobacco status: former smoker Quit status (tobacco): has quit using tobacco Year quit tobacco: 1997, smoked 1 PPD Second hand smoke exposure: No Alcohol intake: current Alcohol intake frequency: holidays/special occasions only Substance/Drug Use: never Adopted: No Caregiver/support person: No Lives independently: No Household members: spouse and family Marital status: service: No Current occupational status: retired Current gender identity: Female Special shi needs: No Agree to transfusion: Yes Vitals/I&O/Wt Last Vital Signs Temp 97.5 F L 02/02/23 15:44 Pulse 35 L 02/02/23 18:00 Resp 23 H 02/02/23 17:45 BP 219/78 02/02/23 17:45 Pulse Ox 94 02/02/23 18:00 O2 Del Method Nasal Cannula 02/02/23 18:00 O2 Flow Rate 2.5 02/02/23 18:00 02/02/23 02/02/23 02/02/23 06:59 14:59 22:59 Intake Total 1050 / 1050 Balance 1050 / 1050 Weight last 48 hrs Weight 60.781 kg Physical Exam Narrative: General: No acute distress, AO x3, on 2 L of oxygen supplementation, dehydrated HEENT: PERRLA, pupils bilaterally equal and reactive Chest: Normal vesicular breath sounds, no added sounds, equal good air entry bilaterally CVS: S1-S2 irregular, bradycardia, no gallops, no rubs Abdomen: Soft, nontender, no organomegaly, bowel sounds present Neuro: No focal deficits, no facial deformity, AO x3, power 5/5 in all limbs Urinary Catheter Management: Galvan: Cath Placed During This Visit: yes Reason for Continuing Indwelling Catheter: Accurate Measurement of Urinary Output in Critically Ill Patients Urinary Catheter Date of Insertion: 02/02/23 Urinary Catheter Time of Insertion: 16:48 Data 02/02/23 15:56 02/02/23 17:52 Micro: Microbiology 02/02/23 17:23 Blood Culture - Preliminary Blood SPECIMEN COLLECTED 02/02/23 17:23 Blood Culture - Preliminary Blood SPECIMEN COLLECTED A&P Assessment and plan (1) Third degree heart block: Symptomatic. Patient not on rate limiting medications. Complaining of dizziness and shortness of breath on exertion. Currently hemodynamically stable. Cardiology consulted. Holding off on temporary pacemaker as patient is hemodynamically stable. Keep magnesium around 2, potassium around 4. Check echocardiogram. Monitor troponins. Most likely patient will need pacemaker implantation. Will await cardiology recommendations. (2) Symptomatic bradycardia: (3) Elevated troponin: Type II versus non-ST elevation IA. Could be type II in setting of complete heart block. Awaiting echocardiogram. Check A1c, lipid panel. Aspirin 324 mg one-time followed by 81 mg daily, atorvastatin 40 mg daily. Start on heparin drip. (4) Acute hyponatremia: Baseline sodium level normal. 117 on admission. Unknown etiology. Patient clinically looks dehydrated but does have difficulty in breathing most likely in setting of complete heart block. proBNP elevated. For now start on tentative IV fluids at 75 cc/h with normal saline. Watch for fluid overload. Check BMP every 4 hour. Target improvement in sodium level 6 to 8 mEq of sodium every 24 hours. If needed can do 3% normal saline pushes. Check urine lites, urine creatinine, urine eosinophils. Regular diet. (5) Recurrent UTI: Appreciate UA. Recent urine culture from 01/27 shows E. coli sensitive to Augmentin. Recently started on Augmentin. For now switch to IV ceftriaxone. Follow-up blood cultures. (6) Diabetes mellitus type 2, noninsulin dependent: Check A1c. Not on any oral hypoglycemics. (7) Malignant neoplasm of posterior wall of bladder: Plan Patient does not have a good IV access and would need recurrent blood draws along with 3% saline and heparin drip. We will plan for PICC line placement. CODE STATUS: Discussed in detail with the patient. She would want to remain full code. Regular diet. Heparin drip will suffice as DVT prophylaxis. Protonix OPD prophylaxis. Attestations Medical Necessity Statement*: Admission for more than 2 midnights for management of third-degree heart block, symptomatic bradycardia, acute hyponatremia Coding Level of Care Code Critical Care >/= 30 minutes Critical care time (in minutes): 70 The high probability of a clinically significant, sudden or life threatening deterioration, as referenced in this documentation, required my full and direct attention, intervention and personal management. The critical care time shown is in addition to time spent performing any reported separately billable procedures and includes the following: [x] Data and vital sign review and interpretation [x ] Patient assessment, examination and intervention [x] Medication orders and management [x] Patient/Family updates as able [x] Care Coordination and Doc umentation. Diagnoses Third degree heart block I44.2 Symptomatic bradycardia R00.1 Elevated troponin R79.89 Acute hyponatremia E87.1 Recurrent UTI N39.0 Diabetes mellitus type 2, noninsulin dependent E11.9 Malignant neoplasm of posterior wall of bladder C67.4
[2023-02-02] MEDS: ipratropium-albuterol 3 mL Neb INHALATION (19:39)
[2023-02-02] MEDS: heparin 5,000 unit/mL INJ 1 mL IV (19:47)
[2023-02-02] MEDS: heparin drip 25,000 UNIT/500 ML PREMIX 17 UNIT IV (19:50)
[2023-02-02] MEDS: sodium chloride 3% 100 ML in empty flexible container 1 EACH 200 ML IV (19:51)
[2023-02-02] MEDS: magnesium sulfate premix 2 GM/50 ML PIGGYBACK IV (19:51)
[2023-02-02] MEDS: aspirin 325 mg EC Tablet PO (19:52)
[2023-02-02 19:55] LABS: D Dimer 1.33 ug/mIFEU (0-0.59)
[2023-02-02 20:00] LABS: Iron 87 ug/dL (37-145); Total Iron Binding Capacity 299 mcg/dl; Unsaturated Iron Binding 212 ug/dL (112-347)
[2023-02-02 20:17] LABS: Vitamin B12 1992 pg/mL (232-1245)
--- NOTE | 2023-02-02 20:51 | XRR_ITS ---
PROCEDURE INFORMATION: Exam: XR Chest Exam date and time: 02/02/2023 9:02 PM Age: 82 years old Clinical indication: Device placement; Picc; Additional info: Confirm picc placement TECHNIQUE: Imaging protocol: Radiologic exam of the chest. Views: 1 view. COMPARISON: CR (CHEST, ) 02/02/2023 4:14 PM FINDINGS: Tubes, catheters and devices: Interval placement of a right upper extremity PICC with the tip at the superior vena cava. Lungs: Stable lower lobe and right middle lobe atelectasis versus pneumonia. Pleural spaces: No pleural effusion. No pneumothorax. Heart/Mediastinum: Stable mild enlargement of the cardiac silhouette. Mediastinal contours are unremarkable. Vasculature: Stable vascular calcifications in the aorta. Diaphragm: Stable mild elevation of the right hemidiaphragm. Bones/joints: Unremarkable for age. XR/XR chest 1V portable [id number] IMPRESSION: 1. Stable lower lobe and right middle lobe atelectasis versus pneumonia. Recommend followup chest imaging to insure resolution of these findings. 2. Incidental/nonacute findings are listed in the report.
--- NOTE | 2023-02-02 21:21 | PC.NURSE ---
Consulted by House Charge for placement of PICC r/t vesicant therapy r/t 3rd degree heart block. Upon arrival family in room with pt. Explained procedure, risks, benefits, and alternative therapies, and answered questions. Pt signed consent. Assessed RUE and noted basilic vein to be good target at 4.2 mm in diameter and free of evidence of thrombus or stenosis. Using US guidance, MST, and sterile technique the R basilic vein was accessed x 1 stick. Device fed easily. All 3 ports aspirate and flush. Device secured and dressed. EBL 5ml. Pt tolerated well. Chest xray ordered and performed. Physician read and okayed for use. Length 35 cm, at 0 kaycee at skin. RUE circumference at 10 cm above the AC fossa is 31 cm. Report to primary nurse.
[2023-02-02] MEDS: gabapentin 300 mg Capsule PO (21:55)
[2023-02-02] MEDS: atorvastatin 40 mg Tablet PO (21:55)
[2023-02-02 22:45] LABS: Potassium, Radom Urine 57 mmol/L; Urine Random Chloride 53 mmol/L; Urine Random Sodium 43 mmol/L
[2023-02-02 22:47] LABS: Troponin 5 6HR 339.8 ng/L (0-10); Troponin 5 6HR Delta 279.8 ng/L (0-12)
[2023-02-02 23:08] LABS: Eosinophil Urine Eosinophils Seen; Urine Eosinophil Count 3 (0-0)
[2023-02-02 23:08] LABS: Anion Gap 17.3 (5-19); Blood Urea Nitrogen 20 mg/dL (8-23); Calcium 8.2 mg/dL (8.5-10.5); Carbon Dioxide 17 mmol/L (22-29); Chloride 84 mmol/L (98-107); Glucose 180 mg/dL (65-115); Osmolality Calculated 245 mOsm/kg (285-295); Potassium 4.3 mmol/L (3.5-5.1)
[2023-02-02 23:13] LABS: Sodium 114 mmol/L (136-145)
[2023-02-03] VITALS (60 sets, daily range): BP systolic 117–191; BP diastolic 56–103; PULSE 33–69; RESP 12–26; TEMP 36.4–37.1; O2SAT 87–99
[2023-02-03] MEDS: sodium chloride 3% 100 ML in empty flexible container 1 EACH 200 ML IV (00:19)
[2023-02-03] MEDS: FUROsemide 10 mg/mL SDV 4mL 40 MG IVP ×3 (00:19→20:24)
[2023-02-03 02:53] LABS: Partial Thromboplastin Time 93.2 SECONDS (23.9-36.7)
[2023-02-03 02:55] LABS: Anion Gap 17.4 (5-19); Blood Urea Nitrogen 20 mg/dL (8-23); Calcium 8.4 mg/dL (8.5-10.5); Carbon Dioxide 20 mmol/L (22-29); Chloride 89 mmol/L (98-107); Chol HDL Ratio 3.48 mg/dL (0.0-4.40); Cholesterol 174 mg/dL (0-200); Glucose 183 mg/dL (65-115); HDL Cholesterol 50 mg/dL (60-100); LDL Cholesterol Calculated 111 mg/dL (50-129); Osmolality Calculated 261 mOsm/kg (285-295); Potassium 4.4 mmol/L (3.5-5.1); Sodium 122 mmol/L (136-145); Triglycerides 65 mg/dL (0-150); VLDL Cholestrol Calculation 13 mg/dL (0-30)
[2023-02-03 04:55] LABS: Eosinophils % 0.2 %; Hematocrit 31.1 % (37.0-47.0); Hemoglobin 10.7 g/dL (11.5-15.3); Lymphocytes # 1.9 10^3/uL (0.8-4.8); Lymphocytes % 17.3 %; Mean Corpuscular HGB Conc 34.4 g/dL (30.0-36.0); Mean Corpuscular Hemoglobin 30.6 pg (28.0-34.0); Mean Corpuscular Volume 88.9 fl (81-99); Mean Platelet Volume 10.3 fL (7.4-10.4); Monocytes # 1.4 10^3/uL (0.2-0.9); Monocytes % 12.6 %; Neutrophils # 7.71 10^3/uL (1.8-7.7); Neutrophils % 69.4 %; Nucleated Red Blood Cells % 0 %; Platelet Count 318 10^3/cmm (130-400); Red Cell Distribution Width 12.7 % (12.1-15.1); White Blood Count 11.1 10^3/uL (4.0-10.0)
[2023-02-03 05:09] LABS: Estmated Average Glucose 134; Hemoglobin A1C 6.3 % (4.0-6.0)
[2023-02-03 05:34] LABS: Alanine Aminotransferase 39 U/L (0-33); Albumin Level 3.7 g/dL (3.5-5.2); Alkaline Phosphatase 75 U/L (35-105); Anion Gap 16.3 (5-19); Aspartate Amino Transferase 24 U/L (0-32); Blood Urea Nitrogen 19 mg/dL (8-23); Calcium 8.4 mg/dL (8.5-10.5); Carbon Dioxide 21 mmol/L (22-29); Chloride 90 mmol/L (98-107); Globulin 2.4 g/dL (1.3-4.6); Glucose 152 mg/dL (65-115); Osmolality Calculated 261 mOsm/kg (285-295); Potassium 4.3 mmol/L (3.5-5.1); Sodium 123 mmol/L (136-145); Total Bilirubin 0.3 mg/dL (0.15-1.2); Total Protein 6.1 g/dL (6.6-8.7)
[2023-02-03 05:35] LABS: Phosphorus 2.9 mg/dL (2.5-4.5)
[2023-02-03 07:07] LABS: Folate Level > 20.0 ng/mL (4.8-37.3)
[2023-02-03 07:15] LABS: Anion Gap 17.4 (5-19); Blood Urea Nitrogen 20 mg/dL (8-23); Calcium 8.4 mg/dL (8.5-10.5); Carbon Dioxide 21 mmol/L (22-29); Chloride 91 mmol/L (98-107); Glucose 151 mg/dL (65-115); Osmolality Calculated 266 mOsm/kg (285-295); Potassium 4.4 mmol/L (3.5-5.1); Sodium 125 mmol/L (136-145)
[2023-02-03] MEDS: ezetimibe 10 mg Tablet PO (08:03)
[2023-02-03] MEDS: aspirin 81 mg EC Tablet PO (08:03)
[2023-02-03] MEDS: gabapentin 300 mg Capsule PO ×2 (08:03→20:24)
[2023-02-03] MEDS: pantoprazole DR 40 mg Tablet PO (08:03)
[2023-02-03] MEDS: ipratropium-albuterol 3 mL Neb INHALATION ×3 (09:14→21:13)
--- NOTE | 2023-02-03 09:35 | PM.PN ---
Subjective Subjective: Patient is somewhat nauseous this morning. No chest pain. No shortness of breath. She continues to be in the third-degree heart block. Blood pressure has been staying in the 140s and 150s. Remains afebrile. Her white cell count is slightly elevated today. Hyponatremia is improving. Medications: Medication Review Details: Current Medications Acetaminophen (Acetaminophen 325 Mg Tablet) 650 mg PO Q6H PRN PRN Reason: Mild/Mod Pain Or Temp >/= 101 Albuterol/Ipratropium (Ipratropium-Albuterol 3 Ml Neb) 3 ml INHALATION Q6H.RESP [place] Last Admin: 02/03/23 09:14 Dose: 3 ml Aspirin (Aspirin 81 Mg Ec Tablet) 81 mg PO DAILY [facility] Last Admin: 02/03/23 08:03 Dose: 81 mg Atorvastatin Calcium (Atorvastatin 40 Mg Tablet) 40 mg PO BEDTIME [facility] Last Admin: 02/02/23 21:55 Dose: 40 mg Bisacodyl (Bisacodyl 5 Mg Tablet) 10 mg PO DAILY PRN; Protocol PRN Reason: Constipation (see protocol) Ezetimibe (Ezetimibe 10 Mg Tablet) 10 mg PO DAILY [facility] Last Admin: 02/03/23 08:03 Dose: 10 mg Gabapentin (Gabapentin 300 Mg Capsule) 300 mg PO TID [facility] Last Admin: 02/03/23 08:03 Dose: 300 mg Heparin Sodium (Porcine) (Heparin 5,000 Unit/Ml Inj 1 Ml) 0 unit IV PRN PRN; Protocol PRN Reason: Heparin weight-base protocol Last Admin: 02/02/23 19:47 Dose: 3,000 unit Ceftriaxone Sodium 1,000 mg/ (Sodium Chloride) 50 mls @ 100 mls/hr IV Q24H [facility]; Protocol Last Infusion: 02/02/23 18:17 Dose: Infused Heparin Sodium/Sodium Chloride (Heparin Drip) 25,000 unit in 500 mls @ 0 mls/hr IV .Q0M [facility]; Protocol Last Titration: 02/03/23 03:22 Dose: 11.52 unit/kg/hr, 14 mls/hr Lactulose (Lactulose Oral Liq 20 Gm/30 Ml Udc) 10 gm PO DAILY PRN; Protocol PRN Reason: Constipation (see protocol) Magnesium Hydroxide (Magnesium Hydroxide 30 Ml Udc) 30 ml PO DAILY PRN; Protocol PRN Reason: Constipation (see protocol) Morphine Sulfate (Morphine 4 Mg/Ml Sdv 1 Ml) 2 mg IVP Q4H PRN PRN Reason: SEVERE PAIN Ondansetron HCl (Ondansetron 2 Mg/Ml Sdv 2 Ml) 4 mg IVP Q6H PRN PRN Reason: NAUSEA AND VOMITING Last Admin: 02/02/23 17:49 Dose: 4 mg Pantoprazole Sodium (Pantoprazole Dr 40 Mg Tablet) 40 mg PO DAILY [place] Last Admin: 02/03/23 08:03 Dose: 40 mg Vitals/I&O/Wt Last Vital Signs Temp 98.7 F 02/03/23 08:00 Pulse 36 L 02/03/23 09:18 Resp 16 02/03/23 09:15 BP 146/66 02/03/23 04:45 Pulse Ox 95 02/03/23 09:15 O2 Del Method Nasal Cannula 02/03/23 09:15 O2 Flow Rate 3 02/03/23 09:15 02/02/23 02/03/23 02/03/23 22:59 06:59 14:59 Intake Total 1250 / 1250 983.067 / 2233.067 120 / 120 Output Total 400 / 400 1000 / 1400 Balance 850 / 850 -16.933 / 833.067 120 / 120 Weight last 48 hrs Weight 134 lb Physical Exam Narrative: GENERAL: The patient is alert and oriented times three. Not in any acute distress. Short stature HEENT: No significant pallor, icterus or lymphadenopathy.Oral cavity: There are no mucous membrane lesions. NECK: Trachea appears to be central. No masses noted. No JVD or thyromegaly appreciated. RESPIRATORY: Chest is symmetrical. No intercostals muscle retraction or any accessory muscle activation. There is no chest wall tenderness. Breath sounds are heard bilaterally. No rales or rhonchi heard. No evidence of any consolidation. BREASTS: Deferred. HEART: The heart sounds are normal. No S3 or S4. Short systolic murmur in the left sternal border. No pericardial rub ABDOMEN: No vessel pulsations or distention. No tenderness. No organomegaly appreciated. Bowel sounds are normally heard. : Deferred. RECTAL: Deferred. LYMPHATIC: No lymphadenopathy noted in the neck. EXTREMITIES: No edema or cyanosis. No clubbing. MUSCULOSKELETAL: No acute joint deformities or swelling SKIN: There are no significant rashes or ecchymosis NEUROPSYCHIATRIC: The patient is alert and oriented x3. Appears to be in a good mood. No tremors or rigidity noted. Urinary Catheter Management: Galvan: Cath Placed During This Visit: yes Reason for Continuing Indwelling Catheter: Accurate Measurement of Urinary Output in Critically Ill Patients Urinary Catheter Date of Insertion: 02/02/23 Urinary Catheter Time of Insertion: 16:48 Data 02/03/23 04:42 02/03/23 06:44 Other Labs: Laboratory Last Values WBC 11.1 10^3/uL (4.0-10.0) H 02/03/23 04:42 RBC 3.50 10^6/uL (4.1-5.3) L 02/03/23 04:42 Hgb 10.7 g/dL (11.5-15.3) L 02/03/23 04:42 Hct 31.1 % (37.0-47.0) L 02/03/23 04:42 MCV 88.9 fl (81-99) 02/03/23 04:42 MCH 30.6 pg (28.0-34.0) 02/03/23 04:42 MCHC 34.4 g/dL (30.0-36.0) 02/03/23 04:42 RDW 12.7 % (12.1-15.1) 02/03/23 04:42 Plt Count 318 10^3/cmm (130-400) 02/03/23 04:42 MPV 10.3 fL (7.4-10.4) 02/03/23 04:42 Neut % (Auto) 69.4 % 02/03/23 04:42 Lymph % (Auto) 17.3 % 02/03/23 04:42 Ste[place]s % (Auto) 12.6 % 02/03/23 04:42 Eos % (Auto) 0.2 % 02/03/23 04:42 Baso % (Auto) 0.0 % 02/03/23 04:42 Neut # (Auto) 7.71 10^3/uL (1.8-7.7) H 02/03/23 04:42 Lymph # (Auto) 1.9 10^3/uL (0.8-4.8) 02/03/23 04:42 [place]s # (Auto) 1.4 10^3/uL (0.2-0.9) H 02/03/23 04:42 Eos # (Auto) 0.0 10^3/uL (0.0-0.8) 02/03/23 04:42 Baso # (Auto) 0.0 10^3/uL (0.0-0.1) 02/03/23 04:42 Nucleated RBC % (auto) 0 % 02/03/23 04:42 Nucleated RBCs # 0.0 /100WBC 02/03/23 04:42 APTT 93.2 SECONDS (23.9-36.7) H 02/03/23 02:30 D-Dimer 1.33 ug/mIFEU (0-0.59) H 02/02/23 15:56 Sodium 125 mmol/L (136-145) L 02/03/23 06:44 Potassium 4.4 mmol/L (3.5-5.1) 02/03/23 06:44 Chloride 91 mmol/L (98-107) L 02/03/23 06:44 Carbon Dioxide 21 mmol/L (22-29) L 02/03/23 06:44 Anion Gap 17.4 (5-19) 02/03/23 06:44 BUN 20 mg/dL (8-23) 02/03/23 06:44 Creatinine 1.0 mg/dL (0.5-0.9) H 02/03/23 06:44 GFR Calculation Not Reportable 02/03/23 06:44 Glucose 151 mg/dL (65-115) H 02/03/23 06:44 Estimat Average Glucose 134 02/03/23 04:42 Hemoglobin A1c 6.3 % (4.0-6.0) H 02/03/23 04:42 Calculated Osmolality 266 mOsm/kg (285-295) L 02/03/23 06:44 Calcium 8.4 mg/dL (8.5-10.5) L 02/03/23 06:44 Phosphorus 2.9 mg/dL (2.5-4.5) 02/03/23 04:42 Magnesium 2.0 mg/dL (1.7-2.3) 02/03/23 04:42 Iron 87 ug/dL (37-145) 02/02/23 17:52 TIBC 299 mcg/dl 02/02/23 17:52 % Saturation 29.0 % (20-50) 02/02/23 17:52 Unsat Iron Binding 212 ug/dL (112-347) 02/02/23 17:52 Total Bilirubin 0.3 mg/dL (0.15-1.2) 02/03/23 04:42 AST 24 U/L (0-32) 02/03/23 04:42 ALT 39 U/L (0-33) H 02/03/23 04:42 Alkaline Phosphatase 75 U/L (35-105) 02/03/23 04:42 Troponin T Baseline 60 ng/L (0-10) H 02/02/23 15:56 Troponin T 120 Minute 190.9 ng/L (0-10) H 02/02/23 17:52 Delta Troponin T 130.9 ABS# (0-10) H* 02/02/23 17:52 Troponin T Hi Sens 6Hr 339.8 ng/L (0-10) H 02/02/23 22:07 Troponin T Hi Sens 6Hr Delta 279.8 ng/L (0-12) H* 02/02/23 22:07 NT-Pro-B Natriuret Pep 8766 pg/mL (0-450) H 02/02/23 15:56 Total Protein 6.1 g/dL (6.6-8.7) L 02/03/23 04:42 Albumin 3.7 g/dL (3.5-5.2) 02/03/23 04:42 Globulin 2.4 g/dL (1.3-4.6) 02/03/23 04:42 Triglycerides 65 mg/dL (0-150) 02/03/23 02:30 Cholesterol 174 mg/dL (0-200) 02/03/23 02:30 LDL Cholesterol, Calc 111 mg/dL (50-129) 02/03/23 02:30 Total VLDL Cholesterol 13 mg/dL (0-30) 02/03/23 02:30 HDL Cholesterol 50 mg/dL (60-100) L 02/03/23 02:30 Cholesterol/HDL Ratio 3.48 mg/dL (0.0-4.40) 02/03/23 02:30 Vitamin B12 1992 pg/mL (232-1245) H 02/02/23 17:52 Folate > 20.0 ng/mL (4.8-37.3) 02/03/23 04:42 TSH 1.08 uIU/mL (0.27-4.20) 02/02/23 17:52 Urine Color Yellow (Yellow) 02/02/23 16:32 Urine Appearance Clear (CLEAR) 02/02/23 16:32 Urine pH 5 (5-7) 02/02/23 16:32 Ur Specific [place] 1.020 (1.005-1.030) 02/02/23 16:32 Urine Protein Trace (Negative) 02/02/23 16:32 Urine Glucose (UA) 4+ (Normal) H 02/02/23 16:32 Urine Ketones 2+ (Negative) H 02/02/23 16:32 Urine Blood Neg (Negative) 02/02/23 16:32 Urine Nitrate Negative (Negative) 02/02/23 16:32 Urine Bilirubin Neg (Negative) 02/02/23 16:32 Urine Urobilinogen Norm mg/dL (Negative) 02/02/23 16:32 Ur Leukocyte Esterase Negative (Negative) 02/02/23 16:32 Urine RBC None /hpf (0-2) 02/02/23 16:32 Urine WBC 0-4 /hpf (0-5) H 02/02/23 16:32 Ur Eosinophil Smear 3 (0-0) H 02/02/23 22:15 Ur Squamous Epith Cells 0-4 /hpf (0-5) H 02/02/23 16:32 Amorphous Sediment Not Reportable 02/02/23 16:32 Urine Bacteria Trace /hpf (NONE) 02/02/23 16:32 Urine Eosinophils Eosinophils seen H 02/02/23 22:15 Ur Random Sodium 43 mmol/L 02/02/23 22:15 Ur Random Sodium Cancelled 02/02/23 22:15 Ur Random Potassium 57 mmol/L 02/02/23 22:15 Ur Random Potassium Cancelled 02/02/23 22:15 Ur Random Chloride 53 mmol/L 02/02/23 22:15 Ur Random Chloride Cancelled 02/02/23 22:15 Micro: Microbiology 02/02/23 22:15 Bacterial Antigens - Final Urine Kidney 02/02/23 22:15 Legionella Urinary Antigen - Final Unknown Source 02/02/23 17:23 Blood Culture - Preliminary Blood SPECIMEN COLLECTED 02/02/23 17:23 Blood Culture - Preliminary Blood SPECIMEN COLLECTED Echo: My impression: Normal left ventricular size and systolic function, EF 66 %. No ?regional wall motion abnormalities. ?Mild mitral valve regurgitation.? Minimally thickened mitral ?valve. ?Mildly increased left atrial size. ?Mild tricuspid valve regurgitation. ? Estimated pulmonary artery peak systolic pressure 58 mmHg. ?There is no pericardial effusion. ?There are no intracardiac masses. ?Compared to the study from 11/29/2019, there may not be a ?significant change A&P Assessment and plan (1) Acute non-ST elevation myocardial infarction (NSTEMI): Patient has clinical features of a non-ST elevation myocardial infarction. She may be treated with IV heparin, beta-jennifer, statin, aspirin and other symptomatic measures. In view of her normal LV function and absence of any significant ischemic EKG changes, I may hold off on the Plavix for the time being. She also does not seems any chest pain. Patient has a questionable history of allergy to aspirin?. But she seems to be tolerating the medication so far well. I will repeat an EKG and troponin T this morning. (2) Third degree heart block: Patient may require a permanent pacemaker evaluation. After reviewing the cardiac catheterization data, further recommendations will be made. (3) Acute hyponatremia: Clinically improving. Continue with the management as per the primary (4) Hypertension: The blood pressure is fairly under control. May continue to optimize antihypertensive medications. (5) Hyperlipidemia: May continue on the current medication Qualifiers: Hyperlipidemia type: mixed hyperlipidemia Qualified Code(s): E78.2 - Mixed hyperlipidemia (6) Recurrent UTI: Patient has chronic recurrent UTI. She is on antibiotic. This may be continued. Culture results are pending. The white cell count was slightly elevated this morning. Going to repeat this this afternoon. (7) Diabetes mellitus type 2, noninsulin dependent: Aggressive treatment would be appropriate. Plan For further evaluation of the patient's coronary status, a cardiac catheterization would be appropriate. The need for the test was discussed with the patient and her daughter in detail. Risk and benefits were discussed. The risk of bleeding, hematoma, vascular injury, myocardial infarction, myocardial perforation, malignant cardiac arrhythmias ,CVA, renal failure and other concomitant complications were explained in detail. Patient and her daughter understood this well and consented to proceed We may go ahead and do schedule this procedure for this afternoon. Patient the patient clinical progress and the results of the above, further commendations will be made Attestations Medical Necessity Statement*: Patient requires continued hospital stay for close monitoring and further management Coding Level of Care Code 19986 Diagnoses Acute non-ST elevation myocardial infarction (NSTEMI) I21.4 Third degree heart block I44.2 Acute hyponatremia E87.1 Hypertension I10 Hyperlipidemia E78.2 Hyperlipidemia type: mixed hyperlipidemia Recurrent UTI N39.0 Diabetes mellitus type 2, noninsulin dependent E11.9
--- NOTE | 2023-02-03 09:38 | ECG_ITS ---
[facility] Test Date: 2023-02-03 Pat Name: Mckenna Alanis Department: Room: [facility] Gender: Female Picker / Packer: : [id number] Requested By: Pineda Prahter Order Number: [id number] Artemio MD: Pineda Prather M.D. Measurements Intervals [place] Rate: 40 P: 0 AL: 0 QRS: 17 QRSD: 80 T: 66 QT: 400 QTc: 327 Interpretive Statements SINUS RHYTHM WITH HIGH GRADE AV BLOCK LOW QRS VOLTAGE IN PRECORDIAL LEADS [QRS DEFLECTION < 1.0 mV IN CHEST LEADS] POSSIBLE ANTERIOR MYOCARDIAL INFARCTION , PROBABLY OLD [30 ms Q WAVE IN V3/V4, OR R < 0.2 mV IN V4] CRITICAL TEST RESULT Compared to ECG 02/02/2023 18:04:11 Low QRS voltage now present Myocardial infarct finding now present Sinus bradycardia no longer present ST (T wave) deviation no longer present Electronically Signed On 02-04-2023 18:48:53 CDT by Pineda Prather M.D. [id number]
[2023-02-03 09:53] LABS: Partial Thromboplastin Time 71.6 SECONDS (23.9-36.7)
[2023-02-03 10:17] LABS: Troponin T (5th) Once 207 ng/L (0-10)
[2023-02-03] MEDS: sodium chloride 0.9% 1,000 ML 75 ML IV ×2 (11:31→16:45)
[2023-02-03 12:26] LABS: Basophils % 0.1 %; Hematocrit 31.2 % (37.0-47.0); Hemoglobin 10.7 g/dL (11.5-15.3); Lymphocytes # 1.4 10^3/uL (0.8-4.8); Lymphocytes % 9.7 %; Mean Corpuscular HGB Conc 34.3 g/dL (30.0-36.0); Mean Corpuscular Hemoglobin 30.7 pg (28.0-34.0); Mean Corpuscular Volume 89.7 fl (81-99); Mean Platelet Volume 10.3 fL (7.4-10.4); Monocytes # 1.9 10^3/uL (0.2-0.9); Monocytes % 13.1 %; Neutrophils # 10.85 10^3/uL (1.8-7.7); Neutrophils % 76.4 %; Nucleated Red Blood Cells % 0.1 %; Platelet Count 317 10^3/cmm (130-400); Red Blood Count 3.48 10^6/uL (4.1-5.3); Red Cell Distribution Width 12.7 % (12.1-15.1); White Blood Count 14.2 10^3/uL (4.0-10.0)
[2023-02-03 12:44] LABS: Anion Gap 19.8 (5-19); Blood Urea Nitrogen 20 mg/dL (8-23); Carbon Dioxide 19 mmol/L (22-29); Chloride 88 mmol/L (98-107); Glucose 185 mg/dL (65-115); Osmolality Calculated 263 mOsm/kg (285-295); Potassium 3.8 mmol/L (3.5-5.1); Sodium 123 mmol/L (136-145)
--- NOTE | 2023-02-03 13:25 | P.PN_ITS ---
Subjective Subjective: No acute events overnight. Overnight patient received 1 dose of IV Lasix after which she had on 2 L of urine output. Today morning seen with multiple family members at bedside. Patient states she is breathing a lot better than what she was yesterday. She is on 2 to 3 L of oxygen supplementation saturating more than 95%. Heart rate remains in low 30s with continuous complete heart block. Patient denies any chest pain but does complain of nausea, mild dizziness on moving. Blood work appreciated for a hemoglobin of 10.7, mild leukocytosis of 11.1, sodium level improving to 125, creatinine at 1, troponin cycle with delta of 280 with troponin today morning 207. Vitals/I&O/Wt Last Vital Signs Temp 97.6 F 02/03/23 12:00 Pulse 36 L 02/03/23 09:18 Resp 16 02/03/23 09:15 BP 146/66 02/03/23 04:45 Pulse Ox 95 02/03/23 09:15 O2 Del Method Nasal Cannula 02/03/23 09:15 O2 Flow Rate 3 02/03/23 09:15 02/02/23 02/03/23 02/03/23 22:59 06:59 14:59 Intake Total 1250 / 1250 983.067 / 2233.067 120 / 120 Output Total 400 / 400 1000 / 1400 1200 / 1200 Balance 850 / 850 -16.933 / 833.067 -1080 / -1080 Weight last 48 hrs Weight 60.781 kg Weight 60.781 kg Physical Exam Narrative: General: No acute distress, AO x3, on 2 L of oxygen supplementation, dehydrated HEENT: PERRLA, pupils bilaterally equal and reactive Chest: Normal vesicular breath sounds, no added sounds, equal good air entry bilaterally CVS: S1-S2 irregular, bradycardia, no gallops, no rubs Abdomen: Soft, nontender, no organomegaly, bowel sounds present Neuro: No focal deficits, no facial deformity, AO x3, power 5/5 in all limbs Urinary Catheter Management: Galvan: Cath Placed During This Visit: yes Reason for Continuing Indwelling Catheter: Accurate Measurement of Urinary O utput in Critically Ill Patients Urinary Catheter Date of Insertion: 02/02/23 Urinary Catheter Time of Insertion: 16:48 Data 02/03/23 12:12 02/03/23 12:12 Micro: Microbiology 02/02/23 17:23 Blood Culture - Preliminary Blood SPECIMEN COLLECTED 02/02/23 22:15 MRSA Culture - Final Nose 02/02/23 22:15 Bacterial Antigens - Final Urine Kidney 02/02/23 22:15 Legionella Urinary Antigen - Final Unknown Source 02/02/23 17:23 Blood Culture - Preliminary Blood SPECIMEN COLLECTED A&P Assessment and plan (1) Third degree heart block: Symptomatic. Patient not on rate limiting medications. Complaining of d izziness and shortness of breath on exertion. Currently hemodynamically stable. Cardiology consulted. Holding off on temporary pacemaker as patient is hemodynamically stable. Keep magnesium around 2, potassium around 4. Echocardiogram result shows an EF 66%, mild MR, mildly increased LA size, mild TR, PASP of 58 mmHg. Troponin cycle trended up with a delta of 280 in 6 hours. Repeat troponin today morning. Most likely patient will need pacemaker implantation. Will await cardiology recommendations. (2) Symptomatic bradycardia: (3) Elevated troponin: Type II versus non-ST elevation LA. Appreciate cardiology recommendations. N.p.o. for now. Plan for cardiac angiogram today. Continue with aspirin 81 mg, atorvastatin 40 mg daily. Continue with heparin drip for now. Appreciate A1c, lipid panel. (4) Acute hyponatremia: Most likely in setting of hypervolemic hyponatremia. Baseline sodium level normal. Improving to 125. Slight overcorrection. Gentle IV hydration for possible cardiac angiogram today. Monitor input and output. Most likely will repeat Lasix and evening. Continue to check BMP every 4 hours for now. Target 8 to 10 mEq improvement in next 24 hours. (5) Recurrent UTI: Appreciate UA. Recent urine culture from 01/27 shows E. coli sensitive to Augmentin. Recently started on Augmentin. For now switch to IV ceftriaxone. Follow-up blood cultures. (6) Diabetes mellitus type 2, noninsulin dependent: A1c 6.3. Hold off on insulin sliding scale for now. Monitor BMP daily. Not on any oral hypoglycemics. 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 She would want to remain full code. Regular diet. Heparin drip will suffice as DVT prophylaxis. Protonix OPD prophylaxis. Attestations Medical Necessity Statement*: Hospitalization for management of complete heart block, non-ST elevation LA requiring cardiac angiogram, acute hyponatremia secondary to hypervolemia requ iring recurrent sodium checks Coding Level of Care Code Critical Care >/= 30 minutes Critical care time (in minutes): 70 The high probability of a clinically significant, sudden or life threatening deterioration, as referenced in this documentation, required my full and direct attention, intervention and personal management. The critical care time shown is in addition to time spent performing any reported separately billable procedures and includes the following: [x] Data and vital sign review and interpretation [x ] Patient assessment, examination and intervention [x] Medication orders and management [x] Patient/Family updates as able [x] Care Coordination and Documentation. Diagnoses Third degree heart block I44.2 Symptomatic bradycardia R00.1 Elevated troponin R79.89 Acute hyponatremia E87.1 Recurrent UTI N39.0 Diabetes mellitus type 2, noninsulin dependent E11.9 Malignant neoplasm of posterior wall of bladder C67.4
--- NOTE | 2023-02-03 14:25 | XACV_ITS ---
Exam Room: 2 Ht: 152 cm Wt: 61 kg BSA: 1.62 m2 Gender: Female : 1940 Any Known Allergies: Other Exam Priority: Routine Procedure(s): Procedure Description: Diagnostic procedure Procedure Description: Miscellaneous Procedure Description: ACT Procedure Description: Coronary Angiography Crescencio HOPE; Diagnostic Cath Status: Urgent Diagnostic Findings * Left main is a medium caliber vessel with no significant stenotic lesions. * Left anterior sending artery examining cardioesophageal patient wraparound LV apex minimally. Mid LAD was found to have around 40 to 50% diffuse eccentric narrowing. The first diagonal branch coming out of this area also was found to have an ostial around 30% narrowing. No other significant extremity lesions were noted. * The intermedius artery is a medium caliber vessel which has around 40% segmental narrowing at the mid segment.. * The left circumflex artery is a medium caliber dominant vessel which gives of a high obtuse marginal branch. Mild intimal irregularities are noted in the mid segment of the artery. * The right coronary artery is a small to medium caliber nondominant vessel which has a high and posterior takeoff. No significant stenotic lesions were noted. I used a Jeremy Posterior catheter to engage this artery.. Conclusions 1. 82-year-old white female with a history of hypertension, diabetes and dyslipidemia, presenting with high degree AV block and symptomatic bradycardia. She was found to have significant delta on the Troponin T. clinical features are suggestive of see-DF-gepbebxic myocardial infarction complicated with third-degree heart block. For further evaluation of the patient's coronary status, a cardiac catheterization was recommended. 2. Patient doing left and right coronary angiogram today. Findings are as follows. 3. Left main is a medium caliber vessel with no significant stenotic lesions The mid LAD was found to have around 50% diffuse tubular narrowing in the midsegment. Mild diffuse disease in the other vessels. Left dominant coronary circulation. Nondominant relatively smaller caliber right coronary artery which has a high and posterior takeoff. Interventional RX Recommendation: medical therapy and/or counseling Diagnostic RX Recommendation: medical therapy and/or counseling Left Ventriculography Findings: * Because of some technical difficulties, angiogram could not be performed. Pressures Phase:Rest AO : 184 / 115 ( 120 ) @ 6:38:00 PM 151 / 85 ( 115 ) @ 6:38:00 PM 174 / 71 ( 109 ) @ 6:39:00 PM Clinical Evaluation EBL: 5mL-10mL Procedural Details Procedure Consent Obtained. Admit Source: In Patient. Pre-Procedure Time Out. Identified patient by full name and date of as verbalized by the patient/guarantor. Does the consent match the physician's order: Yes. Accurate & Complete Informed Consent: Yes. Inpatient/Outpatient History & Physical on Chart: Yes. If H&P is completed, is and addenduem needed: No. Visualize and Verify Site with Patient/Guarantor: N/A. Relevant Radiology Images available: Yes. The risks, benefits, and alternatives of sedation and/or procedure were discussed by physician. The patient agrees to continue. Procedure started. [facility] Clinical Fraility Score: 4: Vulnerable. Lining Presser Indications: ACS > 24 hours/NSTEMI/High Degree AV block. Chest Pain Symptom Assessment: Typical Angina Symptoms. Cardiovascular Instability: No. Correct patient, site and procedure confirmed by cath team. PERRLA. 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 Lungs clear x 5 lobes. IV Site on Arrival: 20 gauge in the right anticubital. IV Site on Arrival: 22 gauge in the right wrist. IV Site on Arrival: 20 gauge in the left anticubital. IV Fluids: 0.9% NaCl at KVO. 50 mL infused prior to [employer]. Pre Procedural Pulses: bilateral dorsalis pedis was 1+. Pre Procedural Pulses: bilateral posterior tibial was Doppled. Oxygen started at 3liters/min via nasal canula. bilateral groins was prepped with chloroprep then draped in the usual sterile fashion. Physician notified. Baseline sample Acquired. HR: 43 BPM. A 16Fr anders catheter was intact on arrival to the [employer]. Bag to gravity with clear urine returning. Patient's family in the [employer] waiting room. Dr. Prather will update at the completion of the procedure. Equipment: 5F - Femoral. Heparinized Saline (2 units/mL), 1000 mL bag. Kit, Micropuncture. Cardiac Cath Pack. ACIST Manifold Kit Model BT 2000. Inventory is JJ 5F 11cm Kellie Plus Sheath. Physician arrived. AP pads placed on the patient. Physician scrubbed in. Immediate Pre-Procedure Time Out. Correct Patient: Yes; Correct Procedure: Yes; Correct Site: Yes; Correct Patient Position: Yes; Correct Supplies: Yes; Dried Flammable Prep: Yes; Blood Products Available: N/A. Lidocaine 1% infiltrated to the right groin. Venous access obtained with a micropuncture set. Arterial access obtained with micropuncture set. Unable to advance micropuncture wire. Wire and needle out. Dr. Prather holding manual pressure. Arterial access obtained with micropuncture set. ACT drawn. Results 123 seconds. Therapeutic limits - pre-heparin administration 90-150 seconds and monitoring heparin during a vascular procedure >250 seconds. A 5 gambian JL4 catheter in over the standard J wire. Multiple views taken of left coronary artery. Bilateral soft wrist restraints applied per Dr. Hong order. Catheter removed over the standard J wire. A 5 gambian JR4 catheter in over the standard J wire. Unable to cannulate with JR4. Catheter removed over the standard J wire. A 5 gambian 3DRC catheter in over the standard J wire. Catheter removed over the standard J wire. A 5 gambian Straight Pig catheter in over the standard J wire. Unable to cross the valve. Catheter removed over the standard J wire. Physician scrubbed out. A Suture was successful obtaining hemostatsis at the Right Femoral vein insertion site. A Suture was successful obtaining hemostatsis at the Right Femoral artery insertion site. Sheath(s) sutured into position with 2-0 silk and sterile 4x4's and Op-site applied over the site. No oozing or signs and symptoms of hematoma noted. Arterial sheath flushed and connected to tranducer and pressure bag with heparinized saline. Post Procedure: Pulses reassessed and unchanged. PERRLA. 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 No VTE prophylaxis required. Medication's Wasted: Other = Versed 1 mg. Medication's Wasted: Other = Fentayl 75 mcg. Medication's Wasted: Lidocaine 1% = 5 mL. Medication's Wasted: Heparin = 4000 Units. Total IV fluids: 30 mL. Post-op diagnosis: Mild CAD. Complications: none. Estimated blood loss: 5mL-10mL. Responsiveness - Normal response to verbal stimuli; alert and oriented, PERRLA. Airway - Unaffected, no intervention required; spontaneous ventilation. Circulation: W/N/L, pulses unchanged. Nausea/Vomiting: No. Vital chart was stopped. Procedure completed. Patient transferred by bed to ICU. Access Site Site: Right Femoral vein Sheath Size: 6 Fr Hemostasis Method: Suture Hemostasis Success: Successful Site: Right Femoral artery Sheath Size: 5 Fr Hemostasis Method: Suture Hemostasis Success: Successful Procedure Medications Start: 5:09 PM Stop: 5:09 PM Medication: Zofran (ondansetron) Amount: 4 mg Route: I.V. Start: 5:18 PM Stop: 5:18 PM Medication: Versed Amount: 1 mg Route: I.V. Start: 5:18 PM Stop: 5:18 PM Medication: Fentanyl Amount: 25 mcg Route: I.V. Start: 5:19 PM Stop: 5:19 PM Medication: Benadryl Amount: 25 mg Route: I.V. I, the attending physician, have reviewed and verified all procedure medications. Yes, all medications given per verbal order History/Risk Factors Hypertension: No Dyslipidemia: No Peripheral Arterial Disease (PAD): No Myocardial Infarction (NV): No Obesity: No Tobacco Use: Former Prior Interventions PCI: No CABG: No Valve Surgery: No Report Signatures Finalized by Dr Pineda Prather MD [facility] on 02/03/2023 10:08 PM
--- NOTE | 2023-02-03 14:37 | W.PM.OPSUD ---
Surgery/Procedure H&P Update DATE OF PROCEDURE: February 03, 2023 DATE H&P PERFORMED: 02/02/23 H&P UPDATE INFORMATION: I have reviewed H&P completed within last 30 days, I have examined patient prior to procedure and No changes to prior documentation PREOP DIAGNOSIS: ASHD/ heart block PRIMARY INDICATION FOR PROCEDURE: Non-ST elevation myocardial infarction/third-degree heart PLANNED PROCEDURE: Transvenous temporary pacer insertion Left heart catheterization with coronary angiogram and possible PCI PATIENT REASSESSED PRIOR TO SEDATION, WITH NO CHANGE NOTED: Yes PHYSICAL EXAM: alert, oriented x 3, clear to auscultation bilaterally and regular rate & rhythm AIRWAY EVAL/ANESTHESIA PLAN: normal airway, ASA IV, Monitored Anesthesia, Local Anesthesia, Risks, benefits & alternatives of sedation and/or procedure discussed and Patient agrees to continue as planned
[2023-02-03 16:00] LABS: Partial Thromboplastin Time 56.4 SECONDS (23.9-36.7)
[2023-02-03] MEDS: cefTRIAXone 1,000 MG in sodium chloride 0.9% (plus) 50 ML 100 MG IV (16:46)
[2023-02-03] MEDS: acetaminophen 325 mg Tablet 650 MG PO (20:23)
[2023-02-03] MEDS: atorvastatin 40 mg Tablet PO (20:24)
[2023-02-03 20:50] LABS: Hematocrit 30.5 % (37.0-47.0); Hemoglobin 10.7 g/dL (11.5-15.3)
[2023-02-03 22:08] LABS: Anion Gap 18.6 (5-19); Blood Urea Nitrogen 18 mg/dL (8-23); Calcium 8.1 mg/dL (8.5-10.5); Carbon Dioxide 21 mmol/L (22-29); Chloride 87 mmol/L (98-107); Glucose 179 mg/dL (65-115); Osmolality Calculated 262 mOsm/kg (285-295); Potassium 3.6 mmol/L (3.5-5.1); Sodium 123 mmol/L (136-145)
[2023-02-04] VITALS (48 sets, daily range): BP systolic 85–164; BP diastolic 44–89; PULSE 31–72; RESP 9–25; TEMP 36.4–36.7; O2SAT 80–100; BMI 27.7
--- NOTE | 2023-02-04 00:24 | PC.NURSE ---
Retrospective charting. Some times approximated. 1919: Summoned to bedside by fellow HOUSE SUPERINTENDENT. Informed that patient pulled venous sheath. Manual pressure being applied by a third member of ICU team. Arterial sheath remains in place; still connected to pressure bag. Patient alert, apologetic, but confused. No change vital signs from earlier assessment, pedal pulses palpable. 1929: Hospitalist (Dr. Bello Hood) paged to bedside to further assess. Pressure maintained at right groin from 1919 to 1944. Gauze and tegaderm dressing placed. Patient's family at bedside. 2004: Dr Prather updated. Hgb, Hct, and PTT ordered. Instructed to discontinue arterial sheath as soon as possible per protocol. 2199: PTT results acknowledged. Patient awake and oriented. Family at bedside. Arterial sheath removed. Pressure to site and maintained until 2224. Gauze and tegaderm dressing placed. Patient instructed to remain flat and keep leg still. Both patient and family members verbalized understanding. 2329: Frequent checks to groin site per protocol. No bleeding/oozing, dressing c/d/i, area soft on palpation. Pedal pulses remain palpable bilat. Patient resting quietly; oriented to person, place, situation. Answers no to pain at groin, back, or chest.
[2023-02-04 03:19] LABS: Basophils % 0.1 %; Hematocrit 29.4 % (37.0-47.0); Lymphocytes # 2.3 10^3/uL (0.8-4.8); Lymphocytes % 18.1 %; Mean Corpuscular Hemoglobin 30.6 pg (28.0-34.0); Mean Corpuscular Volume 89.9 fl (81-99); Mean Platelet Volume 10.4 fL (7.4-10.4); Monocytes # 1.7 10^3/uL (0.2-0.9); Monocytes % 13.2 %; Neutrophils % 67.7 %; Nucleated Red Blood Cells # 0.1 /100WBC; Nucleated Red Blood Cells % 0.6 %; Platelet Count 301 10^3/cmm (130-400); Red Blood Count 3.27 10^6/uL (4.1-5.3); Red Cell Distribution Width 12.7 % (12.1-15.1); White Blood Count 12.8 10^3/uL (4.0-10.0)
[2023-02-04 03:38] LABS: Alanine Aminotransferase 42 U/L (0-33); Albumin Level 3.6 g/dL (3.5-5.2); Alkaline Phosphatase 85 U/L (35-105); Anion Gap 17.7 (5-19); Aspartate Amino Transferase 24 U/L (0-32); Blood Urea Nitrogen 17 mg/dL (8-23); Calcium 8.1 mg/dL (8.5-10.5); Carbon Dioxide 23 mmol/L (22-29); Chloride 89 mmol/L (98-107); Globulin 2.6 g/dL (1.3-4.6); Glucose 176 mg/dL (65-115); Osmolality Calculated 268 mOsm/kg (285-295); Potassium 3.7 mmol/L (3.5-5.1); Sodium 126 mmol/L (136-145); Total Bilirubin 0.3 mg/dL (0.15-1.2); Total Protein 6.2 g/dL (6.6-8.7)
[2023-02-04] MEDS: heparin 5,000 unit/mL INJ 1 mL 5000 UNIT SUBCUT ×2 (07:42→20:58)
[2023-02-04] MEDS: pantoprazole DR 40 mg Tablet PO (07:42)
[2023-02-04] MEDS: gabapentin 300 mg Capsule PO ×3 (07:42→20:57)
[2023-02-04] MEDS: ezetimibe 10 mg Tablet PO (07:42)
[2023-02-04] MEDS: aspirin 81 mg EC Tablet PO (07:42)
[2023-02-04] MEDS: ipratropium-albuterol 3 mL Neb INHALATION ×3 (08:54→20:04)
--- NOTE | 2023-02-04 09:25 | PM.PN ---
Subjective Subjective: Patient had a cardiac catheterization yesterday. She was found to have mild to moderate disease in the LAD. No other significant lesions. Currently she is stable with no chest pain. She has some shortness of breath with activities. She has some intermittent improvement diastolic heart failure. She is on as needed Lasix. The telemetry still shows third-degree heart block. Sinus tachycardia with A-V dissociation Medications: Medication Review Details: Current Medications Acetaminophen (Acetaminophen 325 Mg Tablet) 650 mg PO Q6H PRN PRN Reason: Mild/Mod Pain Or Temp >/= 101 Last Admin: 02/03/23 20:23 Dose: 650 mg Al Hydrox/Mg Hydrox/Simethicone (Fgwm-Obh-Wstoadjqx-Shamika 30 Ml Udc) 30 ml PO Q15M PRN PRN Reason: INDIGESTION Albuterol/Ipratropium (Ipratropium-Albuterol 3 Ml Neb) 3 ml INHALATION Q6H.RESP [facility] Last Admin: 02/04/23 08:54 Dose: 3 ml Alprazolam (Alprazolam 0.5 Mg Tablet) 0.25 mg PO TID PRN PRN Reason: ANXIETY Aspirin (Aspirin 81 Mg Ec Tablet) 81 mg PO DAILY [facility] Last Admin: 02/04/23 07:42 Dose: 81 mg Atorvastatin Calcium (Atorvastatin 40 Mg Tablet) 40 mg PO BEDTIME [facility] Last Admin: 02/03/23 20:24 Dose: 40 mg Atropine Sulfate (Atropine 1 Mg/Ml Sdv 1 Ml) 0.5 mg IVP PRN PRN PRN Reason: Symptomatic bradycardia Bisacodyl (Bisacodyl 5 Mg Tablet) 10 mg PO DAILY PRN; Protocol PRN Reason: Constipation (see protocol) Ezetimibe (Ezetimibe 10 Mg Tablet) 10 mg PO DAILY [facility] Last Admin: 02/04/23 07:42 Dose: 10 mg Gabapentin (Gabapentin 300 Mg Capsule) 300 mg PO TID [facility] Last Admin: 02/04/23 07:42 Dose: 300 mg Heparin Sodium (Porcine) (Heparin 5,000 Unit/Ml Inj 1 Ml) 5,000 unit SUBCUT Q12H [facility] Last Admin: 02/04/23 07:42 Dose: 5,000 unit Ceftriaxone Sodium 1,000 mg/ (Sodium Chloride) 50 mls @ 100 mls/hr IV Q24H [facility]; Protocol Last Infusion: 02/03/23 19:00 Dose: Infused Sodium Chloride (Sodium Chloride 0.9%) 1,000 mls @ 75 mls/hr IV .[id number] [facility] Last Admin: 02/03/23 16:45 Dose: 75 mls/hr Lactulose (Lactulose Oral Liq 20 Gm/30 Ml Udc) 10 gm PO DAILY PRN; Protocol PRN Reason: Constipation (see protocol) Magnesium Hydroxide (Magnesium Hydroxide 30 Ml Udc) 30 ml PO DAILY PRN; Protocol PRN Reason: Constipation (see protocol) Morphine Sulfate (Morphine 4 Mg/Ml Sdv 1 Ml) 2 mg IVP Q4H PRN PRN Reason: SEVERE PAIN Naloxone HCl (Naloxone 0.4 Mg/Ml Sdv) 0.1 mg IVP Q2M PRN PRN Reason: RESPIRATORY RATE < 8/MIN Nitroglycerin (Nitroglycerin 0.4 Mg Sublingual Tablet) 0.4 mg SUBLINGUAL Q5M PRN PRN Reason: CHEST PAIN Ondansetron HCl (Ondansetron 2 Mg/Ml Sdv 2 Ml) 4 mg IVP Q6H PRN PRN Reason: NAUSEA AND VOMITING Last Admin: 02/02/23 17:49 Dose: 4 mg Pantoprazole Sodium (Pantoprazole Dr 40 Mg Tablet) 40 mg PO DAILY [facility] Last Admin: 02/04/23 07:42 Dose: 40 mg Temazepam (Temazepam 15 Mg Capsule) 15 mg PO BEDTIME PRN PRN Reason: INSOMNIA Vitals/I&O/Wt Last Vital Signs Temp 97.7 F 02/04/23 04:00 Pulse 38 L 02/04/23 09:02 Resp 17 02/04/23 08:54 BP 137/78 02/04/23 07:30 Pulse Ox 98 02/04/23 08:54 O2 Del Method Nasal Cannula 02/04/23 08:54 O2 Flow Rate 5 02/04/23 08:54 02/03/23 02/04/23 02/04/23 22:59 06:59 14:59 Intake Total 882.5 / 1002.5 230 / 1232.5 Output Total 2490 / 3690 1000 / 4690 Balance -1607.5 / -2687.5 -770 / -3457.5 Weight last 48 hrs Weight 134 lb Weight 134 lb Physical Exam Narrative: GENERAL: The patient is alert and oriented times three. Not in any acute distress. Short stature HEENT: No significant pallor, icterus or lymphadenopathy.Oral cavity: There are no mucous membrane lesions. NECK: Trachea appears to be central. No masses noted. No JVD or thyromegaly appreciated. RESPIRATORY: Chest is symmetrical. No intercostals muscle retraction or any accessory muscle activation. There is no chest wall tenderness. Breath sounds are heard bilaterally. No rales or rhonchi heard. No evidence of any consolidation. BREASTS: Deferred. HEART: The heart sounds are normal. No S3 or S4. Short systolic murmur in the left sternal border. No pericardial rub ABDOMEN: No vessel pulsations or distention. No tenderness. No organomegaly appreciated. Bowel sounds are normally heard. : Deferred. RECTAL: Deferred. LYMPHATIC: No lymphadenopathy noted in the neck. EXTREMITIES: The right groin has no hematoma or bleeding. MUSCULOSKELETAL: No acute joint deformities or swelling SKIN: There are no significant rashes or ecchymosis NEUROPSYCHIATRIC: The patient is alert and oriented x3. Appears to be in a good mood. No tremors or rigidity noted. Urinary Catheter Management: Galvan: Cath Placed During This Visit: yes Reason for Continuing Indwelling Catheter: Accurate Measurement of Urinary Output in Critically Ill Patients Urinary Catheter Date of Insertion: 02/02/23 Urinary Catheter Time of Insertion: 16:48 Data 02/04/23 02:53 02/04/23 02:53 Other Labs: Laboratory Last Values WBC 12.8 10^3/uL (4.0-10.0) H 02/04/23 02:53 RBC 3.27 10^6/uL (4.1-5.3) L 02/04/23 02:53 Hgb 10.0 g/dL (11.5-15.3) L 02/04/23 02:53 Hct 29.4 % (37.0-47.0) L 02/04/23 02:53 MCV 89.9 fl (81-99) 02/04/23 02:53 MCH 30.6 pg (28.0-34.0) 02/04/23 02:53 MCHC 34.0 g/dL (30.0-36.0) 02/04/23 02:53 RDW 12.7 % (12.1-15.1) 02/04/23 02:53 Plt Count 301 10^3/cmm (130-400) 02/04/23 02:53 MPV 10.4 fL (7.4-10.4) 02/04/23 02:53 Neut % (Auto) 67.7 % 02/04/23 02:53 Lymph % (Auto) 18.1 % 02/04/23 02:53 [place] % (Auto) 13.2 % 02/04/23 02:53 Eos % (Auto) 0.0 % 02/04/23 02:53 Baso % (Auto) 0.1 % 02/04/23 02:53 Neut # (Auto) 8.70 10^3/uL (1.8-7.7) H 02/04/23 02:53 Lymph # (Auto) 2.3 10^3/uL (0.8-4.8) 02/04/23 02:53 [place] # (Auto) 1.7 10^3/uL (0.2-0.9) H 02/04/23 02:53 Eos # (Auto) 0.0 10^3/uL (0.0-0.8) 02/04/23 02:53 Baso # (Auto) 0.0 10^3/uL (0.0-0.1) 02/04/23 02:53 Nucleated RBC % (auto) 0.6 % 02/04/23 02:53 Nucleated RBCs # 0.1 /100WBC 02/04/23 02:53 APTT 24.0 SECONDS (23.9-36.7) D 02/03/23 20:44 D-Dimer 1.33 ug/mIFEU (0-0.59) H 02/02/23 15:56 Sodium 126 mmol/L (136-145) L 02/04/23 02:53 Potassium 3.7 mmol/L (3.5-5.1) 02/04/23 02:53 Chloride 89 mmol/L (98-107) L 02/04/23 02:53 Carbon Dioxide 23 mmol/L (22-29) 02/04/23 02:53 Anion Gap 17.7 (5-19) 02/04/23 02:53 BUN 17 mg/dL (8-23) 02/04/23 02:53 Creatinine 1.1 mg/dL (0.5-0.9) H 02/04/23 02:53 GFR Calculation Not Reportable 02/04/23 02:53 Glucose 176 mg/dL (65-115) H 02/04/23 02:53 Estimat Average Glucose 134 02/03/23 04:42 Hemoglobin A1c 6.3 % (4.0-6.0) H 02/03/23 04:42 Calculated Osmolality 268 mOsm/kg (285-295) L 02/04/23 02:53 Calcium 8.1 mg/dL (8.5-10.5) L 02/04/23 02:53 Phosphorus 2.9 mg/dL (2.5-4.5) 02/03/23 04:42 Magnesium 2.0 mg/dL (1.7-2.3) 02/03/23 04:42 Iron 87 ug/dL (37-145) 02/02/23 17:52 TIBC 299 mcg/dl 02/02/23 17:52 % Saturation 29.0 % (20-50) 02/02/23 17:52 Unsat Iron Binding 212 ug/dL (112-347) 02/02/23 17:52 Total Bilirubin 0.3 mg/dL (0.15-1.2) 02/04/23 02:53 AST 24 U/L (0-32) 02/04/23 02:53 ALT 42 U/L (0-33) H 02/04/23 02:53 Alkaline Phosphatase 85 U/L (35-105) 02/04/23 02:53 Troponin T Gen 5 ng/L 207 ng/L (0-10) H* 02/03/23 06:44 Troponin T Baseline 60 ng/L (0-10) H 02/02/23 15:56 Troponin T 120 Minute 190.9 ng/L (0-10) H 02/02/23 17:52 Delta Troponin T 130.9 ABS# (0-10) H* 02/02/23 17:52 Troponin T Hi Sens 6Hr 339.8 ng/L (0-10) H 02/02/23 22:07 Troponin T Hi Sens 6Hr Delta 279.8 ng/L (0-12) H* 02/02/23 22:07 NT-Pro-B Natriuret Pep 8766 pg/mL (0-450) H 02/02/23 15:56 Total Protein 6.2 g/dL (6.6-8.7) L 02/04/23 02:53 Albumin 3.6 g/dL (3.5-5.2) 02/04/23 02:53 Globulin 2.6 g/dL (1.3-4.6) 02/04/23 02:53 Triglycerides 65 mg/dL (0-150) 02/03/23 02:30 Cholesterol 174 mg/dL (0-200) 02/03/23 02:30 LDL Cholesterol, Calc 111 mg/dL (50-129) 02/03/23 02:30 Total VLDL Cholesterol 13 mg/dL (0-30) 02/03/23 02:30 HDL Cholesterol 50 mg/dL (60-100) L 02/03/23 02:30 Cholesterol/HDL Ratio 3.48 mg/dL (0.0-4.40) 02/03/23 02:30 Vitamin B12 1992 pg/mL (232-1245) H 02/02/23 17:52 Folate > 20.0 ng/mL (4.8-37.3) 02/03/23 04:42 TSH 1.08 uIU/mL (0.27-4.20) 02/02/23 17:52 Urine Color Yellow (Yellow) 02/02/23 16:32 Urine Appearance Clear (CLEAR) 02/02/23 16:32 Urine pH 5 (5-7) 02/02/23 16:[address] 1.020 (1.005-1.030) 02/02/23 16:32 Urine Protein Trace (Negative) 02/02/23 16:32 Urine Glucose (UA) 4+ (Normal) H 02/02/23 16:32 Urine Ketones 2+ (Negative) H 02/02/23 16:32 Urine Blood Neg (Negative) 02/02/23 16:32 Urine Nitrate Negative (Negative) 02/02/23 16:32 Urine Bilirubin Neg (Negative) 02/02/23 16:32 Urine Urobilinogen Norm mg/dL (Negative) 02/02/23 16:32 Ur Leukocyte Esterase Negative (Negative) 02/02/23 16:32 Urine RBC None /hpf (0-2) 02/02/23 16:32 Urine WBC 0-4 /hpf (0-5) H 02/02/23 16:32 Ur Eosinophil Smear 3 (0-0) H 02/02/23 22:15 Ur Squamous Epith Cells 0-4 /hpf (0-5) H 02/02/23 16:32 Amorphous Sediment Not Reportable 02/02/23 16:32 Urine Bacteria Trace /hpf (NONE) 02/02/23 16:32 Urine Eosinophils Eosinophils seen H 02/02/23 22:15 Ur Random Sodium 43 mmol/L 02/02/23 22:15 Ur Random Sodium Cancelled 02/02/23 22:15 Ur Random Potassium 57 mmol/L 02/02/23 22:15 Ur Random Potassium Cancelled 02/02/23 22:15 Ur Random Chloride 53 mmol/L 02/02/23 22:15 Ur Random Chloride Cancelled 02/02/23 22:15 Micro: Microbiology 02/03/23 19:00 Blood Culture - Preliminary Blood SPECIMEN COLLECTED 02/03/23 18:46 Blood Culture - Preliminary Blood SPECIMEN COLLECTED 02/02/23 17:23 Blood Culture - Preliminary Blood NEGATIVE TO DATE 02/02/23 17:23 Blood Culture - Preliminary Blood Staphylococcus epidermidis 02/02/23 22:15 MRSA Culture - Final Nose 02/02/23 22:15 Bacterial Antigens - Final Urine Kidney A&P Assessment and plan (1) Acute non-ST elevation myocardial infarction (NSTEMI): Patient had a cardiac catheterization yesterday and was found to have mild to moderate coronary artery disease. Based on this information, she will be treated with risk modifying measures (2) Third degree heart block: For further management of her condition, patient requires a permanent pacemaker implantation. Because of her chronic urinary tract infection and also an indwelling [id number]-L-Cath, it would be more appropriate for her to have a leadless pacemaker. I will consult Dr. Smith to consider this. (3) Acute hyponatremia: Her sodium is improving. Continue with the management as per the primary (4) Hypertension: The blood pressure is fairly under control. May continue to optimize antihypertensive medications. (5) Hyperlipidemia: May continue on the current medication Qualifiers: Hyperlipidemia type: mixed hyperlipidemia Qualified Code(s): E78.2 - Mixed hyperlipidemia (6) Recurrent UTI: Patient is on antibiotics. White cell count elevation, could be an acute phase reactant. The WBC count is coming down. (7) Diabetes mellitus type 2, noninsulin dependent: Aggressive treatment would be appropriate. Plan Dr. Smith will review the case and decide on the feasibility of possible AV Micra, for further management of her condition Attestations Medical Necessity Statement*: Patient requires continued hospital stay for close monitoring and further management Coding Level of Care Code 84755 Diagnoses Acute non-ST elevation myocardial infarction (NSTEMI) I21.4 Third degree heart block I44.2 Acute hyponatremia E87.1 Hypertension I10 Hyperlipidemia E78.2 Hyperlipidemia type: mixed hyperlipidemia Recurrent UTI N39.0 Diabetes mellitus type 2, noninsulin dependent E11.9
[2023-02-04] MEDS: sodium chloride 0.9% 1,000 ML 75 ML IV (15:12)
--- NOTE | 2023-02-04 16:43 | PM.PN ---
Subjective Subjective: She states currently she is doing all right. Denies chest pain or pressure. Denies shortness of breath. No nausea or vomiting. No abdominal pain or discomfort. Does get quite tired with attempts at exertion. Vitals/I&O/Wt Last Vital Signs Temp 97.6 F 02/04/23 08:30 Pulse 48 L 02/04/23 16:00 Resp 22 H 02/04/23 16:00 BP 129/59 02/04/23 16:00 Pulse Ox 94 02/04/23 16:00 O2 Del Method Nasal Cannula 02/04/23 16:00 O2 Flow Rate 3 02/04/23 16:00 02/04/23 02/04/23 02/04/23 06:59 14:59 22:59 Intake Total 1230 / 2232.5 Output Total 1000 / 4690 Balance 230 / -2457.5 Weight last 48 hrs Weight 64.41 kg Weight 60.781 kg Physical Exam Narrative: Accompanied by 2 family members. Const: COMMON NORMALS: patient oriented x3 and alert GENERAL APPEARANCE: cooperative ORIENTATION/CONSCIOUSNESS: Yes awake HENMT: COMMON NORMALS: oropharynx normal Neck/C-Spine: COMMON NORMALS: no JVD Resp: COMMON NORMALS: normal respiratory effort and clear to auscultation bilaterally AUSCULTATION: clear to auscultation bilaterally Cardio: COMMON NORMALS: no JVD, regular rhythm, S1 normal heart sound present, S2 normal heart sound present and No murmurs present (Cardio) RATE: bradycardic RHYTHM: regular rhythm HEART SOUNDS: S1 normal heart sound present and S2 normal heart sound present GI: COMMON NORMALS: Normal to inspection, nondistended, normoactive bowel sounds present, Soft to palpation and non-tender PALPATION: Yes Soft to palpation Extremity: COMMON NORMALS: no joint enlargement and no pedal edema Neuro: COMMON NORMALS: patient oriented x3 and moves all extremities SENSORIUM/ORIENTATION: Yes alert Skin: COMMON NORMALS: no rashes or lesions noted GENERAL SKIN EXAM: no rashes or lesions noted Urinary Catheter Management: Galvan: Cath Placed During This Visit: yes Reason for Continuing Indwelling Catheter: Accurate Measurement of Urinary Output in Critically Ill Patients Urinary Catheter Date of Insertion: 02/02/23 Urinary Catheter Time of Insertion: 16:48 Data 02/04/23 02:53 02/04/23 02:53 Micro: Microbiology 02/03/23 19:00 Blood Culture - Preliminary Blood SPECIMEN COLLECTED 02/03/23 18:46 Blood Culture - Preliminary Blood SPECIMEN COLLECTED 02/02/23 17:23 Blood Culture - Preliminary Blood NEGATIVE TO DATE 02/02/23 17:23 Blood Culture - Preliminary Blood Staphylococcus epidermidis 02/02/23 22:15 MRSA Culture - Final Nose A&P Assessment and plan (1) Third degree heart block: Discussed with cardiology, cardiology note reviewed. Pending pacemaker placement with anticipated leadless pacemaker, pending assessment by CT surgery. At rest she is doing okay, but does get quite worn out with any exertion. We will give 20 mEq potassium. Recheck potassium, follow-up magnesium. Symptomatic bradycardia. Patient not on rate limiting medications. Complaining of dizziness and shortness of breath on exertion. Currently hemodynamically stable. Echocardiogram result shows an EF 66%, mild MR, mildly increased LA size, mild TR, PASP of 58 mmHg. Continue to monitor heart rate. Stop IV fluid. (2) Symptomatic bradycardia: As above (3) Elevated troponin: Status post coronary angiography. Nonobstructive CAD noted. Continue aspirin, statin. Type II versus non-ST elevation NE. Appreciate cardiology recommendations. N.p.o. for now. Plan for cardiac angiogram today. Continue with aspirin 81 mg, atorvastatin 40 mg daily. Continue with heparin drip for now. Appreciate A1c, lipid panel. (4) Acute hyponatremia: DC IVF. Follow-up sodium level. Continue diet without sodium restriction. Follow-up chemistry requested. Baseline sodium level normal. Monitor input and output. (5) Recurrent UTI: Empirically on ceftriaxone. Preliminary blood culture noted without growth. Recently started on Augmentin. For now switch to IV ceftriaxone. Follow-up blood cultures. (6) Diabetes mellitus type 2, noninsulin dependent: Glucose 176. Reassess glucose daily. CC diet. A1c 6.3. Hold off on insulin sliding scale for now. Monitor BMP daily. Not on any oral hypoglycemics. (7) Malignant neoplasm of posterior wall of bladder: Plan CODE STATUS: full code. Heparin drip will suffice as DVT prophylaxis. Protonix OPD prophylaxis. Attestations Medical Necessity Statement*: Continue admission for assessment management of high degree AV block, symptomatic bradycardia, pending pacemaker implantation. Diagnoses Third degree heart block I44.2 Symptomatic bradycardia R00.1 Elevated troponin R79.89 Acute hyponatremia E87.1 Recurrent UTI N39.0 Diabetes mellitus type 2, noninsulin dependent E11.9 Malignant neoplasm of posterior wall of bladder C67.4
--- NOTE | 2023-02-04 17:10 | PM.CONSULT ---
Providers/Reason For Consult Consulting Physician/Specialty*: Dr. Smith/cardiothoracic surgery Reason for Consult*: Consult for pacemaker implantation Requesting Physician: Dr. Prather Attending Physician: Sigifredo Gonzalez Primary Care Provider: CARMEN Coon History of Present Illness History of Present Illness Mckenna Alanis is an 82 year old female who had been consulted by Dr. Prather to consider pacemaker implantation with possible leadless pacemaker. She was admitted on February 02 after presenting to the emergency department complaining of worsening dizziness and shortness of breath with minimal exertion for the 2 to 4 days prior to presentation. In the emergency department she was found to be in complete heart block and cardiology was consulted. Left heart catheterization was performed yesterday by Dr. Prather revealing only modest disease not requiring intervention. Ejection fraction is preserved by echocardiogram. Ms. Alanis has a history of recurrent urinary tract infections on suppressive therapy. She also has diabetes mellitus on metformin, though her daughter states that her serum glucoses have been doing quite well recently. Ms. 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 She is currently been resting comfortably in the ICU with third-degree heart block with heart rates in the mid 30s. She has not required external or temporary pacing. Most recent urinalysis from the time of admission on February 02 reveals 0-4 white cells per high-powered field. She does have 4+ glucose and 2+ ketones though leukocyte esterase was negative as well as urine nitrate. CBC from today reveals a white count of 12.8 hemoglobin of 10 and a platelet count of 301,000. BUN is 17 creatinine 1.1 with a glucose of 176. She is currently resting comfortably at the time of my exam. Her daughter was present in the ICU room with her. Ms. Alanis has no complaints and is conversive. Her daughter was able to assist with her past medical history. Ms. Alanis is currently on Rocephin 1 g daily. Cultures obtained this admission revealed 1 blood culture bottle with Staphylococcus epidermidis. There is a urinalysis clean-catch back from January 27 which had E. coli as well as prior urinalysis studies from January 02. Previous urinalysis over the past year have grown Enterococcus faecalis as well as Enterobacter cloacae and E. coli. There is a urinalysis from March [address] Prather was concerned about the history of UTIs and felt that leadless pacemaker should be considered. Review of Systems Const: Denies: fever(s) or chills ENMT: Denies: throat pain Card: Reports: lightheadedness and dyspnea on exertion; Denies: chest pain or palpitations Resp: Reports: dyspnea; Denies: productive cough or non-productive cough GI: Reports: abdominal pain and diarrhea : Denies: flank pain, difficulty voiding or dysuria Musc: Denies: neck pain or back pain Neuro: Reports: dizziness; Denies: headache(s) Medications/Allergies Home Medications Medication Instructions Recorded Confirmed Last Taken Type acetaminophen 500 mg tablet 1,000 mg PO Q6H PRN Pain 01/15/20 02/02/23 03/20/21 History (Tylenol Extra Strength) sodium chloride-potassium chloride 1 tab PO DAILY 11/14/21 02/02/23 Unknown History 287 mg-180 mg-15 mg tablet (Thermotabs) cholecalciferol (vitamin D3) 50 50 mcg PO DAILY 02/15/22 02/02/23 Unknown History mcg (2,000 unit) capsule methenamine hippurate 1 gram tablet 1 g PO BID #60 tabs 04/20/22 02/02/23 Unknown Rx ascorbic acid (vitamin C) 1,000 mg 1 g PO BID 08/23/22 02/02/23 Unknown History tablet ezetimibe 10 mg tablet (Zetia) 10 mg PO DAILY #90 tabs 11/28/22 02/02/23 Unknown Rx gabapentin 300 mg capsule 300 mg PO TID 90 days #270 caps 11/28/22 02/02/23 Unknown Rx losartan 50 mg tablet 50 mg PO BID #180 tabs 11/28/22 02/02/23 Unknown Rx oxybutynin chloride 10 mg 10 mg PO QAM #90 tabs 11/28/22 02/02/23 Unknown Rx tablet,extended release 24 hr polyethylene glycol 3350 17 17 g PO DAILY PRN constipation 12/24/22 02/02/23 Unknown Rx gram/dose oral powder (Miralax) #510 grams amoxicillin 875 mg-potassium 1 tab PO BID 14 days #28 tabs 01/29/23 02/02/23 02/01/23 Rx clavulanate 125 mg tablet cyanocobalamin (vitamin B-12) 1,000 mcg PO DAILY 02/02/23 02/02/23 Unknown History 1,000 mcg tablet (Vitamin B-12) cyclobenzaprine 10 mg tablet 5 - 10 mg PO TID PRN Muscle Spasm 02/02/23 02/02/23 Unknown History metformin 500 mg tablet,extended 500 mg PO BID 02/02/23 02/02/23 Unknown History release 24 hr vit no.95-ferrous 1 tab PO DAILY 02/02/23 02/02/23 Unknown History fumarate 28 mg-folic acid 800 mcg tablet ( Multivitamins) Allergies Allergy/AdvReac Type Severity Reaction Status Date / Time aspirin Allergy Mild Unknown Verified 02/02/23 16:15 sulfamethoxazole Allergy Unconscious Verified 02/02/23 16:15 [From Bactrim] trimethoprim [From Bactrim] Allergy Unknown Verified 02/02/23 16:15 Current Medications Generic Name Dose Route Start Last Admin Trade Name Freq PRN Reason Stop Dose Admin Acetaminophen 650 mg 02/02/23 17:24 02/03/23 20:23 Acetaminophen 325 Mg Tablet PO 650 mg Q6H PRN Administration Mild/Mod Pain Or Temp >/= 101 Albuterol/Ipratropium 3 ml 02/02/23 20:00 02/04/23 13:30 Ipratropium-Albuterol 3 Ml Neb INHALATION 3 ml Q6H.RESP [place] Administration Aspirin 81 mg 02/03/23 09:00 02/04/23 07:42 Aspirin 81 Mg Ec Tablet PO 81 mg DAILY [place] Administration Atorvastatin Calcium 40 mg 02/02/23 21:00 02/03/23 20:24 Atorvastatin 40 Mg Tablet PO 40 mg BEDTIME [place] Administration Ezetimibe 10 mg 02/03/23 09:00 02/04/23 07:42 Ezetimibe 10 Mg Tablet PO 10 mg DAILY [place] Administration Gabapentin 300 mg 02/02/23 21:00 02/04/23 15:08 Gabapentin 300 Mg Capsule PO 300 mg TID [place] Administration Heparin Sodium (Porcine) 5,000 unit 02/04/23 09:00 02/04/23 07:42 Heparin 5,000 Unit/Ml Inj 1 Ml SUBCUT 5,000 unit Q12H [place] Administration Ceftriaxone Sodium 1,000 mg/ 50 mls @ 100 mls/hr 02/02/23 17:30 02/03/23 19:00 Sodium Chloride IV Infused Q24H [place] Infusion Protocol Sodium Chloride 1,000 mls @ 75 mls/hr 02/03/23 11:15 02/04/23 15:12 Sodium Chloride 0.9% IV 75 mls/hr .[id number] [place] Administration Ondansetron HCl 4 mg 02/02/23 17:24 02/02/23 17:49 Ondansetron 2 Mg/Ml Sdv 2 Ml IVP 4 mg Q6H PRN Administration NAUSEA AND VOMITING Pantoprazole Sodium 40 mg 02/03/23 09:00 02/04/23 07:[address] 40 Mg Tablet PO 40 mg DAILY [place] Administration PFSH Acute PFSH: Medical History Ashia glabrata infection DDD (degenerative disc disease), lumbar Diabetes mellitus type 2, noninsulin dependent Diverticula of intestine Hyperlipidemia atorvastatin 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 Normal colonoscopy Osteoarthritis Pelvic organ prolapse quantification stage 3 cystocele Primary osteoarthritis of left hip Recurrent UTI Thyroid nodule Last thyroid imaging at [facility] [place], bilateral adenomatous nodules or colloid cysts Vitamin D deficiency Surgical History H/O arthroscopy of knee (~2014) Left, Dr Connors History of back surgery History of hysterectomy (~05/2019) with BSO, Ant/Post colporrhaphy and urethral sling, Dr Isaac History of transurethral destruction of bladder lesion TCCA of bladder without invasion Family History Mother , AT AGE 60 Breast cancer Father , AT AGE 95 Aspiration pneumonia Diabetes Other Cancer Denies family history of Anesthesia complication Bleeding disorder Social History Smoking and tobacco status: former smoker Quit status (tobacco): has quit using tobacco Year quit tobacco: 1997, smoked 1 PPD Second hand smoke exposure: No Alcohol intake: current Alcohol intake frequency: holidays/special occasions only Substance/Drug Use: never Adopted: No Caregiver/support person: No Lives independently: No Household members: spouse and family Marital status: service: No Current occupational status: retired Current gender identity: Female Special shi needs: No Agree to transfusion: Yes Vitals/I&O/Wt Last Vital Signs Temp 97.6 F 02/04/23 08:30 Pulse 48 L 02/04/23 16:00 Resp 22 H 02/04/23 16:00 BP 129/59 02/04/23 16:00 Pulse Ox 94 02/04/23 16:00 O2 Del Method Nasal Cannula 02/04/23 16:00 O2 Flow Rate 3 02/04/23 16:00 02/04/23 02/04/23 02/04/23 06:59 14:59 22:59 Intake Total 1230 / 2232.5 Output Total 1000 / 4690 Balance 230 / -2457.5 Weight last 48 hrs Weight 142 lb Weight 134 lb Physical Exam Const: COMMON NORMALS: no acute distress, average body habitus and patient oriented x3 HENMT: COMMON NORMALS: normocephalic, atraumatic, hearing grossly normal bilaterally, external ears normal and Normal external nose present HEAD & SCALP: normocephalic and atraumatic NOSE: Normal external nose present EXTERNAL EAR: Yes external ears normal Eye: COMMON NORMALS: EOMs intact bilaterally and no scleral icterus Neck/C-Spine: COMMON NORMALS: no lymphadenopathy; negative for full ROM Chest: COMMONS NORMALS: normal palpation of entire chest wall Resp: COMMON NORMALS: normal respiratory effort and No retractions Cardio: COMMON NORMALS: negative for regular rate and negative for regular rhythm RATE: abnormal rate and bradycardic RHYTHM: abnormal rhythm and abnormal rhythm irregularly irregular GI: COMMON NORMALS: Normal to inspection, nondistended, normoactive bowel sounds present Extremity: COMMON NORMALS: no clubbing, cyanosis or edema Neuro: COMMON NORMALS: patient oriented x3, moves all extremities, no focal motor deficits and no sensory deficits noted Urinary Catheter Management: Galvan: Cath Placed During This Visit: yes Reason for Continuing Indwelling Catheter: Accurate Measurement of Urinary Output in Critically Ill Patients Urinary Catheter Date of Insertion: 02/02/23 Urinary Catheter Time of Insertion: 16:48 Data 02/04/23 02:53 02/04/23 02:53 Micro: Microbiology 02/03/23 19:00 Blood Culture - Preliminary Blood SPECIMEN COLLECTED 02/03/23 18:46 Blood Culture - Preliminary Blood SPECIMEN COLLECTED 02/02/23 17:23 Blood Culture - Preliminary Blood NEGATIVE TO DATE 02/02/23 17:23 Blood Culture - Preliminary Blood Staphylococcus epidermidis 02/02/23 22:15 MRSA Culture - Final Nose A&P Assessment and plan (1) Third degree heart block: I have conferred with Dr. Prather by phone. I examined Ms. Alanis with her daughter at bedside. Options to consider standard pacemaker implantation versus leadless pacemaker placement were reviewed. Particular risk of the procedure discussed include infection, bleeding, pneumothorax requiring chest tube, migration of the leads requiring revision, need for long-term surveillance. I discussed pacifically concerning implantation of a leadless device as far as decreased potential for infection complications. Increased risk related to potential catastrophic cardiac perforation and the delivery device was very frankly discussed, particularly in relation to the patient being an octogenarian. I did discuss frankly that this risk is low but is unique and intrinsic to delivery of a leadless pacemaker and this risk does increase with several factors including advanced age. After conversation, Ms. Alanis daughter appears to be more comfortable with standard pacemaker implantation. We will be prepared for delivery of both types of devices. I will plan to repeat urinalysis and a CBC on early SaturdayFebruary 06 in preparation for mid to late afternoon pacemaker implantation. Ms. Alanis and her daughter are in agreement. Consult Attestations Medical Necessity Statement: Third-degree heart block Coding Level of Care Code Acute Code for Chg Fwd Diagnoses Third degree heart block I44.2 Time Spent (min) 35
[2023-02-04] MEDS: cefTRIAXone 1,000 MG in sodium chloride 0.9% (plus) 50 ML 100 MG IV (17:34)
[2023-02-04] MEDS: potassium chloride ER 20 mEq Tablet PO (17:45)
[2023-02-04] MEDS: atorvastatin 40 mg Tablet PO (20:58)
[2023-02-05] VITALS (49 sets, daily range): BP systolic 92–161; BP diastolic 47–77; PULSE 32–43; RESP 9–21; TEMP 36.5–36.7; O2SAT 91–98
[2023-02-05] MEDS: ipratropium-albuterol 3 mL Neb INHALATION ×4 (01:45→20:28)
[2023-02-05 04:17] LABS: Basophils % 0.2 %; Eosinophils # 0.2 10^3/uL (0.0-0.8); Eosinophils % 2.3 %; Hematocrit 28.2 % (37.0-47.0); Hemoglobin 9.6 g/dL (11.5-15.3); Lymphocytes # 2.1 10^3/uL (0.8-4.8); Lymphocytes % 21.8 %; Mean Corpuscular Hemoglobin 31.6 pg (28.0-34.0); Mean Corpuscular Volume 92.8 fl (81-99); Mean Platelet Volume 10.1 fL (7.4-10.4); Monocytes # 1.2 10^3/uL (0.2-0.9); Monocytes % 11.7 %; Neutrophils # 6.22 10^3/uL (1.8-7.7); Neutrophils % 63.5 %; Nucleated Red Blood Cells # 0.1 /100WBC; Nucleated Red Blood Cells % 0.9 %; Platelet Count 283 10^3/cmm (130-400); Red Blood Count 3.04 10^6/uL (4.1-5.3); Red Cell Distribution Width 13.2 % (12.1-15.1); White Blood Count 9.8 10^3/uL (4.0-10.0)
[2023-02-05 04:40] LABS: Alanine Aminotransferase 33 U/L (0-33); Albumin Level 3.5 g/dL (3.5-5.2); Alkaline Phosphatase 75 U/L (35-105); Anion Gap 13.4 (5-19); Aspartate Amino Transferase 14 U/L (0-32); Blood Urea Nitrogen 19 mg/dL (8-23); Calcium 8.4 mg/dL (8.5-10.5); Carbon Dioxide 25 mmol/L (22-29); Chloride 93 mmol/L (98-107); Globulin 2.3 g/dL (1.3-4.6); Glucose 119 mg/dL (65-115); Osmolality Calculated 269 mOsm/kg (285-295); Potassium 3.4 mmol/L (3.5-5.1); Sodium 128 mmol/L (136-145); Total Bilirubin 0.2 mg/dL (0.15-1.2); Total Protein 5.8 g/dL (6.6-8.7)
[2023-02-05] MEDS: aspirin 81 mg EC Tablet PO (09:41)
[2023-02-05] MEDS: ezetimibe 10 mg Tablet PO (09:41)
[2023-02-05] MEDS: gabapentin 300 mg Capsule PO ×2 (09:41→19:40)
[2023-02-05] MEDS: pantoprazole DR 40 mg Tablet PO (09:41)
[2023-02-05] MEDS: heparin 5,000 unit/mL INJ 1 mL 5000 UNIT SUBCUT ×2 (09:41→19:40)
--- NOTE | 2023-02-05 12:40 | PC.SOCIAL ---
Pg 2 IMM Explained to Pt Pg 2 IMM. No questions voiced. Provided pt a copy. Initialed, dated, & timed a copy & placed in chart.
[2023-02-05] MEDS: cefTRIAXone 1,000 MG in sodium chloride 0.9% (plus) 50 ML 100 MG IV (17:03)
--- NOTE | 2023-02-05 17:03 | P.PN_ITS ---
Subjective Subjective: She states she is doing all right while at rest. Awaiting further consideration of pacemaker. No chest pain or pressure. No shortness of breath. No nausea or GI complaints. Vitals/I&O/Wt Last Vital Signs Temp 97.7 F 02/05/23 04:00 Pulse 38 L 02/05/23 14:30 Resp 16 02/05/23 14:22 BP 124/55 02/05/23 12:00 Pulse Ox 96 02/05/23 14:22 O2 Del Method Nasal Cannula 02/05/23 14:22 O2 Flow Rate 2 02/05/23 14:22 02/05/23 02/05/23 02/05/23 06:59 14:59 22:59 Intake Total 400 / 400 Output Total 350 / 700 Balance -350 / -450 400 / 400 Weight last 48 hrs Weight 64.41 kg Weight 64.41 kg Physical Exam Narrative: Accompanied by family Const: COMMON NORMALS: patient oriented x3 and alert GENERAL APPEARANCE: cooperative ORIENTATION/CONSCIOUSNESS: Yes awake HENMT: COMMON NORMALS: oropharynx normal Neck/C-Spine: COMMON NORMALS: no JVD Resp: COMMON NORMALS: normal respiratory effort and clear to auscultation bilaterally AUSCULTATION: clear to auscultation bilaterally Cardio: COMMON NORMALS: no JVD, S1 normal heart sound present, S2 normal heart sound present and No murmurs present (Cardio) RATE: bradycardic HEART SOUNDS: S1 normal heart sound present and S2 normal heart sound present GI: COMMON NORMALS: Normal to inspection, nondistended, normoactive bowel s ounds present, Soft to palpation and non-tender PALPATION: Yes Soft to pa lpation Extremity: COMMON NORMALS: no joint enlargement and no pedal edema Neuro: COMMON NORMALS: patient oriented x3 and moves all extremities SENSORIUM/ORIENTATION: Yes alert Skin: COMMON NORMALS: no rashes or lesions noted GENERAL SKIN EXAM: no rashes or lesions noted Urinary Catheter Management: Galvan: Cath Placed During This Visit: yes Reason for Continuing Indwelling Catheter: Accurate Measurement of Urinary Output in Critically Ill Patients Urinary Catheter Date of Insertion: 02/02/23 Urinary Catheter Time of Insertion: 16:48 Data 02/05/23 04:04 02/05/23 04:04 Micro: Microbiology 02/03/23 19:00 Blood Culture - Preliminary Blood NEGATIVE TO DATE 02/03/23 18:46 Blood Culture - Preliminary Blood NEGATIVE TO DATE A&P Assessment and plan (1) Third degree heart block: She has had quite significant functional decline with bradycardia, unable to tolerate exertion. Risk of worsening, risk of endorgan hypoperfusion, organ failure, pulmonary edema. They would like to proceed with pacemaker implantation. Evaluated by CT surgery, documentation of their discussion and plans appreciated including consideration of leadless versus standard pacemaker. Given additional 20 mEq potassium. Recheck magnesium #2. Follow-up magnesium level. Symptomatic bradycardia. Patient not on rate limiting medications. Complaining of dizziness and shortness of breath on exertion. Currently hemodynamically stable. Echocardiogram result shows an EF 66%, mild MR, mildly increased LA size, mild TR, PASP of 58 mmHg. Continue to monitor heart rate. (2) Symptomatic bradycardia: As above (3) Elevated troponin: Status post coronary angiography. Nonobstructive CAD noted. Continue aspirin, statin. Type II versus non-ST elevation AR. Appreciate cardiology recommendations. Continue with aspirin 81 mg, atorvastatin 40 mg daily. Hold anticoagulation. On prophylactic heparin. Appreciate A1c, lipid panel. (4) Acute hyponatremia: Improving. Sodium level up to 128. Off IV fluids. Creatinine noted 1.1. Continue diet without sodium restriction. Repeat chemistry panel. Baseline sodium level normal. Monitor input and output. (5) Recurrent UTI: Empirically on ceftriaxone. Preliminary blood culture noted without growth. Recently started on Augmentin. For now switch to IV ceftriaxone. Follow-up blood cultures. (6) Diabetes mellitus type 2, noninsulin dependent: Glucose 119. Reassess glucose daily. CC diet. A1c 6.3. Hold off on insulin sliding scale for now. Monitor BMP daily. Not on any oral hypoglycemics. (7) Malignant neoplasm of posterior wall of bladder: Plan CODE STATUS: full code. Heparin drip will suffice as DVT prophylaxis. Protonix OPD prophylaxis. Attestations Medical Necessity Statement*: Continue admission for assessment of symptomatic bradycardia, pending pacemaker placement. Diagnoses Third degree heart block I44.2 Symptomatic bradycardia R00.1 Elevated troponin R79.89 Acute hyponatremia E87.1 Recurrent UTI N39.0 Diabetes mellitus type 2, noninsulin dependent E11.9 Malignant neoplasm of posterior wall of bladder C67.4
[2023-02-05] MEDS: potassium chloride ER 20 mEq Tablet PO (17:26)
--- NOTE | 2023-02-05 19:31 | PC.NURSE ---
Verified with Dr. Cummins that patient is okay to get Heparin at 2100 when going for pacemaker at 1630 tomorrow.
[2023-02-05] MEDS: atorvastatin 40 mg Tablet PO (19:40)
[2023-02-05] MEDS: chlorhexidine gluconate 4% Btl 118 mL 1 APPLIC TOPICAL (19:41)
[2023-02-06] VITALS (30 sets, daily range): BP systolic 127–186; BP diastolic 50–64; PULSE 31–55; RESP 9–22; TEMP 36.3–36.7; O2SAT 87–97
[2023-02-06] MEDS: lactated ringers 1,000 ML 150 ML IV ×3 (06:11→20:03)
--- NOTE | 2023-02-06 06:13 | PM.PN ---
Subjective Subjective: Ms. Alanis has been resting well. She reports no complaints. She appears to remain in third-degree AV block with a ventricular rate of approximately 32-35. Blood cultures have returned negative. Bacterial antigens from her urine specimen on February 02 have been negative for Streptococcus, haemophilus influenza B, strep pneumonia, Neisseria meningitidis. Daughter is at bedside. She remains empirically on Rocephin. Vitals/I&O/Wt Last Vital Signs Temp 97.3 F L 02/06/23 05:23 Pulse 34 L 02/06/23 06:00 Resp 17 02/06/23 06:00 BP 155/54 02/06/23 06:00 Pulse Ox 95 02/06/23 06:00 O2 Del Method Nasal Cannula 02/06/23 06:00 O2 Flow Rate 2 02/06/23 06:00 02/05/23 02/05/23 02/06/23 14:59 22:59 06:59 Intake Total 400 / 400 1450 / 1850 Output Total 900 / 900 400 / 1300 Balance 400 / 400 550 / 950 -400 / 550 Weight last 48 hrs Weight 142 lb Weight 142 lb Physical Exam Chest: COMMONS NORMALS: normal inspection of the chest and normal palpation of entire chest wall Resp: COMMON NORMALS: normal respiratory effort and clear to auscultation bilaterally AUSCULTATION: clear to auscultation bilaterally Cardio: RATE: bradycardic RHYTHM: abnormal rhythm irregularly irregular GI: COMMON NORMALS: Normal to inspection, nondistended, normoactive bowel sounds present Urinary Catheter Management: Galvan: Cath Placed During This Visit: yes Reason for Continuing Indwelling Catheter: Accurate Measurement of Urinary Output in Critically Ill Patients Urinary Catheter Date of Insertion: 02/02/23 Urinary Catheter Time of Insertion: 16:48 Data 02/05/23 04:04 02/05/23 04:04 A&P Assessment and plan (1) Third degree heart block: Ms. Alanis remains stable with third-degree AV heart block. I again discussed options for leadless pacemaker to reduce potential infection risk given her history of recurrent UTIs versus standard pacemaker implantation. Specific risk of each device implantation technique was discussed. Daughter appears to be quite concerned related to potential ventricular disruption with leadless pacemaker implant technique given the somewhat increased risk profile related to Ms. Alanis age of 82. After conversation, they both have concurred they would wish for attempt initially at standard pacemaker implantation with the known increased infection risk. Again, particular risks related to pneumothorax, major bleeding, infection requiring device explantation, pain, bleeding, need for continued surveillance were discussed. They state understanding and wished to proceed. Attestations Medical Necessity Statement*: 82-year-old female with third-degree AV heart block. We will plan for pacemaker implantation later today. Coding Level of Care Code Acute Code for [facility] Diagnoses Third degree heart block I44.2
[2023-02-06 06:29] LABS: Basophils % 0.4 %; Eosinophils # 0.5 10^3/uL (0.0-0.8); Eosinophils % 5.1 %; Hematocrit 30.9 % (37.0-47.0); Hemoglobin 10.1 g/dL (11.5-15.3); Lymphocytes # 2.2 10^3/uL (0.8-4.8); Lymphocytes % 22.6 %; Mean Corpuscular HGB Conc 32.7 g/dL (30.0-36.0); Mean Corpuscular Hemoglobin 31.3 pg (28.0-34.0); Mean Corpuscular Volume 95.7 fl (81-99); Mean Platelet Volume 10.4 fL (7.4-10.4); Monocytes % 10.7 %; Neutrophils # 5.87 10^3/uL (1.8-7.7); Neutrophils % 60.7 %; Nucleated Red Blood Cells % 0 %; Platelet Count 304 10^3/cmm (130-400); Red Blood Count 3.23 10^6/uL (4.1-5.3); Red Cell Distribution Width 13.4 % (12.1-15.1); White Blood Count 9.7 10^3/uL (4.0-10.0)
[2023-02-06 07:01] LABS: Alanine Aminotransferase 27 U/L (0-33); Albumin Level 3.3 g/dL (3.5-5.2); Alkaline Phosphatase 82 U/L (35-105); Anion Gap 15.2 (5-19); Aspartate Amino Transferase 11 U/L (0-32); Blood Urea Nitrogen 16 mg/dL (8-23); Calcium 8.8 mg/dL (8.5-10.5); Carbon Dioxide 23 mmol/L (22-29); Chloride 96 mmol/L (98-107); Globulin 2.5 g/dL (1.3-4.6); Glucose 135 mg/dL (65-115); Osmolality Calculated 273 mOsm/kg (285-295); Potassium 4.2 mmol/L (3.5-5.1); Sodium 130 mmol/L (136-145); Total Bilirubin 0.3 mg/dL (0.15-1.2); Total Protein 5.8 g/dL (6.6-8.7)
[2023-02-06] MEDS: ipratropium-albuterol 3 mL Neb INHALATION ×3 (07:44→20:03)
[2023-02-06 08:16] LABS: Add Urine Microscopic? NO; Charge for UA Resulting for Rev
[2023-02-06] MEDS: pantoprazole DR 40 mg Tablet PO (08:37)
[2023-02-06] MEDS: ezetimibe 10 mg Tablet PO (08:37)
[2023-02-06] MEDS: gabapentin 300 mg Capsule PO ×3 (08:37→21:26)
[2023-02-06] MEDS: aspirin 81 mg EC Tablet PO (08:37)
[2023-02-06] MEDS: chlorhexidine gluconate 4% Btl 118 mL 1 APPLIC TOPICAL ×2 (08:37→17:02)
[2023-02-06 08:58] LABS: Bilirubin Urine Neg (Negative); Blood Urine Neg (Negative); Glucose Urine UA Norm (Normal); Ketones Urine Negative (Negative); Leukocyte Esterase Urine Negative (Negative); Nitrate Urine Negative (Negative); Protein Urine Neg (Negative); Specific Gravity, Urine 1.005 (1.005-1.030); Urine Appearance Clear (CLEAR); Urine Color Straw (Yellow); Urobilinogen Urine Norm (Negative); pH Urine 5 (5-7)
--- NOTE | 2023-02-06 11:10 | P.PN_ITS ---
Subjective Subjective: He states she is doing well today while at rest. No chest pain or pressure. They have had further discussion this morning regarding pacemaker including consideration of leadless versus standard, at this time agreement is to first proceed to standard pacemaker. Vitals/I&O/Wt Last Vital Signs Temp 97.3 F L 02/06/23 05:23 Pulse 35 L 02/06/23 09:00 Resp 16 02/06/23 09:00 BP 147/54 02/06/23 08:00 Pulse Ox 90 02/06/23 08:00 O2 Del Method Nasal Cannula 02/06/23 07:44 O2 Flow Rate 2 02/06/23 07:44 02/05/23 02/06/23 02/06/23 22:59 06:59 14:59 Intake Total 1450 / 1850 0 / 0 Output Total 900 / 900 400 / 1300 Balance 550 / 950 -400 / 550 0 / 0 Weight last 48 hrs Weight 64.41 kg Physical Exam Narrative: Daughter at bedside Const: COMMON NORMALS: patient oriented x3 and alert GENERAL APPEARANCE: cooperative ORIENTATION/CONSCIOUSNESS: Yes awake HENMT: COMMON NORMALS: oropharynx normal Neck/C-Spine: COMMON NORMALS: no JVD Resp: COMMON NORMALS: normal respiratory effort and clear to auscultation bilaterally AUSCULTATION: clear to auscultation bilaterally Cardio: COMMON NORMALS: no JVD, regular rhythm, S1 normal heart sound present, S2 normal heart sound present and No murmurs present (Cardio) RATE: bradycardic RHYTHM: regular rhythm HEART SOUNDS: S1 normal heart sound present and S2 normal heart sound present GI: COMMON NORMALS: Normal to inspection, nondistended, normoactive bowel sounds present, Soft to palpation and non-tender PALPATION: Yes Soft to palpation Extremity: COMMON NORMALS: no joint enlargement and no pedal edema Neuro: COMMON NORMALS: patient oriented x3 and moves all extremities SENSORIUM/ORIENTATION: Yes alert Skin: COMMON NORMALS: no rashes or lesions noted GENERAL SKIN EXAM: no rashes or lesions noted Urinary Catheter Management: [place]av[place]: Cath Placed During This Visit: yes Reason for Continuing Indwelling Catheter: Accurate Measurement of Urinary Output in Critically Ill Patients Urinary Catheter Date of Insertion: 02/02/23 Urinary Catheter Time of Insertion: 16:48 Data 02/06/23 05:47 02/06/23 05:47 A&P Assessment and plan (1) Third degree heart block: She is n.p.o. to undergo pacemaker placement. CT surgery documentation appreciated. On consideration of options for his proceeding with standard pace maker. Potassium level noted 4.2. Follow-up chemistry requested. Symptomatic bradycardia. Patient not on rate limiting medications. Complaining of dizziness and shortness of breath on exertion. Currently hemodynamically stable. Echocardiogram result shows an EF 66%, mild MR, mildly increased LA size, mild TR, PASP of 58 mmHg. Continue to monitor heart rate. (2) Acute hyponatremia: Improving. Sodium improved at 130. Off IV fluids. Creatinine noted down to 0.9. Continue diet without sodium restriction. Repeat chemistry panel. Baseline sodium level normal. Monitor input and output. (3) Symptomatic bradycardia: As above (4) Elevated troponin: Status post coronary angiography. Nonobstructive CAD noted. Continue aspirin, statin. Type II versus non-ST elevation IN. Appreciate cardiology recommendations. Continue with aspirin 81 mg, atorvastatin 40 mg daily. Hold anticoagulation. On prophylactic heparin. Appreciate A1c, lipid panel. (5) Recurrent UTI: Empirically on ceftriaxone. Preliminary blood culture noted without growth. Recently started on Augmentin. For now switch to IV ceftriaxone. Follow-up blood cultures. (6) Diabetes mellitus type 2, noninsulin dependent: Glucose 135. Reassess glucose daily. CC diet. A1c 6.3. Hold off on insulin sliding scale for now. Monitor BMP daily. Not on any oral hypoglycemics. (7) Malignant neoplasm of posterior wall of bladder: Plan CODE STATUS: full code. Heparin drip will suffice as DVT prophylaxis. Protonix OPD prophylaxis. Attestations Medical Necessity Statement*: Continue admission for assessment management of high degree heart block, pacemaker implantation. Diagnoses Third degree heart block I44.2 Acute hyponatremia E87.1 Symptomatic bradycardia R00.1 Elevated troponin R79.89 Recurrent UTI N39.0 Diabetes mellitus type 2, noninsulin dependent E11.9 Malignant neoplasm of posterior wall of bladder C67.4
--- NOTE | 2023-02-06 16:15 | ANES.PREANE2 ---
Pre-Anesthetic Assessment Height/Weight: Height 1.52 m Weight 64.41 kg Temp Pulse Resp BP Pulse Ox O2 Del Method O2 Flow Rate 97.3 F L 35 L 17 166/60 87 L Nasal Cannula 2 02/06/23 05:23 02/06/23 16:00 02/06/23 16:00 02/06/23 14:00 02/06/23 16:00 02/06/23 14:01 02/06/23 14:01 Preop Diagnosis: ASHD/ heart block Operation Date: 02/03/23 17:00 Proposed Procedures p Cardiac Catheterization(Not Applicable) - Pineda Prather MD Operation Date: 02/06/23 16:30 Proposed Procedures p Leadless Pacemaker Insertion(Not Applicable) - Cristi Smith MD Familial anesthetic complications: none Was Beta Michael taken within 24 hours: N/A Was Clonidine taken within 24 hours: N/A Last intake: Intake Last Liquid Date 02/06/23 Last Liquid Time 00:00 Last Solid Date 02/06/23 Last Solid Time 00:00 Social No alcohol and No tobacco Exam alert, oriented x 3, clear to auscultation bilaterally and regular rate & rhythm Airway Submandibular: within normal limits Cervical ROM: within normal limits Mallampati: Class II Dentition: chipped CV/HEM Anemia, Arrythmia, Hypertension, Myocardial Infarction and Peripheral Vascular Disease 3rd deg HB Metabolic Diabetes Mellitus and Hyperlipidemia Hyponatremia Musc/sk Osteoarthritis/DJD Anesthetic Plan ASA status: 4 Anesthesia: General Medications/Allergies Home Medications Medication Instructions Recorded Confirmed Last Taken Type acetaminophen 500 mg tablet 1,000 mg PO Q6H PRN Pain 01/15/20 02/02/23 03/20/21 History (Tylenol Extra Strength) sodium chloride-potassium chloride 1 tab PO DAILY 11/14/21 02/02/23 Unknown History 287 mg-180 mg-15 mg tablet (Thermotabs) cholecalciferol (vitamin D3) 50 50 mcg PO DAILY 02/15/22 02/02/23 Unknown History mcg (2,000 unit) capsule methenamine hippurate 1 gram tablet 1 g PO BID #60 tabs 04/20/22 02/02/23 Unknown Rx ascorbic acid (vitamin C) 1,000 mg 1 g PO BID 08/23/22 02/02/23 Unknown History tablet ezetimibe 10 mg tablet (Zetia) 10 mg PO DAILY #90 tabs 11/28/22 02/02/23 Unknown Rx gabapentin 300 mg capsule 300 mg PO TID 90 days #270 caps 11/28/22 02/02/23 Unknown Rx losartan 50 mg tablet 50 mg PO BID #180 tabs 11/28/22 02/02/23 Unknown Rx oxybutynin chloride 10 mg 10 mg PO QAM #90 tabs 11/28/22 02/02/23 Unknown Rx tablet,extended release 24 hr polyethylene glycol 3350 17 17 g PO DAILY PRN constipation 12/24/22 02/02/23 Unknown Rx gram/dose oral powder (Miralax) #510 grams amoxicillin 875 mg-potassium 1 tab PO BID 14 days #28 tabs 01/29/23 02/02/23 02/01/23 Rx clavulanate 125 mg tablet cyanocobalamin (vitamin B-12) 1,000 mcg PO DAILY 02/02/23 02/02/23 Unknown History 1,000 mcg tablet (Vitamin B-12) cyclobenzaprine 10 mg tablet 5 - 10 mg PO TID PRN Muscle Spasm 02/02/23 02/02/23 Unknown History metformin 500 mg tablet,extended 500 mg PO BID 02/02/23 02/02/23 Unknown History release 24 hr vit no.95-ferrous 1 tab PO DAILY 02/02/23 02/02/23 Unknown History fumarate 28 mg-folic acid 800 mcg tablet ( Multivitamins) Allergies Allergy/AdvReac Type Severity Reaction Status Date / Time aspirin Allergy Mild Unknown Verified 02/02/23 16:15 sulfamethoxazole Allergy Unconscious Verified 02/02/23 16:15 [From Bactrim] trimethoprim [From Bactrim] Allergy Unknown Verified 02/02/23 16:15 Current Medications Generic Name Dose Route Start Last Admin Trade Name Freq PRN Reason Stop Dose Admin Acetaminophen 650 mg 02/02/23 17:24 02/03/23 20:23 Acetaminophen 325 Mg Tablet PO 650 mg Q6H PRN Administration Mild/Mod Pain Or Temp >/= 101 Albuterol/Ipratropium 3 ml 02/02/23 20:00 02/06/23 14:01 Ipratropium-Albuterol 3 Ml Neb INHALATION 3 ml Q6H.RESP [place] Administration Aspirin 81 mg 02/03/23 09:00 02/06/23 08:37 Aspirin 81 Mg Ec Tablet PO 81 mg DAILY [place] Administration Atorvastatin Calcium 40 mg 02/02/23 21:00 02/05/23 19:40 Atorvastatin 40 Mg Tablet PO 40 mg BEDTIME [place] Administration Chlorhexidine Gluconate 1 applic 02/04/23 18:00 02/06/23 08:37 Chlorhexidine Gluconate 4% Btl 118 Ml TOPICAL 1 applic BID [place] Administration Ezetimibe 10 mg 02/03/23 09:00 02/06/23 08:37 Ezetimibe 10 Mg Tablet PO 10 mg DAILY [place] Administration Gabapentin 300 mg 02/02/23 21:00 02/06/23 14:37 Gabapentin 300 Mg Capsule PO 300 mg TID [place] Administration Heparin Sodium (Porcine) 5,000 unit 02/04/23 09:00 02/06/23 08:37 Heparin 5,000 Unit/Ml Inj 1 Ml SUBCUT Not Given Q12H [place] Ceftriaxone Sodium 1,000 mg/ 50 mls @ 100 mls/hr 02/02/23 17:30 02/05/23 19:10 Sodium Chloride IV Infused Q24H [facility] Infusion Protocol Lactated Ringer's 1,000 mls @ 150 mls/hr 02/06/23 07:00 02/06/23 12:49 Lactated Ringers IV 150 mls/hr .Q6H40M [place] Administration Ondansetron HCl 4 mg 02/02/23 17:24 02/02/23 17:49 Ondansetron 2 Mg/Ml Sdv 2 Ml IVP 4 mg Q6H PRN Administration NAUSEA AND VOMITING Pantoprazole Sodium 40 mg 02/03/23 09:00 02/06/23 08:[address] 40 Mg Tablet PO 40 mg DAILY [place] Administration PFSH Anesthesia Medical History Ashia glabrata infection DDD (degenerative disc disease), lumbar Diabetes mellitus type 2, noninsulin dependent Diverticula of intestine Hyperlipidemia atorvastatin 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 Normal colonoscopy Osteoarthritis Pelvic organ prolapse quantification stage 3 cystocele Primary osteoarthritis of left hip Recurrent UTI Thyroid nodule Last thyroid imaging at [facility] 2017, bilateral adenomatous nodules or colloid cysts Vitamin D deficiency Surgical History H/O arthroscopy of knee (~2014) Left, Dr Connors History of back surgery History of hysterectomy (~05/2019) with BSO, Ant/Post colporrhaphy and urethral sling, Dr Isaac History of transurethral destruction of bladder lesion TCCA of bladder without invasion Family History Mother , AT AGE 60 Breast cancer Father , AT AGE 95 Aspiration pneumonia Diabetes Other Cancer Denies family history of Anesthesia complication Bleeding disorder Social History Smoking and tobacco status: former smoker Quit status (tobacco): has quit using tobacco Year quit tobacco: 1997, smoked 1 PPD Second hand smoke exposure: No Alcohol intake: current Alcohol intake frequency: holidays/special occasions only Substance/Drug Use: never Adopted: No Caregiver/support person: No Lives independently: No Household members: spouse and family Marital status: service: No Current occupational status: retired Current gender identity: Female Special shi needs: No Agree to transfusion: Yes Data Anesthesia 02/06/23 05:47 02/06/23 05:47 Short CBC 02/05/23 02/06/23 Range/Units 04:04 05:47 WBC 9.8 9.7 (4.0-10.0) 10^3/uL Hgb 9.6 L 10.1 L (11.5-15.3) g/dL Hct 28.2 L 30.9 L (37.0-47.0) % MCV 92.8 95.7 (81-99) fl Plt Count 283 304 (130-400) 10^3/cmm Neut % (Auto) 63.5 60.7 % Neut # (Auto) 6.22 5.87 (1.8-7.7) 10^3/uL BMP 02/05/23 02/06/23 04:04 05:47 Sodium 128 L 130 L Potassium 3.4 L 4.2 Chloride 93 L 96 L Carbon Dioxide 25 23 BUN 19 16 Creatinine 1.1 H 0.9 Glucose 119 H 135 H Calcium 8.4 L 8.8 Liver Function 02/05/23 02/06/23 Range/Units 04:04 05:47 Total Bilirubin 0.2 0.3 (0.15-1.2) mg/dL AST 14 11 (0-32) U/L ALT 33 27 (0-33) U/L Alkaline Phosphatase 75 82 (35-105) U/L Albumin 3.5 3.3 L (3.5-5.2) g/dL Urine 02/06/23 Range/Units 07:45 Urine Color Straw (Yellow) Urine Appearance Clear (CLEAR) Urine pH 5 (5-7) Ur Specific [place] 1.005 (1.005-1.030) Urine Protein Neg (Negative) Urine Glucose (UA) Norm (Normal) Urine Ketones Negative (Negative) Urine Nitrate Negative (Negative) Urine Bilirubin Neg (Negative) Ur Leukocyte Esterase Negative (Negative) Microbiology 02/02/23 17:23 Blood Culture - Final Blood Staphylococcus epidermidis Cardiac Studies: Echocardiogram 02/02/23 Echocardiogram Ultrasound 11/29/19
--- NOTE | 2023-02-06 16:49 | P.MISC_ITS ---
Miscellaneous Note Purpose of Documentation: I received late notification that the pacemaker welding equipment sales representative was not on campus in preparation for planned pacemaker implantation. Therefore, we have rescheduled for 7 AM in the morning. I discussed with Ms. Alanis and her family. She will resume diet until midnight and then be n.p.o. for planned procedure in the morning. Lab work was repeated this morning. White count is now normalized. Urinalysis is clear. Again, at her request as well as her daughter, we will plan for standard pacemaker implantation in the morning with option for leadless pacemaker if required.
[2023-02-06] MEDS: cefTRIAXone 1,000 MG in sodium chloride 0.9% (plus) 50 ML 100 MG IV (16:58)
--- NOTE | 2023-02-06 17:27 | PM.PN ---
Subjective Subjective: Continues to remain in third-degree heart block. Blood pressures are stage II. No chest pain or shortness of breath. No hematoma or bleeding in the groin. Remains afebrile. Medications: Medication Review Details: Current Medications Acetaminophen (Acetaminophen 325 Mg Tablet) 650 mg PO Q6H PRN PRN Reason: Mild/Mod Pain Or Temp >/= 101 Last Admin: 02/03/23 20:23 Dose: 650 mg Al Hydrox/Mg Hydrox/Simethicone (Ehwk-Fye-Issvaxdol-Shamika 30 Ml Udc) 30 ml PO Q15M PRN PRN Reason: INDIGESTION Albuterol/Ipratropium (Ipratropium-Albuterol 3 Ml Neb) 3 ml INHALATION Q6H.RESP [facility] Last Admin: 02/06/23 14:01 Dose: 3 ml Alprazolam (Alprazolam 0.5 Mg Tablet) 0.25 mg PO TID PRN PRN Reason: ANXIETY Aspirin (Aspirin 81 Mg Ec Tablet) 81 mg PO DAILY [facility] Last Admin: 02/06/23 08:37 Dose: 81 mg Atorvastatin Calcium (Atorvastatin 40 Mg Tablet) 40 mg PO BEDTIME [facility] Last Admin: 02/05/23 19:40 Dose: 40 mg Atropine Sulfate (Atropine 1 Mg/Ml Sdv 1 Ml) 0.5 mg IVP PRN PRN PRN Reason: Symptomatic bradycardia Bisacodyl (Bisacodyl 5 Mg Tablet) 10 mg PO DAILY PRN; Protocol PRN Reason: Constipation (see protocol) Chlorhexidine Gluconate (Chlorhexidine Gluconate 4% Btl 118 Ml) 1 applic TOPICAL BID [facility] Last Admin: 02/06/23 17:02 Dose: 1 applic Ezetimibe (Ezetimibe 10 Mg Tablet) 10 mg PO DAILY [facility] Last Admin: 02/06/23 08:37 Dose: 10 mg Gabapentin (Gabapentin 300 Mg Capsule) 300 mg PO TID [facility] Last Admin: 02/06/23 14:37 Dose: 300 mg Heparin Sodium (Porcine) (Heparin 5,000 Unit/Ml Inj 1 Ml) 5,000 unit SUBCUT Q12H [facility] Last Admin: 02/06/23 08:37 Dose: Not Given Ceftriaxone Sodium 1,000 mg/ (Sodium Chloride) 50 mls @ 100 mls/hr IV Q24H [facility]; Protocol Last Admin: 02/06/23 16:58 Dose: 100 mls/hr Lactated Ringer's (Lactated Ringers) 1,000 mls @ 150 mls/hr IV .Q6H40M [facility] Last Admin: 02/06/23 12:49 Dose: 150 mls/hr Cefazolin Sodium 2,000 mg/ (Sodium Chloride) 50 mls @ 100 mls/hr IV [employer]; Protocol Stop: 02/07/23 06:59 Lactulose (Lactulose Oral Liq 20 Gm/30 Ml Udc) 10 gm PO DAILY PRN; Protocol PRN Reason: Constipation (see protocol) Magnesium Hydroxide (Magnesium Hydroxide 30 Ml Udc) 30 ml PO DAILY PRN; Protocol PRN Reason: Constipation (see protocol) Morphine Sulfate (Morphine 4 Mg/Ml Sdv 1 Ml) 2 mg IVP Q4H PRN PRN Reason: SEVERE PAIN Naloxone HCl (Naloxone 0.4 Mg/Ml Sdv) 0.1 mg IVP Q2M PRN PRN Reason: RESPIRATORY RATE < 8/MIN Nitroglycerin (Nitroglycerin 0.4 Mg Sublingual Tablet) 0.4 mg SUBLINGUAL Q5M PRN PRN Reason: CHEST PAIN Ondansetron HCl (Ondansetron 2 Mg/Ml Sdv 2 Ml) 4 mg IVP Q6H PRN PRN Reason: NAUSEA AND VOMITING Last Admin: 02/02/23 17:49 Dose: 4 mg Pantoprazole Sodium (Pantoprazole Dr 40 Mg Tablet) 40 mg PO DAILY [facility] Last Admin: 02/06/23 08:37 Dose: 40 mg Temazepam (Temazepam 15 Mg Capsule) 15 mg PO BEDTIME PRN PRN Reason: INSOMNIA Vitals/I&O/Wt Last Vital Signs Temp 97.3 F L 02/06/23 05:23 Pulse 35 L 02/06/23 16:00 Resp 17 02/06/23 16:00 BP 166/60 02/06/23 14:00 Pulse Ox 87 L 02/06/23 16:00 O2 Del Method Nasal Cannula 02/06/23 14:01 O2 Flow Rate 2 02/06/23 14:01 02/06/23 02/06/23 02/06/23 06:59 14:59 22:59 Intake Total 995 / 995 Output Total 400 / 1300 1450 / 1450 Balance -400 / 550 995 / 995 -1450 / -455 Weight last 48 hrs Weight 142 lb Physical Exam Narrative: GENERAL: The patient is alert and oriented times three. Not in any acute distress. Short stature HEENT: No significant pallor, icterus or lymphadenopathy.Oral cavity: There are no mucous membrane lesions. NECK: Trachea appears to be central. No masses noted. No JVD or thyromegaly appreciated. RESPIRATORY: Chest is symmetrical. No intercostals muscle retraction or any accessory muscle activation. There is no chest wall tenderness. Breath sounds are heard bilaterally. No rales or rhonchi heard. No evidence of any consolidation. BREASTS: Deferred. HEART: The heart sounds are normal. No S3 or S4. Short systolic murmur in the left sternal border. No pericardial rub ABDOMEN: No vessel pulsations or distention. No tenderness. No organomegaly appreciated. Bowel sounds are normally heard. : Deferred. RECTAL: Deferred. LYMPHATIC: No lymphadenopathy noted in the neck. EXTREMITIES: The right groin has no hematoma or bleeding. MUSCULOSKELETAL: No acute joint deformities or swelling SKIN: There are no significant rashes or ecchymosis NEUROPSYCHIATRIC: The patient is alert and oriented x3. Appears to be in a good mood. No tremors or rigidity noted. Urinary Catheter Management: [place]: Cath Placed During This Visit: yes Reason for Continuing Indwelling Catheter: Accurate Measurement of Urinary Output in Critically Ill Patients Urinary Catheter Date of Insertion: 02/02/23 Urinary Catheter Time of Insertion: 16:48 Data 02/06/23 05:47 02/06/23 05:47 Other Labs: Laboratory Last Values WBC 9.7 10^3/uL (4.0-10.0) 02/06/23 05:47 RBC 3.23 10^6/uL (4.1-5.3) L 02/06/23 05:47 Hgb 10.1 g/dL (11.5-15.3) L 02/06/23 05:47 Hct 30.9 % (37.0-47.0) L 02/06/23 05:47 MCV 95.7 fl (81-99) 02/06/23 05:47 MCH 31.3 pg (28.0-34.0) 02/06/23 05:47 MCHC 32.7 g/dL (30.0-36.0) 02/06/23 05:47 RDW 13.4 % (12.1-15.1) 02/06/23 05:47 Plt Count 304 10^3/cmm (130-400) 02/06/23 05:47 MPV 10.4 fL (7.4-10.4) 02/06/23 05:47 Neut % (Auto) 60.7 % 02/06/23 05:47 Lymph % (Auto) 22.6 % 02/06/23 05:47 [place] % (Auto) 10.7 % 02/06/23 05:47 Eos % (Auto) 5.1 % 02/06/23 05:47 Baso % (Auto) 0.4 % 02/06/23 05:47 Neut # (Auto) 5.87 10^3/uL (1.8-7.7) 02/06/23 05:47 Lymph # (Auto) 2.2 10^3/uL (0.8-4.8) 02/06/23 05:47 [place] # (Auto) 1.0 10^3/uL (0.2-0.9) H 02/06/23 05:47 Eos # (Auto) 0.5 10^3/uL (0.0-0.8) 02/06/23 05:47 Baso # (Auto) 0.0 10^3/uL (0.0-0.1) 02/06/23 05:47 Nucleated RBC % (auto) 0 % 02/06/23 05:47 Nucleated RBCs # 0.0 /100WBC 02/06/23 05:47 APTT 24.0 SECONDS (23.9-36.7) D 02/03/23 20:44 D-Dimer 1.33 ug/mIFEU (0-0.59) H 02/02/23 15:56 Sodium 130 mmol/L (136-145) L 02/06/23 05:47 Potassium 4.2 mmol/L (3.5-5.1) 02/06/23 05:47 Chloride 96 mmol/L (98-107) L 02/06/23 05:47 Carbon Dioxide 23 mmol/L (22-29) 02/06/23 05:47 Anion Gap 15.2 (5-19) 02/06/23 05:47 BUN 16 mg/dL (8-23) 02/06/23 05:47 Creatinine 0.9 mg/dL (0.5-0.9) 02/06/23 05:47 GFR Calculation Not Reportable 02/06/23 05:47 Glucose 135 mg/dL (65-115) H 02/06/23 05:47 Estimat Average Glucose 134 02/03/23 04:42 Hemoglobin A1c 6.3 % (4.0-6.0) H 02/03/23 04:42 Calculated Osmolality 273 mOsm/kg (285-295) L 02/06/23 05:47 Calcium 8.8 mg/dL (8.5-10.5) 02/06/23 05:47 Phosphorus 2.9 mg/dL (2.5-4.5) 02/03/23 04:42 Magnesium 2.0 mg/dL (1.7-2.3) 02/05/23 04:04 Iron 87 ug/dL (37-145) 02/02/23 17:52 TIBC 299 mcg/dl 02/02/23 17:52 % Saturation 29.0 % (20-50) 02/02/23 17:52 Unsat Iron Binding 212 ug/dL (112-347) 02/02/23 17:52 Total Bilirubin 0.3 mg/dL (0.15-1.2) 02/06/23 05:47 AST 11 U/L (0-32) 02/06/23 05:47 ALT 27 U/L (0-33) 02/06/23 05:47 Alkaline Phosphatase 82 U/L (35-105) 02/06/23 05:47 Troponin T Gen 5 ng/L 207 ng/L (0-10) H* 02/03/23 06:44 Troponin T Baseline 60 ng/L (0-10) H 02/02/23 15:56 Troponin T 120 Minute 190.9 ng/L (0-10) H 02/02/23 17:52 Delta Troponin T 130.9 ABS# (0-10) H* 02/02/23 17:52 Troponin T Hi Sens 6Hr 339.8 ng/L (0-10) H 02/02/23 22:07 Troponin T Hi Sens 6Hr Delta 279.8 ng/L (0-12) H* 02/02/23 22:07 NT-Pro-B Natriuret Pep 8766 pg/mL (0-450) H 02/02/23 15:56 Total Protein 5.8 g/dL (6.6-8.7) L 02/06/23 05:47 Albumin 3.3 g/dL (3.5-5.2) L 02/06/23 05:47 Globulin 2.5 g/dL (1.3-4.6) 02/06/23 05:47 Triglycerides 65 mg/dL (0-150) 02/03/23 02:30 Cholesterol 174 mg/dL (0-200) 02/03/23 02:30 LDL Cholesterol, Calc 111 mg/dL (50-129) 02/03/23 02:30 Total VLDL Cholesterol 13 mg/dL (0-30) 02/03/23 02:30 HDL Cholesterol 50 mg/dL (60-100) L 02/03/23 02:30 Cholesterol/HDL Ratio 3.48 mg/dL (0.0-4.40) 02/03/23 02:30 Vitamin B12 1992 pg/mL (232-1245) H 02/02/23 17:52 Folate > 20.0 ng/mL (4.8-37.3) 02/03/23 04:42 TSH 1.08 uIU/mL (0.27-4.20) 02/02/23 17:52 Urine Color Straw (Yellow) 02/06/23 07:45 Urine Appearance Clear (CLEAR) 02/06/23 07:45 Urine pH 5 (5-7) 02/06/23 07:45 Ur Specific [place] 1.005 (1.005-1.030) 02/06/23 07:45 Urine Protein Neg (Negative) 02/06/23 07:45 Urine Glucose (UA) Norm (Normal) 02/06/23 07:45 Urine Ketones Negative (Negative) 02/06/23 07:45 Urine Blood Neg (Negative) 02/06/23 07:45 Urine Nitrate Negative (Negative) 02/06/23 07:45 Urine Bilirubin Neg (Negative) 02/06/23 07:45 Urine Urobilinogen Norm mg/dL (Negative) 02/06/23 07:45 Ur Leukocyte Esterase Negative (Negative) 02/06/23 07:45 Urine RBC None /hpf (0-2) 02/02/23 16:32 Urine WBC 0-4 /hpf (0-5) H 02/02/23 16:32 Ur Eosinophil Smear 3 (0-0) H 02/02/23 22:15 Ur Squamous Epith Cells 0-4 /hpf (0-5) H 02/02/23 16:32 Amorphous Sediment Not Reportable 02/02/23 16:32 Urine Bacteria Trace /hpf (NONE) 02/02/23 16:32 Urine Eosinophils Eosinophils seen H 02/02/23 22:15 Ur Random Sodium 43 mmol/L 02/02/23 22:15 Ur Random Sodium Cancelled 02/02/23 22:15 Ur Random Potassium 57 mmol/L 02/02/23 22:15 Ur Random Potassium Cancelled 02/02/23 22:15 Ur Random Chloride 53 mmol/L 02/02/23 22:15 Ur Random Chloride Cancelled 02/02/23 22:15 Blood Type A Negative 02/04/23 10:34 Rho(D) Type Negative 02/04/23 10:34 Antibody Screen Negative 02/04/23 10:34 Crossmatch See Detail 02/04/23 10:34 Micro: Microbiology 02/02/23 17:23 Blood Culture - Final Blood Staphylococcus epidermidis A&P Assessment and plan (1) Acute non-ST elevation myocardial infarction (NSTEMI): Patient had the cardiac catheterization (visual) mild to moderate coronary artery disease. Based on this information, she will be treated with risk modifying measures (2) Third degree heart block: Permanent pacer implantation by Dr. Smith today (3) Acute hyponatremia: Her sodium continues to improve . Continue with the management as per the primary (4) Hypertension: Need to optimize antihypertensive medications. (5) Hyperlipidemia: May continue on the current medication Qualifiers: Hyperlipidemia type: mixed hyperlipidemia Qualified Code(s): E78.2 - Mixed hyperlipidemia (6) Recurrent UTI: Patient is on antibiotics. White cell count elevation, could be an acute phase reactant. The WBC count is coming down. (7) Diabetes mellitus type 2, noninsulin dependent: Aggressive treatment would be appropriate. Plan Permanent pacer implantation today Attestations Medical Necessity Statement*: Patient requires continued hospital stay for close monitoring and further management Coding Level of Care Code 35133 Diagnoses Acute non-ST elevation myocardial infarction (NSTEMI) I21.4 Third degree heart block I44.2 Acute hyponatremia E87.1 Hypertension I10 Hyperlipidemia E78.2 Hyperlipidemia type: mixed hyperlipidemia Recurrent UTI N39.0 Diabetes mellitus type 2, noninsulin dependent E11.9
[2023-02-06] MEDS: heparin 5,000 unit/mL INJ 1 mL 5000 UNIT SUBCUT (21:26)
[2023-02-06] MEDS: atorvastatin 40 mg Tablet PO (21:26)
[2023-02-07] VITALS (27 sets, daily range): BP systolic 98–187; BP diastolic 56–148; PULSE 34–107; RESP 13–33; TEMP 36.1–37.1; O2SAT 92–99
--- NOTE | 2023-02-07 | SC_ITS ---
WS: [id number] EXAMINATION: C-arm FL for Pacemaker ORDER DATE: 02/07/2023 12:00 AM REASON FOR EXAM: pacemaker COMPARISON: None available. FLUOROSCOPY TIME: 4 minutes 20 seconds. # OF SPOT FILMS: 1 FINDINGS: Left chest cardiac device with leads to the right atrium and right ventricular apex. SC/C-arm [place] for Pacemaker IMPRESSION: Cardiac device placement as above.
[2023-02-07] MEDS: lactated ringers 1,000 ML 150 ML IV (02:39)
--- NOTE | 2023-02-07 04:55 | P.PN_ITS ---
Subjective Subjective: Rested well last night. Nurses report no concerns. Remains in what appears to be third-degree heart block. Vitals/I&O/Wt Last Vital Signs Temp 98.1 F 02/06/23 19:00 Pulse 36 L 02/07/23 01:55 Resp 13 02/07/23 01:55 BP 185/59 02/07/23 00:00 Pulse Ox 94 02/07/23 01:55 O2 Del Method Nasal Cannula 02/07/23 01:55 O2 Flow Rate 2 02/07/23 01:55 02/06/23 02/06/23 02/07/23 14:59 22:59 06:59 Intake Total 995 / 995 1150 / 2145 990 / 3135 Output Total 1450 / 1450 Balance 995 / 995 -300 / 695 990 / 1685 Weight last 48 hrs Weight 142 lb Physical Exam Chest: COMMONS NORMALS: normal inspection of the chest and normal palpation of entire chest wall Resp: COMMON NORMALS: normal respiratory effort and clear to auscultation bilaterally AUSCULTATION: clear to auscultation bilaterally Cardio: RATE: bradycardic RHYTHM: abnormal rhythm GI: COMMON NORMALS: Normal to inspection, nondistended, normoactive bowel sounds present Extremity: COMMON NORMALS: no clubbing, cyanosis or edema Urinary Catheter Management: Galvan: Cath Placed During This Visit: yes Reason for Continuing Indwelling Catheter: Accurate Measurement of Urinary Output in Critically Ill Patients Urinary Catheter Date of Insertion: 02/02/23 Urinary Catheter Time of Insertion: 16:48 Data 02/06/23 05:47 02/06/23 05:47 Micro: Microbiology 02/02/23 17:23 Blood Culture - Final Blood Staphylococcus epidermidis A&P Assessment and plan (1) Third degree heart block: Yesterday evening, I again discussed with Ms. Alanis family recommendation for pacemaker implantation. 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 Options for standard lead pacemaker versus leadless pacemaker were discussed as well as particular risk of each. Ms. Alanis and family again wish to proceed with standard pacemaker implantation if possible. I noted on her most recent laboratory data from yesterday that her white count is normal at 9.7. Her urinalysis remains clear. We will plan to proceed with pacemaker implantation this morning. Attestations Medical Necessity Statement*: Medically refractory third-degree AV heart block Coding Level of Care Code Acute Code for Chg Fwd Diagnoses Third degree heart block I44.2
[2023-02-07 05:34] LABS: Basophils % 0.3 %; Eosinophils # 0.4 10^3/uL (0.0-0.8); Eosinophils % 4.1 %; Hematocrit 29.6 % (37.0-47.0); Hemoglobin 9.5 g/dL (11.5-15.3); Lymphocytes % 22.9 %; Mean Corpuscular HGB Conc 32.1 g/dL (30.0-36.0); Mean Corpuscular Hemoglobin 30.5 pg (28.0-34.0); Mean Corpuscular Volume 95.2 fl (81-99); Mean Platelet Volume 10.1 fL (7.4-10.4); Monocytes % 11.8 %; Neutrophils # 5.35 10^3/uL (1.8-7.7); Neutrophils % 60.6 %; Nucleated Red Blood Cells % 0 %; Platelet Count 306 10^3/cmm (130-400); Red Blood Count 3.11 10^6/uL (4.1-5.3); Red Cell Distribution Width 13.9 % (12.1-15.1); White Blood Count 8.8 10^3/uL (4.0-10.0)
[2023-02-07 05:54] LABS: Alanine Aminotransferase 20 U/L (0-33); Albumin Level 3.2 g/dL (3.5-5.2); Alkaline Phosphatase 79 U/L (35-105); Anion Gap 13.5 (5-19); Aspartate Amino Transferase 8 U/L (0-32); Blood Urea Nitrogen 13 mg/dL (8-23); Calcium 8.7 mg/dL (8.5-10.5); Carbon Dioxide 26 mmol/L (22-29); Chloride 104 mmol/L (98-107); Globulin 2.4 g/dL (1.3-4.6); Glucose 168 mg/dL (65-115); Osmolality Calculated 292 mOsm/kg (285-295); Potassium 4.5 mmol/L (3.5-5.1); Sodium 139 mmol/L (136-145); Total Bilirubin 0.3 mg/dL (0.15-1.2); Total Protein 5.6 g/dL (6.6-8.7)
[2023-02-07] MEDS: lidocaine 1% INJ 10 mL (per mL) 20 ML XX (07:04)
[2023-02-07] MEDS: ceFAZolin 2,000 MG in sodium chloride 0.9% (plus) 50 ML 100 MG IV (07:04)
--- NOTE | 2023-02-07 07:26 | P.ANESUD_ITS ---
Pre-Anesthetic Update Pre-Anesthetic Assessment: Date of Surgery/Procedure: 02/07/23 Preop Daisy gnosis: ASHD/ heart block Proposed Procedure: Operation Date: 02/03/23 17:00 Proposed Procedures p Cardiac Catheterization(Not Applicable) - Pineda Prather MD Operation Date: 02/07/23 07:00 Proposed Procedures p Pacemaker Insertion(Not Applicable) - Cristi Smith MD Any changes to Pre-Anesthetic Assessment?: No Last Intake: Intake Last Liquid Date 02/06/23 Last Liquid Time 00:00 Last Solid Date 02/06/23 Last Solid Time 00:00 Labs Last 48hrs: Short CBC 02/06/23 02/07/23 Range/Units 05:47 05:15 WBC 9.7 8.8 (4.0-10.0) 10^3/ uL Hgb 10.1 L 9.5 L (11.5-15.3) g/dL Hct 30.9 L 29.6 L (37.0-47.0) % MCV 95.7 95.2 (81-99) fl Plt Count 304 306 (130-400) 10^3/c mm Neut % (Auto) 60.7 60.6 % Neut # (Auto) 5.87 5.35 (1.8-7.7) 10^3/u L BMP 02/06/23 02/07/23 05:47 05:15 Sodium 130 L 139 Potassium 4.2 4.5 Chloride 96 L 104 Carbon Dioxide 23 26 BUN 16 13 Creatinine 0.9 0.9 Glucose 135 H 168 H Calcium 8.8 8.7 Liver Function 02/06/23 02/07/23 Range/Units 05:47 05:15 Total Bilirubin 0.3 0.3 (0.15-1.2) mg/dL AST 11 8 (0-32) U/L ALT 27 20 (0-33) U/L Alkaline Phosphata se 82 79 (35-105) U/L Albumin 3.3 L 3.2 L (3.5-5.2) g/dL Urine 02/06/23 Range/Units 07:45 Urine Color Straw (Yellow) Urine Appearance Clear (CLEAR) Urine pH 5 (5-7) Ur Specific Gravit y 1.005 (1.005-1.030) Urine Protein Neg (Negative) Urine Glucose (UA) Norm (Normal) Urine Ketones Negative (Negative) Urine Nitrate Negative (Negative) Urine Bilirubin Neg (Negative) Ur Leukocyte Esme ase Negative (Negative) Vitals: Temperature 97.9 F 02/07/23 05:22 Temperature Source Oral 02/07/23 05:22 Pulse Rate 36 L 02/07/23 06:00 Pulse Rhythm Regular 02/05/23 19:56 Pulse Strength 3+ Normal 02/06/23 20:00 Respiratory Rate 18 02/07/23 06:00 Respiratory Effort Spontaneous, Non- Labored 02/06/23 20:00 Respiratory Depth Normal 02/06/23 20:00 Blood Pressure 182/69 02/07/23 06:00 Blood Pressure [place] n 106 02/07/23 06:00 Blood Pressure Pos ition Semi Fowlers 02/04/23 18:00 Pulse Oximetry 92 02/07/23 06:00 Oxygen Delivery Me thod Nasal Cannula 02/07/23 01:55 Oxygen Flow Rate 2 02/07/23 01:55 Sepsis Recent Feve r Within 48 Hours No 02/02/23 15:44 Sepsis New/Unexpla ined Change in Men espinoza Status No 02/02/23 15:44 Exam: Pre-Anes Outpt Exam: alert, oriented x 3, clear to auscultation bilaterally and regular rate & rhythm Cardiac Studies: Echocardiogram 02/02/23 Echocardiogram Ultrasound 11/29/19
[2023-02-07] MEDS: ceFAZolin 1,000 mg SDV 1000 MG IRRIGATION (07:41)
--- NOTE | 2023-02-07 08:41 | SUR.OPER ---
attempted to contact family and notify them of surgical progress. no answer.
--- NOTE | 2023-02-07 09:12 | PM.OP ---
Operative Report Date of procedure: February 07, 2023 Pre-op diagnosis: Preop Diagnosis third-degree AV heart block Post-op diagnosis: same Procedure done: Dual-lead pacemaker implantation Implants: Pacing generator Atrial and ventricular lead Pathology: none sent Surgeon: Cristi Smith Anesthesia: MAC and Local Complications: None Condition: stable Disposition: ICU Brief History: Ms. Alanis is an 82-year-old female who presented with fatigue and near syncope was found to be in third-degree AV heart block. She underwent left heart catheterization with revealing only modest coronary disease not requiring intervention. I will simply consulted to consider leadless pacemaker implantation. After discussion With Ms. Alanis and her daughter, concerning detail, procedure, and risks with each device implantation, l they wished for a traditional lead system. Appropriate consents have been reviewed and signed. Procedure: Procedure: Ms. Alanis was taken to the OR suite and placed in the supine position over a shoulder roll. She received conscious sedation with continuous anesthesia monitoring by. Her entire chest was sterilely prepped and draped. 1% lidocaine was infiltrated in the left subclavicular region. While in Trendelenburg position, utilizing modified seldinger technique, 2 guidewires were placed in the left subclavian vein. This was confirmed in position by fluoroscopy. Next, after infiltration with lidocaine, a subcutaneous pocket was created beginning from the exit point of the guidewire and extending laterally and inferiorly. Cautery was utilized to create the pocket just above the pectoralis musculature. Hemostasis was confirmed. An antibiotic-soaked sponge was placed in the wound. A dilator and tear-away sheath was placed over the first guidewire and advanced under fluoroscopy. Guidewire and dilator were removed. Next using a combination of curved and straight stylettes, the right ventricular lead was placed in position by fluoroscopy. The distal screw was extended. Interrogation was then performed confirming appropriate parameters. The tear-away sheath was then removed and the ventricular lead was sewn to the floor of the subcutaneous pocket. In a similar fashion dilator and tear-away sheath was placed over the 2nd guide wire and advanced under fluoroscopy. Guidewire and dilator were removed. Straight and curved stylettes were used to position the right atrial lead with fluoroscopy. Distal screw was extended. Interrogation was then performed. Tear-away sheath was then removed. Atrial lead was secured to the floor of the subcutaneous pocket. Pocket was irrigated with antibiotic solution and hemostasis again confirmed. Pacing generator was brought into the field, and after confirmation of hemostasis in the subcutaneous pocket, the leads were connected to the generator with appropriate capture. The entire system was interrogated by fluoroscopy. Leads and generator were secured in the pocket. Sponge and needle count was correct. The wound was then closed in 2 layers of 3-0 Vicryl suture. Skin was reapproximated in a subcuticular manner with 4-0 Monocryl suture. A pressure dressing was applied. The left arm was placed in a sling. The patient had equal breath sounds bilaterally. She was then transferred back to the ICU. I did adult school counselor with the family at the completion of the procedure. Following are the specifics of this system: Right ventricular lead is 52 cm and model 5076. Serial number [id number] Right atrial lead is 45 cm and is model 5076. Serial number [id number]. Ventricular lead had sensing of 4.25 mV with an impedance of 722 ohms. Threshold was 1 V Atrial lead had sensing of 2.6 mV with an impedance of 418 ohms. Threshold was 1 V. [employer] generator: Model # [id number] Serial # [id number]
[2023-02-07] MEDS: gabapentin 300 mg Capsule PO ×3 (09:26→21:43)
[2023-02-07] MEDS: pantoprazole DR 40 mg Tablet PO (09:27)
[2023-02-07] MEDS: ezetimibe 10 mg Tablet PO (09:27)
[2023-02-07] MEDS: aspirin 81 mg EC Tablet PO (09:27)
[2023-02-07] MEDS: amlodipine 10 mg Tablet PO (09:52)
--- NOTE | 2023-02-07 10:20 | ANE.PACU2 ---
Inpatient post-anesthesia follow up: Airway intact: Yes Vital signs: Temperature 97.0 F Pulse Rate 94 Respiratory Rate 16 Blood Pressure 107/93 Pulse Oximetry 98 Oxygen Delivery Me thod [ Nasal Cannula Current Rate & Del kiki] Oxygen Delivery Me thod Nasal Cannula Oxygen Flow Rate [ Current Rate 2.5 & Delivery] Oxygen Flow Rate 2 Fraction of Inspir ed Oxygen Hydration adequate: Yes Nausea and vomiting: No Pain level: 2 Mental status: Baseline
--- NOTE | 2023-02-07 10:29 | XRR_ITS ---
PROCEDURE INFORMATION: Exam: XR Chest Exam date and time: 02/07/2023 10:36 AM Age: 82 years old Clinical indication: Device placement; Cardiac pacemaker lead placement or adjustment; Prior surgery; Surgery date: Post-operative (0-2 days); Surgery type: Post pacer TECHNIQUE: Imaging protocol: Radiologic exam of the chest. Views: 1 view. COMPARISON: 1. CR (CHEST, ) 02/02/2023 9:02 PM 2. CR (CHEST, ) 02/02/2023 4:[address] chest w con* [id number] 04/28/2020 9:17 AM FINDINGS: Tubes, catheters and devices: Interval dual lead cardiac pacemaker with left chest generator and intact leads overlying the right ventricle and mildly left of midline with significant patient rotation noted. The latter lead turns superiorly just before its termination. Right upper extremity PICC terminates at the superior cavoatrial junction. Lungs: Bibasilar atelectasis. Pleural spaces: Small bilateral pleural effusions. No pneumothorax. Heart/Mediastinum: Stable mild enlargement of the cardiac silhouette. Vasculature: Atherosclerotic calcification along the aorta. Bones/joints: Unremarkable. XR/XR chest 1V portable [id number] IMPRESSION: 1. Interval dual lead cardiac pacemaker with suspected appropriate positioning, although evaluation is limited by patient rotation and confirmation with routine PA and lateral chest radiographs is recommended when able. 2. Small bilateral pleural effusions and associated atelectasis. Pneumonia difficult to entirely exclude.
--- NOTE | 2023-02-07 11:06 | PM.PN ---
Subjective Subjective: She is doing well after pacemaker implantation. Denies any pain or discomfort. No chest pain or pressure. No trouble breathing. Has had a discussion with CT surgery after the procedure, given pacemaker precautions. Vitals/I&O/Wt Last Vital Signs Temp 97.0 F L 02/07/23 09:13 Pulse 94 02/07/23 09:13 Resp 16 02/07/23 09:13 BP 107/93 02/07/23 09:13 Pulse Ox 98 02/07/23 09:13 O2 Del Method Nasal Cannula 02/07/23 01:55 O2 Flow Rate 2 02/07/23 01:55 02/06/23 02/07/23 02/07/23 22:59 06:59 14:59 Intake Total 1150 / 2145 990 / 3135 1050 / 1050 Output Total 1450 / 1450 950 / 2400 Balance -300 / 695 40 / 735 1050 / 1050 Physical Exam Narrative: Family at bedside Const: COMMON NORMALS: patient oriented x3 and alert GENERAL APPEARANCE: cooperative ORIENTATION/CONSCIOUSNESS: Yes awake HENMT: COMMON NORMALS: oropharynx normal Neck/C-Spine: COMMON NORMALS: no JVD Chest: OTHER: Left chest PPM, dressing without strikethrough. Resp: COMMON NORMALS: normal respiratory effort and clear to auscultation bilaterally AUSCULTATION: clear to auscultation bilaterally Cardio: COMMON NORMALS: no JVD, regular rhythm, S1 normal heart sound present, S2 normal heart sound present and No murmurs present (Cardio) RHYTHM: regular rhythm HEART SOUNDS: S1 normal heart sound present and S2 normal heart sound present GI: COMMON NORMALS: Normal to inspection, nondistended, normoactive bowel sounds present, Soft to palpation and non-tender PALPATION: Yes Soft to palpation Extremity: COMMON NORMALS: no joint enlargement and no pedal edema OTHER: LUE sling Neuro: COMMON NORMALS: patient oriented x3 and moves all extremities SENSORIUM/ORIENTATION: Yes alert Skin: COMMON NORMALS: no rashes or lesions noted GENERAL SKIN EXAM: no rashes or lesions noted Urinary Catheter Management: Galvan: Cath Placed During This Visit: yes Reason for Continuing Indwelling Catheter: Accurate Measurement of Urinary Output in Critically Ill Patients Urinary Catheter Date of Insertion: 02/02/23 Urinary Catheter Time of Insertion: 16:48 Data 02/07/23 05:15 02/07/23 05:15 Micro: Microbiology 02/02/23 17:23 Blood Culture - Final Blood Staphylococcus epidermidis A&P Assessment and plan (1) Third degree heart block: CT surgery documentation reviewed this morning, pacemaker delayed yesterday with no pacemaker presented available. PPM today. She has been given instructions on PPM precautions. Discussed with CV surgery. She is doing well. Continue care on CSU. Empirically will continue ceftriaxone for today, stop antibiotic tomorrow. Potassium level noted 4.5. Follow-up chemistry in the morning. Symptomatic bradycardia. Patient not on rate limiting medications. Complaining of dizziness and shortness of breath on exertion. Currently hemodynamically stable. Echocardiogram result shows an EF 66%, mild MR, mildly increased LA size, mild TR, PASP of 58 mmHg. Continue to monitor heart rate. (2) Acute hyponatremia: Improving. Sodium improved at 139. Off IV fluids. Creatinine noted down to 0.9. Continue diet without sodium restriction. Repeat chemistry panel. Baseline sodium level normal. Monitor input and output. (3) Symptomatic bradycardia: As above (4) Elevated troponin: Status post coronary angiography. Nonobstructive CAD noted. Continue aspirin, statin. Type II versus non-ST elevation DE. Appreciate cardiology recommendations. Continue with aspirin 81 mg, atorvastatin 40 mg daily. Hold anticoagulation. On prophylactic heparin. Appreciate A1c, lipid panel. (5) Recurrent UTI: Empirically on ceftriaxone will continue for today, stop tomorrow. Preliminary blood culture noted without growth. Recently started on Augmentin. For now switch to IV ceftriaxone. Follow-up blood cultures. (6) Diabetes mellitus type 2, noninsulin dependent: Glucose 168. Reassess glucose daily. CC diet. A1c 6.3. Hold off on insulin sliding scale for now. Monitor BMP daily. Not on any oral hypoglycemics. (7) Malignant neoplasm of posterior wall of bladder: Plan CODE STATUS: full code. Heparin drip will suffice as DVT prophylaxis. Protonix OPD prophylaxis. Attestations Medical Necessity Statement*: Continue admission for assessment management following pacemaker implantation for high degree AV block. Diagnoses Third degree heart block I44.2 Acute hyponatremia E87.1 Symptomatic bradycardia R00.1 Elevated troponin R79.89 Recurrent UTI N39.0 Diabetes mellitus type 2, noninsulin dependent E11.9 Malignant neoplasm of posterior wall of bladder C67.4
--- NOTE | 2023-02-07 13:17 | PC.SOCIAL ---
IMM Updated Updated pt on IMM. No questions voiced. Provided pt a copy. Initialed, dated, & timed copy in chart.
[2023-02-07] MEDS: ipratropium-albuterol 3 mL Neb INHALATION ×2 (14:04→20:36)
[2023-02-07] MEDS: ceFAZolin 1,000 MG in sodium chloride 0.9% (plus) 50 ML 100 MG IV ×2 (14:18→23:54)
[2023-02-07] MEDS: cefTRIAXone 1,000 MG in sodium chloride 0.9% (plus) 50 ML 100 MG IV (16:49)
--- NOTE | 2023-02-07 17:28 | P.PN_ITS ---
Subjective Subjective: Pain had a permanent pacer implantation this morning. His blood pressure is currently in the 190s. No chest pain or shortness of breath. No hematoma bleeding at the pacemaker insertion site. Medications: Medication Review Details: Current Medications Hydrocodone Bitart/Acetaminophen (Hydrocodone-Acetaminophen 5-325 Mg Tablet) 1 tab PO Q4H PRN PRN Reason: MODERATE PAIN Al Hydrox/Mg Hydrox/Simethicone (Frpz-Bqp-Rsbuzdhec-Shamika 30 Ml Udc) 30 ml PO Q15M PRN PRN Reason: INDIGESTION Al Hydrox/Mg Hydrox/Simethicone (Avss-Tij-Nfpfoewjp-Shamika 30 Ml Udc) 30 ml PO Q4H PRN PRN Reason: INDIGESTION Albuterol/Ipratropium (Ipratropium-Albuterol 3 Ml Neb) 3 ml INHALATION Q6H.RESP [facility] Last Admin: 02/07/23 14:04 Dose: 3 ml Alprazolam (Alprazolam 0.5 Mg Tablet) 0.25 mg PO TID PRN PRN Reason: ANXIETY Amlodipine Besylate (Amlodipine 10 Mg Tablet) 10 mg PO DAILY [facility] Last Admin: 02/07/23 09:52 Dose: 10 mg Aspirin (Aspirin 81 Mg Ec Tablet) 81 mg PO DAILY [facility] Last Admin: 02/07/23 09:27 Dose: 81 mg Atorvastatin Calcium (Atorvastatin 40 Mg Tablet) 40 mg PO BEDTIME [facility] Last Admin: 02/06/23 21:26 Dose: 40 mg Atropine Sulfate (Atropine 1 Mg/Ml Sdv 1 Ml) 0.5 mg IVP PRN PRN PRN Reason: Symptomatic bradycardia Bisacodyl (Bisacodyl 5 Mg Tablet) 10 mg PO DAILY PRN; Protocol PRN Reason: Constipation (see protocol) Bisacodyl (Bisacodyl 10 Mg Supp) 10 mg [place] Q6H PRN PRN Reason: Constipation (Use 5th) Bisacodyl (Bisacodyl 5 Mg Tablet) 5 mg PO Q6H PRN PRN Reason: Constipation (Use 2nd) Bismuth Subsalicylate (Bismuth Subsalicylate 240 Ml Btl) 30 ml PO PRN PRN PRN Reason: DIARRHEA Diphenhydramine HCl (Diphenhydramine 25 Mg Capsule) 25 mg PO BEDTIME PRN PRN Reason: SLEEP Docusate Sodium (Docusate Sodium 100 Mg Capsule) 100 mg PO BID PRN PRN Reason: Constipation (Use 1st) Ezetimibe (Ezetimibe 10 Mg Tablet) 10 mg PO DAILY [facility] Last Admin: 02/07/23 09:27 Dose: 10 mg Gabapentin (Gabapentin 300 Mg Capsule) 300 mg PO TID [facility] Last Admin: 02/07/23 14:18 Dose: 300 mg Guaifenesin (Guaifenesin 100 Mg/5 Ml Udc 10 Ml) 200 mg PO Q4H PRN PRN Reason: COUGH Ceftriaxone Sodium 1,000 mg/ (Sodium Chloride) 50 mls @ 100 mls/hr IV Q24H [facility]; Protocol Last Admin: 02/07/23 16:49 Dose: 100 mls/hr Cefazolin Sodium 1,000 mg/ (Sodium Chloride) 50 mls @ 100 mls/hr IV Q8H [place]; Protocol Stop: 02/08/23 07:29 Last Infusion: 02/07/23 15:35 Dose: Infused Lactulose (Lactulose Oral Liq 20 Gm/30 Ml Udc) 10 gm PO DAILY PRN; Protocol PRN Reason: Constipation (see protocol) Lactulose (Lactulose Oral Liq 20 Gm/30 Ml Udc) 20 gm PO Q6H PRN PRN Reason: Constipation (Use 3rd) Magnesium Hydroxide (Magnesium Hydroxide 30 Ml Udc) 30 ml PO DAILY PRN; Protocol PRN Reason: Constipation (see protocol) Magnesium Hydroxide (Magnesium Hydroxide 30 Ml Udc) 45 ml PO DAILY PRN PRN Reason: Constipation (use 4th) Morphine Sulfate (Morphine 4 Mg/Ml Sdv 1 Ml) 2 mg IVP Q4H PRN PRN Reason: SEVERE PAIN Morphine Sulfate (Morphine 4 Mg/Ml Sdv 1 Ml) 2 mg IVP Q1H PRN PRN Reason: SEVERE PAIN Naloxone HCl (Naloxone 0.4 Mg/Ml Sdv) 0.1 mg IVP Q2M PRN PRN Reason: RESPIRATORY RATE < 8/MIN Nitroglycerin (Nitroglycerin 0.4 Mg Sublingual Tablet) 0.4 mg SUBLINGUAL Q5M PRN PRN Reason: CHEST PAIN Ondansetron HCl (Ondansetron 2 Mg/Ml Sdv 2 Ml) 4 mg IVP Q6H PRN PRN Reason: NAUSEA AND VOMITING Last Admin: 07/01/23 17:49 Dose: 4 mg Pantoprazole Sodium (Pantoprazole Dr 40 Mg Tablet) 40 mg PO DAILY [place] Last Admin: 02/07/23 09:27 Dose: 40 mg Promethazine HCl (Promethazine 25 Mg Supp) 25 mg [place] Q6H PRN PRN Reason: NAUSEA AND VOMITING Temazepam (Temazepam 15 Mg Capsule) 15 mg PO BEDTIME PRN PRN Reason: INSOMNIA Vitals/I&O/Wt Last Vital Signs Temp 97.0 F L 02/07/23 09:13 Pulse 91 02/07/23 16:00 Resp 23 H 02/07/23 16:00 BP 98/67 02/07/23 15:00 Pulse Ox 94 02/07/23 16:00 O2 Del Method Nasal Cannula 02/07/23 14:00 O2 Flow Rate 2 02/07/23 14:00 02/07/23 02/07/23 02/07/23 06:59 14:59 22:59 Intake Total 990 / 3135 1290 / 1290 50 / 1340 Output Total 950 / 2400 2425 / 2425 Balance 40 / 735 -1135 / -1135 50 / -1085 Physical Exam Narrative: GENERAL: The patient is alert and oriented times three. Not in any acute distress. Short stature HEENT: No significant pallor, icterus or lymphadenopathy.Oral cavity: There are no mucous membrane lesions. NECK: Trachea appears to be central. No masses noted. No JVD or thyromegaly appreciated. RESPIRATORY: The pacemaker insertion site has no hematoma bleeding. No intercostals muscle retraction or any accessory muscle activation. There is no chest wall tenderness. Breath sounds are heard bilaterally. No rales or rhonchi heard. No evidence of any consolidation. BREASTS: Deferred. HEART: The heart sounds are normal. No S3 or S4. Short systolic murmur in the left sternal border. No pericardial rub ABDOMEN: No vessel pulsations or distention. No tenderness. No organomegaly appreciated. Bowel sounds are normally heard. : Deferred. RECTAL: Deferred. LYMPHATIC: No lymphadenopathy noted in the neck. EXTREMITIES: The right groin has no hematoma or bleeding. MUSCULOSKELETAL: No acute joint deformities or swelling SKIN: There are no significant rashes or ecchymosis NEUROPSYCHIATRIC: The patient is alert and oriented x3. Appears to be in a good mood. No tremors or rigidity noted. Urinary Catheter Management: Galvan: Cath Placed During This Visit: yes Reason for Continuing Indwelling Catheter: Accurate Measurement of Urinary Output in Critically Ill Patients Urinary Catheter Date of Insertion: 02/02/23 Urinary Catheter Time of Insertion: 16:48 Data 02/07/23 05:15 02/07/23 05:15 Micro: Microbiology 02/02/23 17:23 Blood Culture - Final Blood NO GROWTH AFTER 5 DAYS A&P Assessment and plan (1) Atherosclerosis of coronary artery of [place] heart without angina pectoris: Patient has moderate coronary disease. Status post overdose delusional myocardial infarction. Currently seems to be stable. May continue on the current medication. (2) Presence of permanent cardiac pacemaker: Patient status post dual-chamber pacemaker insertion. May continue the monitoring on telemetry. (3) Acute hyponatremia: Her sodium continues to improve . Continue with the management as per the primary (4) Hypertension: Patient was given amlodipine 10 mg p.o. in the ICU. The blood pressure need to be closely monitored. (5) Hyperlipidemia: May continue on the current medication Qualifiers: Hyperlipidemia type: mixed hyperlipidemia Qualified Code(s): E78.2 - Mixed hyperlipidemia (6) Recurrent UTI: Patient is on antibiotics. White cell count elevation, could be an acute phase reactant. The WBC count is coming down. (7) Diabetes mellitus type 2, noninsulin dependent: Aggressive treatment would be appropriate. Plan Patient will be closely monitored on telemetry. We will optimize antihypertensive medication. Possible discharge home tomorrow. The IV antibiotics as per protocol Attestations Medical Necessity Statement*: Possible discharge home tomorrow Coding Level of Care Code 47355 Diagnoses Atherosclerosis of coronary artery of [place] heart without angina pectoris I25.10 Presence of permanent cardiac pacemaker Z95.0 Acute hyponatremia E87.1 Hypertension I10 Hyperlipidemia E78.2 Hyperlipidemia type: mixed hyperlipidemia Recurrent UTI N39.0 Diabetes mellitus type 2, noninsulin dependent E11.9
[2023-02-07] MEDS: atorvastatin 40 mg Tablet PO (21:43)
[2023-02-08] VITALS (27 sets, daily range): BP systolic 86–150; BP diastolic 58–111; PULSE 0–96; RESP 11–29; O2SAT 87–98; BMI 27.7
[2023-02-08 04:58] LABS: Basophils # 0.1 10^3/uL (0.0-0.1); Basophils % 0.5 %; Eosinophils # 0.5 10^3/uL (0.0-0.8); Eosinophils % 4.9 %; Hematocrit 30.1 % (37.0-47.0); Hemoglobin 9.9 g/dL (11.5-15.3); Lymphocytes # 1.7 10^3/uL (0.8-4.8); Lymphocytes % 16.7 %; Mean Corpuscular HGB Conc 32.9 g/dL (30.0-36.0); Mean Corpuscular Hemoglobin 31.5 pg (28.0-34.0); Mean Corpuscular Volume 95.9 fl (81-99); Monocytes # 1.1 10^3/uL (0.2-0.9); Monocytes % 10.3 %; Neutrophils # 6.97 10^3/uL (1.8-7.7); Nucleated Red Blood Cells % 0 %; Platelet Count 298 10^3/cmm (130-400); Red Blood Count 3.14 10^6/uL (4.1-5.3); Red Cell Distribution Width 13.7 % (12.1-15.1); White Blood Count 10.4 10^3/uL (4.0-10.0)
[2023-02-08 05:22] LABS: Blood Urea Nitrogen 11 mg/dL (8-23); Calcium 8.7 mg/dL (8.5-10.5); Carbon Dioxide 28 mmol/L (22-29); Chloride 100 mmol/L (98-107); Glucose 144 mg/dL (65-115); Osmolality Calculated 288 mOsm/kg (285-295); Sodium 138 mmol/L (136-145)
--- NOTE | 2023-02-08 07:42 | P.PN_ITS ---
Subjective Subjective: Postop day #1 status post dual-lead pacemaker implantation. Ms. Alanis is doing well and eager for discharge. Outer compressive dressing was removed. There is no swelling or substantial ecchymosis noted. Minimal postoperative discomfort. Vital signs are stable. She does show tachycardia and is mostly ventricular paced. Initial interrogation did reveal some evidence of over sensing under sensing on the atrial lead though upon speaking with Mr. Ron Child from [employer], our local installation service representative. After review, he feels this is far field sensing from the atrial lead picking up activity on the ventricular lead and this can be programmed such that this will not occur. Overall function of the pacemaker appears to be good and is not being interrupted due to this sensing. Vitals/I&O/Wt Last Vital Signs Temp 98.7 F 02/07/23 19:00 Pulse 77 02/08/23 06:00 Resp 24 H 02/08/23 04:00 BP 136/77 02/08/23 04:00 Pulse Ox 95 02/08/23 04:00 O2 Del Method Nasal Cannula 02/08/23 02:00 O2 Flow Rate 2 02/08/23 02:00 02/07/23 02/08/23 02/08/23 22:59 06:59 14:59 Intake Total 440 / 1730 50 / 1780 Output Total 1500 / 3925 850 / 4775 Balance -1060 / -2195 -800 / -2995 Physical Exam Chest: OTHER: Chest wall is stable. There is no substantial ecchymosis. There is no evidence for fluid collection in the pacemaker pocket. Inner dressing remains intact and dry. Urinary Catheter Management: Galvan: Cath Placed During This Visit: yes Reason for Continuing Indwelling Catheter: Accurate Measurement of Urinary Output in Critically Ill Patients Urinary Catheter Date of Insertion: 02/02/23 Urinary Catheter Time of Insertion: 16:48 Data 02/08/23 03:52 02/08/23 03:52 Micro: Microbiology 02/02/23 17:23 Blood Culture - Final Blood NO GROWTH AFTER 5 DAYS A&P Assessment and plan (1) Status post cardiac pacemaker procedure: Postop day #1 status post dual-lead pacemaker implantation. After discharge, she will follow[facility] in 1 week. I have sent a prescription to [facility] in their for levofloxacin 5 mg daily for the next 3 days. Discharge instructions and wound care instructions are listed in the dictation summary. Attestations Medical Necessity Statement*: Postop day #1 status post pacemaker implantation due to third-degree heart block. Coding Level of Care Code Acute Code for Chg Fwd Diagnoses Status post cardiac pacemaker procedure Z95.0
[2023-02-08] MEDS: ceFAZolin 1,000 MG in sodium chloride 0.9% (plus) 50 ML 100 MG IV (09:03)
[2023-02-08] MEDS: amlodipine 10 mg Tablet PO (09:03)
[2023-02-08] MEDS: ezetimibe 10 mg Tablet PO (09:04)
[2023-02-08] MEDS: aspirin 81 mg EC Tablet PO (09:04)
[2023-02-08] MEDS: pantoprazole DR 40 mg Tablet PO (09:04)
[2023-02-08] MEDS: gabapentin 300 mg Capsule PO ×3 (09:04→20:11)
--- NOTE | 2023-02-08 11:14 | PC.NURSE ---
attempt to ambulate pt with walker.. total assist to get up on side of bed stood for brief minute unable to take step assisted to recliner to sit up for lunch
[2023-02-08] MEDS: metoprolol tartrate 25 mg Tablet PO ×2 (13:13→20:11)
--- NOTE | 2023-02-08 13:13 | XR_ITS ---
WS: [id number] XR chest 1V portable [id number] REASON FOR EXAM: follow up pacemaker lead FINDINGS: Cardiac device overlying the left chest with left subclavian leads to the right atrium and right vent ricular apex. The heart is at the upper limits of normal to slightly enlarged. Bilateral pleural effusions larger on the right. Interstitial lung opacities seen on 02/07/2023 appear to be resolving. Right arm PICC line remains in proper position. XR/XR chest 1V portable [id number] IMPRESSION: Cardiac device and leads as above. Resolving pulmonary edema.
[2023-02-08] MEDS: ipratropium-albuterol 3 mL Neb INHALATION ×2 (14:14→20:25)
--- NOTE | 2023-02-08 14:16 | PM.PN ---
Subjective Subjective: Patient is feeling okay. No chest pain or shortness of breath. The pacemaker was interrogated today. There was some issues with atrial sensing. Repeat chest x-ray was performed. The x-ray suggesting atrial lead dislodgment. Patient has episodes of atrial tachycardia Medications: Medication Review Details: Current Medications Hydrocodone Bitart/Acetaminophen (Hydrocodone-Acetaminophen 5-325 Mg Tablet) 1 tab PO Q4H PRN PRN Reason: MODERATE PAIN Al Hydrox/Mg Hydrox/Simethicone (Ogbl-Vbg-Rnkablwin-Shamika 30 Ml Udc) 30 ml PO Q15M PRN PRN Reason: INDIGESTION Al Hydrox/Mg Hydrox/Simethicone (Fjyz-Vwj-Fgqdslfrk-Shamika 30 Ml Udc) 30 ml PO Q4H PRN PRN Reason: INDIGESTION Albuterol/Ipratropium (Ipratropium-Albuterol 3 Ml Neb) 3 ml INHALATION Q6H.RESP [facility] Last Admin: 02/08/23 14:14 Dose: 3 ml Alprazolam (Alprazolam 0.5 Mg Tablet) 0.25 mg PO TID PRN PRN Reason: ANXIETY Amlodipine Besylate (Amlodipine 10 Mg Tablet) 10 mg PO DAILY [facility] Last Admin: 02/08/23 09:03 Dose: 10 mg Aspirin (Aspirin 81 Mg Ec Tablet) 81 mg PO DAILY [facility] Last Admin: 02/08/23 09:04 Dose: 81 mg Atorvastatin Calcium (Atorvastatin 40 Mg Tablet) 40 mg PO BEDTIME [facility] Last Admin: 02/07/23 21:43 Dose: 40 mg Atropine Sulfate (Atropine 1 Mg/Ml Sdv 1 Ml) 0.5 mg IVP PRN PRN PRN Reason: Symptomatic bradycardia Bisacodyl (Bisacodyl 5 Mg Tablet) 10 mg PO DAILY PRN; Protocol PRN Reason: Constipation (see protocol) Bisacodyl (Bisacodyl 10 Mg Supp) 10 mg VA Q6H PRN PRN Reason: Constipation (Use 5th) Bisacodyl (Bisacodyl 5 Mg Tablet) 5 mg PO Q6H PRN PRN Reason: Constipation (Use 2nd) Bismuth Subsalicylate (Bismuth Subsalicylate 240 Ml Btl) 30 ml PO PRN PRN PRN Reason: DIARRHEA Diphenhydramine HCl (Diphenhydramine 25 Mg Capsule) 25 mg PO BEDTIME PRN PRN Reason: SLEEP Docusate Sodium (Docusate Sodium 100 Mg Capsule) 100 mg PO BID PRN PRN Reason: Constipation (Use 1st) Ezetimibe (Ezetimibe 10 Mg Tablet) 10 mg PO DAILY [facility] Last Admin: 02/08/23 09:04 Dose: 10 mg Gabapentin (Gabapentin 300 Mg Capsule) 300 mg PO TID [facility] Last Admin: 02/08/23 09:04 Dose: 300 mg Guaifenesin (Guaifenesin 100 Mg/5 Ml Udc 10 Ml) 200 mg PO Q4H PRN PRN Reason: COUGH Ceftriaxone Sodium 1,000 mg/ (Sodium Chloride) 50 mls @ 100 mls/hr IV Q24H [place]; Protocol Last Infusion: 02/07/23 18:10 Dose: Infused Lactulose (Lactulose Oral Liq 20 Gm/30 Ml Udc) 10 gm PO DAILY PRN; Protocol PRN Reason: Constipation (see protocol) Lactulose (Lactulose Oral Liq 20 Gm/30 Ml Udc) 20 gm PO Q6H PRN PRN Reason: Constipation (Use 3rd) Magnesium Hydroxide (Magnesium Hydroxide 30 Ml Udc) 30 ml PO DAILY PRN; Protocol PRN Reason: Constipation (see protocol) Magnesium Hydroxide (Magnesium Hydroxide 30 Ml Udc) 45 ml PO DAILY PRN PRN Reason: Constipation (use 4th) Metoprolol Tartrate (Metoprolol Tartrate 25 Mg Tablet) 25 mg PO BID@0900,2100 [place] Morphine Sulfate (Morphine 4 Mg/Ml Sdv 1 Ml) 2 mg IVP Q4H PRN PRN Reason: SEVERE PAIN Morphine Sulfate (Morphine 4 Mg/Ml Sdv 1 Ml) 2 mg IVP Q1H PRN PRN Reason: SEVERE PAIN Naloxone HCl (Naloxone 0.4 Mg/Ml Sdv) 0.1 mg IVP Q2M PRN PRN Reason: RESPIRATORY RATE < 8/MIN Nitroglycerin (Nitroglycerin 0.4 Mg Sublingual Tablet) 0.4 mg SUBLINGUAL Q5M PRN PRN Reason: CHEST PAIN Ondansetron HCl (Ondansetron 2 Mg/Ml Sdv 2 Ml) 4 mg IVP Q6H PRN PRN Reason: NAUSEA AND VOMITING Last Admin: 02/02/23 17:49 Dose: 4 mg Pantoprazole Sodium (Pantoprazole Dr 40 Mg Tablet) 40 mg PO DAILY [place] Last Admin: 02/08/23 09:04 Dose: 40 mg Promethazine HCl (Promethazine 25 Mg Supp) 25 mg [place] Q6H PRN PRN Reason: NAUSEA AND VOMITING Temazepam (Temazepam 15 Mg Capsule) 15 mg PO BEDTIME PRN PRN Reason: INSOMNIA Vitals/I&O/Wt Last Vital Signs Temp 98.7 F 02/07/23 19:00 Pulse 60 02/08/23 12:00 Resp 18 02/08/23 12:00 BP 145/111 02/08/23 12:00 Pulse Ox 92 02/08/23 11:00 O2 Del Method Room Air 02/08/23 08:00 O2 Flow Rate 2 02/08/23 02:00 02/07/23 02/08/23 02/08/23 22:59 06:59 14:59 Intake Total 440 / 1730 50 / 1780 400 / 400 Output Total 1500 / 3925 850 / 4775 Balance -1060 / -2195 -800 / -2995 400 / 400 Weight last 48 hrs Weight 142 lb Physical Exam Narrative: GENERAL: The patient is alert and oriented times three. Not in any acute distress. HEENT: No significant pallor, icterus or lymphadenopathy.Oral cavity: There are no mucous membrane lesions. NECK: Trachea appears to be central. No masses noted. No JVD or thyromegaly appreciated. RESPIRATORY: No hematoma bleeding at the pacemaker insertion site.. No intercostals muscle retraction or any accessory muscle activation. There is no chest wall tenderness. Breath sounds are heard bilaterally. No rales or rhonchi heard. No evidence of any consolidation. BREASTS: Deferred. HEART: The heart sounds are normal. No S3 or S4. No significant murmurs. No pericardial rub ABDOMEN: No vessel pulsations or distention. No tenderness. No organomegaly appreciated. Bowel sounds are normally heard. : Deferred. RECTAL: Deferred. LYMPHATIC: No lymphadenopathy noted in the neck. EXTREMITIES: No edema or cyanosis. No clubbing. MUSCULOSKELETAL: No acute joint deformities or swelling SKIN: There are no significant rashes or ecchymosis NEUROPSYCHIATRIC: The patient is alert and oriented x3. Appears to be in a good mood. No tremors or rigidity noted. Urinary Catheter Management: Galvan: Cath Placed During This Visit: yes Reason for Continuing Indwelling Catheter: Accurate Measurement of Urinary Output in Critically Ill Patients Urinary Catheter Date of Insertion: 02/02/23 Urinary Catheter Time of Insertion: 16:48 Data 02/08/23 03:52 02/08/23 03:52 Micro: Microbiology 02/02/23 17:23 Blood Culture - Final Blood NO GROWTH AFTER 5 DAYS A&P Assessment and plan (1) Atherosclerosis of coronary artery of [place] heart without angina pectoris: Patient has moderate coronary disease. Status post overdose delusional myocardial infarction. Currently seems to be stable. May continue on the current medication. (2) Presence of permanent cardiac pacemaker: Possible dislodgment of the atrial lead? (3) Acute hyponatremia: Currently the sodium is back to normal (4) Hypertension: Patient may restart metoprolol 25 mg p.o. twice daily-for atrial arrhythmia as well as high blood pressure (5) Hyperlipidemia: May continue on the current medication Qualifiers: Hyperlipidemia type: mixed hyperlipidemia Qualified Code(s): E78.2 - Mixed hyperlipidemia (6) Recurrent UTI: Patient is on antibiotics. White cell count elevation, could be an acute phase reactant. The WBC count is coming down. (7) Diabetes mellitus type 2, noninsulin dependent: The blood sugar seems to be getting under control. Plan I will be discussing with Dr. Smith-May need to consider repositioning of the atrial lead Attestations Medical Necessity Statement*: Deferred to primary Coding Level of Care Code 33507 Diagnoses Atherosclerosis of coronary artery of [place] heart without angina pectoris I25.10 Presence of permanent cardiac pacemaker Z95.0 Acute hyponatremia E87.1 Hypertension I10 Hyperlipidemia E78.2 Hyperlipidemia type: mixed hyperlipidemia Recurrent UTI N39.0 Diabetes mellitus type 2, noninsulin dependent E11.9
[2023-02-08 14:26] LABS: SARS Covid-2 Antigen negative (Negative)
--- NOTE | 2023-02-08 14:57 | PM.PN ---
Subjective Subjective: Subjectively he is doing well. Denies chest pain or pressure. No trouble breathing. Vitals/I&O/Wt Last Vital Signs Temp 98.7 F 02/07/23 19:00 Pulse 82 02/08/23 14:17 Resp 16 02/08/23 14:10 BP 145/111 02/08/23 12:00 Pulse Ox 94 02/08/23 14:10 O2 Del Method Room Air 02/08/23 14:10 O2 Flow Rate 2 02/08/23 02:00 02/07/23 02/08/23 02/08/23 22:59 06:59 14:59 Intake Total 440 / 1730 50 / 1780 400 / 400 Output Total 1500 / 3925 850 / 4775 Balance -1060 / -2195 -800 / -2995 400 / 400 Weight last 48 hrs Weight 64.41 kg Physical Exam Narrative: Family at bedside Const: COMMON NORMALS: patient oriented x3 and alert GENERAL APPEARANCE: cooperative ORIENTATION/CONSCIOUSNESS: Yes awake HENMT: COMMON NORMALS: oropharynx normal Neck/C-Spine: COMMON NORMALS: no JVD Chest: OTHER: Left chest PPM, dressing without strikethrough. Resp: COMMON NORMALS: normal respiratory effort and clear to auscultation bilaterally AUSCULTATION: clear to auscultation bilaterally Cardio: COMMON NORMALS: no JVD, regular rhythm, S1 normal heart sound present, S2 normal heart sound present and No murmurs present (Cardio) RATE: bradycardic RHYTHM: regular rhythm HEART SOUNDS: S1 normal heart sound present and S2 normal heart sound present GI: COMMON NORMALS: Normal to inspection, nondistended, normoactive bowel sounds present, Soft to palpation and non-tender PALPATION: Yes Soft to palpation Extremity: COMMON NORMALS: no joint enlargement and no pedal edema OTHER: LUE sling Neuro: COMMON NORMALS: patient oriented x3 and moves all extremities SENSORIUM/ORIENTATION: Yes alert Skin: COMMON NORMALS: no rashes or lesions noted GENERAL SKIN EXAM: no rashes or lesions noted Urinary Catheter Management: Galvan: Cath Placed During This Visit: yes Reason for Continuing Indwelling Catheter: Accurate Measurement of Urinary Output in Critically Ill Patients Urinary Catheter Date of Insertion: 02/02/23 Urinary Catheter Time of Insertion: 16:48 Data 02/08/23 03:52 07/07/23 03:52 Micro: Microbiology 02/02/23 17:23 Blood Culture - Final Blood NO GROWTH AFTER 5 DAYS A&P Assessment and plan (1) Third degree heart block: Noted to have lead migration of the pacemaker, discussed with cardiology, reassessed by CV surgery, plan to return to the OR tomorrow for a revision and repositioning. Monitor heart rate with risk of arrhythmia, bradycardia, has been started on metoprolol as well. Monitor blood pressures, oxygenation. Additionally with discharge consideration, her daughter noted she had not gotten up so far, on attempt to get up with a walker required significant assistance, and with deconditioning will not be able to return home currently, arrangements underway for rehabilitation at SNF, discussed with case management. Continue empiric antibiotics for now. Potassium level noted 4. Follow-up chemistry in the morning. Symptomatic bradycardia. Patient not on rate limiting medications. Complaining of dizziness and shortness of breath on exertion. Currently hemodynamically stable. Echocardiogram result shows an EF 66%, mild MR, mildly increased LA size, mild TR, PASP of 58 mmHg. Continue to monitor heart rate. Started on metoprolol. (2) Acute hyponatremia: Resolved. Sodium improved at 138. Off IV fluids. Creatinine noted down to 0.9. Continue diet without sodium restriction. Repeat chemistry panel. Baseline sodium level normal. Monitor input and output. (3) Symptomatic bradycardia: As above (4) Elevated troponin: Status post coronary angiography. Nonobstructive CAD noted. Continue aspirin, statin. Type II versus non-ST elevation [place]. Appreciate cardiology recommendations. Continue with aspirin 81 mg, atorvastatin 40 mg daily. Hold anticoagulation. On prophylactic heparin. Appreciate A1c, lipid panel. (5) Recurrent UTI: Empirically on ceftriaxone. Continue for now, requiring pacemaker lead revision. Preliminary blood culture noted without growth. Recently started on Augmentin. For now switch to IV ceftriaxone. Follow-up blood cultures. (6) Diabetes mellitus type 2, noninsulin dependent: Glucose 168. Reassess glucose daily. CC diet. A1c 6.3. Hold off on insulin sliding scale for now. Monitor BMP daily. Not on any oral hypoglycemics. (7) Malignant neoplasm of posterior wall of bladder: Plan CODE STATUS: full code. Heparin drip will suffice as DVT prophylaxis. Protonix OPD prophylaxis. Attestations Medical Necessity Statement*: Continue admission for assessment management of displacement of pacemaker lead, high degree AV block, discharge planning and arrangements. Diagnoses Third degree heart block I44.2 Acute hyponatremia E87.1 Symptomatic bradycardia R00.1 Elevated troponin R79.89 Recurrent UTI N39.0 Diabetes mellitus type 2, noninsulin dependent E11.9 Malignant neoplasm of posterior wall of bladder C67.4
--- NOTE | 2023-02-08 16:10 | PM.PN ---
Subjective Subjective: Pacemaker atrial lead has migrated. This would account for the erratic readings this morning. Matriculate appears to be working appropriately. Vitals/I&O/Wt Last Vital Signs Temp 98.7 F 02/07/23 19:00 Pulse 70 02/08/23 16:00 Resp 13 02/08/23 16:00 BP 138/86 02/08/23 16:00 Pulse Ox 93 02/08/23 16:00 O2 Del Method Room Air 02/08/23 14:10 O2 Flow Rate 2 02/08/23 02:00 02/08/23 02/08/23 02/08/23 06:59 14:59 22:59 Intake Total 50 / 1780 400 / 400 Output Total 850 / 4775 Balance -800 / -2995 400 / 400 Weight last 48 hrs Weight 142 lb Physical Exam Chest: OTHER: Chest wall is stable. No fluid collection. Surgical site is dry. Urinary Catheter Management: Galvan: Cath Placed During This Visit: yes Reason for Continuing Indwelling Catheter: Accurate Measurement of Urinary Output in Critically Ill Patients Urinary Catheter Date of Insertion: 02/02/23 Urinary Catheter Time of Insertion: 16:48 Data 02/08/23 03:52 02/08/23 03:52 Micro: Microbiology 02/02/23 17:23 Blood Culture - Final Blood NO GROWTH AFTER 5 DAYS A&P Assessment and plan (1) Atrial pacemaker lead displacement: Plan We will plan to proceed to the OR tomorrow for atrial lead revision and repositioning. Attestations Medical Necessity Statement*: Right atrial lead pacer migration. We will plan for revision. Coding Level of Care Code Acute Code for Chg Fwd Diagnoses Atrial pacemaker lead displacement T82.120A
[2023-02-08] MEDS: cefTRIAXone 1,000 MG in sodium chloride 0.9% (plus) 50 ML 100 MG IV (17:47)
[2023-02-08] MEDS: atorvastatin 40 mg Tablet PO (20:11)
[2023-02-09] VITALS (54 sets, daily range): BP systolic 108–158; BP diastolic 55–96; PULSE 55–100; RESP 10–28; TEMP 36.6–37.1; O2SAT 78–98; BMI 27.7
[2023-02-09 03:02] LABS: Basophils # 0.1 10^3/uL (0.0-0.1); Basophils % 0.7 %; Eosinophils # 0.7 10^3/uL (0.0-0.8); Eosinophils % 8.4 %; Hematocrit 29.8 % (37.0-47.0); Hemoglobin 9.3 g/dL (11.5-15.3); Lymphocytes # 2.6 10^3/uL (0.8-4.8); Lymphocytes % 30.2 %; Mean Corpuscular HGB Conc 31.2 g/dL (30.0-36.0); Mean Corpuscular Hemoglobin 29.9 pg (28.0-34.0); Mean Corpuscular Volume 95.8 fl (81-99); Mean Platelet Volume 9.5 fL (7.4-10.4); Monocytes # 0.9 10^3/uL (0.2-0.9); Monocytes % 10.6 %; Neutrophils # 4.26 10^3/uL (1.8-7.7); Neutrophils % 49.6 %; Nucleated Red Blood Cells % 0 %; Platelet Count 259 10^3/cmm (130-400); Red Blood Count 3.11 10^6/uL (4.1-5.3); Red Cell Distribution Width 13.4 % (12.1-15.1); White Blood Count 8.6 10^3/uL (4.0-10.0)
[2023-02-09 03:21] LABS: Anion Gap 11.9 (5-19); Blood Urea Nitrogen 13 mg/dL (8-23); Calcium 8.8 mg/dL (8.5-10.5); Carbon Dioxide 28 mmol/L (22-29); Chloride 102 mmol/L (98-107); Glucose 129 mg/dL (65-115); Osmolality Calculated 288 mOsm/kg (285-295); Potassium 3.9 mmol/L (3.5-5.1); Sodium 138 mmol/L (136-145)
--- NOTE | 2023-02-09 07:35 | PM.PN ---
Subjective Subjective: Ms. Alanis rested well last night. Heart rate is 81 this morning. Beta-jennifer has been initiated. She is ventricular paced. Family is at bedside. I did discuss need for atrial lead repositioning with dislodgment sometime in the last 24 hours. They stated understanding. Vitals/I&O/Wt Last Vital Signs Temp 98.7 F 02/07/23 19:00 Pulse 60 02/09/23 06:00 Resp 15 02/09/23 04:00 BP 134/69 02/09/23 04:00 Pulse Ox 96 02/09/23 04:00 O2 Del Method Nasal Cannula 02/08/23 20:26 O2 Flow Rate 2 02/08/23 20:26 02/08/23 02/09/23 02/09/23 22:59 06:59 14:59 Intake Total 50 / 450 Output Total 1840 / 1840 225 / 2065 Balance -1790 / -1390 -225 / -1615 Weight last 48 hrs Weight 142 lb Physical Exam Chest: OTHER: Surgical incision line is clean, dry, and intact. No evidence for fluid collection or active infection. No erythema. Resp: COMMON NORMALS: normal respiratory effort and clear to auscultation bilaterally AUSCULTATION: clear to auscultation bilaterally Cardio: OTHER: Heart rate 81 and regular, paced rhythm by monitoring Extremity: COMMON NORMALS: no clubbing, cyanosis or edema Urinary Catheter Management: Galvan: Cath Placed During This Visit: yes Reason for Continuing Indwelling Catheter: Accurate Measurement of Urinary Output in Critically Ill Patients Urinary Catheter Date of Insertion: 02/02/23 Urinary Catheter Time of Insertion: 16:48 Data 02/09/23 02:37 02/09/23 02:37 Micro: Microbiology 02/03/23 19:00 Blood Culture - Final Blood NO GROWTH AFTER 5 DAYS 02/03/23 18:46 Blood Culture - Final Blood NO GROWTH AFTER 5 DAYS A&P Assessment and plan (1) Atrial pacemaker lead displacement: We will plan for repositioning the atrial lead this morning. Rationale was again carefully discussed. As usual, risk for infection, bleeding, pain at the incision site and possible, again, lead dislodgment requiring revision were discussed. Ms. Alanis and family are in agreement to proceed. Attestations Medical Necessity Statement*: Right atrial lead dislodgment requiring repositioning Coding Level of Care Code Acute Code for Chg Fwd Diagnoses Atrial pacemaker lead displacement T82.120A
--- NOTE | 2023-02-09 07:50 | SC_ITS ---
WS: [id number] EXAMINATION: C-arm [place] for Pacemaker ORDER DATE: 02/09/2023 7:50 AM REASON FOR EXAM: ATRIAL LEAD PLACEMENT REVISION COMPARISON: None available. FLUOROSCOPY TIME: 104 seconds # OF SPOT FILMS: 1 FINDINGS: Cardiac device over the left chest with left subclavian leads to the right atrium and right ventricle . SC/C-arm [place] for Pacemaker IMPRESSION: Cardiac device with leads as above.
[2023-02-09] MEDS: cefTRIAXone 2,000 MG in sodium chloride 0.9% (plus) 50 ML 100 MG IV (07:53)
[2023-02-09] MEDS: lidocaine 1% INJ 10 mL (per mL) XX (08:24)
[2023-02-09] MEDS: ceFAZolin 1,000 mg SDV 1000 MG IRRIGATION (08:41)
--- NOTE | 2023-02-09 09:03 | P.ANESUD_ITS ---
Pre-Anesthetic Update Pre-Anesthetic Assessment: Date of Surgery/Procedure: 02/09/23 Preop Daisy gnosis: ASHD/ heart block Proposed Procedure: Operation Date: 02/03/23 17:00 Proposed Procedures p Cardiac Catheterization(Not Applicable) - Pineda Prather MD Operation Date: 02/07/23 07:00 Proposed Procedures p Pacemaker Insertion(Not Applicable) - Cristi Smith MD Operation Date: 02/09/23 08:00 Proposed Procedures p Pacemaker Revision(Not Applicable) - Cristi Smith MD Any changes to Pre-Anesthetic Assessment?: No Last Intake: Intake Last Liquid Date 02/06/23 Last Liquid Time 00:00 Last Solid Date 02/06/23 Last Solid Time 00:00 Labs Last 48hrs: Short CBC 02/08/23 02/09/23 Range/Units 03:52 02:37 WBC 10.4 H 8.6 (4.0-10.0) 10^3/ uL Hgb 9.9 L 9.3 L (11.5-15.3) g/dL Hct 30.1 L 29.8 L (37.0-47.0) % MCV 95.9 95.8 (81-99) fl Plt Count 298 259 (130-400) 10^3/c mm Neut % (Auto) 67.0 49.6 % Neut # (Auto) 6.97 4.26 (1.8-7.7) 10^3/u L BMP 02/08/23 02/09/23 03:52 02:37 Sodium 138 138 Potassium 4.0 3.9 Chloride 100 102 Carbon Dioxide 28 28 BUN 11 13 Creatinine 0.9 0.9 Glucose 144 H 129 H Calcium 8.7 8.8 COVID Results 02/08/23 14:05 SARS-CoV-2 Ag (Rap id) negative Vitals: Temperature 98.7 F 02/07/23 19:00 Temperature Source Axillary 02/07/23 19:00 Pulse Rate 60 02/09/23 06:00 Pulse Rhythm Regular 02/05/23 19:56 Pulse Strength 3+ Normal 02/09/23 05:52 Respiratory Rate 15 02/09/23 04:00 Respiratory Effort Spontaneous, Non- Labored 02/09/23 05:52 Respiratory Depth Normal 02/09/23 05:52 Blood Pressure 134/69 02/09/23 04:00 Blood Pressure [place] n 90 02/09/23 04:00 Blood Pressure Pos ition Semi Fowlers 02/04/23 18:00 Pulse Oximetry 96 02/09/23 04:00 Oxygen Delivery Me thod Nasal Cannula 02/08/23 20:26 Oxygen Flow Rate 2 02/08/23 20:26 Sepsis Recent Feve r Within 48 Hours No 02/02/23 15:44 Sepsis New/Unexpla ined Change in Men espinoza Status No 02/02/23 15:44 Exam: Pre-Anes Outpt Exam: alert, oriented x 3, clear to auscultation bilaterally and regular rate & rhythm (paced) Cardiac Studies: Echocardiogram 02/02/23 Echocardiogram Ultrasound 11/29/19
--- NOTE | 2023-02-09 09:18 | P.OP_ITS ---
Operative Report Date of procedure: February 09, 2023 Pre-op diagnosis: Preop Diagnosis status post dual-lead pacemaker implantation/right atrial lead dislodgment Preop Diagnosis Post-op diagnosis: same Procedure done: Repositioning of right atrial lead Specimens removed/disposition: Swab culture of pacemaker fluid Pathology: none sent Surgeon: Cristi Smith Anesthesia: MAC and Local Estimated blood loss (mL): 5 Complications: none Condition: stable Disposition: ICU Brief History: Ms. Alanis is an 82-year-old female who is now postop day #2 status post dual- chamber pacemaker implantation secondary to third-degree heart block at the time of her presentation to the emergency room. Interrogation of the pacemaker system the morning of postop day 1 reveals evidence of near field interference with the right atrial lead with subsequent further investigations revealing that the right atrial lead has become dislodged. Biventricular lead is working appropriately. Patient has been recommended to return to the operating room theater for repositioning the right atrial lead. Rationale was carefully discussed with Ms. Alanis and family. Details and risk of the procedure were reviewed and appropriate consents have been signed. Procedure: Ms. Alanis is taken the operating room theater And positioned on the OR table and secured. She received IV conscious sedation which time her entire upper chest was sterilely prepped and draped. Appropriate timeout was then completed and confirmed by all members present. 1% lidocaine was infiltrated at the level of the prior left subclavicular incision. #15 scalpel blade was utilized to carefully open up this incision line. Old suture material was carefully removed. Upon reaching the pacemaker pocket, serosanguineous fluid was recovered. Swab culture was taken though there is no gross visual evidence of infection. No malodor or purulence identified. Once the pacemaker leads have been carefully exposed, right atrial lead was disconnected from the pacemaker generator which was left in position. Securing collar to the right atrial lead was then also released at which time a series of curved stylette's was utilized under fluoroscopic guidance to reposition the right atrial lead. Once this had been completed, on table interrogation revealed appropriate resistance and capture thresholds with sensing at 1.6-1.8. Current of injury is high consistent with good lead endocardial contact. Stylette was removed under fluoroscopic guidance and again the lead was retested with similar parameters. Lead was then secured to the pacemaker floor with the securing collar in 2-0 silk suture. Atrial lead was then reconnected to the pacing generator and set screw secured. On field interrogation of the entire system reveals appropriate function. Wound was then irrigated with antibiotic solution. Hemostasis confirmed. Incision line was then reapproximated with 3-0 Vicryl suture and 2 running layers. Skin was reapproximated with 4-0 Monocryl suture. Dermabond was then applied to the incision line. Double layer pressure dressing was then applied and left arm was placed in a sling. Ms. Alanis tolerated the procedure well and was awakened from IV conscious sedation. She is then transferred back to the ICU bed and then back to her ICU room. I did residential substance abuse counselor with her family at bedside.
--- NOTE | 2023-02-09 09:56 | XRR_ITS ---
PROCEDURE INFORMATION: Exam: XR Chest Exam date and time: 02/09/2023 9:58 AM Age: 82 years old Clinical indication: Device placement; Other: Pacemaker; Prior surgery; Surgery date: Post-operative (0-2 days); Additional info: Pacer revision TECHNIQUE: Imaging protocol: Radiologic exam of the chest. Views: 1 view. COMPARISON: CR XR chest 1V portable [id number] 02/08/2023 1:26 PM FINDINGS: Tubes, catheters and devices: Cardiac device noted overlying the left chest. Right-sided PICC line noted with the distal tip at the cavoatrial junction. Lungs: Emphysematous changes again noted. Bibasilar atelectasis. Pleural spaces: Small right-sided pleural effusion similar to prior exam. Probable small left-sided pleural effusion. Heart/Mediastinum: The cardiomediastinal silhouette is within normal limits. Bones/joints: Unremarkable. XR/XR chest 1V portable [id number] IMPRESSION: No significant change from prior exam.
--- NOTE | 2023-02-09 09:56 | P.PN_ITS ---
Subjective Subjective: Mckenna is 82 and was originally admitted 6 days ago with third-degree AV block. She also had an elevation in her troponin. She was taken to the catheterization laboratory by Dr. Prather where nonobstructive coronary disease was found. A pacemaker was placed for third-degree AV block. There has been migration of the atrial lead and that was repositioned this morning. She had an episode of ale row complex tachycardia treated with beta-blockers. She also has a history of dyslipidemia, diabetes and bladder cancer. I see her this morning after the lead was repositioned. She seems to be doing fine. There is AV sequential pacing on the monitor. Vitals/I&O/Wt Last Vital Signs Temp 98.7 F 02/07/23 19:00 Pulse 60 02/09/23 06:00 Resp 15 02/09/23 04:00 BP 134/69 02/09/23 04:00 Pulse Ox 96 02/09/23 04:00 O2 Del Method Nasal Cannula 02/08/23 20:26 O2 Flow Rate 2 02/08/23 20:26 02/08/23 02/09/23 02/09/23 22:59 06:59 14:59 Intake Total 50 / 450 50 / 50 Output Total 1840 / 1840 225 / 2065 Balance -1790 / -1390 -225 / -1615 50 / 50 Weight last 48 hrs Weight 142 lb Physical Exam Narrative: GENERAL: In general she is comfortable and looks and feels well in no distress HEENT: Exam within normal limits. NECK: Supple without jugular vein distention. The carotid upstroke is normal without bruits. BACK: Exam normal. LUNGS: Clear. HEART: Regular rate and rhythm. ABDOMEN: Benign without organomegaly or tenderness. EXTREMITIES: No edema. NEUROLOGIC: Exam normal. SKIN: Unremarkable. Urinary Catheter Management: Galvan: Cath Placed During This Visit: yes Reason for Continuing Indwelling Catheter: Accurate Measurement of Urinary Output in Critically Ill Patients Urinary Catheter Date of Insertion: 02/02/23 Urinary Catheter Time of Insertion: 16:48 Data 02/09/23 02:37 02/09/23 02:37 Micro: Microbiology 02/03/23 19:00 Blood Culture - Final Blood NO GROWTH AFTER 5 DAYS 02/03/23 18:46 Blood Culture - Final Blood NO GROWTH AFTER 5 DAYS A&P Assessment and plan (1) Atrial pacemaker lead displacement: (2) Status post cardiac pacemaker procedure: (3) Presence of permanent cardiac pacemaker: (4) Atherosclerosis of coronary artery of [place] heart without angina pectoris: (5) Acute non-ST elevation myocardial infarction (NSTEMI): (6) Third degree heart block: (7) Symptomatic bradycardia: (8) Malignant neoplasm of posterior wall of bladder: (9) Hyperlipidemia: Qualifiers: Hyperlipidemia type: mixed hyperlipidemia Qualified Code(s): E78.2 - Mixed hyperlipidemia (10) Hypertension: (11) Diabetes mellitus type 2, noninsulin dependent: Plan She seems to be doing well. The pacemaker is functioning normally now. Continue conservative management at this point Attestations Medical Necessity Statement*: Hospitalization for management of third-degree heart block and High Time for a total of 50 minutes, includes reviewing past or interval history, examining/interviewing patient, placing orders, counseling patient/family/other support, updating patient/family/other support, discussing plan of care with staff, communicating with other healthcare providers, documenting encounter and coordinating care Diagnoses Atrial pacemaker lead displacement T82.120A Status post cardiac pacemaker procedure Z95.0 Presence of permanent cardiac pacemaker Z95.0 Atherosclerosis of coronary artery of [place] heart without angina pectoris I25.10 Acute non-ST elevation myocardial infarction (NSTEMI) I21.4 Third degree heart block I44.2 Symptomatic bradycardia R00.1 Malignant neoplasm of posterior wall of bladder C67.4 Hyperlipidemia E78.2 Hyperlipidemia type: mixed hyperlipidemia Hypertension I10 Diabetes mellitus type 2, noninsulin dependent E11.9
[2023-02-09] MEDS: ezetimibe 10 mg Tablet PO (10:04)
[2023-02-09] MEDS: amlodipine 10 mg Tablet PO (10:05)
[2023-02-09] MEDS: gabapentin 300 mg Capsule PO ×3 (10:05→20:32)
[2023-02-09] MEDS: aspirin 81 mg EC Tablet PO (10:05)
[2023-02-09] MEDS: metoprolol tartrate 25 mg Tablet PO ×2 (10:05→20:32)
[2023-02-09] MEDS: pantoprazole DR 40 mg Tablet PO (10:05)
--- NOTE | 2023-02-09 10:48 | ANE.PACU2 ---
Inpatient post-anesthesia follow up: Airway intact: Yes Vital signs: Temperature 98.7 F Pulse Rate 67 Respiratory Rate 20 Blood Pressure 155/85 Pulse Oximetry 96 Oxygen Delivery Me thod [ Nasal Cannula Current Rate & Del kiki] Oxygen Delivery Me thod Nasal Cannula Oxygen Flow Rate [ Current Rate 2.5 & Delivery] Oxygen Flow Rate 2 Fraction of Inspir ed Oxygen Hydration adequate: Yes Nausea and vomiting: No Pain level: 1 Mental status: Baseline
--- NOTE | 2023-02-09 12:46 | PC.SOCIAL ---
Imm update Imm updated with patient at bedside. copy of page 2 provided. copy in chart initialed, dated and timed.
--- NOTE | 2023-02-09 14:22 | PC.OT ---
per nursing recommendation, OT services to be held as patient had a pacemaker revision surgery done today.
[2023-02-09] MEDS: ipratropium-albuterol 3 mL Neb INHALATION ×2 (14:24→19:41)
--- NOTE | 2023-02-09 16:57 | PC.NURSE ---
transfer to first floor
[2023-02-09] MEDS: cefTRIAXone 1,000 MG in sodium chloride 0.9% (plus) 50 ML 100 MG IV (17:59)
--- NOTE | 2023-02-09 20:23 | P.PN_ITS ---
Subjective Subjective: After revision of pacemaker lead she is doing well. He denies any pain or discomfort. No trouble breathing. Vitals/I&O/Wt Last Vital Signs Temp 97.9 F 02/09/23 20:00 Pulse 61 02/09/23 20:00 Resp 26 H 02/09/23 20:00 BP 131/66 02/09/23 20:00 Pulse Ox 90 02/09/23 20:00 O2 Del Method Room Air 02/09/23 19:39 O2 Flow Rate 2 02/09/23 14:00 02/09/23 02/09/23 02/09/23 06:59 14:59 22:59 Intake Total 468 / 468 290 / 758 Output Total 225 / 2065 0 / 0 Balance -225 / -1615 468 / 468 290 / 758 Weight last 48 hrs Weight 64.41 kg Weight 64.41 kg Physical Exam Narrative: Visited by family. Const: COMMON NORMALS: patient oriented x3 and alert GENERAL APPEARANCE: cooperative ORIENTATION/CONSCIOUSNESS: Yes awake HENMT: COMMON NORMALS: oropharynx normal Neck/C-Spine: COMMON NORMALS: no JVD Chest: OTHER: Left chest PPM, dressing without strikethrough. Resp: COMMON NORMALS: normal respiratory effort and clear to auscultation bilaterally AUSCULTATION: clear to auscultation bilaterally Cardio: COMMON NORMALS: no JVD, regular rhythm, S1 normal heart sound present, S2 normal heart sound present and No murmurs present (Cardio) RATE: bradycardic RHYTHM: regular rhythm HEART SOUNDS: S1 normal heart sound present and S2 normal heart sound present GI: COMMON NORMALS: Normal to inspection, nondistended, normoactive bowel sounds present, Soft to palpation and non-tender PALPATION: Yes Soft to palpation Extremity: COMMON NORMALS: no joint enlargement and no pedal edema OTHER: LUE sling Neuro: COMMON NORMALS: patient oriented x3 and moves all extremities SENSOR IUM/ORIENTATION: Yes alert Skin: COMMON NORMALS: no rashes or lesions noted GENERAL SKIN EXAM: no rashes or lesions noted Urinary Catheter Management: Galvan: Cath Placed During This Visit: yes Reason for Continuing Indwelling Catheter: Other Urinary Catheter Date of Insertion: 02/02/23 Urinary Catheter Time of Insertion: 16:48 Data 02/09/23 02:37 02/09/23 02:37 Micro: Microbiology 02/09/23 08:35 Gram Stain - Final Chest 02/03/23 19:00 Blood Culture - Final Blood NO GROWTH AFTER 5 DAYS 02/03/23 18:46 Blood Culture - Final Blood NO GROWTH AFTER 5 DAYS A&P Assessment and plan (1) Third degree heart block: Status post uneventful lead revision this morning. Paced rhythm noted, heart rates in the 60s. Discussed with CV surgery, monitor in the hospital 24 hours to exclude any further issues with lead. Continue metoprolol after episode of tachycardia. As she has become quite deconditioned, requiring assistance even trying up with a walker, arrangements are underway also for rehabilitation at SNF after discharge prior to return home. Continue empiric antibiotics for now. Potassium level noted. Follow-up chemistry. Symptomatic bradycardia. Patient not on rate limiting medications. Complaining of dizziness and shortness of breath on exertion. Currently hemodynamically stable. Echocardiogram result shows an EF 66%, mild MR, mildly increased LA size, mild TR, PASP of 58 mmHg. Continue to monitor heart rate. (2) Recurrent UTI: For now continue ceftriaxone. Preliminary blood culture noted without growth. Final blood cultures negative. (3) Acute hyponatremia: Resolved. Sodium 138. Off IV fluids. Creatinine remains at 0.9. Continue diet without sodium restrict ion. Repeat chemistry panel. Baseline sodium level normal. Monitor input and output. (4) Symptomatic bradycardia: As above (5) Elevated troponin: Status post coronary angiography. Nonobstructive CAD noted. Continue aspirin, statin. Type II versus non-ST elevation [place]. Appreciate cardiology recommendations. Continue with aspirin 81 mg, atorvastatin 40 mg daily. Hold anticoagulation. On prophylactic heparin. Appreciate A1c, lipid panel. (6) Diabetes mellitus type 2, noninsulin dependent: Glucose 129. Reassess glucose daily. CC diet. A1c 6.3. Hold off on insulin sliding scale for now. Monitor BMP daily. Not on any oral hypoglycemics. (7) Malignant neoplasm of posterior wall of bladder: Plan HTN: Continue morphine, metoprolol. Blood pressures are closer to goal. CODE STATUS: full code. Heparin drip will suffice as DVT prophylaxis. Protonix OPD prophylaxis. Attestations Medical Necessity Statement*: Continue assessment management of third-degree block, status post pacemaker implantation, lead revision after lead migration, post discharge planning and arrangements. Diagnoses Third degree heart block I44.2 Recurrent UTI N39.0 Acute hyponatremia E87.1 Symptomatic bradycardia R00.1 Elevated troponin R79.89 Diabetes mellitus type 2, noninsulin dependent E11.9 Malignant neoplasm of posterior wall of bladder C67.4
[2023-02-09] MEDS: atorvastatin 40 mg Tablet PO (20:32)
[2023-02-10] VITALS (75 sets, daily range): BP systolic 124–155; BP diastolic 58–81; PULSE 0–96; RESP 8–36; TEMP 36.6–37.7; O2SAT 87–100
[2023-02-10 03:15] LABS: Basophils # 0.1 10^3/uL (0.0-0.1); Basophils % 0.7 %; Eosinophils # 0.6 10^3/uL (0.0-0.8); Eosinophils % 7.3 %; Hematocrit 29.9 % (37.0-47.0); Hemoglobin 9.4 g/dL (11.5-15.3); Lymphocytes # 2.2 10^3/uL (0.8-4.8); Lymphocytes % 26.5 %; Mean Corpuscular HGB Conc 31.4 g/dL (30.0-36.0); Mean Corpuscular Hemoglobin 30.6 pg (28.0-34.0); Mean Corpuscular Volume 97.4 fl (81-99); Mean Platelet Volume 9.5 fL (7.4-10.4); Monocytes # 0.9 10^3/uL (0.2-0.9); Monocytes % 10.2 %; Neutrophils # 4.62 10^3/uL (1.8-7.7); Neutrophils % 54.8 %; Nucleated Red Blood Cells % 0 %; Platelet Count 260 10^3/cmm (130-400); Red Blood Count 3.07 10^6/uL (4.1-5.3); Red Cell Distribution Width 13.2 % (12.1-15.1); White Blood Count 8.4 10^3/uL (4.0-10.0)
[2023-02-10 03:28] LABS: Anion Gap 11.7 (5-19); Blood Urea Nitrogen 14 mg/dL (8-23); Calcium 8.8 mg/dL (8.5-10.5); Carbon Dioxide 25 mmol/L (22-29); Chloride 100 mmol/L (98-107); Glucose 141 mg/dL (65-115); Osmolality Calculated 279 mOsm/kg (285-295); Potassium 3.7 mmol/L (3.5-5.1); Sodium 133 mmol/L (136-145)
--- NOTE | 2023-02-10 08:28 | PM.PN ---
Subjective Subjective: Mckenna is doing well. She has been transferred to the first floor. She had the lead repositioned yesterday. No troubles overnight. Vitals/I&O/Wt Last Vital Signs Temp 98.5 F 02/10/23 04:00 Pulse 61 02/10/23 06:00 Resp 16 02/10/23 04:00 BP 124/58 02/10/23 04:00 Pulse Ox 92 02/10/23 04:00 O2 Del Method Room Air 02/10/23 04:00 O2 Flow Rate 2 02/09/23 14:00 02/09/23 02/10/23 02/10/23 22:59 06:59 14:59 Intake Total 290 / 758 950 / 1708 Balance 290 / 758 950 / 1708 Weight last 48 hrs Weight 140 lb 9.6 oz Weight 142 lb Weight 142 lb Physical Exam Narrative: GENERAL: In general she looks and feels well HEENT: Exam within normal limits. NECK: Supple without jugular vein distention. The carotid upstroke is normal without bruits. BACK: Exam normal. LUNGS: Clear. HEART: Regular rate and rhythm. ABDOMEN: Benign without organomegaly or tenderness. EXTREMITIES: No edema. NEUROLOGIC: Exam normal. SKIN: Unremarkable. Urinary Catheter Management: Galvan: Cath Placed During This Visit: yes Reason for Continuing Indwelling Catheter: Other Urinary Catheter Date of Insertion: 02/02/23 Urinary Catheter Time of Insertion: 16:48 Data 02/10/23 02:55 02/10/23 02:55 Micro: Microbiology 02/09/23 08:35 Gram Stain - Final Chest A&P Assessment and plan (1) Atrial pacemaker lead displacement: (2) Status post cardiac pacemaker procedure: (3) Presence of permanent cardiac pacemaker: (4) Atherosclerosis of coronary artery of [place] heart without angina pectoris: (5) Acute non-ST elevation myocardial infarction (NSTEMI): (6) Third degree heart block: (7) Hypertension: (8) Diabetes mellitus type 2, noninsulin dependent: (9) Peripheral vascular disease with claudication: Plan She is doing well. Apparently there is a plan for alf placement which is unavailable today. She will have to stay until tomorrow. So far she doing well. Attestations Medical Necessity Statement*: Continued hospitalization for management of third-degree heart block and permanent pacemaker placement and Moderate Time for a total of 30 minutes, includes reviewing past or interval history, examining/interviewing patient, placing orders, counseling patient/family/other support, updating patient/family/other support, discussing plan of care with staff, communicating with other healthcare providers, documenting encounter and coordinating care Diagnoses Atrial pacemaker lead displacement T82.120A Status post cardiac pacemaker procedure Z95.0 Presence of permanent cardiac pacemaker Z95.0 Atherosclerosis of coronary artery of [place] heart without angina pectoris I25.10 Acute non-ST elevation myocardial infarction (NSTEMI) I21.4 Third degree heart block I44.2 Hypertension I10 Diabetes mellitus type 2, noninsulin dependent E11.9 Peripheral vascular disease with claudication I73.9
[2023-02-10] MEDS: pantoprazole DR 40 mg Tablet PO (08:30)
[2023-02-10] MEDS: aspirin 81 mg EC Tablet PO (08:30)
[2023-02-10] MEDS: amlodipine 10 mg Tablet PO (08:30)
[2023-02-10] MEDS: metoprolol tartrate 25 mg Tablet PO ×2 (08:30→20:13)
[2023-02-10] MEDS: gabapentin 300 mg Capsule PO ×3 (08:30→20:13)
[2023-02-10] MEDS: ezetimibe 10 mg Tablet PO (08:30)
[2023-02-10] MEDS: ipratropium-albuterol 3 mL Neb INHALATION ×3 (09:45→20:27)
--- NOTE | 2023-02-10 09:45 | XRR_ITS ---
PROCEDURE INFORMATION: Exam: XR Chest Exam date and time: 02/10/2023 10:12 AM Age: 82 years old Clinical indication: Device placement; Cardiac pacemaker lead placement or adjustment; Prior surgery; Surgery date: 3-7 days post-operative; Surgery type: Pacer lead placement, central line TECHNIQUE: Imaging protocol: Radiologic exam of the chest. Views: 1 view. COMPARISON: CR (CHEST, ) 02/09/2023 9:58 AM FINDINGS: Tubes, catheters and devices: There is a dual-lead AICD with leads positioned in the right atrium and right ventricle. There is a peripherally inserted central catheter on the right with the tip appropriately positioned in the SVC near the cavoatrial junction. Lungs: There is no consolidation. Pleural spaces: The right lateral costophrenic sulcus is blunted. No pneumothorax. Heart/Mediastinum: Cardiomediastinal contours are unremarkable. Bones/joints: Bones are unremarkable. XR/XR chest 1V portable [id number] IMPRESSION: 1. Stable 2 lead AICD without apparent complications. 2. Stable satisfactory right PICC line position. 3. Stable right pleural effusion since 02/09/2023.
[2023-02-10] MEDS: cefTRIAXone 1,000 MG in sodium chloride 0.9% (plus) 50 ML 100 MG IV (17:02)
[2023-02-10] MEDS: atorvastatin 40 mg Tablet PO (20:13)
--- NOTE | 2023-02-10 20:41 | PM.PN ---
Subjective Subjective: She reports she is doing well. Denies pain or discomfort. Vitals/I&O/Wt Last Vital Signs Temp 99.9 F H 02/10/23 19:21 Pulse 73 02/10/23 20:33 Resp 17 02/10/23 20:33 BP 141/79 02/10/23 19:21 Pulse Ox 100 02/10/23 20:33 O2 Del Method Room Air 02/10/23 20:33 O2 Flow Rate 2 02/09/23 14:00 02/10/23 02/10/23 02/10/23 06:59 14:59 22:59 Intake Total 950 / 1708 530 / 530 Output Total 900 / 900 1530 / 2430 Balance 950 / 1708 -900 / -900 -1000 / -1900 Weight last 48 hrs Weight 63.775 kg Weight 64.41 kg Physical Exam Narrative: Daughter at bedside. Const: COMMON NORMALS: patient oriented x3 and alert GENERAL APPEARANCE: cooperative ORIENTATION/CONSCIOUSNESS: Yes awake HENMT: COMMON NORMALS: oropharynx normal Neck/C-Spine: COMMON NORMALS: no JVD Chest: OTHER: Left chest PPM, dressing without strikethrough. Resp: COMMON NORMALS: normal respiratory effort and clear to auscultation bilaterally AUSCULTATION: clear to auscultation bilaterally Cardio: COMMON NORMALS: no JVD, regular rhythm, S1 normal heart sound present, S2 normal heart sound present and No murmurs present (Cardio) RATE: bradycardic RHYTHM: regular rhythm HEART SOUNDS: S1 normal heart sound present and S2 normal heart sound present GI: COMMON NORMALS: Normal to inspection, nondistended, normoactive bowel sounds present, Soft to palpation and non-tender PALPATION: Yes Soft to palpation Extremity: COMMON NORMALS: no joint enlargement and no pedal edema OTHER: LUE sling Neuro: COMMON NORMALS: patient oriented x3 and moves all extremities SENSORIUM/ORIENTATION: Yes alert Skin: COMMON NORMALS: no rashes or lesions noted GENERAL SKIN EXAM: no rashes or lesions noted Urinary Catheter Management: Galvan: Cath Placed During This Visit: yes Reason for Continuing Indwelling Catheter: Accurate Measurement of Urinary Output in Critically Ill Patients Urinary Catheter Date of Insertion: 02/02/23 Urinary Catheter Time of Insertion: 16:48 Data 02/10/23 02:55 02/10/23 02:55 Micro: Microbiology 02/09/23 08:35 Anaerobic Culture - Preliminary Chest 02/09/23 08:35 Gram Stain - Final Chest Wound Culture - Preliminary A&P Assessment and plan (1) Third degree heart block: Status post PPM placement. CV surgery obtaining chest x-ray follow-up. Discussed with CV surgery, okay to mobilize with therapy. Okay to bear weight with walker. Continue empiric antibiotic. Wound culture noted without growth after 1 day. Blood cultures remaining negative. Status post uneventful lead revision this morning. Paced rhythm noted, heart rates in the 60s. Discussed with CV surgery, monitor in the hospital 24 hours to exclude any further issues with lead. Continue metoprolol after episode of tachycardia. Discussed with case management, continue arrangements for SNF rehabilitation. Potassium WNL. Follow-up chemistry. On admission symptomatic bradycardia. Patient not on rate limiting medications. Complaining of dizziness and shortness of breath on exertion. Currently hemodynamically stable. Echocardiogram result shows an EF 66%, mild MR, mildly increased LA size, mild TR, PASP of 58 mmHg. Continue to monitor heart rate. (2) Recurrent UTI: For now continue ceftriaxone. Preliminary blood culture noted without growth. Final blood cultures negative. (3) Acute hyponatremia: Sodium 133. Follow-up chemistry. Off IV fluids. Creatinine remains at 0.9. Continue diet without sodium restriction. Repeat chemistry panel. Baseline sodium level normal. Monitor input and output. (4) Symptomatic bradycardia: As above (5) Elevated troponin: Status post coronary angiography. Nonobstructive CAD noted. Continue aspirin, statin. Type II versus non-ST elevation [place]. Appreciate cardiology recommendations. Continue with aspirin 81 mg, atorvastatin 40 mg daily. Hold anticoagulation. On prophylactic heparin. Appreciate A1c, lipid panel. (6) Diabetes mellitus type 2, noninsulin dependent: Glucose 141. Reassess glucose daily. CC diet. A1c 6.3. Hold off on insulin sliding scale for now. Monitor BMP daily. Not on any oral hypoglycemics. (7) Malignant neoplasm of posterior wall of bladder: Plan HTN: Continue morphine, metoprolol. Blood pressures are closer to goal. CODE STATUS: full code. Heparin drip will suffice as DVT prophylaxis. Protonix OPD prophylaxis. Attestations Medical Necessity Statement*: Continue assessment management of third-degree block, status post pacemaker implantation, lead revision after lead migration, post discharge planning and arrangements. Coding Level of Care Code Acute Code for Chg Fwd Diagnoses Third degree heart block I44.2 Recurrent UTI N39.0 Acute hyponatremia E87.1 Symptomatic bradycardia R00.1 Elevated troponin R79.89 Diabetes mellitus type 2, noninsulin dependent E11.9 Malignant neoplasm of posterior wall of bladder C67.4
[2023-02-11] VITALS (7 sets, daily range): BP systolic 124–147; BP diastolic 63–83; PULSE 63–83; RESP 16–24; TEMP 36.9–37.3; O2SAT 86–97
[2023-02-11 03:25] LABS: Basophils % 0.4 %; Eosinophils # 0.6 10^3/uL (0.0-0.8); Eosinophils % 7.8 %; Hematocrit 29.9 % (37.0-47.0); Hemoglobin 9.8 g/dL (11.5-15.3); Lymphocytes # 2.3 10^3/uL (0.8-4.8); Lymphocytes % 29.5 %; Mean Corpuscular HGB Conc 32.8 g/dL (30.0-36.0); Mean Corpuscular Hemoglobin 31.4 pg (28.0-34.0); Mean Corpuscular Volume 95.8 fl (81-99); Mean Platelet Volume 9.5 fL (7.4-10.4); Monocytes # 0.9 10^3/uL (0.2-0.9); Monocytes % 11.7 %; Neutrophils # 3.93 10^3/uL (1.8-7.7); Neutrophils % 50.2 %; Nucleated Red Blood Cells % 0 %; Platelet Count 270 10^3/cmm (130-400); Red Blood Count 3.12 10^6/uL (4.1-5.3); Red Cell Distribution Width 13.2 % (12.1-15.1); White Blood Count 7.8 10^3/uL (4.0-10.0)
[2023-02-11 03:43] LABS: Blood Urea Nitrogen 13 mg/dL (8-23); Calcium 8.9 mg/dL (8.5-10.5); Carbon Dioxide 25 mmol/L (22-29); Chloride 105 mmol/L (98-107); Glucose 134 mg/dL (65-115); Osmolality Calculated 292 mOsm/kg (285-295); Sodium 140 mmol/L (136-145)
[2023-02-11] MEDS: ipratropium-albuterol 3 mL Neb INHALATION (07:43)
[2023-02-11] MEDS: ezetimibe 10 mg Tablet PO (08:55)
[2023-02-11] MEDS: metoprolol tartrate 25 mg Tablet PO (08:55)
[2023-02-11] MEDS: amlodipine 10 mg Tablet PO (08:55)
[2023-02-11] MEDS: pantoprazole DR 40 mg Tablet PO (08:55)
[2023-02-11] MEDS: gabapentin 300 mg Capsule PO (08:55)
[2023-02-11] MEDS: aspirin 81 mg EC Tablet PO (08:55)
[2023-02-11] MEDS: magnesium hydroxide 30 mL UDC PO (08:57)
--- NOTE | 2023-02-11 10:05 | PC.SOCIAL ---
IMM Update pg 2 of IMM updated and reviewed w/ patient. Copy provided and Copy dated, initialed and placed in chart.
--- NOTE | 2023-02-11 11:43 | PM.DCS ---
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 Reason for Visit Reason for Visit: SOB Hospital Course Hospital Course 82 yo lady with history of recurrent UTIs, diabetes, and other medical problems came in after dizziness and shortness of breath over 2 to 3 days, decreased appetite, found to be in third-degree heart block with symptomatic bradycardia, with rising troponins, was assessed by cardiology, CV surgery subsequently saw her as well for pacemaker. Due to recent UTI is being treated empirically with ceftriaxone. Also had severe hyponatremia on presentation sodium 113 which has resolved. Thought to be hypervolemic, improved with diuresis. Cardiac angiogram showed nonobstructive CAD. 1 out of 4 blood cultures positive for Staph epidermidis on presentation likely contaminant. Repeat blood cultures negative. Underwent pacemaker placement, subsequently found with lead displacement, went for revision yesterday day before yesterday, doing well so far, has been quite deconditioned, normally walks with walker at home, could not get up even with assistance, needing SNF. Cardiology started on some metoprolol due to episode of tachycardia. Has been optimizing her blood pressure. We will discharge her on Augmentin at prophylactic measures after pacemaker placement to avoid infection. We will remove her Galvan catheter and IV lines. For her hypertension added amlodipine, I have counseled patient not to take 3 antihypertensive regimens if blood pressure remains below 130 mmHg Physical Exam Narrative: Awake and alert Hemodynamic stable Paced rhythm GCS 15 Euvolemic family is at the bedside Urinary Catheter Management: Galvan: Cath Placed During This Visit: yes, but has since been removed by the nurse Reason for Continuing Indwelling Catheter: Decision to DC Catheter Urinary Catheter Date of Insertion: 02/02/23 Urinary Catheter Time of Insertion: 16:48 Date Urinary Catheter Removed: 02/11/23 Time Urinary Catheter Discontinued: 10:20 Discharge Data Studies Completed and Pending Completed Studies During Hospitalization Category Date Time Status QUALITY CONTROL TECH RAW MATERIALS request for service Routine Exams 02/03/23 14:25 Completed CXRP [XR chest 1V portable 20161] Routine Exams 02/09/23 09:56 Completed CXRP [XR chest 1V portable [id number]] Stat Exams 02/08/23 13:13 Completed XR chest 1V portable [id number] Routine Exams 02/07/23 10:29 Completed XR chest 1V portable [id number] Routine Exams 02/10/23 09:45 Completed XR chest 1V portable [id number] Stat Exams 02/02/23 15:47 Completed XR chest 1V portable [id number] Stat Exams 02/02/23 20:51 Completed US echo complete [CV. echo complete* [id number]] Stat Ultrasound 02/02/23 16:21 Completed Pending at discharge Category Date Time Status Anaerobic Culture Routine Lab 02/09/23 08:35 Results Basic Metabolic Panel AM LABS Lab 02/12/23 04:00 Ordered Basic Metabolic Panel AM LABS Lab 02/13/23 04:00 Ordered Complete Blood Count w/Auto AM LABS Lab 02/12/23 04:00 Ordered Complete Blood Count w/Auto AM LABS Lab 02/13/23 04:00 Ordered Wound Culture and Gram Stain Routine Lab 02/09/23 08:35 Results Radiology Impressions C-Arm Fluoroscopy 02/09/23 07:50 IMPRESSION: Cardiac device with leads as above. Chest X-Ray 02/10/23 09:45 IMPRESSION: 1. Stable 2 lead AICD without apparent complications. 2. Stable satisfactory right PICC line position. 3. Stable right pleural effusion since 02/09/2023. Laboratory Results WBC 7.8 10^3/uL (4.0-10.0) 02/11/23 03:11 RBC 3.12 10^6/uL (4.1-5.3) L 02/11/23 03:11 Hgb 9.8 g/dL (11.5-15.3) L 02/11/23 03:11 Hct 29.9 % (37.0-47.0) L 02/11/23 03:11 MCV 95.8 fl (81-99) 02/11/23 03:11 MCH 31.4 pg (28.0-34.0) 02/11/23 03:11 MCHC 32.8 g/dL (30.0-36.0) 02/11/23 03:11 RDW 13.2 % (12.1-15.1) 02/11/23 03:11 Plt Count 270 10^3/cmm (130-400) 02/11/23 03:11 MPV 9.5 fL (7.4-10.4) 02/11/23 03:11 Neut % (Auto) 50.2 % 02/11/23 03:11 Lymph % (Auto) 29.5 % 02/11/23 03:11 [place] % (Auto) 11.7 % 02/11/23 03:11 Eos % (Auto) 7.8 % 02/11/23 03:11 Baso % (Auto) 0.4 % 02/11/23 03:11 Neut # (Auto) 3.93 10^3/uL (1.8-7.7) 02/11/23 03:11 Lymph # (Auto) 2.3 10^3/uL (0.8-4.8) 02/11/23 03:11 [place] # (Auto) 0.9 10^3/uL (0.2-0.9) 02/11/23 03:11 Eos # (Auto) 0.6 10^3/uL (0.0-0.8) 02/11/23 03:11 Baso # (Auto) 0.0 10^3/uL (0.0-0.1) 02/11/23 03:11 Nucleated RBC % (auto) 0 % 02/11/23 03:11 Nucleated RBCs # 0.0 /100WBC 02/11/23 03:11 APTT 24.0 SECONDS (23.9-36.7) D 02/03/23 20:44 D-Dimer 1.33 ug/mIFEU (0-0.59) H 02/02/23 15:56 Sodium 140 mmol/L (136-145) 02/11/23 03:11 Potassium 4.0 mmol/L (3.5-5.1) 02/11/23 03:11 Chloride 105 mmol/L (98-107) 02/11/23 03:11 Carbon Dioxide 25 mmol/L (22-29) 02/11/23 03:11 Anion Gap 14.0 (5-19) 02/11/23 03:11 BUN 13 mg/dL (8-23) 02/11/23 03:11 Creatinine 0.9 mg/dL (0.5-0.9) 02/11/23 03:11 GFR Calculation Not Reportable 02/11/23 03:11 Glucose 134 mg/dL (65-115) H 02/11/23 03:11 Estimat Average Glucose 134 02/03/23 04:42 Hemoglobin A1c 6.3 % (4.0-6.0) H 02/03/23 04:42 Calculated Osmolality 292 mOsm/kg (285-295) 02/11/23 03:11 Calcium 8.9 mg/dL (8.5-10.5) 02/11/23 03:11 Phosphorus 2.9 mg/dL (2.5-4.5) 02/03/23 04:42 Magnesium 2.0 mg/dL (1.7-2.3) 02/05/23 04:04 Iron 87 ug/dL (37-145) 02/02/23 17:52 TIBC 299 mcg/dl 02/02/23 17:52 % Saturation 29.0 % (20-50) 02/02/23 17:52 Unsat Iron Binding 212 ug/dL (112-347) 02/02/23 17:52 Total Bilirubin 0.3 mg/dL (0.15-1.2) 02/07/23 05:15 AST 8 U/L (0-32) 02/07/23 05:15 ALT 20 U/L (0-33) 02/07/23 05:15 Alkaline Phosphatase 79 U/L (35-105) 02/07/23 05:15 Troponin T Gen 5 ng/L 207 ng/L (0-10) H* 02/03/23 06:44 Troponin T Baseline 60 ng/L (0-10) H 02/02/23 15:56 Troponin T 120 Minute 190.9 ng/L (0-10) H 02/02/23 17:52 Delta Troponin T 130.9 ABS# (0-10) H* 02/02/23 17:52 Troponin T Hi Sens 6Hr 339.8 ng/L (0-10) H 02/02/23 22:07 Troponin T Hi Sens 6Hr Delta 279.8 ng/L (0-12) H* 02/02/23 22:07 NT-Pro-B Natriuret Pep 8766 pg/mL (0-450) H 02/02/23 15:56 Total Protein 5.6 g/dL (6.6-8.7) L 02/07/23 05:15 Albumin 3.2 g/dL (3.5-5.2) L 02/07/23 05:15 Globulin 2.4 g/dL (1.3-4.6) 02/07/23 05:15 Triglycerides 65 mg/dL (0-150) 02/03/23 02:30 Cholesterol 174 mg/dL (0-200) 02/03/23 02:30 LDL Cholesterol, Calc 111 mg/dL (50-129) 02/03/23 02:30 Total VLDL Cholesterol 13 mg/dL (0-30) 02/03/23 02:30 HDL Cholesterol 50 mg/dL (60-100) L 02/03/23 02:30 Cholesterol/HDL Ratio 3.48 mg/dL (0.0-4.40) 02/03/23 02:30 Vitamin B12 1992 pg/mL (232-1245) H 02/02/23 17:52 Folate > 20.0 ng/mL (4.8-37.3) 02/03/23 04:42 TSH 1.08 uIU/mL (0.27-4.20) 02/02/23 17:52 Urine Color Straw (Yellow) 02/06/23 07:45 Urine Appearance Clear (CLEAR) 02/06/23 07:45 Urine pH 5 (5-7) 02/06/23 07:45 Ur Specific [place] 1.005 (1.005-1.030) 02/06/23 07:45 Urine Protein Neg (Negative) 02/06/23 07:45 Urine Glucose (UA) Norm (Normal) 02/06/23 07:45 Urine Ketones Negative (Negative) 02/06/23 07:45 Urine Blood Neg (Negative) 02/06/23 07:45 Urine Nitrate Negative (Negative) 02/06/23 07:45 Urine Bilirubin Neg (Negative) 02/06/23 07:45 Urine Urobilinogen Norm mg/dL (Negative) 02/06/23 07:45 Ur Leukocyte Esterase Negative (Negative) 02/06/23 07:45 Urine RBC None /hpf (0-2) 02/02/23 16:32 Urine WBC 0-4 /hpf (0-5) H 02/02/23 16:32 Ur Eosinophil Smear 3 (0-0) H 02/02/23 22:15 Ur Squamous Epith Cells 0-4 /hpf (0-5) H 02/02/23 16:32 Amorphous Sediment Not Reportable 02/02/23 16:32 Urine Bacteria Trace /hpf (NONE) 02/02/23 16:32 Urine Eosinophils Eosinophils seen H 02/02/23 22:15 Ur Random Sodium 43 mmol/L 02/02/23 22:15 Ur Random Sodium Cancelled 02/02/23 22:15 Ur Random Potassium 57 mmol/L 02/02/23 22:15 Ur Random Potassium Cancelled 02/02/23 22:15 Ur Random Chloride 53 mmol/L 02/02/23 22:15 Ur Random Chloride Cancelled 02/02/23 22:15 SARS-CoV-2 Ag (Rapid) negative (Negative) 02/08/23 14:05 Blood Type A Negative 02/04/23 10:34 Rho(D) Type Negative 02/04/23 10:34 Antibody Screen Negative 02/04/23 10:34 Crossmatch See Detail 02/04/23 10:34 Vitals Last Vital Signs Temp 98.9 F 02/11/23 08:00 Pulse 83 02/11/23 08:00 Resp 24 H 02/11/23 08:00 BP 144/69 02/11/23 08:00 Pulse Ox 97 02/11/23 08:00 O2 Del Method Room Air 02/11/23 07:50 O2 Flow Rate 2 02/09/23 14:00 Discharge Plan Discharge Patient Disposition: Xfer SNF Condition: Stable Prescriptions: New atorvastatin 40 mg Tablet 40 mg PO BEDTIME Qty: 60 0RF aspirin 81 mg Tablet,Delayed Release (Dr/Ec) 81 mg PO DAILY Qty: 60 0RF amlodipine 10 mg Tablet 10 mg PO DAILY Qty: 60 0RF metoprolol tartrate 25 mg Tablet 25 mg PO BID@0900,2100 Qty: 60 0RF doxycycline hyclate 100 mg tablet 100 mg PO BID 7 Days Qty: 14 0RF Continued Thermotabs 287-180-15 mg tablet 1 tab PO DAILY cholecalciferol (vitamin D3) 50 mcg (2,000 unit) capsule 50 mcg PO DAILY methenamine hippurate 1 gram tablet 1 g PO BID Qty: 60 12RF Rx Instructions: Take 1000 mg of vitamin C with each dose of methenamine (medication on hold per pt 02/02/23) ascorbic acid (vitamin C) 1,000 mg tablet 1 g PO BID Rx Instructions: medication on hold per pt 02/02/23 oxybutynin chloride 10 mg tablet extended release 24hr 10 mg PO QAM Qty: 90 0RF ezetimibe [Zetia] 10 mg tablet 10 mg PO DAILY Qty: 90 0RF losartan 50 mg tablet 50 mg PO BID Qty: 180 0RF gabapentin 300 mg capsule 300 mg PO TID 90 Days Qty: 270 1RF polyethylene glycol 3350 [Miralax] 17 gram/dose powder 17 g PO DAILY PRN (Reason: constipation) Qty: 510 2RF acetaminophen [Tylenol Extra Strength] 500 mg Tablet 1,000 mg PO Q6H PRN (Reason: Pain) Vitamin B-12 1,000 mcg Tablet 1,000 mcg PO DAILY Multivitamins 28 mg iron- 800 mcg Tablet 1 tab PO DAILY cyclobenzaprine 10 mg tablet 5 - 10 mg PO TID PRN (Reason: Muscle Spasm) Discontinued amoxicillin-pot clavulanate 875-125 mg tablet 1 tab PO BID 14 Days Qty: 28 0RF Rx Instructions: for 14 days (rx filled 01/29/23) metformin 500 mg tablet extended release 24 hr 500 mg PO BID Rx Instructions: medication on hold per pt 02/02/23 Discharge Orders: Discharge Order (Routine); Ordered 02/11/23 Ordered By: Lynsey Woody Referrals: [facility] [Provider Group] - 1 week ([facility]) Yokasta Bain FNP [Primary Care Provider] - Discharge Diet: Usual diet Discharge Activity: Limit activity as instructed Patient Instructions: Metoprolol (By mouth) (Lopressor, Toprol XL), Doxycycline (By mouth) (Acticlate, Adoxa, Avidoxy, Monodox, Doryx), Aspirin (By mouth), Amlodipine (By mouth), Atorvastatin (By mouth) (Lipitor), Post Pacemaker - Smith Activity Restrictions/Additional Instructions: May remove bandage in 2 days May begin daily showers in 3 days Dry incision carefully after showers. May re-cover if desired to prevent irritation from clothing. No swimming or tub baths x 2 weeks No ointments on incision Report drainage, redness, heat, fever, increased pain, or swelling to clinic Do not lift, pull, or push greater than 5 pounds with left arm for 2 weeks. Do not raise left hand above eye level for 2 weeks. Discharge Attestations Time Spent in Discharge Care*: greater than 30 min Quality Metrics Clinical Quality Measures [ No reported AMI, CVA or VTE this stay] Coding Level of Care Code Acute Code for Chg Fwd Diagnoses Third degree heart block I44.2 Recurrent UTI N39.0 Acute hyponatremia E87.1 Symptomatic bradycardia R00.1 Elevated troponin R79.89 Diabetes mellitus type 2, noninsulin dependent E11.9 Malignant neoplasm of posterior wall of bladder C67.4
== END 2023-02-11 14:23 | disposition skilled nursing facility (03) | DRG 242 ==
LOC: ER 15:56 → ICU 16:51 → CSU 02-09 16:36
PROVIDERS: Internal Medicine; Internal Medicine Cardiovascular Disease; Student in an Organized Health Care Education/Training Program; Thoracic Surgery (Cardiothoracic Vascular Surgery); Admitting Provider Student in an Organized Health Care Education/Training Program; Emergency Provider Family Medicine; PCP Nurse Practitioner Family; Visit Provider Internal Medicine
PROC: B2111ZZ Fluoroscopy of Multiple Coronary Arteries using Low Osmolar Contrast (ICD-10-PCS; principal; 2023-02-03 17:00)
PROC: 0JH606Z Insertion of Pacemaker, Dual Chamber into Chest Subcutaneous Tissue and Fascia, Open Approach (ICD-10-PCS; principal; 2023-02-07 07:00)
PROC: 0JWT0PZ Revision of Cardiac Rhythm Related Device in Trunk Subcutaneous Tissue and Fascia, Open Approach (ICD-10-PCS; principal; 2023-02-09 08:00)
DX: I44.2 Atrioventricular block, complete (principal); I21.4 Non-ST elevation (NSTEMI) myocardial infarction; E87.1 Hypo-osmolality and hyponatremia; T82.120A Displacement of cardiac electrode, initial encounter; N39.0 Urinary tract infection, site not specified; I25.10 Atherosclerotic heart disease of native coronary artery without angina pectoris; Z87.440 Personal history of urinary (tract) infections; E11.51 Type 2 diabetes mellitus with diabetic peripheral angiopathy without gangrene; I10 Essential (primary) hypertension; Y71.8 Miscellaneous cardiovascular devices associated with adverse incidents, not elsewhere classified; E78.2 Mixed hyperlipidemia; E04.1 Nontoxic single thyroid nodule; R19.7 Diarrhea, unspecified; Z85.51 Personal history of malignant neoplasm of bladder; Z87.891 Personal history of nicotine dependence
CPT/HCPCS: 36415; 36569; 36592; 51702; 71045; 76000; 80048; 80053; 80061; 81001; 81003; 82436; 82607; 82746; 83036; 83540; 83550; 83735; 83880; 84100; 84133; 84300; 84443; 84484; 85014; 85018; 85025; 85347; 85378; 85730; 85999; 86403; 86850; 86900; 86920; 87040; 87070; 87075; 87150; 87205; 87426; 87449; 87641; 93005; 93306; 93454; 94640; 96372; 96376; 97110; 97161; 97165; 97530; 99152; 99153; 99285; C1751; C1769; C1779; C1786; C1887; C1894; J0330; J0360; J0690; J0696; J1100; J1200; J1644; J1650; J1940; J2250; J2371; J2405; J2704; J3010; J3475; J7030; J7120; J7131; Q9967

== ENCOUNTER → 2023-02-22 09:40 | Outpatient (BNVA) | payer MEDICARE, OTHER, SELFPAY | PROVIDERS: PCP Nurse Practitioner Family; Visit Provider Nurse Practitioner Family | DX: I25.10 Atherosclerotic heart disease of native coronary artery without angina pectoris (principal); Z95.0 Presence of cardiac pacemaker; Z87.891 Personal history of nicotine dependence; I10 Essential (primary) hypertension | CPT/HCPCS: 36415; 80048; 83880; 99214 ==

== ENCOUNTER → 2023-02-25 13:35 | Outpatient (BNVA) | payer MEDICARE, OTHER, SELFPAY | PROVIDERS: PCP Nurse Practitioner Family; Visit Provider Nurse Practitioner Family | DX: R39.9 Unspecified symptoms and signs involving the genitourinary system (principal) | CPT/HCPCS: 81003 ==

== ENCOUNTER 2023-03-06 06:00 | Outpatient (RCR) | payer MEDICARE, OTHER, SELFPAY | END 2023-04-04 23:59 | disposition home or self-care (01) | LOC: TPT 06:00 | PROVIDERS: Visit Provider Nurse Practitioner Family | DX: R53.1 Weakness (principal); R26.81 Unsteadiness on feet | CPT/HCPCS: 97110 ==

== ENCOUNTER → 2023-03-18 11:13 | Outpatient (BNVA) | payer MEDICARE, OTHER, SELFPAY | PROVIDERS: Visit Provider Nurse Practitioner Family | DX: J32.9 Chronic sinusitis, unspecified (principal) | CPT/HCPCS: 80053; 85025 ==

== ENCOUNTER → 2023-04-05 11:27 | Outpatient (BNVA) | payer MEDICARE, OTHER, SELFPAY | PROVIDERS: PCP Nurse Practitioner Family; Visit Provider Nurse Practitioner Family | DX: N39.0 Urinary tract infection, site not specified (principal) | CPT/HCPCS: 81003; 87077; 87086; 87184 ==

== ENCOUNTER → 2023-04-15 15:46 | Outpatient (BNVA) | payer MEDICARE, OTHER, SELFPAY | PROVIDERS: PCP Nurse Practitioner Family; Visit Provider Nurse Practitioner Family | DX: N39.0 Urinary tract infection, site not specified (principal) | CPT/HCPCS: 81000 ==

== ENCOUNTER → 2023-04-23 08:59 | Outpatient (BNVA) | payer MEDICARE, OTHER, SELFPAY | PROVIDERS: PCP Nurse Practitioner Family; Visit Provider Nurse Practitioner Family | DX: N39.0 Urinary tract infection, site not specified (principal) | CPT/HCPCS: 81000 ==

== ENCOUNTER → 2023-05-02 12:22 | Outpatient (BNVA) | payer MEDICARE, OTHER, SELFPAY | PROVIDERS: PCP Nurse Practitioner Family; Visit Provider Nurse Practitioner Family | DX: N39.0 Urinary tract infection, site not specified (principal) | CPT/HCPCS: 81003; 87086; 87106 ==

== ENCOUNTER → 2023-06-04 10:00 | Outpatient (BNVA) | payer MEDICARE, OTHER, SELFPAY | PROVIDERS: PCP Nurse Practitioner Family; Visit Provider Nurse Practitioner Family | DX: N39.0 Urinary tract infection, site not specified (principal) | CPT/HCPCS: 81003 ==

== ENCOUNTER → 2023-06-14 10:42 | Outpatient (BNVA) | payer MEDICARE, OTHER, SELFPAY | PROVIDERS: PCP Nurse Practitioner Family; Visit Provider Internal Medicine Cardiovascular Disease | DX: Z45.010 Encounter for checking and testing of cardiac pacemaker pulse generator [battery] (principal) | CPT/HCPCS: 93296 ==

== ENCOUNTER → 2023-06-17 18:02 | Outpatient (BNVA) | payer MEDICARE, OTHER, SELFPAY | PROVIDERS: PCP Nurse Practitioner Family; Visit Provider Nurse Practitioner Family | DX: E55.9 Vitamin D deficiency, unspecified (principal); I25.10 Atherosclerotic heart disease of native coronary artery without angina pectoris; R53.1 Weakness | CPT/HCPCS: 80053; 80061; 82306; 84443; 85025 ==

== ENCOUNTER → 2023-07-25 14:09 | Outpatient (BNVA) | payer MEDICARE, OTHER, SELFPAY | PROVIDERS: PCP Nurse Practitioner Family; Visit Provider Internal Medicine Cardiovascular Disease | DX: E78.2 Mixed hyperlipidemia (principal); I10 Essential (primary) hypertension; Z95.0 Presence of cardiac pacemaker; I25.10 Atherosclerotic heart disease of native coronary artery without angina pectoris; Z87.891 Personal history of nicotine dependence; Z79.82 Long term (current) use of aspirin | CPT/HCPCS: 99214 ==

== ENCOUNTER → 2023-12-06 13:13 | Outpatient (BNVA) | payer MEDICARE, OTHER, SELFPAY | PROVIDERS: PCP Nurse Practitioner Family; Visit Provider Nurse Practitioner Family | DX: R30.0 Dysuria (principal); E78.2 Mixed hyperlipidemia; R73.9 Hyperglycemia, unspecified; I10 Essential (primary) hypertension | CPT/HCPCS: 81000; 87086 ==

== ENCOUNTER → 2023-12-10 09:31 | Outpatient (BNVA) | payer MEDICARE, OTHER, SELFPAY | PROVIDERS: PCP Nurse Practitioner Family; Visit Provider Nurse Practitioner Family | DX: E78.2 Mixed hyperlipidemia (principal); R73.9 Hyperglycemia, unspecified; E11.9 Type 2 diabetes mellitus without complications | CPT/HCPCS: 80053; 80061; 82043; 83036; 84443; 85025 ==

== ENCOUNTER → 2024-02-13 09:34 | Outpatient (BNVA) | payer MEDICARE, OTHER, SELFPAY | PROVIDERS: PCP Nurse Practitioner Family; Visit Provider Nurse Practitioner Family | DX: I10 Essential (primary) hypertension (principal); Z95.0 Presence of cardiac pacemaker; I25.10 Atherosclerotic heart disease of native coronary artery without angina pectoris; Z87.891 Personal history of nicotine dependence | CPT/HCPCS: 99214 ==

== ENCOUNTER → 2024-02-14 13:37 | Outpatient (BNVA) | payer MEDICARE, OTHER, SELFPAY | PROVIDERS: PCP Nurse Practitioner Family; Visit Provider Nurse Practitioner Family | DX: R30.0 Dysuria (principal); N39.0 Urinary tract infection, site not specified | CPT/HCPCS: 81000; 87086 ==

== ENCOUNTER → 2024-03-06 13:20 | Outpatient (BNVA) | payer MEDICARE, OTHER, SELFPAY | PROVIDERS: PCP Nurse Practitioner Family; Visit Provider Nurse Practitioner Family | DX: N39.0 Urinary tract infection, site not specified (principal) | CPT/HCPCS: 81000; 87086 ==

== ENCOUNTER → 2024-04-03 14:52 | Outpatient (BNVA) | payer MEDICARE, OTHER, SELFPAY | PROVIDERS: PCP Nurse Practitioner Family; Visit Provider Nurse Practitioner Family | DX: R30.0 Dysuria (principal) | CPT/HCPCS: 81000 ==

== ENCOUNTER → 2024-04-07 15:59 | Outpatient (BNVA) | payer MEDICARE, OTHER, SELFPAY | PROVIDERS: PCP Nurse Practitioner Family; Visit Provider Nurse Practitioner Family | DX: Z20.822 Contact with and (suspected) exposure to COVID-19 (principal) | CPT/HCPCS: 87426 ==

== ENCOUNTER → 2024-04-24 16:15 | Outpatient (BNVA) | payer MEDICARE, OTHER, SELFPAY | PROVIDERS: PCP Nurse Practitioner Family; Visit Provider Nurse Practitioner Family | DX: N39.0 Urinary tract infection, site not specified (principal) | CPT/HCPCS: 81000 ==

== ENCOUNTER → 2024-04-30 13:52 | Outpatient (BNVA) | payer MEDICARE, OTHER, SELFPAY | PROVIDERS: PCP Nurse Practitioner Family; Visit Provider Nurse Practitioner Family | DX: N39.0 Urinary tract infection, site not specified (principal) | CPT/HCPCS: 81000 ==

== ENCOUNTER → 2024-05-06 12:44 | Outpatient (BNVA) | payer MEDICARE, OTHER, SELFPAY | PROVIDERS: PCP Nurse Practitioner Family; Visit Provider Nurse Practitioner Family | DX: N39.0 Urinary tract infection, site not specified (principal) | CPT/HCPCS: 81000; 87086 ==

== ENCOUNTER → 2024-05-25 14:26 | Outpatient (BNVA) | payer MEDICARE, OTHER, SELFPAY | PROVIDERS: PCP Nurse Practitioner Family; Visit Provider Nurse Practitioner Family | DX: R30.0 Dysuria (principal) | CPT/HCPCS: 81000 ==

== ENCOUNTER → 2024-06-16 14:48 | Outpatient (BNVA) | payer MEDICARE, OTHER, SELFPAY | PROVIDERS: PCP Nurse Practitioner Family; Visit Provider Nurse Practitioner Family | DX: N39.0 Urinary tract infection, site not specified (principal); R19.8 Other specified symptoms and signs involving the digestive system and abdomen; E11.9 Type 2 diabetes mellitus without complications; I25.10 Atherosclerotic heart disease of native coronary artery without angina pectoris; R53.1 Weakness; I10 Essential (primary) hypertension; E78.2 Mixed hyperlipidemia | CPT/HCPCS: 80053; 80061; 81000; 83036; 84443; 85025; 87086 ==

== ENCOUNTER → 2024-06-23 14:50 | Outpatient (BNVA) | payer MEDICARE, OTHER, SELFPAY | PROVIDERS: PCP Nurse Practitioner Family; Visit Provider Nurse Practitioner Family | DX: N39.0 Urinary tract infection, site not specified (principal) | CPT/HCPCS: 81000 ==

== ENCOUNTER → 2024-07-01 09:32 | Outpatient (BNVA) | payer MEDICARE, OTHER, SELFPAY | PROVIDERS: PCP Nurse Practitioner Family; Visit Provider Nurse Practitioner Family | DX: N39.0 Urinary tract infection, site not specified (principal) | CPT/HCPCS: 81000 ==

== ENCOUNTER → 2024-07-24 14:33 | Outpatient (BNVA) | payer MEDICARE, OTHER, SELFPAY | PROVIDERS: PCP Nurse Practitioner Family; Visit Provider Nurse Practitioner Family | DX: N30.20 Other chronic cystitis without hematuria (principal); N39.0 Urinary tract infection, site not specified | CPT/HCPCS: 81000 ==

== ENCOUNTER → 2024-08-04 14:24 | Outpatient (BNVA) | payer MEDICARE, OTHER, SELFPAY | PROVIDERS: PCP Nurse Practitioner Family; Visit Provider Nurse Practitioner Family | DX: R10.9 Unspecified abdominal pain (principal); N39.0 Urinary tract infection, site not specified | CPT/HCPCS: 74018; 81000 ==

== ENCOUNTER → 2024-08-21 10:14 | Outpatient (BNVA) | payer MEDICARE, OTHER, SELFPAY | PROVIDERS: PCP Nurse Practitioner Family; Visit Provider Nurse Practitioner Family | DX: N39.0 Urinary tract infection, site not specified (principal); R19.7 Diarrhea, unspecified | CPT/HCPCS: 81000; 87086 ==

== ENCOUNTER → 2024-10-22 10:51 | Outpatient (BNVA) | payer MEDICARE, OTHER, SELFPAY | PROVIDERS: PCP Nurse Practitioner Family; Visit Provider Internal Medicine Cardiovascular Disease | DX: M48.062 Spinal stenosis, lumbar region with neurogenic claudication (principal); I25.10 Atherosclerotic heart disease of native coronary artery without angina pectoris; E78.2 Mixed hyperlipidemia; I10 Essential (primary) hypertension; Z95.0 Presence of cardiac pacemaker; E11.9 Type 2 diabetes mellitus without complications | CPT/HCPCS: 99214 ==

== ENCOUNTER → 2024-11-17 10:57 | Outpatient (BNVA) | payer MEDICARE, OTHER, SELFPAY | PROVIDERS: PCP Nurse Practitioner Family; Visit Provider Nurse Practitioner Family | DX: R35.0 Frequency of micturition (principal); N39.0 Urinary tract infection, site not specified; M75.52 Bursitis of left shoulder | CPT/HCPCS: 81000; 87086 ==

== ENCOUNTER → 2024-11-25 14:13 | Outpatient (BNVA) | payer MEDICARE, OTHER, SELFPAY | PROVIDERS: PCP Nurse Practitioner Family; Visit Provider Nurse Practitioner Family | DX: R39.9 Unspecified symptoms and signs involving the genitourinary system (principal); N39.0 Urinary tract infection, site not specified | CPT/HCPCS: 81000 ==

== ENCOUNTER → 2024-12-11 12:48 | Outpatient (BNVA) | payer MEDICARE, OTHER, SELFPAY | PROVIDERS: PCP Nurse Practitioner Family; Visit Provider Nurse Practitioner Family | DX: N39.0 Urinary tract infection, site not specified (principal) | CPT/HCPCS: 81000; 81003; 87086 ==

== ENCOUNTER → 2025-01-12 14:09 | Outpatient (BNVA) | payer MEDICARE, OTHER, SELFPAY | PROVIDERS: PCP Nurse Practitioner Family; Visit Provider Nurse Practitioner Family | DX: N39.0 Urinary tract infection, site not specified (principal) | CPT/HCPCS: 81000; 87086 ==

== ENCOUNTER → 2025-01-18 14:53 | Outpatient (BNVA) | payer MEDICARE, OTHER, SELFPAY | PROVIDERS: PCP Nurse Practitioner Family; Visit Provider Nurse Practitioner Family | DX: N39.0 Urinary tract infection, site not specified (principal) | CPT/HCPCS: 81000; 87086 ==

== ENCOUNTER → 2025-03-04 12:56 | Outpatient (BNVA) | payer MEDICARE, OTHER, SELFPAY | PROVIDERS: PCP Nurse Practitioner Family; Visit Provider Nurse Practitioner Family | DX: E11.9 Type 2 diabetes mellitus without complications (principal); E78.2 Mixed hyperlipidemia; I10 Essential (primary) hypertension; E55.9 Vitamin D deficiency, unspecified; I25.10 Atherosclerotic heart disease of native coronary artery without angina pectoris | CPT/HCPCS: 80053; 80061; 82306; 82607; 83036; 85025 ==

== ENCOUNTER → 2025-03-17 10:21 | Outpatient (BNVA) | payer MEDICARE, OTHER, SELFPAY | PROVIDERS: PCP Nurse Practitioner Family; Visit Provider Nurse Practitioner Family | DX: E87.0 Hyperosmolality and hypernatremia (principal) | CPT/HCPCS: 80048 ==

== ENCOUNTER → 2025-03-24 11:20 | Outpatient (BNVA) | payer MEDICARE, OTHER, SELFPAY | PROVIDERS: PCP Nurse Practitioner Family; Visit Provider Nurse Practitioner Family | DX: R30.0 Dysuria (principal) | CPT/HCPCS: 81000; 87086 ==

== ENCOUNTER → 2025-04-26 14:00 | Outpatient (BNVA) | payer MEDICARE, OTHER, SELFPAY | PROVIDERS: PCP Nurse Practitioner Family; Visit Provider Nurse Practitioner Family | DX: R39.9 Unspecified symptoms and signs involving the genitourinary system (principal); N39.0 Urinary tract infection, site not specified | CPT/HCPCS: 81000; 87086 ==

== ENCOUNTER → 2025-06-02 14:38 | Outpatient (BNVA) | payer MEDICARE, OTHER, SELFPAY | PROVIDERS: PCP Nurse Practitioner Family; Visit Provider Nurse Practitioner Family | DX: R39.9 Unspecified symptoms and signs involving the genitourinary system (principal); N39.0 Urinary tract infection, site not specified | CPT/HCPCS: 81000; 87086 ==

== ENCOUNTER → 2025-07-23 11:32 | Outpatient (BNVA) | payer MEDICARE, OTHER, SELFPAY | PROVIDERS: PCP Nurse Practitioner Family; Visit Provider Nurse Practitioner Family | DX: R30.0 Dysuria (principal); N39.0 Urinary tract infection, site not specified | CPT/HCPCS: 81000; 87086 ==